=== PATIENT | male | born 1935 | race Caucasian/White ===

== ENCOUNTER 2017-05-10 10:59 | Inpatient (IN) | payer MEDICARE, MEDICAID, OTHER ==
[2017-05-10 11:51] LABS: CHLORIDE,CL 98 mmol/L (98-107); SODIUM,NA 135 mmol/L (136-145)
[2017-05-10] MEDS ORDERED: Albuterol/Ipratropium 3.0-0.5 MG/3 ML Neb Soln NEB ONE (13:44)
[2017-05-10] MEDS ORDERED: Furosemide 40 MG/4 ML VIAL IVPUSH ONE (14:09)
[2017-05-10] MEDS: Sodium Chloride 0.9% 10 ML Syringe FLUSH PRN ×4 (14:43→23:32)
[2017-05-10] MEDS ORDERED: Albuterol/Ipratropium 3.0-0.5 MG/3 ML Neb Soln NEB PRN ×2 (15:00→15:01)
[2017-05-10] MEDS ORDERED: Bisacodyl 10 MG Supp RECTAL PRN (15:01)
--- NOTE | 2017-05-10 15:21 | PCM.HP ---
H&P History of Present Illness - General Date of Service: 05/10/17 Admit Problem/Dx: Admission Diagnosis/Problem Admission Diagnosis/Problem Pneumonia COPD CHF Hypoxia Source of Information: Patient, Alf Records History Limitations: Reports: No Limitations - History of Present Illness Onset of Symptoms: Reports: Gradual Duration of Symptoms: Reports: Day(s): (Four days, but SOB much less overnight) Location: Reports: Chest Severity: Moderate Improves with: Reports: Rest Worsens with: Reports: Movement Context: Reports: Other (Chronic COPD and CHF) Associated Symptoms: Reports: Cough, Malaise, Shortness of Breath, Weakness - Related Data Allergies/Adverse Reactions: Allergies Allergy/AdvReac Type Severity Reaction Status Date / Time cephalexin Allergy Itching,sul Verified 07/10/15 12:15 fa sulfamethoxazole Allergy Hives,itchi Verified 07/10/15 12:15 [From Bactrim] ng trimethoprim [From Bactrim] Allergy Hives,itchi Verified 07/10/15 12:15 ng Home Medications: Home Meds Acetaminophen [Tylenol Arthritis Pain] 650 mg PO Q4HR PRN MDD 3 04/14/15 [ History] Albuterol/Ipratropium [DuoNeb 3.0-0.5 MG/3 ML] 3 ml NEB Q4HR PRN 04/14/15 [ History] Cholecalciferol (Vitamin D3) [Vitamin D3] 800 unit PO QAM 04/14/15 [History] Dabigatran [Pradaxa] 150 mg PO Q12HR 04/14/15 [History] Digoxin [Lanoxin] 125 mcg PO QAM 04/14/15 [History] Docusate Sodium [Colace] 100 mg PO TID@0800,1200,199904/14/15 [History] Folic Acid 1 mg PO QAM 04/14/15 [History] Furosemide [Lasix] 60 mg PO QAM 04/14/15 [History] Magnesium Hydroxide [Milk of Magnesia] 30 ml PO Q2D@199904/14/15 [History] Magnesium Oxide 420 mg PO QAM 04/14/15 [History] Multivitamin [Multivitamins] 1 each PO QAM 04/14/15 [History] Polyethylene Glycol 3350 [MiraLAX] 17 gm PO Q2D@199904/14/15 [History] Pyridostigmine [Mestinon] 60 mg PO Q12HR 04/14/15 [History] Simvastatin [Zocor] 10 mg PO BEDTIME 04/14/15 [History] Tamsulosin [Flomax] 0.4 mg PO BEDTIME 04/14/15 [History] Thiamine Mononitrate [Vitamin B-1] 100 mg PO QAM 04/14/15 [History] Verapamil [Calan SR] 180 mg PO Q12HR 04/14/15 [History] glyBURIDE [Glyburide] 10 mg PO Q12HR 04/14/15 [History] metFORMIN [Glucophage] 1,000 mg PO Q12HR 04/14/15 [History] Acetaminophen [Tylenol Arthritis Pain] 650 mg PO BID@1200,1700 05/09/15 [History ] Bisacodyl [Dulcolax] 10 mg RECTAL DAILY PRN 07/10/15 [History] Colestipol [Colestipol HCl] 1 gm PO Q12HR 07/10/15 [History] Furosemide 20 mg PO DAILY@1200 07/10/15 [History] Calcium Carbonate/Vitamin D3 [Calcium 600 + Vit D Tablet] 1 tab PO Q12HR [History] Doxycycline [Vibramycin] 100 mg PO Q12HR 05/10/17 [History] Gabapentin [Neurontin] 100 mg PO BEDTIME 05/10/17 [History] Hydrocodone/Acetaminophen [Hydrocodon-Acetaminophen 5-325] 1 each PO TID@0800, 1200,2000 05/10/17 [History] predniSONE [Prednisone] 20 mg PO [id number] 05/10/17 [History] Past Medical History HEENT History: Reports: Cataract, Impaired Vision, Other (See Below) Other HEENT History: ocular myasthenia gravis Cardiovascular History: Reports: Afib, Arrhythmia, Heart Failure, High Cholesterol, Hypertension Respiratory History: Reports: COPD, Other (See Below) Other Respiratory History: benign pulmonary nodule Gastrointestinal History: Reports: Chronic Constipation, Colon Polyp, Hiatal Hernia, Other (See Below) Other Gastrointestinal History: dysphagia Genitourinary History: Reports: BPH, Urinary Incontinence Musculoskeletal History: Reports: Arthritis, Back Pain, Chronic, Neck Pain, Chronic, Osteoarthritis Neurological History: Reports: Neuropathy, Diabetic, Other (See Below) Other Neuro History: ocular myasthenia gravis Psychiatric History: Reports: Addiction (chronic narcotic use), Anxiety, Depression. Denies: Psych Hospitalization(s), Suicide Attempt, Suicidal Ideation Endocrine/Metabolic History: Reports: Diabetes, Type II, Vitamin D Deficiency, Other (See Below) Other Endocrine/Metabolic History: hypomagnesemia Hematologic History: Reports: Anemia, B12 Deficiency Immunologic History: Reports: None. Denies: AIDS, HIV, SLE Oncologic (Cancer) History: Reports: None Dermatologic History: Reports: None. Denies: Eczema, Psoriasis - Infectious Disease History Infectious Disease History: Reports: Chicken Pox, Measles, MRSA - Past Surgical History HEENT Surgical History: Reports: Cataract Surgery, Oral Surgery Musculoskeletal Surgical History: Reports: Other (See Below) - Past Imaging History Past Imaging History: Reports: Ultrasound (soft tissue neck on 04/17/15) Social & Family History - Family History HEENT: Reports: None. Denies: Allergic Rhinitis, Glaucoma, Macular Degeneration , Retinal Detachment Cardiac: Reports: Hypertension (mother, daughter). Denies: Aneurysm, Arrhythmia , Blood Clots/VTE/DVT, CAD, Heart Failure, High Cholesterol, Pacemaker GI: Reports: Cholelithiasis (maternal grandmother). Denies: Colon Polyps, GERD , GI bleed, Inflammatory Bowel Disease, PUD : Reports: None. Denies: Dialysis, Renal Calculus, Renal Disease/ Insufficiency OBGYN: Reports: None. Denies: Endometriosis Musculoskeletal: Reports: RA (father). Denies: Gout, SLE Neurological: Reports: Alzheimers Disease, CVA, Dementia, Migraines, Other (See Below) Other Neurological Family History: no family history of myasthenia gravis Psychiatric: Reports: None. Denies: Abuse, Victim of, Anxiety, Depression, Psych Hospitalization(s), Suicide Attempt Endocrine/Metabolic: Reports: Hypothyroidism (maternal grandmother). Denies: Diabetes, Type I, Diabetes, type II, IDDM Hematologic: Reports: Transfusion Reaction Immunologic: Reports: None. Denies: AIDS, HIV, SLE Dermatologic: Reports: None. Denies: Angiodema, Eczema, Psoriasis Oncologic: Reports: None. Denies: Colon, Hodgkin's Lymphoma, Leukemia, Lymphoma , Non-Hodgkin's Lymphoma, Prostate - Tobacco Use Smoking Status *Q: Former Smoker Years of Tobacco use: 32 (between the ages 24 through 80) Packs/Tins Daily: 1.5 (additional subsequent cigar use) Used Tobacco, but Quit: Yes Month Tobacco Last Used: last used in 1989 Second Hand Smoke Exposure: No - Caffeine Use Caffeine Use: Reports: Coffee (3 cups per day), Soda (one soda per day). Denies : Energy Drinks, Tea - Alcohol Use Days Per Week of Alcohol Use: 0 (no previous DWI, alcohol problems, etc) Number of Drinks Per Day: 0 (none [facility] the [facility], previously 2 mixed drinks per night) Total Drinks Per Week: 0 - Recreational Drug Use Recreational Drug Use: No Drug Use in Last 12 Months: No - Living Situation & Occupation Living situation: Reports: , Extended Care Facility Occupation: Retired H&P Review of Systems - Review of Systems: Review Of Systems: See Below General: Reports: Malaise, Weakness, Fatigue HEENT: Reports: No Symptoms Pulmonary: Reports: Shortness of Breath, Pleuritic Chest Pain, Cough Cardiovascular: Reports: No Symptoms Gastrointestinal: Reports: No Symptoms Genitourinary: Reports: No Symptoms Musculoskeletal: Reports: No Symptoms Skin: Reports: No Symptoms Psychiatric: Reports: No Symptoms Neurological: Reports: No Symptoms Exam - Exam Exam: See Below - Exam Quality Assessment: Supplemental Oxygen (applied this morning at [facility] for O2 sat 81% RA) General: Alert, Oriented, Mild Distress HEENT: Hearing Intact, Posterior Pharynx Clear Neck: Supple, Trachea Midline Lungs: Decreased Breath Sounds, Crackles (bibasilar) Cardiovascular: Irregular Rhythm GI/Abdominal Exam: Normal Bowel Sounds, Soft, Non-Tender, No Organomegaly (Male) Exam: Deferred Rectal (Males) Exam: Deferred Back Exam: Normal Inspection Extremities: Pedal Edema (2+) Skin: Warm, Dry, Intact Neuro Extensive - Mental Status: Alert, Oriented x3 Psychiatric: Alert, Normal Affect, Normal Mood - Patient Data Lab Results Last 24 hrs: Laboratory Results - last 24 hr 05/10/17 05/10/17 05/10/17 Range/Units 11:00 11:14 11:14 WBC 8.3 (4.0-10.2) K/uL RBC 3.93 L (4.33-5.41) M/uL Hgb 9.4 L D (13.1-16.8) g/dL Hct 32.1 L (39.0-49.0) % MCV 81.7 L D (84.0-98.0) fL MCH 23.9 L (28.2-33.3) pg MCHC 29.3 L (31.7-36.0) g/dL RDW 17.1 H (11.2-14.1) % Plt Count 264 (150-350) K/uL Neut % (Auto) 87.4 H (45.0-80.0) % Lymph % (Auto) 6.1 L (10.0-50.0) % Morrill % (Auto) 6.1 (2.0-14.0) % Eos % (Auto) 0.0 (0.0-5.0) % Baso % (Auto) 0.4 (0.0-2.0) % Neut # (Auto) 7.26 H (1.40-7.00) K/uL Lymph # (Auto) 0.51 (0.50-3.50) K/uL Morrill # (Auto) 0.51 (0.00-1.00) K/uL Eos # (Auto) 0.00 (0.00-0.50) K/uL Baso # (Auto) 0.03 (0.00-0.20) K/uL D-Dimer, Quantitative 159 (0-400) ng/mL Sodium 135 L (136-145) mmol/L Potassium 5.1 (3.5-5.1) mmol/L Chloride 98 (98-107) mmol/L Carbon Dioxide 31.1 (21.0-32.0) mmol/L BUN 21 H (7-18) mg/dL Creatinine 0.89 (0.51-1.17) mg/dL Est Cr Clr Drug Dosing TNP Estimated GFR (MDRD) > 60 mL/min Glucose 370 H* (74-106) mg/dL Calcium 8.7 (8.5-10.1) mg/dL Total Bilirubin 0.4 (0.2-1.0) mg/dL AST 40 H (15-37) U/L ALT 39 (12-78) U/L Alkaline Phosphatase 109 (46-116) IU/L Troponin I 0.037 (0.000-0.056) ng/mL C-Reactive Protein 3.8 H (<=0.9) mg/dL NT-Pro-B Natriuret Pep 2056 H (0-125) pg/mL Total Protein 8.3 H (6.4-8.2) g/dL Albumin 3.4 (3.4-5.0) g/dL Result Diagrams: 05/10/17 11:14 05/10/17 11:14 *Q Meaningful Use (ADM) - VTE *Q VTE Criteria *Q: - Stroke *Q Stroke Criteria *Q: - AMI *Q AMI Criteria *Q: - Problem List (1) Pneumonia SNOMED Code(s): 264609719 ICD Code: J18.9 - PNEUMONIA, UNSPECIFIED ORGANISM Status: Acute Priority : High Current Visit: Yes Qualifiers: Laterality: bilateral Lung location: unspecified part of lung (2) CHF (congestive heart failure) SNOMED Code(s): 15328579 ICD Code: I50.9 - HEART FAILURE, UNSPECIFIED Status: Acute Priority: High Current Visit: Yes Qualifiers: Heart failure type: unspecified Heart failure chronicity: acute on chronic Qualified Code(s): I50.9 - Heart failure, unspecified (3) Hypoxia SNOMED Code(s): 005586963 ICD Code: R09.02 - HYPOXEMIA Status: Acute Priority: High Current Visit : Yes Problem List Initiated/Reviewed/Updated: Yes Orders Last 24hrs: Active Orders 24 hr Category Date Time Status Patient Status [ADT] Routine ADT 05/10/17 13:44 Active Glucose [Blood Glucose Check, Bedside] [RC] TIDMEALS Care 05/10/17 14:36 Active Height and Weight [RC] DAILY Care 05/10/17 13:44 Active Intake and Output [RC] QSHIFT Care 05/10/17 13:45 Active Oxygen Therapy [RC] PRN Care 05/10/17 13:44 Active RT Aerosol Therapy [RC] ASDIRECTED Care 05/10/17 13:46 Active RT Aerosol Therapy [RC] ASDIRECTED Care 05/10/17 14:30 Active RT Aerosol Therapy [RC] ASDIRECTED Care 05/10/17 15:01 Active Up With Assistance [RC] ASDIRECTED Care 05/10/17 13:44 Active VTE/DVT Education [RC] PER UNIT ROUTINE Care 05/10/17 13:44 Active Vital Signs [RC] Q4H Care 05/10/17 13:44 Active Care Management Consult [Consult to Case Management] [ Cons 05/10/17 14:10 Active CONS] Routine [place] [employer] Diet [DIET] Diet 05/10/17 Dinner Active Chest 2V [CR] Routine Exams 05/10/17 11:05 Taken C-REACTIVE PROTEIN [CHEM] AM Lab 05/11/17 05:11 Ordered C-REACTIVE PROTEIN [CHEM] AM Lab 05/12/17 05:11 Ordered C-REACTIVE PROTEIN [CHEM] AM Lab 05/13/17 05:11 Ordered C-REACTIVE PROTEIN [CHEM] AM Lab 05/14/17 05:11 Ordered CBC WITH AUTO DIFF [HEME] AM Lab 05/11/17 05:11 Ordered CBC WITH AUTO DIFF [HEME] AM Lab 05/12/17 05:11 Ordered CBC WITH AUTO DIFF [HEME] AM Lab 05/13/17 05:11 Ordered CBC WITH AUTO DIFF [HEME] AM Lab 05/14/17 05:11 Ordered COMPREHENSIVE METABOLIC PN,CMP [CHEM] AM Lab 05/11/17 05:11 Ordered COMPREHENSIVE METABOLIC PN,CMP [CHEM] AM Lab 05/12/17 05:11 Ordered COMPREHENSIVE METABOLIC PN,CMP [CHEM] AM Lab 05/13/17 05:11 Ordered COMPREHENSIVE METABOLIC PN,CMP [CHEM] AM Lab 05/14/17 05:11 Ordered CULTURE BLOOD [BC] Stat Lab 05/10/17 14:25 Received CULTURE BLOOD [BC] Stat Lab 05/10/17 14:30 Received PRO B-TYPE NATRIUR PEPT,BNPPRO [CHEM] DAILY Lab 05/11/17 14:00 Ordered PRO B-TYPE NATRIUR PEPT,BNPPRO [CHEM] DAILY Lab 05/12/17 14:00 Ordered PRO B-TYPE NATRIUR PEPT,BNPPRO [CHEM] DAILY Lab 05/13/17 14:00 Ordered PRO B-TYPE NATRIUR PEPT,BNPPRO [CHEM] DAILY Lab 05/14/17 14:00 Ordered Acetaminophen [Tylenol Arthritis Pain] Med 05/10/17 17:00 Ordered 650 mg PO BID@1200,1700 Acetaminophen/HYDROcodone [Grace 325-5 MG] Med 05/10/17 20:00 Ordered 1 each PO TID@0800,1200,2000 Albuterol/Ipratropium [DuoNeb 3.0-0.5 MG/3 ML] Med 05/10/17 16:00 Active 3 ml NEB QID Bisacodyl [Dulcolax] Med 05/10/17 15:01 Ordered 10 mg RECTAL DAILY PRN Colestipol [Colestipol HCl] Med 05/10/17 20:00 Ordered 1 gm PO Q12HR Dabigatran Med 05/10/17 20:00 Ordered 150 mg PO Q12HR Digoxin [Lanoxin] Med 05/11/17 08:00 Ordered 125 mcg PO QAM Docusate Sodium [Colace] Med 05/10/17 20:00 Ordered 100 mg PO TID@0800,1200,2000 Furosemide [Lasix] Med 05/11/17 08:00 Active 40 mg IVPUSH BIDDIURETIC Gabapentin [Neurontin] Med 05/10/17 20:00 Ordered 100 mg PO BEDTIME Hydrocortisone Sod Succinate [Solu-CORTEF] Med 05/10/17 20:00 Ordered 20 mg IVPUSH Q12H Magnesium Hydroxide [Milk of Magnesia] Med 05/10/17 20:00 Ordered 30 ml PO Q2D@1999 Magnesium Oxide [Magnesium Oxide] Med 05/11/17 08:00 Ordered 420 mg PO QAM Polyethylene Glycol 3350 [MiraLAX] Med 05/10/17 20:00 Ordered 17 gm PO Q2D@1999 Pyridostigmine Med 05/10/17 20:00 Ordered 60 mg PO Q12HR Simvastatin [Zocor] Med 05/10/17 20:00 Ordered 10 mg PO BEDTIME Sodium Chloride 0.9% [Saline Flush] Med 05/10/17 13:44 Active 10 ml FLUSH ASDIRECTED PRN Tamsulosin [Flomax] Med 05/10/17 20:00 Ordered 0.4 mg PO BEDTIME Verapamil [Calan SR] Med 05/10/17 20:00 Ordered 180 mg PO Q12HR glyBURIDE [Micronase] Med 05/10/17 20:00 Ordered 10 mg PO Q12HR metFORMIN [Glucophage] Med 05/10/17 20:00 Ordered 1,000 mg PO Q12HR Blood Culture x2 Reflex Set [OM.PC] Stat Oth 05/10/17 13:44 Ordered Saline Lock Insert [OM.PC] Routine Oth 05/10/17 13:44 Ordered Resuscitation Status Routine Resus Stat 05/10/17 13:44 Ordered Medication Orders Acetaminophen (Tylenol Arthritis Pain) 650 mg PO BID@1200,1700 [facility] Hydrocodone Bitart/Acetaminophen (Grace 325-5 Mg) 1 tab PO TID@0800,1200,2000 [facility] Albuterol/Ipratropium (Duoneb 3.0-0.5 Mg/3 Ml) 3 ml NEB QID RUDY Bisacodyl (Dulcolax) 10 mg RECTAL DAILY PRN PRN Reason: Constipation Digoxin (Lanoxin) 125 mcg PO QAM RUDY Docusate Sodium (Colace) 100 mg PO TID@0800,1200,2000 [facility] Furosemide (Lasix) 40 mg IVPUSH BIDDIURETIC RUDY Gabapentin (Neurontin) 100 mg PO BEDTIME RUDY Glyburide (Micronase) 10 mg PO Q12HR [facility] Hydrocortisone Sodium Succinate (Solu-Cortef) 20 mg IVPUSH Q12H [facility] Magnesium Hydroxide (Milk Of Magnesia) 30 ml PO Q2D@2000 [facility] Non-Formulary Medication (Colestipol [Colestipol Hcl]) 1 gm PO Q12HR [facility] Non-Formulary Medication (Dabigatran) 150 mg PO Q12HR [facility] Non-Formulary Medication (Magnesium Oxide [Magnesium Oxide]) 420 mg PO QAM [facility] Non-Formulary Medication (Metformin [Glucophage]) 1,000 mg PO Q12HR [facility] Non-Formulary Medication (Pyridostigmine) 60 mg PO Q12HR [facility] Polyethylene Glycol (Miralax) 17 gm PO Q2D@2000 [facility] Simvastatin (Zocor) 10 mg PO BEDTIME [facility] Sodium Chloride (Saline Flush) 10 ml FLUSH ASDIRECTED PRN PRN Reason: Keep Vein Open Last Admin: 05/10/17 14:43 Dose: 10 ml Tamsulosin HCl (Flomax) 0.4 mg PO BEDTIME [facility] Verapamil HCl (Calan Sr) 180 mg PO Q12HR [facility] Assessment/Plan Comment:: 05-10-17 Shelly Morales PA-C Admitting to from the [facility] after OP therapy failure for exacerbation of COPD and CHF, now with additional pneumonia. He had presented to the nurses' station at the [facility] this morning c/o SOB and was found with O2 sat of 81-83% on RA, oxygen was applied and sat did come up to 92%. On eval at [facility] resp's were audibly moist and pt. appeared to be using accessory muscles. Did contact [facility] and there is no bed availability. [facility] will discuss possible transfer with Jeanne tomorrow. Dr. Diaz was consulted at the time of admit. IV Lasix and Solu-Medrol, and antibiotics. This elderly gentleman with multiple chronic co-morbidities will require at least 96 hours of IP treatment.
[2017-05-10] MEDS: Acetaminophen 650 MG Tab.ER PO SCH (16:30)
[2017-05-10] MEDS: Albuterol/Ipratropium 3.0-0.5 MG/3 ML Neb Soln NEB SCH ×2 (16:30→20:05)
[2017-05-10] MEDS: Azithromycin 500 MG in Sodium Chloride 0.9% 250 ML IV SCH (16:30)
[2017-05-10] MEDS: cefTAZidime 1 GM Vial IVPUSH SCH ×2 (16:30→23:32)
[2017-05-10] MEDS: Acetaminophen/HYDROcodone 325-5 MG Tab PO SCH (20:01)
[2017-05-10] MEDS: metFORMIN 500 MG Tab PO SCH (20:02)
[2017-05-10] MEDS: glyBURIDE 5 MG Tab PO SCH (20:03)
[2017-05-10] MEDS: Gabapentin 100 MG Cap PO SCH (20:03)
[2017-05-10] MEDS: Tamsulosin 0.4 MG Cap.ER PO SCH (20:04)
[2017-05-10] MEDS: Verapamil 180 MG Tab.ER PO SCH (20:04)
[2017-05-10] MEDS: Docusate Sodium 100 MG Cap PO SCH (20:04)
[2017-05-10] MEDS: Simvastatin 10 MG Tab PO SCH (20:04)
[2017-05-10] MEDS: Hydrocortisone Sodium Succinate 100 MG/2 ML SDV IVPUSH SCH (20:05)
[2017-05-10] MEDS: COLESTIPOL 1 GM PO SCH (20:08)
[2017-05-10] MEDS: PRADAXA 150 MG PO SCH (20:09)
[2017-05-10] MEDS: PYRIDOSTIGMINE 60 MG PO SCH (20:10)
[2017-05-10] MEDS: Magnesium Hydroxide 400 MG/5 ML Susp 30 ML Cup PO SCH (20:16)
[2017-05-11 07:59] LABS: CHLORIDE,CL 100 mmol/L (98-107); SODIUM,NA 139 mmol/L (136-145)
[2017-05-11] MEDS: Sodium Chloride 0.9% 10 ML Syringe FLUSH PRN ×5 (08:44→20:39)
[2017-05-11] MEDS: Albuterol/Ipratropium 3.0-0.5 MG/3 ML Neb Soln NEB SCH ×4 (08:44→20:35)
[2017-05-11] MEDS: Hydrocortisone Sodium Succinate 100 MG/2 ML SDV IVPUSH SCH ×2 (08:45→20:33)
[2017-05-11] MEDS: cefTAZidime 1 GM Vial IVPUSH SCH ×2 (08:46→20:33)
[2017-05-11] MEDS: PRADAXA 150 MG PO SCH ×2 (08:48→20:38)
[2017-05-11] MEDS: PYRIDOSTIGMINE 60 MG PO SCH ×2 (08:48→20:36)
[2017-05-11] MEDS: COLESTIPOL 1 GM PO SCH ×2 (08:49→20:36)
[2017-05-11] MEDS: metFORMIN 500 MG Tab PO SCH ×2 (08:50→20:35)
[2017-05-11] MEDS: Digoxin 125 MCG Tab PO SCH (08:50)
[2017-05-11] MEDS: glyBURIDE 5 MG Tab PO SCH ×2 (08:50→20:35)
[2017-05-11] MEDS: Acetaminophen/HYDROcodone 325-5 MG Tab PO SCH ×3 (08:51→20:35)
[2017-05-11] MEDS: Magnesium Oxide 400 MG Tab PO SCH (08:51)
[2017-05-11] MEDS: Furosemide 40 MG/4 ML VIAL IVPUSH SCH ×2 (08:52→11:52)
[2017-05-11] MEDS: Docusate Sodium 100 MG Cap PO SCH ×4 (08:52→20:36)
[2017-05-11] MEDS: Verapamil 180 MG Tab.ER PO SCH ×2 (08:52→20:35)
[2017-05-11] MEDS: Acetaminophen 650 MG Tab.ER PO SCH ×2 (11:51→16:38)
[2017-05-11] MEDS: Azithromycin 500 MG in Sodium Chloride 0.9% 250 ML IV SCH (16:34)
--- NOTE | 2017-05-11 18:03 | PCM.PN ---
- General Info Date of Service: 05/11/17 Admission Dx/Problem (Free Text): Admission Diagnosis/Problem Admission Diagnosis/Problem Pneumonia COPD CHF Hypoxia Functional Status: Reports: Tolerating Diet - Review of Systems General: Reports: Weakness HEENT: Reports: No Symptoms Pulmonary: Reports: Shortness of Breath, Cough, Wheezing Cardiovascular: Reports: No Symptoms Gastrointestinal: Reports: No Symptoms Genitourinary: Reports: No Symptoms Musculoskeletal: Reports: No Symptoms Skin: Reports: No Symptoms Neurological: Reports: No Symptoms Psychiatric: Reports: No Symptoms - Patient Data Vitals - Most Recent: Last Vital Signs Temp 98.2 F 05/11/17 16:00 Pulse 82 05/11/17 16:00 Resp 16 05/11/17 16:00 BP 106/48 L 05/11/17 16:00 Pulse Ox 93 L 05/11/17 16:00 Weight - Most Recent: 261 lb 15.993 oz I&O - Last 24 Hours: Intake & Output 05/11/17 05/11/17 05/11/17 06:59 14:59 22:59 Intake Total 100 140 Output Total 400 725 Balance -300 -585 Lab Results Last 24 Hours: Laboratory Results - last 24 hr 05/11/17 05/11/17 05/11/17 Range/Units 07:13 07:13 07:13 WBC 8.4 (4.0-10.2) K/uL RBC 3.51 L (4.33-5.41) M/uL Hgb 8.4 L (13.1-16.8) g/dL Hct 28.8 L (39.0-49.0) % MCV 82.1 L (84.0-98.0) fL MCH 23.9 L (28.2-33.3) pg MCHC 29.2 L (31.7-36.0) g/dL RDW 17.1 H (11.2-14.1) % Plt Count 233 (150-350) K/uL Neut % (Auto) 72.6 (45.0-80.0) % Lymph % (Auto) 13.8 (10.0-50.0) % [place] % (Auto) 13.0 (2.0-14.0) % Eos % (Auto) 0.2 (0.0-5.0) % Baso % (Auto) 0.4 (0.0-2.0) % Neut # (Auto) 6.07 (1.40-7.00) K/uL Lymph # (Auto) 1.15 (0.50-3.50) K/uL [place] # (Auto) 1.09 H (0.00-1.00) K/uL Eos # (Auto) 0.02 (0.00-0.50) K/uL Baso # (Auto) 0.03 (0.00-0.20) K/uL Sodium 139 (136-145) mmol/L Potassium 4.6 (3.5-5.1) mmol/L Chloride 100 (98-107) mmol/L Carbon Dioxide 33.1 H (21.0-32.0) mmol/L BUN 19 H (7-18) mg/dL Creatinine 0.84 (0.51-1.17) mg/dL Est Cr Clr Drug Dosing 73.98 mL/min Estimated GFR (MDRD) > 60 mL/min Glucose 181 H (74-106) mg/dL POC Glucose (65-110) mg/dl Lactic Acid (0.4-2.0) mmol/L Calcium 8.5 (8.5-10.1) mg/dL Total Bilirubin 0.3 (0.2-1.0) mg/dL AST 30 (15-37) U/L ALT 30 (12-78) U/L Alkaline Phosphatase 84 (46-116) IU/L C-Reactive Protein 4.5 H (<=0.9) mg/dL NT-Pro-B Natriuret Pep 2509 H (0-125) pg/mL Total Protein 7.1 (6.4-8.2) g/dL Albumin 2.7 L (3.4-5.0) g/dL Digoxin 0.62 L (0.90-2.00) ng/mL 05/11/17 05/11/17 05/11/17 Range/Units 07:13 08:42 11:54 WBC (4.0-10.2) K/uL RBC (4.33-5.41) M/uL Hgb (13.1-16.8) g/dL Hct (39.0-49.0) % MCV (84.0-98.0) fL MCH (28.2-33.3) pg MCHC (31.7-36.0) g/dL RDW (11.2-14.1) % Plt Count (150-350) K/uL Neut % (Auto) (45.0-80.0) % Lymph % (Auto) (10.0-50.0) % [place] % (Auto) (2.0-14.0) % Eos % (Auto) (0.0-5.0) % Baso % (Auto) (0.0-2.0) % Neut # (Auto) (1.40-7.00) K/uL Lymph # (Auto) (0.50-3.50) K/uL [place] # (Auto) (0.00-1.00) K/uL Eos # (Auto) (0.00-0.50) K/uL Baso # (Auto) (0.00-0.20) K/uL Sodium (136-145) mmol/L Potassium (3.5-5.1) mmol/L Chloride (98-107) mmol/L Carbon Dioxide (21.0-32.0) mmol/L BUN (7-18) mg/dL Creatinine (0.51-1.17) mg/dL Est Cr Clr Drug Dosing mL/min Estimated GFR (MDRD) mL/min Glucose (74-106) mg/dL POC Glucose 212 H 253 H* (65-110) mg/dl Lactic Acid 1.1 (0.4-2.0) mmol/L Calcium (8.5-10.1) mg/dL Total Bilirubin (0.2-1.0) mg/dL AST (15-37) U/L ALT (12-78) U/L Alkaline Phosphatase (46-116) IU/L C-Reactive Protein (<=0.9) mg/dL NT-Pro-B Natriuret Pep (0-125) pg/mL Total Protein (6.4-8.2) g/dL Albumin (3.4-5.0) g/dL Digoxin (0.90-2.00) ng/mL Meño Results Last 24 Hours: Microbiology 05/10/17 14:30 Aerobic Blood Culture - Preliminary Blood - Venous - Lab Draw NO GROWTH AFTER 1 DAY Anaerobic Blood Culture - Preliminary NO GROWTH AFTER 1 DAY 05/10/17 14:25 Aerobic Blood Culture - Preliminary Blood - Venous NO GROWTH AFTER 1 DAY Anaerobic Blood Culture - Preliminary NO GROWTH AFTER 1 DAY Med Orders - Current: Current Medications Acetaminophen (Tylenol Arthritis Pain) 650 mg PO BID@1200,1700 [facility] Last Admin: 05/11/17 16:38 Dose: 650 mg Hydrocodone Bitart/Acetaminophen (Burt 325-5 Mg) 1 tab PO TID@0800,1199,1999 [facility] Last Admin: 05/11/17 11:51 Dose: 1 tab Albuterol/Ipratropium (Duoneb 3.0-0.5 Mg/3 Ml) 3 ml NEB QID [facility] Last Admin: 05/11/17 16:36 Dose: 3 ml Bisacodyl (Dulcolax) 10 mg RECTAL DAILY PRN PRN Reason: Constipation Ceftazidime (Fortaz) 1 gm IVPUSH Q12HR [facility] Digoxin (Lanoxin) 125 mcg PO QAM [facility] Last Admin: 05/11/17 08:50 Dose: 125 mcg Docusate Sodium (Colace) 100 mg PO TID@0800,1199,1999 [facility] Last Admin: 05/11/17 12:05 Dose: 100 mg Furosemide (Lasix) 40 mg IVPUSH BIDDIURETIC [facility] Last Admin: 05/11/17 11:52 Dose: 40 mg Gabapentin (Neurontin) 100 mg PO BEDTIME [facility] Last Admin: 05/10/17 20:03 Dose: 100 mg Glyburide (Micronase) 10 mg PO Q12HR [facility] Last Admin: 05/11/17 08:50 Dose: 10 mg Hydrocortisone Sodium Succinate (Solu-Cortef) 20 mg IVPUSH Q12H [facility] Last Admin: 05/11/17 08:45 Dose: 20 mg Azithromycin 500 mg/ Sodium (Chloride) 250 mls @ 250 mls/hr IV Q24H [facility] Last Admin: 05/11/17 16:34 Dose: 250 mls/hr Magnesium Hydroxide (Milk Of Magnesia) 30 ml PO Q2D@1999 [facility] Last Admin: 05/10/17 20:16 Dose: 30 ml Magnesium Oxide (Magnesium Oxide) 400 mg PO QAM [facility] Last Admin: 05/11/17 08:51 Dose: 400 mg Metformin HCl (Glucophage) 1,000 mg PO Q12HR [facility] Last Admin: 05/11/17 08:50 Dose: 1,000 mg Colestipol [Colestid (] 1 Gm) 1 gm PO Q12HR [facility] Last Admin: 05/11/17 08:49 Dose: 1 gm Pradaxa (Dabigatran) (150 Mg Capsules) 150 mg PO Q12HR [facility] Last Admin: 05/11/17 08:48 Dose: 150 mg Pyridostigmine 60 Mg (Tablets (Mestinon)) 60 mg PO Q12HR [facility] Last Admin: 05/11/17 08:48 Dose: 60 mg Polyethylene Glycol (Miralax) 17 gm PO Q2D@1999 [facility] Simvastatin (Zocor) 10 mg PO BEDTIME [facility] Last Admin: 05/10/17 20:04 Dose: 10 mg Sodium Chloride (Saline Flush) 10 ml FLUSH ASDIRECTED PRN PRN Reason: Keep Vein Open Last Admin: 05/11/17 16:36 Dose: 10 ml Tamsulosin HCl (Flomax) 0.4 mg PO BEDTIME [facility] Last Admin: 05/10/17 20:04 Dose: 0.4 mg Verapamil HCl (Calan Sr) 180 mg PO Q12HR [facility] Last Admin: 05/11/17 08:52 Dose: 180 mg Discontinued Medications Albuterol/Ipratropium (Duoneb 3.0-0.5 Mg/3 Ml) 3 ml NEB ONETIME ONE Stop: 05/10/17 13:45 Last Admin: 05/10/17 14:11 Dose: 3 ml Albuterol/Ipratropium (Duoneb 3.0-0.5 Mg/3 Ml) 3 ml NEB Q4H PRN PRN Reason: Dyspnea Ceftazidime (Fortaz) 1 gm IVPUSH Q8HR [facility] Last Admin: 05/11/17 08:46 Dose: 1 gm Furosemide (Lasix) 40 mg IVPUSH NOW ONE Stop: 05/10/17 14:10 Last Admin: 05/10/17 14:42 Dose: 40 mg - Exam Quality Assessment: Supplemental Oxygen General: Alert, Cooperative HEENT: Mucous Membr. Moist/[place] Neck: Trachea Midline, No JVD Lungs: Normal Respiratory Effort, Decreased Breath Sounds, Rhonchi, Wheezing Cardiovascular: Regular Rate, Regular Rhythm GI/Abdominal Exam: Soft, Non-Tender, No Distention (Male) Exam: Deferred Back Exam: Normal Inspection Extremities: Normal Inspection, Non-Tender Skin: Warm, Dry, Intact Neurological: No New Focal Deficit Psy/Mental Status: Alert, Normal Affect, Normal Mood - Problem List & Annotations (1) CHF (congestive heart failure) SNOMED Code(s): 52939208 Code(s): I50.9 - HEART FAILURE, UNSPECIFIED Status: Acute Priority: High Current Visit: Yes Qualifiers: Heart failure type: unspecified Heart failure chronicity: acute on chronic Qualified Code(s): I50.9 - Heart failure, unspecified (2) Hypoxia SNOMED Code(s): 342916472 Code(s): R09.02 - HYPOXEMIA Status: Acute Priority: High Current Visit : Yes (3) Pneumonia SNOMED Code(s): 955692001 Code(s): J18.9 - PNEUMONIA, UNSPECIFIED ORGANISM Status: Acute Priority: High Current Visit: Yes Qualifiers: Laterality: bilateral Lung location: unspecified part of lung (4) Atrial fibrillation SNOMED Code(s): 33830951 Code(s): I48.91 - UNSPECIFIED ATRIAL FIBRILLATION Status: Chronic Priority: Medium Current Visit: No Qualifiers: Atrial fibrillation type: chronic Qualified Code(s): I48.2 - Chronic atrial fibrillation Annotation/Comment:: No chest pain or anginal-type symptoms. Stable heart rhythm in the emergency room (5) COPD (chronic obstructive pulmonary disease) SNOMED Code(s): 93554363 Code(s): J44.9 - CHRONIC OBSTRUCTIVE PULMONARY DISEASE, UNSPECIFIED Status : Chronic Priority: Medium Current Visit: No Qualifiers: COPD type: unspecified COPD Qualified Code(s): J44.9 - Chronic obstructive pulmonary disease, unspecified Annotation/Comment:: No recent cough, bronchitic-type symptoms, etc. (6) Caries SNOMED Code(s): 76794897 Code(s): K02.9 - DENTAL CARIES, UNSPECIFIED Status: Chronic Priority: High Current Visit: No Onset Date: 07/10/15 Annotation/Comment:: CT scan results as above. 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 His regular provider will be updated as per discharge instructions. Hyperglycemia likely elated to his poor dental hygiene and also current infection with referral to oral surgeon recommended (8) Hyperlipidemia SNOMED Code(s): 42232995 Code(s): E78.5 - HYPERLIPIDEMIA, UNSPECIFIED Status: Chronic Priority: Medium Current Visit: No Qualifiers: Hyperlipidemia type: Mixed hyperlipidemia Qualified Code(s): E78.2 - Mixed hyperlipidemia Annotation/Comment:: under medical therapy (9) Hypertension SNOMED Code(s): 44240636 Code(s): I10 - ESSENTIAL (PRIMARY) HYPERTENSION Status: Chronic Priority : Medium Current Visit: No Qualifiers: Hypertension type: essential hypertension Qualified Code(s): I10 - Essential (primary) hypertension Annotation/Comment:: blood pressure stable in the emergency room (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 SNOMED Code(s): 181655673 Code(s): 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, NEC Status: Chronic Priority: Medium Current Visit: No Annotation/Comment:: consider high-protein Glucerna supplements (11) Hypomagnesemia SNOMED Code(s): 514141875 Code(s): E83.42 - HYPOMAGNESEMIA Status: Chronic Priority: Medium Current Visit: No Annotation/Comment:: magnesium level normal today (12) Hyponatremia SNOMED Code(s): 84362011 Code(s): E87.1 - HYPO-OSMOLALITY AND HYPONATREMIA Status: Chronic Priority: Medium Current Visit: No Annotation/Comment:: observe for now with history of CHF, however no recent chest pain or anginal complaints (13) Myasthenia gravis SNOMED Code(s): 75933373 Code(s): G70.00 - MYASTHENIA GRAVIS WITHOUT (ACUTE) EXACERBATION Status: Chronic Priority: Medium Current Visit: No Annotation/Comment:: stable by history (14) Osteoarthritis SNOMED Code(s): 468273733 Code(s): M19.90 - UNSPECIFIED OSTEOARTHRITIS, UNSPECIFIED SITE Status: Chronic Priority: Medium Current Visit: No Qualifiers: Osteoarthritis location: multiple joints Osteoarthritis type: primary Qualified Code(s): M15.0 - Primary generalized (osteo)arthritis Annotation/Comment:: stable by history - Problem List Review Problem List Initiated/Reviewed/Updated: Yes - My Orders Last 24 Hours: My Active Orders 05/11/17 20:00 cefTAZidime [Fortaz] 1 gm IVPUSH Q12HR - Plan Plan:: 05-10-17 Shelly Morales PA-C Admitting to IP from the [facility] after OP therapy failure for exacerbation of COPD and CHF, now with additional pneumonia. He had presented to the nurses' station at the [facility] this morning c/o SOB and was found with O2 sat of 81-83% on RA, oxygen was applied and sat did come up to 92%. [place] [facility] [place] were audibly moist and pt. appeared to be using accessory muscles. Did contact [facility] and there is no bed availability. [facility] will discuss possible transfer with Jeanne tomorrow. Dr. Diaz was consulted at the time of admit. IV Lasix and Solu-Medrol, and antibiotics. This elderly gentleman with multiple chronic co-morbidities will require at least 96 hours of IP treatment. 05/11/17 Joe Curran MD Still with cough and wheezing. Jeanne Hays did contact [facility]. No beds available for transfer today. Continue inpatient status and therapy. Serious due to co-morbidity of myasthenius gravis.
[2017-05-11] MEDS: Tamsulosin 0.4 MG Cap.ER PO SCH (20:35)
[2017-05-11] MEDS: Simvastatin 10 MG Tab PO SCH (20:35)
[2017-05-11] MEDS: Gabapentin 100 MG Cap PO SCH (20:35)
[2017-05-11] MEDS: Polyethylene Glycol 3350 Powder 17 GM Packet PO SCH (20:35)
[2017-05-12 07:10] LABS: CHLORIDE,CL 98 mmol/L (98-107); SODIUM,NA 139 mmol/L (136-145)
[2017-05-12] MEDS: Albuterol/Ipratropium 3.0-0.5 MG/3 ML Neb Soln NEB SCH ×4 (07:52→20:38)
[2017-05-12] MEDS: Acetaminophen/HYDROcodone 325-5 MG Tab PO SCH ×3 (07:53→20:35)
[2017-05-12] MEDS: cefTAZidime 1 GM Vial IVPUSH SCH ×2 (07:53→20:56)
[2017-05-12] MEDS: Verapamil 180 MG Tab.ER PO SCH ×2 (07:54→20:34)
[2017-05-12] MEDS: Docusate Sodium 100 MG Cap PO SCH ×3 (07:55→21:21)
[2017-05-12] MEDS: COLESTIPOL 1 GM PO SCH ×2 (07:55→20:38)
[2017-05-12] MEDS: PRADAXA 150 MG PO SCH ×2 (07:56→20:37)
[2017-05-12] MEDS: Digoxin 125 MCG Tab PO SCH (07:57)
[2017-05-12] MEDS: glyBURIDE 5 MG Tab PO SCH ×2 (07:57→20:36)
[2017-05-12] MEDS: Magnesium Oxide 400 MG Tab PO SCH (07:57)
[2017-05-12] MEDS: Hydrocortisone Sodium Succinate 100 MG/2 ML SDV IVPUSH SCH ×2 (07:58→20:48)
[2017-05-12] MEDS: PYRIDOSTIGMINE 60 MG PO SCH ×2 (07:58→20:37)
[2017-05-12] MEDS: metFORMIN 500 MG Tab PO SCH ×2 (08:05→20:35)
[2017-05-12] MEDS: Furosemide 40 MG/4 ML VIAL IVPUSH SCH ×2 (08:06→12:19)
[2017-05-12] MEDS: Sodium Chloride 0.9% 10 ML Syringe FLUSH PRN ×4 (08:17→21:04)
[2017-05-12] MEDS: Acetaminophen 650 MG Tab.ER PO SCH ×2 (12:17→16:01)
[2017-05-12] MEDS ORDERED: Albuterol/Ipratropium 3.0-0.5 MG/3 ML Neb Soln NEB PRN (15:30)
[2017-05-12] MEDS: Azithromycin 500 MG in Sodium Chloride 0.9% 250 ML IV SCH (16:01)
--- NOTE | 2017-05-12 16:39 | PCM.PN ---
- General Info Date of Service: 05/12/17 Admission Dx/Problem (Free Text): Admission Diagnosis/Problem Admission Diagnosis/Problem Pneumonia COPD CHF Hypoxia Functional Status: Reports: Pain Controlled - Review of Systems General: Reports: No Symptoms HEENT: Reports: No Symptoms Pulmonary: Reports: Wheezing (improving) Cardiovascular: Reports: No Symptoms Gastrointestinal: Reports: No Symptoms Genitourinary: Reports: No Symptoms Musculoskeletal: Reports: No Symptoms Skin: Reports: No Symptoms Neurological: Reports: No Symptoms Psychiatric: Reports: No Symptoms - Patient Data Vitals - Most Recent: Last Vital Signs Temp 97.9 F 05/12/17 16:00 Pulse 98 05/12/17 16:00 Resp 16 05/12/17 16:00 BP 127/68 05/12/17 16:00 Pulse Ox 94 L 05/12/17 16:00 Weight - Most Recent: 261 lb 15.993 oz I&O - Last 24 Hours: Intake & Output 05/12/17 05/12/17 05/12/17 06:59 14:59 22:59 Intake Total 150 360 Output Total 1525 Balance 150 -1165 Lab Results Last 24 Hours: Laboratory Results - last 24 hr 05/11/17 05/12/17 05/12/17 Range/Units 17:05 06:20 06:30 WBC 8.6 (4.0-10.2) K/uL RBC 3.71 L (4.33-5.41) M/uL Hgb 8.8 L (13.1-16.8) g/dL Hct 30.6 L (39.0-49.0) % MCV 82.5 L (84.0-98.0) fL MCH 23.7 L (28.2-33.3) pg MCHC 28.8 L (31.7-36.0) g/dL RDW 17.5 H (11.2-14.1) % Plt Count 243 (150-350) K/uL Neut % (Auto) 74.7 (45.0-80.0) % Lymph % (Auto) 13.3 (10.0-50.0) % Motley % (Auto) 11.7 (2.0-14.0) % Eos % (Auto) 0.1 (0.0-5.0) % Baso % (Auto) 0.2 (0.0-2.0) % Neut # (Auto) 6.42 (1.40-7.00) K/uL Lymph # (Auto) 1.14 (0.50-3.50) K/uL Motley # (Auto) 1.01 H (0.00-1.00) K/uL Eos # (Auto) 0.01 (0.00-0.50) K/uL Baso # (Auto) 0.02 (0.00-0.20) K/uL Sodium 139 (136-145) mmol/L Potassium 4.5 (3.5-5.1) mmol/L Chloride 98 (98-107) mmol/L Carbon Dioxide 34.3 H (21.0-32.0) mmol/L BUN 23 H (7-18) mg/dL Creatinine 0.80 (0.51-1.17) mg/dL Est Cr Clr Drug Dosing 77.31 mL/min Estimated GFR (MDRD) > 60 mL/min Glucose 198 H (74-106) mg/dL POC Glucose 297 H* (65-110) mg/dl Calcium 8.7 (8.5-10.1) mg/dL Total Bilirubin 0.4 (0.2-1.0) mg/dL AST 24 (15-37) U/L ALT 27 (12-78) U/L Alkaline Phosphatase 85 (46-116) IU/L C-Reactive Protein 9.1 H (<=0.9) mg/dL NT-Pro-B Natriuret Pep (0-125) pg/mL Total Protein 7.2 (6.4-8.2) g/dL Albumin 2.7 L (3.4-5.0) g/dL 05/12/17 05/12/17 05/12/17 Range/Units 06:30 07:24 12:15 WBC (4.0-10.2) K/uL RBC (4.33-5.41) M/uL Hgb (13.1-16.8) g/dL Hct (39.0-49.0) % MCV (84.0-98.0) fL MCH (28.2-33.3) pg MCHC (31.7-36.0) g/dL RDW (11.2-14.1) % Plt Count (150-350) K/uL Neut % (Auto) (45.0-80.0) % Lymph % (Auto) (10.0-50.0) % Motley % (Auto) (2.0-14.0) % Eos % (Auto) (0.0-5.0) % Baso % (Auto) (0.0-2.0) % Neut # (Auto) (1.40-7.00) K/uL Lymph # (Auto) (0.50-3.50) K/uL Motley # (Auto) (0.00-1.00) K/uL Eos # (Auto) (0.00-0.50) K/uL Baso # (Auto) (0.00-0.20) K/uL Sodium (136-145) mmol/L Potassium (3.5-5.1) mmol/L Chloride (98-107) mmol/L Carbon Dioxide (21.0-32.0) mmol/L BUN (7-18) mg/dL Creatinine (0.51-1.17) mg/dL Est Cr Clr Drug Dosing mL/min Estimated GFR (MDRD) mL/min Glucose (74-106) mg/dL POC Glucose 202 H 233 H (65-110) mg/dl Calcium (8.5-10.1) mg/dL Total Bilirubin (0.2-1.0) mg/dL AST (15-37) U/L ALT (12-78) U/L Alkaline Phosphatase (46-116) IU/L C-Reactive Protein (<=0.9) mg/dL NT-Pro-B Natriuret Pep 2932 H (0-125) pg/mL Total Protein (6.4-8.2) g/dL Albumin (3.4-5.0) g/dL Meño Results Last 24 Hours: Microbiology 05/10/17 14:30 Aerobic Blood Culture - Preliminary Blood - Venous - Lab Draw NO GROWTH AFTER 2 DAYS Anaerobic Blood Culture - Preliminary NO GROWTH AFTER 2 DAYS 05/10/17 14:25 Aerobic Blood Culture - Preliminary Blood - Venous NO GROWTH AFTER 2 DAYS Anaerobic Blood Culture - Preliminary NO GROWTH AFTER 2 DAYS Med Orders - Current: Current Medications Acetaminophen (Tylenol Arthritis Pain) 650 mg PO BID@1200,1700 RUDY Last Admin: 05/12/17 16:01 Dose: 650 mg Hydrocodone Bitart/Acetaminophen (Milaca 325-5 Mg) 1 tab PO TID@0800,1200,1999 [facility] Last Admin: 05/12/17 12:17 Dose: 1 tab Albuterol/Ipratropium (Duoneb 3.0-0.5 Mg/3 Ml) 3 ml NEB QID [facility] Last Admin: 05/12/17 15:57 Dose: 3 ml Albuterol/Ipratropium (Duoneb 3.0-0.5 Mg/3 Ml) 3 ml NEB Q4HRRT PRN PRN Reason: Wheezing Azithromycin (Zithromax) 500 mg PO DAILY [facility] Bisacodyl (Dulcolax) 10 mg RECTAL DAILY PRN PRN Reason: Constipation Ceftazidime (Fortaz) 1 gm IVPUSH Q12HR [facility] Last Admin: 05/12/17 07:53 Dose: 1 gm Digoxin (Lanoxin) 125 mcg PO QAM [facility] Last Admin: 05/12/17 07:57 Dose: 125 mcg Docusate Sodium (Colace) 100 mg PO TID@0800,1200,1999 [facility] Last Admin: 05/12/17 12:19 Dose: Not Given Furosemide (Lasix) 40 mg IVPUSH BIDDIURETIC [facility] Last Admin: 05/12/17 12:19 Dose: 40 mg Gabapentin (Neurontin) 100 mg PO BEDTIME [facility] Last Admin: 05/11/17 20:35 Dose: 100 mg Glyburide (Micronase) 10 mg PO Q12HR [facility] Last Admin: 05/12/17 07:57 Dose: 10 mg Hydrocortisone Sodium Succinate (Solu-Cortef) 20 mg IVPUSH Q12H [facility] Last Admin: 05/12/17 07:58 Dose: 20 mg Azithromycin 500 mg/ Sodium (Chloride) 250 mls @ 250 mls/hr IV Q24H [facility] Stop: 05/12/17 17:59 Last Admin: 05/12/17 16:01 Dose: 250 mls/hr Magnesium Hydroxide (Milk Of Magnesia) 30 ml PO Q2D@1999 [facility] Last Admin: 05/10/17 20:16 Dose: 30 ml Magnesium Oxide (Magnesium Oxide) 400 mg PO QAM [facility] Last Admin: 05/12/17 07:57 Dose: 400 mg Metformin HCl (Glucophage) 1,000 mg PO Q12HR [facility] Last Admin: 05/12/17 08:05 Dose: 1,000 mg Colestipol [Colestid (] 1 Gm) 1 gm PO Q12HR [facility] Last Admin: 05/12/17 07:55 Dose: 1 gm Pradaxa (Dabigatran) (150 Mg Capsules) 150 mg PO Q12HR [facility] Last Admin: 05/12/17 07:56 Dose: 150 mg Pyridostigmine 60 Mg (Tablets (Mestinon)) 60 mg PO Q12HR [facility] Last Admin: 05/12/17 07:58 Dose: 60 mg Polyethylene Glycol (Miralax) 17 gm PO Q2D@1999 [facility] Last Admin: 05/11/17 20:35 Dose: 17 gm Simvastatin (Zocor) 10 mg PO BEDTIME [facility] Last Admin: 05/11/17 20:35 Dose: 10 mg Sodium Chloride (Saline Flush) 10 ml FLUSH ASDIRECTED PRN PRN Reason: Keep Vein Open Last Admin: 05/12/17 12:25 Dose: 10 ml Tamsulosin HCl (Flomax) 0.4 mg PO BEDTIME [facility] Last Admin: 05/11/17 20:35 Dose: 0.4 mg Verapamil HCl (Calan Sr) 180 mg PO Q12HR [facility] Last Admin: 05/12/17 07:54 Dose: 180 mg Discontinued Medications Albuterol/Ipratropium (Duoneb 3.0-0.5 Mg/3 Ml) 3 ml NEB ONETIME ONE Stop: 05/10/17 13:45 Last Admin: 05/10/17 14:11 Dose: 3 ml Albuterol/Ipratropium (Duoneb 3.0-0.5 Mg/3 Ml) 3 ml NEB Q4H PRN PRN Reason: Dyspnea Ceftazidime (Fortaz) 1 gm IVPUSH Q8HR [facility] Last Admin: 05/11/17 08:46 Dose: 1 gm Furosemide (Lasix) 40 mg IVPUSH NOW ONE Stop: 05/10/17 14:10 Last Admin: 05/10/17 14:42 Dose: 40 mg - Exam Quality Assessment: Supplemental Oxygen General: Alert, Cooperative HEENT: Mucous Membr. Moist/[place] Neck: Trachea Midline, No JVD Lungs: Normal Respiratory Effort, Decreased Breath Sounds, Wheezing (but improved) Cardiovascular: Irregular Rhythm GI/Abdominal Exam: Soft, Non-Tender, No Distention (Male) Exam: Deferred Back Exam: Normal Inspection Extremities: Non-Tender, Pedal Edema Skin: Warm, Dry, Intact Neurological: No New Focal Deficit Psy/Mental Status: Alert, Normal Affect, Normal Mood - Problem List & Annotations (1) CHF (congestive heart failure) SNOMED Code(s): 36220993 Code(s): I50.9 - HEART FAILURE, UNSPECIFIED Status: Acute Priority: High Current Visit: Yes Qualifiers: Heart failure type: unspecified Heart failure chronicity: acute on chronic Qualified Code(s): I50.9 - Heart failure, unspecified (2) Hypoxia SNOMED Code(s): 005512688 Code(s): R09.02 - HYPOXEMIA Status: Acute Priority: High Current Visit : Yes (3) Pneumonia SNOMED Code(s): 159940402 Code(s): J18.9 - PNEUMONIA, UNSPECIFIED ORGANISM Status: Acute Priority: High Current Visit: Yes Qualifiers: Laterality: bilateral Lung location: unspecified part of lung (4) Atrial fibrillation SNOMED Code(s): 57220804 Code(s): I48.91 - UNSPECIFIED ATRIAL FIBRILLATION Status: Chronic Priority: Medium Current Visit: No Qualifiers: Atrial fibrillation type: chronic Qualified Code(s): I48.2 - Chronic atrial fibrillation Annotation/Comment:: No chest pain or anginal-type symptoms. Stable heart rhythm in the emergency room (5) COPD (chronic obstructive pulmonary disease) SNOMED Code(s): 94874038 Code(s): J44.9 - CHRONIC OBSTRUCTIVE PULMONARY DISEASE, UNSPECIFIED Status : Chronic Priority: Medium Current Visit: No Qualifiers: COPD type: unspecified COPD Qualified Code(s): J44.9 - Chronic obstructive pulmonary disease, unspecified Annotation/Comment:: No recent cough, bronchitic-type symptoms, etc. (6) Caries SNOMED Code(s): 92052971 Code(s): K02.9 - DENTAL CARIES, UNSPECIFIED Status: Chronic Priority: High Current Visit: No Onset Date: 07/10/15 Annotation/Comment:: CT scan results as above. 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 His regular provider will be updated as per discharge instructions. Hyperglycemia likely elated to his poor dental hygiene and also current infection with referral to oral surgeon recommended (8) Hyperlipidemia SNOMED Code(s): 11407879 Code(s): E78.5 - HYPERLIPIDEMIA, UNSPECIFIED Status: Chronic Priority: Medium Current Visit: No Qualifiers: Hyperlipidemia type: Mixed hyperlipidemia Qualified Code(s): E78.2 - Mixed hyperlipidemia Annotation/Comment:: under medical therapy (9) Hypertension SNOMED Code(s): 64955011 Code(s): I10 - ESSENTIAL (PRIMARY) HYPERTENSION Status: Chronic Priority : Medium Current Visit: No Qualifiers: Hypertension type: essential hypertension Qualified Code(s): I10 - Essential (primary) hypertension Annotation/Comment:: blood pressure stable in the emergency room (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 SNOMED Code(s): 802919027 Code(s): 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, NEC Status: Chronic Priority: Medium Current Visit: No Annotation/Comment:: consider high-protein Glucerna supplements (11) Hypomagnesemia SNOMED Code(s): 717849589 Code(s): E83.42 - HYPOMAGNESEMIA Status: Chronic Priority: Medium Current Visit: No Annotation/Comment:: magnesium level normal today (12) Hyponatremia SNOMED Code(s): 13056275 Code(s): E87.1 - HYPO-OSMOLALITY AND HYPONATREMIA Status: Chronic Priority: Medium Current Visit: No Annotation/Comment:: observe for now with history of CHF, however no recent chest pain or anginal complaints (13) Myasthenia gravis SNOMED Code(s): 88811396 Code(s): G70.00 - MYASTHENIA GRAVIS WITHOUT (ACUTE) EXACERBATION Status: Chronic Priority: Medium Current Visit: No Annotation/Comment:: stable by history (14) Osteoarthritis SNOMED Code(s): 837191941 Code(s): M19.90 - UNSPECIFIED OSTEOARTHRITIS, UNSPECIFIED SITE Status: Chronic Priority: Medium Current Visit: No Qualifiers: Osteoarthritis location: multiple joints Osteoarthritis type: primary Qualified Code(s): M15.0 - Primary generalized (osteo)arthritis Annotation/Comment:: stable by history - Problem List Review Problem List Initiated/Reviewed/Updated: Yes - My Orders Last 24 Hours: My Active Orders 05/11/17 20:00 cefTAZidime [Fortaz] 1 gm IVPUSH Q12HR 05/12/17 08:00 Consult to Occupational Therapy [OT Evaluation and Treatment] [CONS] Routine Consult to Physical Therapy [PT Evaluation and Treatment] [CONS] Routine 05/12/17 15:30 RT Aerosol Therapy [RC] ASDIRECTED Albuterol/Ipratropium [DuoNeb 3.0-0.5 MG/3 ML] 3 ml NEB Q4HRRT PRN 05/13/17 08:00 Azithromycin [Zithromax] 500 mg PO DAILY - Plan Plan:: 05-10-17 Shelly Morales PA-C Admitting to IP from the [facility] after OP therapy failure for exacerbation of COPD and CHF, now with additional pneumonia. He had presented to the nurses' station at the [facility] this morning c/o SOB and was found with O2 sat of 81-83% on RA, oxygen was applied and sat did come up to 92%. On eval at [facility] resp's were audibly moist and pt. appeared to be using accessory muscles. Did contact [facility] and there is no bed availability. [facility] will discuss possible transfer with Jeanne tomorrow. Dr. Diaz was consulted at the time of admit. IV Lasix and Solu-Medrol, and antibiotics. This elderly gentleman with multiple chronic co-morbidities will require at least 96 hours of IP treatment. 05/11/17 Joe Curran MD Still with cough and wheezing. Jeanne Hays did contact [facility]. No beds available for transfer today. Continue inpatient status and therapy. Serious due to co-morbidity of myasthenius gravis. 05/12/17 Joe Curran MD Still with cough and wheeze but some improvement. No beds available at [facility] today. Continue therapy.
[2017-05-12] MEDS: Tamsulosin 0.4 MG Cap.ER PO SCH (20:34)
[2017-05-12] MEDS: Gabapentin 100 MG Cap PO SCH (20:34)
[2017-05-12] MEDS: Simvastatin 10 MG Tab PO SCH (20:36)
[2017-05-12] MEDS: Magnesium Hydroxide 400 MG/5 ML Susp 30 ML Cup PO SCH (21:21)
[2017-05-13 08:31] LABS: CHLORIDE,CL 100 mmol/L (98-107); SODIUM,NA 141 mmol/L (136-145)
[2017-05-13] MEDS: Hydrocortisone Sodium Succinate 100 MG/2 ML SDV IVPUSH SCH ×2 (08:32→19:48)
[2017-05-13] MEDS: Furosemide 40 MG/4 ML VIAL IVPUSH SCH ×2 (08:34→12:43)
[2017-05-13] MEDS: Sodium Chloride 0.9% 10 ML Syringe FLUSH PRN ×4 (08:34→19:55)
[2017-05-13] MEDS: metFORMIN 500 MG Tab PO SCH ×2 (08:35→19:53)
[2017-05-13] MEDS: glyBURIDE 5 MG Tab PO SCH ×2 (08:35→19:52)
[2017-05-13] MEDS: Acetaminophen/HYDROcodone 325-5 MG Tab PO SCH ×3 (08:35→19:56)
[2017-05-13] MEDS: Digoxin 125 MCG Tab PO SCH (08:36)
[2017-05-13] MEDS: Verapamil 180 MG Tab.ER PO SCH ×2 (08:36→19:53)
[2017-05-13] MEDS: Azithromycin 250 MG Tab PO SCH (08:36)
[2017-05-13] MEDS: Albuterol/Ipratropium 3.0-0.5 MG/3 ML Neb Soln NEB SCH ×4 (08:36→19:58)
[2017-05-13] MEDS: Docusate Sodium 100 MG Cap PO SCH ×3 (08:36→19:57)
[2017-05-13] MEDS: Magnesium Oxide 400 MG Tab PO SCH (08:36)
[2017-05-13] MEDS: COLESTIPOL 1 GM PO SCH ×2 (08:37→19:57)
[2017-05-13] MEDS: PRADAXA 150 MG PO SCH ×2 (08:37→20:02)
[2017-05-13] MEDS: cefTAZidime 1 GM Vial IVPUSH SCH ×2 (08:37→19:47)
[2017-05-13] MEDS: PYRIDOSTIGMINE 60 MG PO SCH ×2 (08:38→19:58)
[2017-05-13] MEDS: Acetaminophen 650 MG Tab.ER PO SCH ×2 (12:42→16:29)
[2017-05-13] MEDS: Tamsulosin 0.4 MG Cap.ER PO SCH (19:52)
[2017-05-13] MEDS: Simvastatin 10 MG Tab PO SCH (19:52)
[2017-05-13] MEDS: Gabapentin 100 MG Cap PO SCH (19:53)
[2017-05-13] MEDS: Polyethylene Glycol 3350 Powder 17 GM Packet PO SCH (19:57)
--- NOTE | 2017-05-13 20:42 | PCM.PN ---
- General Info Date of Service: 05/13/17 Admission Dx/Problem (Free Text): Admission Diagnosis/Problem Admission Diagnosis/Problem Pneumonia COPD CHF Hypoxia Functional Status: Reports: Pain Controlled - Review of Systems General: Reports: Weakness (extreme) HEENT: Reports: No Symptoms Pulmonary: Reports: Shortness of Breath, Cough, Wheezing Cardiovascular: Reports: No Symptoms Gastrointestinal: Reports: No Symptoms Genitourinary: Reports: Frequency, Incontinence Musculoskeletal: Reports: No Symptoms Skin: Reports: No Symptoms Neurological: Reports: Weakness Psychiatric: Reports: No Symptoms - Patient Data Vitals - Most Recent: Last Vital Signs Temp 98.4 F 05/13/17 20:00 Pulse 92 05/13/17 20:00 Resp 20 05/13/17 20:00 BP 129/49 L 05/13/17 20:00 Pulse Ox 92 L 05/13/17 20:00 Weight - Most Recent: 261 lb 15.993 oz I&O - Last 24 Hours: Intake & Output 05/13/17 05/13/17 05/13/17 06:59 14:59 22:59 Intake Total 240 Output Total 525 Balance -285 Lab Results Last 24 Hours: Laboratory Results - last 24 hr 05/13/17 05/13/17 05/13/17 Range/Units 07:34 07:34 07:34 WBC 8.8 (4.0-10.2) K/uL RBC 3.80 L (4.33-5.41) M/uL Hgb 9.0 L (13.1-16.8) g/dL Hct 31.7 L (39.0-49.0) % MCV 83.4 L (84.0-98.0) fL MCH 23.7 L (28.2-33.3) pg MCHC 28.4 L (31.7-36.0) g/dL RDW 17.7 H (11.2-14.1) % Plt Count 246 (150-350) K/uL Neut % (Auto) 71.7 (45.0-80.0) % Lymph % (Auto) 17.0 (10.0-50.0) % [place] % (Auto) 11.0 (2.0-14.0) % Eos % (Auto) 0.2 (0.0-5.0) % Baso % (Auto) 0.1 (0.0-2.0) % Neut # (Auto) 6.30 (1.40-7.00) K/uL Lymph # (Auto) 1.49 (0.50-3.50) K/uL [place] # (Auto) 0.97 (0.00-1.00) K/uL Eos # (Auto) 0.02 (0.00-0.50) K/uL Baso # (Auto) 0.01 (0.00-0.20) K/uL Sodium 141 (136-145) mmol/L Potassium 4.5 (3.5-5.1) mmol/L Chloride 100 (98-107) mmol/L Carbon Dioxide 37.9 H (21.0-32.0) mmol/L BUN 29 H (7-18) mg/dL Creatinine 0.80 (0.51-1.17) mg/dL Est Cr Clr Drug Dosing 77.31 mL/min Estimated GFR (MDRD) > 60 mL/min Glucose 214 H (74-106) mg/dL POC Glucose (65-110) mg/dl Calcium 8.9 (8.5-10.1) mg/dL Total Bilirubin 0.3 (0.2-1.0) mg/dL AST 31 (15-37) U/L ALT 26 (12-78) U/L Alkaline Phosphatase 82 (46-116) IU/L C-Reactive Protein 11.1 H (<=0.9) mg/dL NT-Pro-B Natriuret Pep 2996 H (0-125) pg/mL Total Protein 7.3 (6.4-8.2) g/dL Albumin 2.6 L (3.4-5.0) g/dL 05/13/17 05/13/17 05/13/17 Range/Units 07:44 11:36 16:28 WBC (4.0-10.2) K/uL RBC (4.33-5.41) M/uL Hgb (13.1-16.8) g/dL Hct (39.0-49.0) % MCV (84.0-98.0) fL MCH (28.2-33.3) pg MCHC (31.7-36.0) g/dL RDW (11.2-14.1) % Plt Count (150-350) K/uL Neut % (Auto) (45.0-80.0) % Lymph % (Auto) (10.0-50.0) % [place] % (Auto) (2.0-14.0) % Eos % (Auto) (0.0-5.0) % Baso % (Auto) (0.0-2.0) % Neut # (Auto) (1.40-7.00) K/uL Lymph # (Auto) (0.50-3.50) K/uL [place] # (Auto) (0.00-1.00) K/uL Eos # (Auto) (0.00-0.50) K/uL Baso # (Auto) (0.00-0.20) K/uL Sodium (136-145) mmol/L Potassium (3.5-5.1) mmol/L Chloride (98-107) mmol/L Carbon Dioxide (21.0-32.0) mmol/L BUN (7-18) mg/dL Creatinine (0.51-1.17) mg/dL Est Cr Clr Drug Dosing mL/min Estimated GFR (MDRD) mL/min Glucose (74-106) mg/dL POC Glucose 198 H 242 H 250 H (65-110) mg/dl Calcium (8.5-10.1) mg/dL Total Bilirubin (0.2-1.0) mg/dL AST (15-37) U/L ALT (12-78) U/L Alkaline Phosphatase (46-116) IU/L C-Reactive Protein (<=0.9) mg/dL NT-Pro-B Natriuret Pep (0-125) pg/mL Total Protein (6.4-8.2) g/dL Albumin (3.4-5.0) g/dL Meño Results Last 24 Hours: Microbiology 05/10/17 14:30 Aerobic Blood Culture - Preliminary Blood - Venous - Lab Draw NO GROWTH AFTER 3 DAYS Anaerobic Blood Culture - Preliminary NO GROWTH AFTER 3 DAYS 05/10/17 14:25 Aerobic Blood Culture - Preliminary Blood - Venous NO GROWTH AFTER 3 DAYS Anaerobic Blood Culture - Preliminary NO GROWTH AFTER 3 DAYS Med Orders - Current: Current Medications Acetaminophen (Tylenol Arthritis Pain) 650 mg PO BID@1200,1700 [facility]UD[facility] Last Admin: 05/13/17 16:29 Dose: 650 mg Hydrocodone Bitart/Acetaminophen ([place] 325-5 Mg) 1 tab PO TID@0800,1200,1999 [facility] Last Admin: 05/13/17 19:56 Dose: 1 tab Albuterol/Ipratropium (Duoneb 3.0-0.5 Mg/3 Ml) 3 ml NEB QID [facility] Last Admin: 05/13/17 19:58 Dose: 3 ml Albuterol/Ipratropium (Duoneb 3.0-0.5 Mg/3 Ml) 3 ml NEB Q4HRRT PRN PRN Reason: Wheezing Azithromycin (Zithromax) 500 mg PO DAILY [facility] Last Admin: 05/13/17 08:36 Dose: 500 mg Bisacodyl (Dulcolax) 10 mg RECTAL DAILY PRN PRN Reason: Constipation Ceftazidime (Fortaz) 1 gm IVPUSH Q12HR [facility] Last Admin: 05/13/17 19:47 Dose: 1 gm Digoxin (Lanoxin) 125 mcg PO QAM [facility] Last Admin: 05/13/17 08:36 Dose: 125 mcg Docusate Sodium (Colace) 100 mg PO TID@0800,1200,1999 [facility] Last Admin: 05/13/17 19:57 Dose: Not Given Furosemide (Lasix) 40 mg IVPUSH BIDDIURETIC [facility] Last Admin: 05/13/17 12:43 Dose: 40 mg Gabapentin (Neurontin) 100 mg PO BEDTIME [facility] Last Admin: 05/13/17 19:53 Dose: 100 mg Glyburide (Micronase) 10 mg PO Q12HR [facility] Last Admin: 05/13/17 19:52 Dose: 10 mg Hydrocortisone Sodium Succinate (Solu-Cortef) 20 mg IVPUSH Q12H [facility] Last Admin: 05/13/17 19:48 Dose: 20 mg Magnesium Hydroxide (Milk Of Magnesia) 30 ml PO Q2D@1999 [facility] Last Admin: 05/12/17 21:21 Dose: Not Given Magnesium Oxide (Magnesium Oxide) 400 mg PO QAM [facility] Last Admin: 05/13/17 08:36 Dose: 400 mg Metformin HCl (Glucophage) 1,000 mg PO Q12HR [facility] Last Admin: 05/13/17 19:53 Dose: 1,000 mg Colestipol [Colestid (] 1 Gm) 1 gm PO Q12HR [facility] Last Admin: 05/13/17 19:57 Dose: 1 gm Pradaxa (Dabigatran) (150 Mg Capsules) 150 mg PO Q12HR [facility] Last Admin: 05/13/17 20:02 Dose: 150 mg Pyridostigmine 60 Mg (Tablets (Mestinon)) 60 mg PO Q12HR [facility] Last Admin: 05/13/17 19:58 Dose: 60 mg Polyethylene Glycol (Miralax) 17 gm PO Q2D@2000 [facility] Last Admin: 05/13/17 19:57 Dose: Not Given Simvastatin (Zocor) 10 mg PO BEDTIME [facility] Last Admin: 05/13/17 19:52 Dose: 10 mg Sodium Chloride (Saline Flush) 10 ml FLUSH ASDIRECTED PRN PRN Reason: Keep Vein Open Last Admin: 05/13/17 19:55 Dose: 10 ml Tamsulosin HCl (Flomax) 0.4 mg PO BEDTIME [facility] Last Admin: 05/13/17 19:52 Dose: 0.4 mg Verapamil HCl (Calan Sr) 180 mg PO Q12HR [facility] Last Admin: 05/13/17 19:53 Dose: 180 mg Discontinued Medications Albuterol/Ipratropium (Duoneb 3.0-0.5 Mg/3 Ml) 3 ml NEB ONETIME ONE Stop: 05/10/17 13:45 Last Admin: 05/10/17 14:11 Dose: 3 ml Albuterol/Ipratropium (Duoneb 3.0-0.5 Mg/3 Ml) 3 ml NEB Q4H PRN PRN Reason: Dyspnea Ceftazidime (Fortaz) 1 gm IVPUSH Q8HR [facility] Last Admin: 05/11/17 08:46 Dose: 1 gm Furosemide (Lasix) 40 mg IVPUSH NOW ONE Stop: 05/10/17 14:10 Last Admin: 05/10/17 14:42 Dose: 40 mg Azithromycin 500 mg/ Sodium (Chloride) 250 mls @ 250 mls/hr IV Q24H [facility] Stop: 05/12/17 17:59 Last Admin: 05/12/17 16:01 Dose: 250 mls/hr - Exam Quality Assessment: Supplemental Oxygen General: Alert HEENT: Mucous Membr. Moist/[place] Neck: Trachea Midline, No JVD Lungs: Normal Respiratory Effort, Decreased Breath Sounds, Rhonchi, Wheezing Cardiovascular: Regular Rate, Regular Rhythm GI/Abdominal Exam: Soft, Non-Tender, No Distention (Male) Exam: Deferred Back Exam: Normal Inspection Extremities: Non-Tender, Pedal Edema Skin: Warm, Dry, Intact Neurological: Other (weakness, only tolerated dangle at bedside) Psy/Mental Status: Alert, Normal Affect, Normal Mood - Problem List & Annotations (1) CHF (congestive heart failure) SNOMED Code(s): 51604554 Code(s): I50.9 - HEART FAILURE, UNSPECIFIED Status: Acute Priority: High Current Visit: Yes Qualifiers: Heart failure type: unspecified Heart failure chronicity: acute on chronic Qualified Code(s): I50.9 - Heart failure, unspecified (2) Hypoxia SNOMED Code(s): 515916805 Code(s): R09.02 - HYPOXEMIA Status: Acute Priority: High Current Visit : Yes (3) Pneumonia SNOMED Code(s): 885775591 Code(s): J18.9 - PNEUMONIA, UNSPECIFIED ORGANISM Status: Acute Priority: High Current Visit: Yes Qualifiers: Laterality: bilateral Lung location: unspecified part of lung (4) Atrial fibrillation SNOMED Code(s): 10915572 Code(s): I48.91 - UNSPECIFIED ATRIAL FIBRILLATION Status: Chronic Priority: Medium Current Visit: No Qualifiers: Atrial fibrillation type: chronic Qualified Code(s): I48.2 - Chronic atrial fibrillation Annotation/Comment:: No chest pain or anginal-type symptoms. Stable heart rhythm in the emergency room (5) COPD (chronic obstructive pulmonary disease) SNOMED Code(s): 73302683 Code(s): J44.9 - CHRONIC OBSTRUCTIVE PULMONARY DISEASE, UNSPECIFIED Status : Chronic Priority: Medium Current Visit: No Qualifiers: COPD type: unspecified COPD Qualified Code(s): J44.9 - Chronic obstructive pulmonary disease, unspecified Annotation/Comment:: No recent cough, bronchitic-type symptoms, etc. (6) Caries SNOMED Code(s): 27400850 Code(s): K02.9 - DENTAL CARIES, UNSPECIFIED Status: Chronic Priority: High Current Visit: No Onset Date: 07/10/15 Annotation/Comment:: CT scan results as above. 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 His regular provider will be updated as per discharge instructions. Hyperglycemia likely elated to his poor dental hygiene and also current infection with referral to oral surgeon recommended (8) Hyperlipidemia SNOMED Code(s): 30476169 Code(s): E78.5 - HYPERLIPIDEMIA, UNSPECIFIED Status: Chronic Priority: Medium Current Visit: No Qualifiers: Hyperlipidemia type: Mixed hyperlipidemia Qualified Code(s): E78.2 - Mixed hyperlipidemia Annotation/Comment:: under medical therapy (9) Hypertension SNOMED Code(s): 67797215 Code(s): I10 - ESSENTIAL (PRIMARY) HYPERTENSION Status: Chronic Priority : Medium Current Visit: No Qualifiers: Hypertension type: essential hypertension Qualified Code(s): I10 - Essential (primary) hypertension Annotation/Comment:: blood pressure stable in the emergency room (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 SNOMED Code(s): 488639781 Code(s): 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, NEC Status: Chronic Priority: Medium Current Visit: No Annotation/Comment:: consider high-protein Glucerna supplements (11) Hypomagnesemia SNOMED Code(s): 822651370 Code(s): E83.42 - HYPOMAGNESEMIA Status: Chronic Priority: Medium Current Visit: No Annotation/Comment:: magnesium level normal today (12) Hyponatremia SNOMED Code(s): 12870755 Code(s): E87.1 - HYPO-OSMOLALITY AND HYPONATREMIA Status: Chronic Priority: Medium Current Visit: No Annotation/Comment:: observe for now with history of CHF, however no recent chest pain or anginal complaints (13) Myasthenia gravis SNOMED Code(s): 48738436 Code(s): G70.00 - MYASTHENIA GRAVIS WITHOUT (ACUTE) EXACERBATION Status: Chronic Priority: Medium Current Visit: No Annotation/Comment:: stable by history (14) Osteoarthritis SNOMED Code(s): 917327586 Code(s): M19.90 - UNSPECIFIED OSTEOARTHRITIS, UNSPECIFIED SITE Status: Chronic Priority: Medium Current Visit: No Qualifiers: Osteoarthritis location: multiple joints Osteoarthritis type: primary Qualified Code(s): M15.0 - Primary generalized (osteo)arthritis Annotation/Comment:: stable by history - Problem List Review Problem List Initiated/Reviewed/Updated: Yes - My Orders Last 24 Hours: My Active Orders 05/13/17 08:00 Azithromycin [Zithromax] 500 mg PO DAILY 05/13/17 16:15 [place] Catheter Insertion [Insert Urinary Catheter] [OM.PC] Q24H Urinary Catheter Assessment [RC] ASDIRECTED - Plan Plan:: 05-10-17 Shelly Morales PA-C Admitting to IP from the [facility] after OP therapy failure for exacerbation of COPD and CHF, now with additional pneumonia. He had presented to the nurses' station at the [facility] this morning c/o SOB and was found with O2 sat of 81-83% on RA, oxygen was applied and sat did come up to 92%. On eval at [facility] resp's were audibly moist and pt. appeared to be using accessory muscles. Did contact [facility] and there is no bed availability. [facility] will discuss possible transfer with Jeanne tomorrow. Dr. Diaz was consulted at the time of admit. IV Lasix and Solu-Medrol, and antibiotics. This elderly gentleman with multiple chronic co-morbidities will require at least 96 hours of IP treatment. 05/11/17 Joe Curran MD Still with cough and wheezing. Jeanne Hays did contact [facility]. No beds available for transfer today. Continue inpatient status and therapy. Serious due to co-morbidity of myasthenius gravis. 05/12/17 Joe Curran MD Still with cough and wheeze but some improvement. No beds available at [facility] today. Continue therapy. 05/13/17 Joe Curran MD Still with cough and wheeze. Still very weak. Only could tolerate bedside dangle. Still no beds available at [facility].
[2017-05-14] MEDS: Verapamil 180 MG Tab.ER PO SCH ×2 (07:38→20:59)
[2017-05-14] MEDS: Digoxin 125 MCG Tab PO SCH (07:38)
[2017-05-14] MEDS: Azithromycin 250 MG Tab PO SCH (07:38)
[2017-05-14] MEDS: Magnesium Oxide 400 MG Tab PO SCH (07:38)
[2017-05-14] MEDS: metFORMIN 500 MG Tab PO SCH ×2 (07:38→20:59)
[2017-05-14] MEDS: glyBURIDE 5 MG Tab PO SCH ×2 (07:38→20:59)
[2017-05-14] MEDS: PRADAXA 150 MG PO SCH ×2 (07:39→21:01)
[2017-05-14] MEDS: PYRIDOSTIGMINE 60 MG PO SCH ×2 (07:39→21:00)
[2017-05-14] MEDS: Acetaminophen/HYDROcodone 325-5 MG Tab PO SCH ×3 (07:39→20:59)
[2017-05-14] MEDS: Hydrocortisone Sodium Succinate 100 MG/2 ML SDV IVPUSH SCH ×2 (07:40→21:01)
[2017-05-14] MEDS: COLESTIPOL 1 GM PO SCH ×2 (07:40→20:59)
[2017-05-14] MEDS: cefTAZidime 1 GM Vial IVPUSH SCH ×2 (07:40→21:01)
[2017-05-14] MEDS: Furosemide 40 MG/4 ML VIAL IVPUSH SCH ×2 (07:41→12:37)
[2017-05-14] MEDS: Albuterol/Ipratropium 3.0-0.5 MG/3 ML Neb Soln NEB SCH ×4 (07:41→21:01)
[2017-05-14] MEDS: Sodium Chloride 0.9% 10 ML Syringe FLUSH PRN ×3 (07:42→21:02)
[2017-05-14] MEDS: Docusate Sodium 100 MG Cap PO SCH ×3 (07:42→23:26)
[2017-05-14 07:48] LABS: CHLORIDE,CL 100 mmol/L (98-107); SODIUM,NA 142 mmol/L (136-145)
[2017-05-14] MEDS: Acetaminophen 650 MG Tab.ER PO SCH ×2 (12:36→17:12)
--- NOTE | 2017-05-14 20:47 | PCM.PN ---
- General Info Date of Service: 05/14/17 Admission Dx/Problem (Free Text): Admission Diagnosis/Problem Admission Diagnosis/Problem Pneumonia COPD CHF Hypoxia Functional Status: Reports: Pain Controlled - Review of Systems General: Reports: Weakness HEENT: Reports: No Symptoms Pulmonary: Reports: Cough, Wheezing Cardiovascular: Reports: No Symptoms Gastrointestinal: Reports: No Symptoms Genitourinary: Reports: Other (medina catheter) Musculoskeletal: Reports: No Symptoms Skin: Reports: No Symptoms Neurological: Reports: Weakness Psychiatric: Reports: No Symptoms - Patient Data Vitals - Most Recent: Last Vital Signs Temp 98.0 F 05/14/17 16:00 Pulse 90 05/14/17 16:00 Resp 24 H 05/14/17 16:00 BP 138/76 05/14/17 16:00 Pulse Ox 95 05/14/17 16:00 Weight - Most Recent: 191 lb I&O - Last 24 Hours: Intake & Output 05/14/17 05/14/17 05/14/17 06:59 14:59 22:59 Intake Total 810 300 Output Total 490 2000 Balance -490 -1190 300 Lab Results Last 24 Hours: Laboratory Results - last 24 hr 05/14/17 05/14/17 05/14/17 Range/Units 07:15 07:20 07:20 WBC 8.4 (4.0-10.2) K/uL RBC 3.82 L (4.33-5.41) M/uL Hgb 9.0 L (13.1-16.8) g/dL Hct 32.2 L (39.0-49.0) % MCV 84.3 (84.0-98.0) fL MCH 23.6 L (28.2-33.3) pg MCHC 28.0 L (31.7-36.0) g/dL RDW 17.5 H (11.2-14.1) % Plt Count 252 (150-350) K/uL Neut % (Auto) 73.7 (45.0-80.0) % Lymph % (Auto) 15.4 (10.0-50.0) % [place] % (Auto) 10.3 (2.0-14.0) % Eos % (Auto) 0.2 (0.0-5.0) % Baso % (Auto) 0.4 (0.0-2.0) % Neut # (Auto) 6.22 (1.40-7.00) K/uL Lymph # (Auto) 1.30 (0.50-3.50) K/uL [place] # (Auto) 0.87 (0.00-1.00) K/uL Eos # (Auto) 0.02 (0.00-0.50) K/uL Baso # (Auto) 0.03 (0.00-0.20) K/uL Sodium 142 (136-145) mmol/L Potassium 4.3 (3.5-5.1) mmol/L Chloride 100 (98-107) mmol/L Carbon Dioxide 39.8 H (21.0-32.0) mmol/L BUN 31 H (7-18) mg/dL Creatinine 0.80 (0.51-1.17) mg/dL Est Cr Clr Drug Dosing 77.31 mL/min Estimated GFR (MDRD) > 60 mL/min Glucose 241 H (74-106) mg/dL POC Glucose 232 H (65-110) mg/dl Calcium 8.6 (8.5-10.1) mg/dL Total Bilirubin 0.3 (0.2-1.0) mg/dL AST 23 (15-37) U/L ALT 25 (12-78) U/L Alkaline Phosphatase 78 (46-116) IU/L C-Reactive Protein 8.3 H (<=0.9) mg/dL NT-Pro-B Natriuret Pep (0-125) pg/mL Total Protein 7.1 (6.4-8.2) g/dL Albumin 2.5 L (3.4-5.0) g/dL 05/14/17 05/14/17 05/14/17 Range/Units 07:20 11:38 16:47 WBC (4.0-10.2) K/uL RBC (4.33-5.41) M/uL Hgb (13.1-16.8) g/dL Hct (39.0-49.0) % MCV (84.0-98.0) fL MCH (28.2-33.3) pg MCHC (31.7-36.0) g/dL RDW (11.2-14.1) % Plt Count (150-350) K/uL Neut % (Auto) (45.0-80.0) % Lymph % (Auto) (10.0-50.0) % [place] % (Auto) (2.0-14.0) % Eos % (Auto) (0.0-5.0) % Baso % (Auto) (0.0-2.0) % Neut # (Auto) (1.40-7.00) K/uL Lymph # (Auto) (0.50-3.50) K/uL [place] # (Auto) (0.00-1.00) K/uL Eos # (Auto) (0.00-0.50) K/uL Baso # (Auto) (0.00-0.20) K/uL Sodium (136-145) mmol/L Potassium (3.5-5.1) mmol/L Chloride (98-107) mmol/L Carbon Dioxide (21.0-32.0) mmol/L BUN (7-18) mg/dL Creatinine (0.51-1.17) mg/dL Est Cr Clr Drug Dosing mL/min Estimated GFR (MDRD) mL/min Glucose (74-106) mg/dL POC Glucose 280 H* 240 H (65-110) mg/dl Calcium (8.5-10.1) mg/dL Total Bilirubin (0.2-1.0) mg/dL AST (15-37) U/L ALT (12-78) U/L Alkaline Phosphatase (46-116) IU/L C-Reactive Protein (<=0.9) mg/dL NT-Pro-B Natriuret Pep 2437 H (0-125) pg/mL Total Protein (6.4-8.2) g/dL Albumin (3.4-5.0) g/dL Meño Results Last 24 Hours: Microbiology 05/10/17 14:30 Aerobic Blood Culture - Preliminary Blood - Venous - Lab Draw NO GROWTH AFTER 4 DAYS Anaerobic Blood Culture - Preliminary NO GROWTH AFTER 4 DAYS 05/10/17 14:25 Aerobic Blood Culture - Preliminary Blood - Venous NO GROWTH AFTER 4 DAYS Anaerobic Blood Culture - Preliminary NO GROWTH AFTER 4 DAYS Med Orders - Current: Current Medications Acetaminophen (Tylenol Arthritis Pain) 650 mg PO BID@1200,1700 RUDY Last Admin: 05/14/17 17:12 Dose: 650 mg Hydrocodone Bitart/Acetaminophen ([place] 325-5 Mg) 1 tab PO TID@0800,1200,1999 [facility] Last Admin: 05/14/17 12:36 Dose: 1 tab Albuterol/Ipratropium (Duoneb 3.0-0.5 Mg/3 Ml) 3 ml NEB QID [facility] Last Admin: 05/14/17 15:13 Dose: 3 ml Albuterol/Ipratropium (Duoneb 3.0-0.5 Mg/3 Ml) 3 ml NEB Q4HRRT PRN PRN Reason: Wheezing Azithromycin (Zithromax) 500 mg PO DAILY [facility] Last Admin: 05/14/17 07:38 Dose: 500 mg Bisacodyl (Dulcolax) 10 mg RECTAL DAILY PRN PRN Reason: Constipation Ceftazidime (Fortaz) 1 gm IVPUSH Q12HR [facility] Last Admin: 05/14/17 07:40 Dose: 1 gm Digoxin (Lanoxin) 125 mcg PO QAM [facility] Last Admin: 05/14/17 07:38 Dose: 125 mcg Docusate Sodium (Colace) 100 mg PO TID@0800,1199,1999 [facility] Last Admin: 05/14/17 12:37 Dose: Not Given Furosemide (Lasix) 40 mg IVPUSH BIDDIURETIC [facility] Last Admin: 05/14/17 12:37 Dose: 40 mg Gabapentin (Neurontin) 100 mg PO BEDTIME [facility] Last Admin: 05/13/17 19:53 Dose: 100 mg Glyburide (Micronase) 10 mg PO Q12HR [facility] Last Admin: 05/14/17 07:38 Dose: 10 mg Hydrocortisone Sodium Succinate (Solu-Cortef) 20 mg IVPUSH Q12H [facility] Last Admin: 05/14/17 07:40 Dose: 20 mg Magnesium Hydroxide (Milk Of Magnesia) 30 ml PO Q2D@1999 [facility] Last Admin: 05/12/17 21:21 Dose: Not Given Magnesium Oxide (Magnesium Oxide) 400 mg PO QAM [facility] Last Admin: 05/14/17 07:38 Dose: 400 mg Metformin HCl (Glucophage) 1,000 mg PO Q12HR [facility] Last Admin: 05/14/17 07:38 Dose: 1,000 mg Colestipol [Colestid (] 1 Gm) 1 gm PO Q12HR [facility] Last Admin: 05/14/17 07:40 Dose: 1 gm Pradaxa (Dabigatran) (150 Mg Capsules) 150 mg PO Q12HR [facility] Last Admin: 05/14/17 07:39 Dose: 150 mg Pyridostigmine 60 Mg (Tablets (Mestinon)) 60 mg PO Q12HR [facility] Last Admin: 05/14/17 07:39 Dose: 60 mg Polyethylene Glycol (Miralax) 17 gm PO Q2D@2000 [facility] Last Admin: 05/13/17 19:57 Dose: Not Given Simvastatin (Zocor) 10 mg PO BEDTIME [facility] Last Admin: 05/13/17 19:52 Dose: 10 mg Sodium Chloride (Saline Flush) 10 ml FLUSH ASDIRECTED PRN PRN Reason: Keep Vein Open Last Admin: 05/14/17 12:37 Dose: 10 ml Sodium Chloride (Saline Flush) 10 ml FLUSH Q12HR [facility] Tamsulosin HCl (Flomax) 0.4 mg PO BEDTIME [facility] Last Admin: 05/13/17 19:52 Dose: 0.4 mg Verapamil HCl (Calan Sr) 180 mg PO Q12HR [facility] Last Admin: 05/14/17 07:38 Dose: 180 mg Discontinued Medications Albuterol/Ipratropium (Duoneb 3.0-0.5 Mg/3 Ml) 3 ml NEB ONETIME ONE Stop: 05/10/17 13:45 Last Admin: 05/10/17 14:11 Dose: 3 ml Albuterol/Ipratropium (Duoneb 3.0-0.5 Mg/3 Ml) 3 ml NEB Q4H PRN PRN Reason: Dyspnea Ceftazidime (Fortaz) 1 gm IVPUSH Q8HR [facility] Last Admin: 05/11/17 08:46 Dose: 1 gm Furosemide (Lasix) 40 mg IVPUSH NOW ONE Stop: 05/10/17 14:10 Last Admin: 05/10/17 14:42 Dose: 40 mg Azithromycin 500 mg/ Sodium (Chloride) 250 mls @ 250 mls/hr IV Q24H [facility] Stop: 05/12/17 17:59 Last Admin: 05/12/17 16:01 Dose: 250 mls/hr - Exam Quality Assessment: Supplemental Oxygen, Urine Catheter General: Alert, Cooperative, Mild Distress HEENT: Mucous Membr. Moist/[place] Neck: Trachea Midline, No JVD Lungs: Normal Respiratory Effort, Decreased Breath Sounds, Wheezing Cardiovascular: Irregular Rhythm GI/Abdominal Exam: Soft, Non-Tender, No Distention (Male) Exam: Other (medina catheter) Back Exam: Normal Inspection Extremities: Normal Inspection, Non-Tender Skin: Warm, Dry, Intact Neurological: No New Focal Deficit Psy/Mental Status: Alert, Normal Affect, Normal Mood - Problem List & Annotations (1) CHF (congestive heart failure) SNOMED Code(s): 65416412 Code(s): I50.9 - HEART FAILURE, UNSPECIFIED Status: Acute Priority: High Current Visit: Yes Qualifiers: Heart failure type: unspecified Heart failure chronicity: acute on chronic Qualified Code(s): I50.9 - Heart failure, unspecified (2) Hypoxia SNOMED Code(s): 006124671 Code(s): R09.02 - HYPOXEMIA Status: Acute Priority: High Current Visit : Yes (3) Pneumonia SNOMED Code(s): 786490474 Code(s): J18.9 - PNEUMONIA, UNSPECIFIED ORGANISM Status: Acute Priority: High Current Visit: Yes Qualifiers: Laterality: bilateral Lung location: unspecified part of lung (4) Atrial fibrillation SNOMED Code(s): 63499266 Code(s): I48.91 - UNSPECIFIED ATRIAL FIBRILLATION Status: Chronic Priority: Medium Current Visit: No Qualifiers: Atrial fibrillation type: chronic Qualified Code(s): I48.2 - Chronic atrial fibrillation Annotation/Comment:: No chest pain or anginal-type symptoms. Stable heart rhythm in the emergency room (5) COPD (chronic obstructive pulmonary disease) SNOMED Code(s): 46205921 Code(s): J44.9 - CHRONIC OBSTRUCTIVE PULMONARY DISEASE, UNSPECIFIED Status : Chronic Priority: Medium Current Visit: No Qualifiers: COPD type: unspecified COPD Qualified Code(s): J44.9 - Chronic obstructive pulmonary disease, unspecified Annotation/Comment:: No recent cough, bronchitic-type symptoms, etc. (6) Caries SNOMED Code(s): 07701432 Code(s): K02.9 - DENTAL CARIES, UNSPECIFIED Status: Chronic Priority: High Current Visit: No Onset Date: 07/10/15 Annotation/Comment:: CT scan results as above. 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 His regular provider will be updated as per discharge instructions. Hyperglycemia likely elated to his poor dental hygiene and also current infection with referral to oral surgeon recommended (8) Hyperlipidemia SNOMED Code(s): 78040116 Code(s): E78.5 - HYPERLIPIDEMIA, UNSPECIFIED Status: Chronic Priority: Medium Current Visit: No Qualifiers: Hyperlipidemia type: Mixed hyperlipidemia Qualified Code(s): E78.2 - Mixed hyperlipidemia Annotation/Comment:: under medical therapy (9) Hypertension SNOMED Code(s): 00684902 Code(s): I10 - ESSENTIAL (PRIMARY) HYPERTENSION Status: Chronic Priority : Medium Current Visit: No Qualifiers: Hypertension type: essential hypertension Qualified Code(s): I10 - Essential (primary) hypertension Annotation/Comment:: blood pressure stable in the emergency room (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 SNOMED Code(s): 299103612 Code(s): 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, NEC Status: Chronic Priority: Medium Current Visit: No Annotation/Comment:: consider high-protein Glucerna supplements (11) Hypomagnesemia SNOMED Code(s): 346269250 Code(s): E83.42 - HYPOMAGNESEMIA Status: Chronic Priority: Medium Current Visit: No Annotation/Comment:: magnesium level normal today (12) Hyponatremia SNOMED Code(s): 97011948 Code(s): E87.1 - HYPO-OSMOLALITY AND HYPONATREMIA Status: Chronic Priority: Medium Current Visit: No Annotation/Comment:: observe for now with history of CHF, however no recent chest pain or anginal complaints (13) Myasthenia gravis SNOMED Code(s): 16892483 Code(s): G70.00 - MYASTHENIA GRAVIS WITHOUT (ACUTE) EXACERBATION Status: Chronic Priority: Medium Current Visit: No Annotation/Comment:: stable by history (14) Osteoarthritis SNOMED Code(s): 867024258 Code(s): M19.90 - UNSPECIFIED OSTEOARTHRITIS, UNSPECIFIED SITE Status: Chronic Priority: Medium Current Visit: No Qualifiers: Osteoarthritis location: multiple joints Osteoarthritis type: primary Qualified Code(s): M15.0 - Primary generalized (osteo)arthritis Annotation/Comment:: stable by history - Problem List Review Problem List Initiated/Reviewed/Updated: Yes - My Orders Last 24 Hours: My Active Orders 05/14/17 05:11 Chest 1V Frontal [CR] Routine 05/14/17 20:00 Sodium Chloride 0.9% [Saline Flush] 10 ml FLUSH Q12HR 05/15/17 05:11 CBC WITH AUTO DIFF [HEME] Routine CMP [COMPREHENSIVE METABOLIC PN,CMP] [CHEM] Routine CRP [C-REACTIVE PROTEIN] [CHEM] Routine MYCOPLASMA IGM RAPID [MREF] Routine - Plan Plan:: 05-10-17 Shelly Morales PA-C Admitting to IP from the [facility] after OP therapy failure for exacerbation of COPD and CHF, now with additional pneumonia. He had presented to the nurses' station at the [facility] this morning c/o SOB and was found with O2 sat of 81-83% on RA, oxygen was applied and sat did come up to 92%. On eval at [facility] resp's were audibly moist and pt. appeared to be using accessory muscles. Did contact [facility] and there is no bed availability. [facility] will discuss possible transfer with Jeanne tomorrow. Dr. Diaz was consulted at the time of admit. IV Lasix and Solu-Medrol, and antibiotics. This elderly gentleman with multiple chronic co-morbidities will require at least 96 hours of IP treatment. 05/11/17 Joe Curran MD Still with cough and wheezing. Jeanne Hays did contact [facility]. No beds available for transfer today. Continue inpatient status and therapy. Serious due to co-morbidity of myasthenius gravis. 05/12/17 Joe Curran MD Still with cough and wheeze but some improvement. No beds available at [facility] today. Continue therapy. 05/13/17 Joe Curran MD Still with cough and wheeze. Still very weak. Only could tolerate bedside dangle. Still no beds available at [facility]. 05/14/17 Joe Curran MD Maybe a little bit stronger today. Still quite weak. Lab work improving slowly. Needs continued inpatient status for continued IV antibiotics, IV lasix, respiratory treatments, monitor H/H, kidney status and continue PT-OT.
[2017-05-14] MEDS: Simvastatin 10 MG Tab PO SCH (20:59)
[2017-05-14] MEDS: Tamsulosin 0.4 MG Cap.ER PO SCH (20:59)
[2017-05-14] MEDS: Gabapentin 100 MG Cap PO SCH (20:59)
[2017-05-14] MEDS: Sodium Chloride 0.9% 10 ML Syringe FLUSH SCH (21:01)
[2017-05-14] MEDS: Magnesium Hydroxide 400 MG/5 ML Susp 30 ML Cup PO SCH (23:26)
[2017-05-15] MEDS: Albuterol/Ipratropium 3.0-0.5 MG/3 ML Neb Soln NEB SCH (07:21)
[2017-05-15] MEDS: PRADAXA 150 MG PO SCH (07:35)
[2017-05-15] MEDS: COLESTIPOL 1 GM PO SCH (07:35)
[2017-05-15] MEDS: PYRIDOSTIGMINE 60 MG PO SCH (07:36)
[2017-05-15] MEDS: Hydrocortisone Sodium Succinate 100 MG/2 ML SDV IVPUSH SCH (07:37)
[2017-05-15] MEDS: Azithromycin 250 MG Tab PO SCH (07:37)
[2017-05-15] MEDS: Digoxin 125 MCG Tab PO SCH (07:37)
[2017-05-15] MEDS: Furosemide 40 MG/4 ML VIAL IVPUSH SCH (07:37)
[2017-05-15] MEDS: cefTAZidime 1 GM Vial IVPUSH SCH (07:37)
[2017-05-15] MEDS: Docusate Sodium 100 MG Cap PO SCH (07:38)
[2017-05-15] MEDS: Acetaminophen/HYDROcodone 325-5 MG Tab PO SCH (07:38)
[2017-05-15] MEDS: glyBURIDE 5 MG Tab PO SCH (07:38)
[2017-05-15] MEDS: Verapamil 180 MG Tab.ER PO SCH (07:38)
[2017-05-15] MEDS: metFORMIN 500 MG Tab PO SCH (07:38)
[2017-05-15] MEDS: Magnesium Oxide 400 MG Tab PO SCH (07:40)
[2017-05-15] MEDS: Sodium Chloride 0.9% 10 ML Syringe FLUSH SCH (07:41)
[2017-05-15 07:44] LABS: CHLORIDE,CL 99 mmol/L (98-107); SODIUM,NA 142 mmol/L (136-145)
[2017-05-15 07:56] VITALS: BP 120/67
--- NOTE | 2017-05-15 10:44 | PCM.PN ---
- General Info Date of Service: 05/15/17 Admission Dx/Problem (Free Text): Admission Diagnosis/Problem Admission Diagnosis/Problem Pneumonia COPD CHF Hypoxia - Review of Systems General: Reports: Weakness, Other (says had one episode in the night where he awakened feeling very SOB, did not last long, did not call nurse) HEENT: Reports: No Symptoms Pulmonary: Reports: Shortness of Breath, Cough, Wheezing Cardiovascular: Reports: No Symptoms Gastrointestinal: Reports: No Symptoms Genitourinary: Reports: No Symptoms, Other (medina catheter) Musculoskeletal: Reports: No Symptoms Skin: Reports: No Symptoms Neurological: Reports: Weakness Psychiatric: Reports: No Symptoms - Patient Data Vitals - Most Recent: Last Vital Signs Temp 98.3 F 05/15/17 07:55 Pulse 97 05/15/17 07:55 Resp 19 05/15/17 07:55 BP 120/67 05/15/17 07:55 Pulse Ox 93 L 05/15/17 07:55 Weight - Most Recent: 191 lb I&O - Last 24 Hours: Intake & Output 05/14/17 05/15/17 05/15/17 22:59 06:59 14:59 Intake Total 577 181 8560 Output Total 350 Balance 950 -250 1120 Lab Results Last 24 Hours: Laboratory Results - last 24 hr 05/14/17 05/14/17 05/14/17 Range/Units 07:15 11:38 16:47 WBC (4.0-10.2) K/uL RBC (4.33-5.41) M/uL Hgb (13.1-16.8) g/dL Hct (39.0-49.0) % MCV (84.0-98.0) fL MCH (28.2-33.3) pg MCHC (31.7-36.0) g/dL RDW (11.2-14.1) % Plt Count (150-350) K/uL Neut % (Auto) (45.0-80.0) % Lymph % (Auto) (10.0-50.0) % Leon % (Auto) (2.0-14.0) % Eos % (Auto) (0.0-5.0) % Baso % (Auto) (0.0-2.0) % Neut # (Auto) (1.40-7.00) K/uL Lymph # (Auto) (0.50-3.50) K/uL Leon # (Auto) (0.00-1.00) K/uL Eos # (Auto) (0.00-0.50) K/uL Baso # (Auto) (0.00-0.20) K/uL Sodium (136-145) mmol/L Potassium (3.5-5.1) mmol/L Chloride (98-107) mmol/L Carbon Dioxide (21.0-32.0) mmol/L BUN (7-18) mg/dL Creatinine (0.51-1.17) mg/dL Est Cr Clr Drug Dosing mL/min Estimated GFR (MDRD) mL/min Glucose (74-106) mg/dL POC Glucose 232 H 280 H* 240 H (65-110) mg/dl Calcium (8.5-10.1) mg/dL Total Bilirubin (0.2-1.0) mg/dL AST (15-37) U/L ALT (12-78) U/L Alkaline Phosphatase (46-116) IU/L C-Reactive Protein (<=0.9) mg/dL Total Protein (6.4-8.2) g/dL Albumin (3.4-5.0) g/dL 05/15/17 05/15/17 05/15/17 Range/Units 07:00 07:00 07:12 WBC 8.2 (4.0-10.2) K/uL RBC 3.63 L (4.33-5.41) M/uL Hgb 8.6 L (13.1-16.8) g/dL Hct 30.8 L (39.0-49.0) % MCV 84.8 (84.0-98.0) fL MCH 23.7 L (28.2-33.3) pg MCHC 27.9 L (31.7-36.0) g/dL RDW 17.4 H (11.2-14.1) % Plt Count 259 (150-350) K/uL Neut % (Auto) 69.6 (45.0-80.0) % Lymph % (Auto) 19.2 (10.0-50.0) % Leon % (Auto) 10.3 (2.0-14.0) % Eos % (Auto) 0.7 (0.0-5.0) % Baso % (Auto) 0.2 (0.0-2.0) % Neut # (Auto) 5.70 (1.40-7.00) K/uL Lymph # (Auto) 1.57 (0.50-3.50) K/uL Leon # (Auto) 0.84 (0.00-1.00) K/uL Eos # (Auto) 0.06 (0.00-0.50) K/uL Baso # (Auto) 0.02 (0.00-0.20) K/uL Sodium 142 (136-145) mmol/L Potassium 4.1 (3.5-5.1) mmol/L Chloride 99 (98-107) mmol/L Carbon Dioxide 39.6 H (21.0-32.0) mmol/L BUN 28 H (7-18) mg/dL Creatinine 0.76 (0.51-1.17) mg/dL Est Cr Clr Drug Dosing 81.38 mL/min Estimated GFR (MDRD) > 60 mL/min Glucose 214 H (74-106) mg/dL POC Glucose 208 H (65-110) mg/dl Calcium 8.8 (8.5-10.1) mg/dL Total Bilirubin 0.3 (0.2-1.0) mg/dL AST 19 (15-37) U/L ALT 20 (12-78) U/L Alkaline Phosphatase 74 (46-116) IU/L C-Reactive Protein 5.2 H (<=0.9) mg/dL Total Protein 6.9 (6.4-8.2) g/dL Albumin 2.4 L (3.4-5.0) g/dL Meño Results Last 24 Hours: Microbiology 05/10/17 14:30 Aerobic Blood Culture - Preliminary Blood - Venous - Lab Draw NO GROWTH AFTER 4 DAYS Anaerobic Blood Culture - Preliminary NO GROWTH AFTER 4 DAYS 05/10/17 14:25 Aerobic Blood Culture - Preliminary Blood - Venous NO GROWTH AFTER 4 DAYS Anaerobic Blood Culture - Preliminary NO GROWTH AFTER 4 DAYS Med Orders - Current: Current Medications Acetaminophen (Tylenol Arthritis Pain) 650 mg PO BID@1200,1700 RUDY Last Admin: 05/14/17 17:12 Dose: 650 mg Hydrocodone Bitart/Acetaminophen ([place] 325-5 Mg) 1 tab PO TID@0800,1200,1999 [facility] Last Admin: 05/15/17 07:38 Dose: 1 tab Albuterol/Ipratropium (Duoneb 3.0-0.5 Mg/3 Ml) 3 ml NEB QID [facility] Last Admin: 05/15/17 07:21 Dose: 3 ml Albuterol/Ipratropium (Duoneb 3.0-0.5 Mg/3 Ml) 3 ml NEB Q4HRRT PRN PRN Reason: Wheezing Last Admin: 05/15/17 04:22 Dose: 3 ml Azithromycin (Zithromax) 500 mg PO DAILY [facility] Last Admin: 05/15/17 07:37 Dose: 500 mg Bisacodyl (Dulcolax) 10 mg RECTAL DAILY PRN PRN Reason: Constipation Ceftazidime (Fortaz) 1 gm IVPUSH Q12HR [facility] Last Admin: 05/15/17 07:37 Dose: 1 gm Digoxin (Lanoxin) 125 mcg PO QAM [facility] Last Admin: 05/15/17 07:37 Dose: 125 mcg Docusate Sodium (Colace) 100 mg PO TID@0800,1200,1999 [facility] Last Admin: 05/15/17 07:38 Dose: Not Given Furosemide (Lasix) 40 mg IVPUSH BIDDIURETIC [facility] Last Admin: 05/15/17 07:37 Dose: 40 mg Gabapentin (Neurontin) 100 mg PO BEDTIME [facility] Last Admin: 05/14/17 20:59 Dose: 100 mg Glyburide (Micronase) 10 mg PO Q12HR [facility] Last Admin: 05/15/17 07:38 Dose: 10 mg Hydrocortisone Sodium Succinate (Solu-Cortef) 20 mg IVPUSH Q12H [facility] Last Admin: 05/15/17 07:37 Dose: 20 mg Magnesium Hydroxide (Milk Of Magnesia) 30 ml PO Q2D@1999 [facility] Last Admin: 05/14/17 23:26 Dose: Not Given Magnesium Oxide (Magnesium Oxide) 400 mg PO QAM [facility] Last Admin: 05/15/17 07:40 Dose: 400 mg Metformin HCl (Glucophage) 1,000 mg PO Q12HR [facility] Last Admin: 05/15/17 07:38 Dose: 1,000 mg Colestipol [Colestid (] 1 Gm) 1 gm PO Q12HR [facility] Last Admin: 05/15/17 07:35 Dose: 1 gm Pradaxa (Dabigatran) (150 Mg Capsules) 150 mg PO Q12HR [facility] Last Admin: 05/15/17 07:35 Dose: 150 mg Pyridostigmine 60 Mg (Tablets (Mestinon)) 60 mg PO Q12HR [facility] Last Admin: 05/15/17 07:36 Dose: 60 mg Polyethylene Glycol (Miralax) 17 gm PO Q2D@1999 [facility] Last Admin: 05/13/17 19:57 Dose: Not Given Simvastatin (Zocor) 10 mg PO BEDTIME [facility] Last Admin: 05/14/17 20:59 Dose: 10 mg Sodium Chloride (Saline Flush) 10 ml FLUSH ASDIRECTED PRN PRN Reason: Keep Vein Open Last Admin: 05/14/17 21:02 Dose: 10 ml Sodium Chloride (Saline Flush) 10 ml FLUSH Q12HR [facility] Last Admin: 05/15/17 07:41 Dose: 10 ml Tamsulosin HCl (Flomax) 0.4 mg PO BEDTIME [facility] Last Admin: 05/14/17 20:59 Dose: 0.4 mg Verapamil HCl (Calan Sr) 180 mg PO Q12HR [facility] Last Admin: 05/15/17 07:38 Dose: 180 mg Discontinued Medications Albuterol/Ipratropium (Duoneb 3.0-0.5 Mg/3 Ml) 3 ml NEB ONETIME ONE Stop: 05/10/17 13:45 Last Admin: 05/10/17 14:11 Dose: 3 ml Albuterol/Ipratropium (Duoneb 3.0-0.5 Mg/3 Ml) 3 ml NEB Q4H PRN PRN Reason: Dyspnea Ceftazidime (Fortaz) 1 gm IVPUSH Q8HR [facility] Last Admin: 05/11/17 08:46 Dose: 1 gm Furosemide (Lasix) 40 mg IVPUSH NOW ONE Stop: 05/10/17 14:10 Last Admin: 05/10/17 14:42 Dose: 40 mg Azithromycin 500 mg/ Sodium (Chloride) 250 mls @ 250 mls/hr IV Q24H [facility] Stop: 05/12/17 17:59 Last Admin: 05/12/17 16:01 Dose: 250 mls/hr - Exam Quality Assessment: Supplemental Oxygen, Urine Catheter General: Alert, Oriented, No Acute Distress HEENT: EOMI, Mucous Membr. Moist/[place] Neck: Supple, Trachea Midline, No JVD Lungs: Decreased Breath Sounds, Wheezing (few faint posterior wheezes heard bilat lower lung thomas) Cardiovascular: Irregular Rhythm GI/Abdominal Exam: Normal Bowel Sounds, Soft, Non-Tender, No Distention (Male) Exam: Other (medina catheter) Extremities: Pedal Edema (minimal, Kenji hose on) Skin: Warm, Dry Neurological: No New Focal Deficit Psy/Mental Status: Alert, Normal Affect, Normal Mood - Problem List & Annotations (1) Pneumonia SNOMED Code(s): 864883239 Code(s): J18.9 - PNEUMONIA, UNSPECIFIED ORGANISM Status: Acute Priority: High Current Visit: Yes Qualifiers: Laterality: bilateral Lung location: unspecified part of lung (2) CHF (congestive heart failure) SNOMED Code(s): 16923898 Code(s): I50.9 - HEART FAILURE, UNSPECIFIED Status: Acute Priority: High Current Visit: Yes Qualifiers: Heart failure type: unspecified Heart failure chronicity: acute on chronic Qualified Code(s): I50.9 - Heart failure, unspecified (3) Hypoxia SNOMED Code(s): 460450495 Code(s): R09.02 - HYPOXEMIA Status: Acute Priority: High Current Visit : Yes - Problem List Review Problem List Initiated/Reviewed/Updated: Yes - My Orders Last 24 Hours: My Active Orders 05/14/17 20:00 Vital Signs [RC] QID - Plan Plan:: 05-10-17 Shelly Morales PA-C Admitting to from the [facility] after OP therapy failure for exacerbation of COPD and CHF, now with additional pneumonia. He had presented to the nurses' station at the [facility] this morning c/o SOB and was found with O2 sat of 81-83% on RA, oxygen was applied and sat did come up to 92%. On eval at [facility] [place] resp's were audibly moist and pt. appeared to be using accessory muscles. Did contact [facility] and there is no bed availability. Senait will discuss possible transfer with Jeanne tomorrow. Dr. Diaz was consulted at the time of admit. IV Lasix and Solu-Medrol, and antibiotics. This elderly gentleman with multiple chronic co-morbidities will require at least 96 hours of IP treatment. 05/11/17 Joe Curran MD Still with cough and wheezing. Jeanne Hays did contact [facility]. No beds available for transfer today. Continue inpatient status and therapy. Serious due to co-morbidity of myasthenius gravis. 05/12/17 Joe Curran MD Still with cough and wheeze but some improvement. No beds available at [facility] today. Continue therapy. 05/13/17 Joe Curran MD Still with cough and wheeze. Still very weak. Only could tolerate bedside dangle. Still no beds available at [facility]. 05/14/17 Joe Curran MD Maybe a little bit stronger today. Still quite weak. Lab work improving slowly. Needs continued inpatient status for continued IV antibiotics, IV lasix, respiratory treatments, monitor H/H, kidney status and continue PT-OT. 05-25-17 Shelly Morales PA-C c/o one episode in the night where he had awakened feeling very SOB, thinks the O2 was on but is not certain - did not last long, did not call for nurse. Says still feels weak but definitely better than on admit. Have consulted with Dr. Diaz regarding transfer to [facility] status, and pt. agrees. He will require continued IV antibiotics and diuresis, labs, PT-OT and medical monitoring. Will transfer to [facility] status today.
--- NOTE | 2017-05-15 10:56 | PCM.DCSUM1 ---
Discharge Summary - Hospital Course Brief History: Had been admitted to status 05-10-17 after evaluation at the clinic, having failed OP therapy at the Basic [facility] of the [facility] for pneumonia, COPD and CHF. - Discharge Data Discharge Date: 05/15/17 Discharge Disposition: DC/Tfer W/I Hosp To [facility]ing [facility] Condition: Fair - Discharge Diagnosis/Problem(s) (1) Pneumonia SNOMED Code(s): 971817029 ICD Code: J18.9 - PNEUMONIA, UNSPECIFIED ORGANISM Status: Acute Priority : High Current Visit: Yes Qualifiers: Laterality: bilateral Lung location: unspecified part of lung (2) CHF (congestive heart failure) SNOMED Code(s): 66292126 ICD Code: I50.9 - HEART FAILURE, UNSPECIFIED Status: Acute Priority: High Current Visit: Yes Qualifiers: Heart failure type: unspecified Heart failure chronicity: acute on chronic Qualified Code(s): I50.9 - Heart failure, unspecified (3) Hypoxia SNOMED Code(s): 772097998 ICD Code: R09.02 - HYPOXEMIA Status: Acute Priority: High Current Visit : Yes - Patient Summary/Data Consults: Consultations 05/10/17 14:10 Care Management Consult [Consult to Case Management] [CONS] Routine 05/12/17 08:00 Consult to Occupational Therapy [OT Evaluation and Treatment] [CONS] Routine Consult to Physical Therapy [PT Evaluation and Treatment] [CONS] Routine Hospital Course: Patient has very slowly improved, but not to the point where he could return to a Basic Care facility. He is extremely weak due to this illness exacerbating underlying Myasthenia Gravis. - Patient Instructions Diet: Diabetic Diet Driving: Do Not Drive Showering/Bathing: May Shower - Discharge Plan Home Medications: Home Meds Acetaminophen [Tylenol Arthritis Pain] 650 mg PO Q4HR PRN MDD 3 04/14/15 [ History] Albuterol/Ipratropium [DuoNeb 3.0-0.5 MG/3 ML] 3 ml NEB Q4HR PRN 04/14/15 [ History] Cholecalciferol (Vitamin D3) [Vitamin D3] 800 unit PO QAM 04/14/15 [History] Dabigatran [Pradaxa] 150 mg PO Q12HR 04/14/15 [History] Digoxin [Lanoxin] 125 mcg PO QAM 04/14/15 [History] Docusate Sodium [Colace] 100 mg PO TID@0800,1200,199904/14/15 [History] Folic Acid 1 mg PO QAM 04/14/15 [History] Furosemide [Lasix] 60 mg PO QAM 04/14/15 [History] Magnesium Hydroxide [Milk of Magnesia] 30 ml PO Q2D@199904/14/15 [History] Magnesium Oxide 420 mg PO QAM 04/14/15 [History] Multivitamin [Multivitamins] 1 each PO QAM 04/14/15 [History] Polyethylene Glycol 3350 [MiraLAX] 17 gm PO Q2D@199904/14/15 [History] Pyridostigmine [Mestinon] 60 mg PO Q12HR 04/14/15 [History] Simvastatin [Zocor] 10 mg PO BEDTIME 04/14/15 [History] Tamsulosin [Flomax] 0.4 mg PO BEDTIME 04/14/15 [History] Thiamine Mononitrate [Vitamin B-1] 100 mg PO QAM 04/14/15 [History] Verapamil [Calan SR] 180 mg PO Q12HR 04/14/15 [History] glyBURIDE [Glyburide] 10 mg PO Q12HR 04/14/15 [History] metFORMIN [Glucophage] 1,000 mg PO Q12HR 04/14/15 [History] Acetaminophen [Tylenol Arthritis Pain] 650 mg PO BID@1200,1700 05/09/15 [History ] Bisacodyl [Dulcolax] 10 mg RECTAL DAILY PRN 07/10/15 [History] Colestipol [Colestipol HCl] 1 gm PO Q12HR 07/10/15 [History] Furosemide 20 mg PO DAILY@1200 07/10/15 [History] Calcium Carbonate/Vitamin D3 [Calcium 600 + Vit D Tablet] 1 tab PO Q12HR [History] Doxycycline [Vibramycin] 100 mg PO Q12HR 05/10/17 [History] Gabapentin [Neurontin] 100 mg PO BEDTIME 05/10/17 [History] Hydrocodone/Acetaminophen [Hydrocodon-Acetaminophen 5-325] 1 each PO TID@0800, 1200,199905/10/17 [History] Polyethylene Glycol 3350 [MiraLAX] 17 gm PO DAILY 05/10/17 [History] predniSONE [Prednisone] 20 mg PO [id number] 05/10/17 [History] - Discharge Summary/Plan Comment DC Time >30 min.: Yes (T) Discharge Summary/Plan Comment: Transferring into [facility] status to continue therapies under medical management. - Patient Data Vitals - Most Recent: Last Vital Signs Temp 98.3 F 05/15/17 07:55 Pulse 97 05/15/17 07:55 Resp 19 05/15/17 07:55 BP 120/67 05/15/17 07:55 Pulse Ox 93 L 05/15/17 07:55 Weight - Most Recent: 191 lb I&O - Last 24 hours: Intake & Output 05/14/17 05/15/17 05/15/17 22:59 06:59 14:59 Intake Total 384 050 1089 Output Total 350 Balance 950 -250 1120 Lab Results - Last 24 hrs: Laboratory Results - last 24 hr 05/14/17 05/14/17 05/14/17 Range/Units 07:15 11:38 16:47 WBC (4.0-10.2) K/uL RBC (4.33-5.41) M/uL Hgb (13.1-16.8) g/dL Hct (39.0-49.0) % MCV (84.0-98.0) fL MCH (28.2-33.3) pg MCHC (31.7-36.0) g/dL RDW (11.2-14.1) % Plt Count (150-350) K/uL Neut % (Auto) (45.0-80.0) % Lymph % (Auto) (10.0-50.0) % Gage % (Auto) (2.0-14.0) % Eos % (Auto) (0.0-5.0) % Baso % (Auto) (0.0-2.0) % Neut # (Auto) (1.40-7.00) K/uL Lymph # (Auto) (0.50-3.50) K/uL Gage # (Auto) (0.00-1.00) K/uL Eos # (Auto) (0.00-0.50) K/uL Baso # (Auto) (0.00-0.20) K/uL Sodium (136-145) mmol/L Potassium (3.5-5.1) mmol/L Chloride (98-107) mmol/L Carbon Dioxide (21.0-32.0) mmol/L BUN (7-18) mg/dL Creatinine (0.51-1.17) mg/dL Est Cr Clr Drug Dosing mL/min Estimated GFR (MDRD) mL/min Glucose (74-106) mg/dL POC Glucose 232 H 280 H* 240 H (65-110) mg/dl Calcium (8.5-10.1) mg/dL Total Bilirubin (0.2-1.0) mg/dL AST (15-37) U/L ALT (12-78) U/L Alkaline Phosphatase (46-116) IU/L C-Reactive Protein (<=0.9) mg/dL Total Protein (6.4-8.2) g/dL Albumin (3.4-5.0) g/dL 05/15/17 05/15/17 05/15/17 Range/Units 07:00 07:00 07:12 WBC 8.2 (4.0-10.2) K/uL RBC 3.63 L (4.33-5.41) M/uL Hgb 8.6 L (13.1-16.8) g/dL Hct 30.8 L (39.0-49.0) % MCV 84.8 (84.0-98.0) fL MCH 23.7 L (28.2-33.3) pg MCHC 27.9 L (31.7-36.0) g/dL RDW 17.4 H (11.2-14.1) % Plt Count 259 (150-350) K/uL Neut % (Auto) 69.6 (45.0-80.0) % Lymph % (Auto) 19.2 (10.0-50.0) % Gage % (Auto) 10.3 (2.0-14.0) % Eos % (Auto) 0.7 (0.0-5.0) % Baso % (Auto) 0.2 (0.0-2.0) % Neut # (Auto) 5.70 (1.40-7.00) K/uL Lymph # (Auto) 1.57 (0.50-3.50) K/uL Gage # (Auto) 0.84 (0.00-1.00) K/uL Eos # (Auto) 0.06 (0.00-0.50) K/uL Baso # (Auto) 0.02 (0.00-0.20) K/uL Sodium 142 (136-145) mmol/L Potassium 4.1 (3.5-5.1) mmol/L Chloride 99 (98-107) mmol/L Carbon Dioxide 39.6 H (21.0-32.0) mmol/L BUN 28 H (7-18) mg/dL Creatinine 0.76 (0.51-1.17) mg/dL Est Cr Clr Drug Dosing 81.38 mL/min Estimated GFR (MDRD) > 60 mL/min Glucose 214 H (74-106) mg/dL POC Glucose 208 H (65-110) mg/dl Calcium 8.8 (8.5-10.1) mg/dL Total Bilirubin 0.3 (0.2-1.0) mg/dL AST 19 (15-37) U/L ALT 20 (12-78) U/L Alkaline Phosphatase 74 (46-116) IU/L C-Reactive Protein 5.2 H (<=0.9) mg/dL Total Protein 6.9 (6.4-8.2) g/dL Albumin 2.4 L (3.4-5.0) g/dL NOMI Results - Last 24 hrs: Microbiology 05/10/17 14:30 Aerobic Blood Culture - Preliminary Blood - Venous - Lab Draw NO GROWTH AFTER 4 DAYS Anaerobic Blood Culture - Preliminary NO GROWTH AFTER 4 DAYS 05/10/17 14:25 Aerobic Blood Culture - Preliminary Blood - Venous NO GROWTH AFTER 4 DAYS Anaerobic Blood Culture - Preliminary NO GROWTH AFTER 4 DAYS Med Orders - Current: Current Medications Acetaminophen (Tylenol Arthritis Pain) 650 mg PO BID@1200,1700 [facility] Last Admin: 05/14/17 17:12 Dose: 650 mg Hydrocodone Bitart/Acetaminophen ([place] 325-5 Mg) 1 tab PO TID@0800,1200,2000 [facility] Last Admin: 05/15/17 07:38 Dose: 1 tab Albuterol/Ipratropium (Duoneb 3.0-0.5 Mg/3 Ml) 3 ml NEB QID [facility] Last Admin: 05/15/17 07:21 Dose: 3 ml Albuterol/Ipratropium (Duoneb 3.0-0.5 Mg/3 Ml) 3 ml NEB Q4HRRT PRN PRN Reason: Wheezing Last Admin: 05/15/17 04:22 Dose: 3 ml Azithromycin (Zithromax) 500 mg PO DAILY [facility] Last Admin: 05/15/17 07:37 Dose: 500 mg Bisacodyl (Dulcolax) 10 mg RECTAL DAILY PRN PRN Reason: Constipation Ceftazidime (Fortaz) 1 gm IVPUSH Q12HR [facility] Last Admin: 05/15/17 07:37 Dose: 1 gm Digoxin (Lanoxin) 125 mcg PO QAM [facility] Last Admin: 05/15/17 07:37 Dose: 125 mcg Docusate Sodium (Colace) 100 mg PO TID@0800,1200,2000 [facility] Last Admin: 05/15/17 07:38 Dose: Not Given Furosemide (Lasix) 40 mg IVPUSH BIDDIURETIC [facility] Last Admin: 05/15/17 07:37 Dose: 40 mg Gabapentin (Neurontin) 100 mg PO BEDTIME [facility] Last Admin: 05/14/17 20:59 Dose: 100 mg Glyburide (Micronase) 10 mg PO Q12HR [facility] Last Admin: 05/15/17 07:38 Dose: 10 mg Hydrocortisone Sodium Succinate (Solu-Cortef) 20 mg IVPUSH Q12H [facility] Last Admin: 05/15/17 07:37 Dose: 20 mg Magnesium Hydroxide (Milk Of Magnesia) 30 ml PO Q2D@1999 [facility] Last Admin: 05/14/17 23:26 Dose: Not Given Magnesium Oxide (Magnesium Oxide) [facility] [place] Last Admin: 05/15/17 07:40 Dose: 400 mg Metformin HCl (Glucophage) 1,000 mg PO Q12HR [facility] Last Admin: 05/15/17 07:38 Dose: 1,000 mg Colestipol [Colestid (] 1 Gm) 1 gm PO Q12HR [facility] Last Admin: 05/15/17 07:35 Dose: 1 gm Pradaxa (Dabigatran) (150 Mg Capsules) 150 mg PO Q12HR [facility] Last Admin: 05/15/17 07:35 Dose: 150 mg Pyridostigmine 60 Mg (Tablets (Mestinon)) 60 mg PO Q12HR [facility] Last Admin: 05/15/17 07:36 Dose: 60 mg Polyethylene Glycol (Miralax) 17 gm PO Q2D@1999 [facility] Last Admin: 05/13/17 19:57 Dose: Not Given Simvastatin (Zocor) 10 mg PO BEDTIME [facility] Last Admin: 05/14/17 20:59 Dose: 10 mg Sodium Chloride (Saline Flush) 10 ml FLUSH ASDIRECTED PRN PRN Reason: Keep Vein Open Last Admin: 05/14/17 21:02 Dose: 10 ml Sodium Chloride (Saline Flush) 10 ml FLUSH Q12HR [facility] Last Admin: 05/15/17 07:41 Dose: 10 ml Tamsulosin HCl (Flomax) 0.4 mg PO BEDTIME [facility] Last Admin: 05/14/17 20:59 Dose: 0.4 mg Verapamil HCl (Calan Sr) 180 mg PO Q12HR [facility] Last Admin: 05/15/17 07:38 Dose: 180 mg Discontinued Medications Albuterol/Ipratropium (Duoneb 3.0-0.5 Mg/3 Ml) 3 ml NEB ONETIME ONE Stop: 05/10/17 13:45 Last Admin: 05/10/17 14:11 Dose: 3 ml Albuterol/Ipratropium (Duoneb 3.0-0.5 Mg/3 Ml) 3 ml NEB Q4H PRN PRN Reason: Dyspnea Ceftazidime (Fortaz) 1 gm IVPUSH Q8HR [facility] Last Admin: 05/11/17 08:46 Dose: 1 gm Furosemide (Lasix) 40 mg IVPUSH NOW ONE Stop: 05/10/17 14:10 Last Admin: 05/10/17 14:42 Dose: 40 mg Azithromycin 500 mg/ Sodium (Chloride) 250 mls @ 250 mls/hr IV Q24H [facility] Stop: 05/12/17 17:59 Last Admin: 05/12/17 16:01 Dose: 250 mls/hr *Q Meaningful Use (DIS) - VTE *Q VTE Criteria *Q: - Stroke *Q Stroke Criteria *Q: - AMI *Q AMI Criteria *Q:
== END 2017-05-15 11:35 | disposition swing bed (61) | DRG 194 ==
LOC: LL.LAB 10:59 → LL.MS 13:33
PROVIDERS: ADMIT Physician Assistant; ATTEND Family Medicine
DX: J18.9 Pneumonia, unspecified organism (principal); E87.1 Hypo-osmolality and hyponatremia; J44.9 Chronic obstructive pulmonary disease, unspecified; I50.9 Heart failure, unspecified; R09.02 Hypoxemia; K02.9 Dental caries, unspecified; E11.40 Type 2 diabetes mellitus with diabetic neuropathy, unspecified; E78.5 Hyperlipidemia, unspecified; I11.0 Hypertensive heart disease with heart failure; E83.42 Hypomagnesemia; E88.09 Other disorders of plasma-protein metabolism, not elsewhere classified; G70.00 Myasthenia gravis without (acute) exacerbation; M19.90 Unspecified osteoarthritis, unspecified site; I48.91 Unspecified atrial fibrillation; Z88.2 Allergy status to sulfonamides; Z88.8 Allergy status to other drugs, medicaments and biological substances; Z79.84 Long term (current) use of oral hypoglycemic drugs; Z79.899 Other long term (current) drug therapy; H54.7 Unspecified visual loss; R13.10 Dysphagia, unspecified; N40.1 Benign prostatic hyperplasia with lower urinary tract symptoms; N39.498 Other specified urinary incontinence; R91.1 Solitary pulmonary nodule; G89.29 Other chronic pain; F32.9 Major depressive disorder, single episode, unspecified; F41.9 Anxiety disorder, unspecified; E55.9 Vitamin D deficiency, unspecified; E53.8 Deficiency of other specified B group vitamins; D64.9 Anemia, unspecified; Z87.891 Personal history of nicotine dependence
CPT/HCPCS: 36415; 51702; 71045; 71046; 80053; 80162; 82962; 83605; 83880; 84484; 85025; 85379; 86140; 86738; 87040; 94640; 97110-GP; 97162-GP; 97530-GP; A9270-GY; J0456; J0713; J1720; J1940; J7050

== ENCOUNTER 2017-05-15 11:01 | Inpatient (IN) | payer MEDICARE, MEDICAID ==
[2017-05-15] MEDS ORDERED: Furosemide 40 MG/4 ML VIAL IVPUSH ONE ×2 (12:40→14:00)
--- NOTE | 2017-05-15 13:03 | PCM.HP ---
H&P History of Present Illness - General Date of Service: 05/15/17 Admit Problem/Dx: Admission Diagnosis/Problem Admission Diagnosis/Problem Pneumonia Source of Information: Patient, Old Records History Limitations: Reports: No Limitations - History of Present Illness Initial Comments - Free Text/Narative: Transferred today from acute care to [facility] status to continue IV antibiotics and diuresis, PT-OT and medical monitoring. Onset of Symptoms: Reports: Gradual Duration of Symptoms: Reports: Day(s): Quality: Reports: Same as Previous Episode (see IP H&P) - Related Data Allergies/Adverse Reactions: Allergies Allergy/AdvReac Type Severity Reaction Status Date / Time cephalexin Allergy Itching,sul Verified 07/10/15 12:15 fa sulfamethoxazole Allergy Hives,itchi Verified 07/10/15 12:15 [From Bactrim] ng trimethoprim [From Bactrim] Allergy Hives,itchi Verified 07/10/15 12:15 ng Home Medications: Home Meds Acetaminophen [Tylenol Arthritis Pain] 650 mg PO Q4HR PRN MDD 3 04/14/15 [ History] Albuterol/Ipratropium [DuoNeb 3.0-0.5 MG/3 ML] 3 ml NEB Q4HR PRN 04/14/15 [ History] Cholecalciferol (Vitamin D3) [Vitamin D3] 800 unit PO QAM 04/14/15 [History] Dabigatran [Pradaxa] 150 mg PO Q12HR 04/14/15 [History] Digoxin [Lanoxin] 125 mcg PO QAM 04/14/15 [History] Docusate Sodium [Colace] 100 mg PO TID@0800,1200,199904/14/15 [History] Folic Acid 1 mg PO QAM 04/14/15 [History] Furosemide [Lasix] 60 mg PO QAM 04/14/15 [History] Magnesium Hydroxide [Milk of Magnesia] 30 ml PO Q2D@199904/14/15 [History] Magnesium Oxide 420 mg PO QAM 04/14/15 [History] Multivitamin [Multivitamins] 1 each PO QAM 04/14/15 [History] Polyethylene Glycol 3350 [MiraLAX] 17 gm PO Q2D@199904/14/15 [History] Pyridostigmine [Mestinon] 60 mg PO Q12HR 04/14/15 [History] Simvastatin [Zocor] 10 mg PO BEDTIME 04/14/15 [History] Tamsulosin [Flomax] 0.4 mg PO BEDTIME 04/14/15 [History] Thiamine Mononitrate [Vitamin B-1] 100 mg PO QAM 04/14/15 [History] Verapamil [Calan SR] 180 mg PO Q12HR 04/14/15 [History] glyBURIDE [Glyburide] 10 mg PO Q12HR 04/14/15 [History] metFORMIN [Glucophage] 1,000 mg PO Q12HR 04/14/15 [History] Acetaminophen [Tylenol Arthritis Pain] 650 mg PO BID@1200,1700 05/09/15 [History ] Bisacodyl [Dulcolax] 10 mg RECTAL DAILY PRN 07/10/15 [History] Colestipol [Colestipol HCl] 1 gm PO Q12HR 07/10/15 [History] Furosemide 20 mg PO DAILY@1200 07/10/15 [History] Calcium Carbonate/Vitamin D3 [Calcium 600 + Vit D Tablet] 1 tab PO Q12HR [History] Doxycycline [Vibramycin] 100 mg PO Q12HR 05/10/17 [History] Gabapentin [Neurontin] 100 mg PO BEDTIME 05/10/17 [History] Hydrocodone/Acetaminophen [Hydrocodon-Acetaminophen 5-325] 1 each PO TID@0800, 1200,2000 05/10/17 [History] Polyethylene Glycol 3350 [MiraLAX] 17 gm PO DAILY 05/10/17 [History] predniSONE [Prednisone] 20 mg PO [id number] 05/10/17 [History] Past Medical History HEENT History: Reports: Cataract, Impaired Vision, Other (See Below) Other HEENT History: ocular myasthenia gravis Cardiovascular History: Reports: Afib, Arrhythmia, Heart Failure, High Cholesterol, Hypertension Respiratory History: Reports: COPD, Other (See Below) Other Respiratory History: benign pulmonary nodule Gastrointestinal History: Reports: Chronic Constipation, Colon Polyp, Hiatal Hernia, Other (See Below) Other Gastrointestinal History: dysphagia Genitourinary History: Reports: BPH, Urinary Incontinence Musculoskeletal History: Reports: Arthritis, Back Pain, Chronic, Neck Pain, Chronic, Osteoarthritis Neurological History: Reports: Neuropathy, Diabetic, Other (See Below) Other Neuro History: ocular myasthenia gravis Psychiatric History: Reports: Addiction (chronic narcotic use), Anxiety, Depression. Denies: Psych Hospitalization(s), Suicide Attempt, Suicidal Ideation Endocrine/Metabolic History: Reports: Diabetes, Type II, Vitamin D Deficiency, Other (See Below) Other Endocrine/Metabolic History: hypomagnesemia Hematologic History: Reports: Anemia, B12 Deficiency Immunologic History: Reports: None. Denies: AIDS, HIV, SLE Oncologic (Cancer) History: Reports: None Dermatologic History: Reports: None. Denies: Eczema, Psoriasis - Infectious Disease History Infectious Disease History: Reports: Chicken Pox, Measles, MRSA - Past Surgical History HEENT Surgical History: Reports: Cataract Surgery, Oral Surgery Musculoskeletal Surgical History: Reports: Other (See Below) - Past Imaging History Past Imaging History: Reports: Ultrasound (soft tissue neck on 04/17/15) Social & Family History - Family History HEENT: Reports: None. Denies: Allergic Rhinitis, Glaucoma, Macular Degeneration , Retinal Detachment Cardiac: Reports: Hypertension (mother, daughter). Denies: Aneurysm, Arrhythmia , Blood Clots/VTE/DVT, CAD, Heart Failure, High Cholesterol, Pacemaker GI: Reports: Cholelithiasis (maternal grandmother). Denies: Colon Polyps, GERD , GI bleed, Inflammatory Bowel Disease, PUD : Reports: None. Denies: Dialysis, Renal Calculus, Renal Disease/ Insufficiency OBGYN: Reports: None. Denies: Endometriosis Musculoskeletal: Reports: RA (father). Denies: Gout, SLE Neurological: Reports: Alzheimers Disease, CVA, Dementia, Migraines, Other (See Below) Other Neurological Family History: no family history of myasthenia gravis Psychiatric: Reports: None. Denies: Abuse, Victim of, Anxiety, Depression, Psych Hospitalization(s), Suicide Attempt Endocrine/Metabolic: Reports: Hypothyroidism (maternal grandmother). Denies: Diabetes, Type I, Diabetes, type II, IDDM Hematologic: Reports: Transfusion Reaction Immunologic: Reports: None. Denies: AIDS, HIV, SLE Dermatologic: Reports: None. Denies: Angiodema, Eczema, Psoriasis Oncologic: Reports: None. Denies: Colon, Hodgkin's Lymphoma, Leukemia, Lymphoma , Non-Hodgkin's Lymphoma, Prostate - Tobacco Use Smoking Status *Q: Former Smoker Years of Tobacco use: 32 (between the ages 24 through 80) Packs/Tins Daily: 1.5 (additional subsequent cigar use) Used Tobacco, but Quit: Yes Month Tobacco Last Used: last used in 1989 Second Hand Smoke Exposure: No - Caffeine Use Caffeine Use: Reports: Coffee (3 cups per day), Soda (one soda per day). Denies : Energy Drinks, Tea - Alcohol Use Days Per Week of Alcohol Use: 0 (no previous DWI, alcohol problems, etc) Number of Drinks Per Day: 0 (none since entering the group home on 04/27/14, previously 2 mixed drinks per night) Total Drinks Per Week: 0 - Recreational Drug Use Recreational Drug Use: No Drug Use in Last 12 Months: No - Living Situation & Occupation Living situation: Reports: , Extended Care Facility Occupation: Retired H&P Review of Systems - Review of Systems: Review Of Systems: ROS reveals no pertinent complaints other than HPI. Exam - Exam Exam: See Below - Exam Quality Assessment: Supplemental Oxygen, Urinary Catheter General: Alert, Oriented, 4 HEENT: Hearing Intact Neck: Supple, Trachea Midline Lungs: Decreased Breath Sounds Cardiovascular: Irregular Rhythm GI/Abdominal Exam: Normal Bowel Sounds, Soft, Non-Tender (Male) Exam: Deferred Rectal (Males) Exam: Deferred Back Exam: Normal Inspection Extremities: Pedal Edema (mild, Kenji hose on) Skin: Warm, Dry, Intact Neuro Extensive - Mental Status: Alert, Oriented x3, Normal Mood/Affect, Normal Cognition Psychiatric: Alert, Normal Affect, Normal Mood *Q Meaningful Use (ADM) - VTE *Q VTE Criteria *Q: - Stroke *Q Stroke Criteria *Q: - AMI *Q AMI Criteria *Q: Problem List Initiated/Reviewed/Updated: Yes Orders Last 24hrs: Active Orders 24 hr Category Date Time Status Patient Status [ADT] Routine ADT 05/15/17 12:15 Ordered Ambulate [RC] PER UNIT ROUTINE Care 05/15/17 12:17 Ordered Antiembolic Devices [RC] PER UNIT ROUTINE Care 05/15/17 12:18 Ordered Height and Weight [RC] PER UNIT ROUTINE Care 05/15/17 12:17 Ordered Intake and Output [RC] QSHIFT Care 05/15/17 12:17 Ordered Oxygen Therapy [RC] PRN Care 05/15/17 12:15 Ordered RT Aerosol Therapy [RC] ASDIRECTED Care 05/15/17 12:25 Ordered RT Aerosol Therapy [RC] ASDIRECTED Care 05/15/17 12:34 Ordered Up With Assistance [RC] ASDIRECTED Care 05/15/17 12:15 Ordered Urinary Catheter Assessment [RC] ASDIRECTED Care 05/15/17 12:15 Ordered VTE/DVT Education [RC] PER UNIT ROUTINE Care 05/15/17 12:15 Ordered Vital Signs [RC] PER UNIT ROUTINE Care 05/15/17 12:15 Ordered Consult to Case Management [CONS] Routine Cons 05/15/17 12:15 Ordered OT Evaluation and Treatment [CONS] Routine Cons 05/15/17 12:15 Ordered PT Evaluation and Treatment [CONS] Routine Cons 05/15/17 12:15 Ordered 2 Gram Sodium Diet [DIET] Diet 05/15/17 Dinner Ordered Acetaminophen [Tylenol Arthritis Pain] Med 05/15/17 17:00 Ordered 650 mg PO BID Acetaminophen/HYDROcodone [[place] 325-5 MG] Med 05/15/17 20:00 Ordered 1 tab PO TID Albuterol/Ipratropium [DuoNeb 3.0-0.5 MG/3 ML] Med 05/15/17 12:25 Ordered 3 ml NEB Q4HRRT PRN Albuterol/Ipratropium [DuoNeb 3.0-0.5 MG/3 ML] Med 05/15/17 16:00 Ordered 3 ml NEB QIDRT Azithromycin [Zithromax] Med 05/16/17 08:00 Ordered 500 mg PO DAILY Bisacodyl [Dulcolax] Med 05/15/17 12:24 Ordered 10 mg RECTAL DAILY PRN Digoxin [Lanoxin] Med 05/16/17 08:00 Ordered 125 mcg PO QAM Docusate Sodium [Colace] Med 05/15/17 20:00 Ordered 100 mg PO TID Furosemide [Lasix] Med 05/16/17 08:00 Ordered 40 mg IVPUSH BIDDIURETIC Gabapentin [Neurontin] Med 05/15/17 20:00 Ordered 100 mg PO BEDTIME Hydrocortisone Sod Succinate [Solu-CORTEF] Med 05/15/17 20:00 Ordered 20 mg IVPUSH Q12H Magnesium Hydroxide [Milk of Magnesia] Med 05/15/17 20:00 Ordered 30 ml PO DAILY Magnesium Oxide Med 05/16/17 08:00 Ordered 400 mg PO DAILY Non-Formulary Medication [NF Drug] Med 05/15/17 20:00 Ordered See Dose Instructions PO Q12H Non-Formulary Medication [NF Drug] Med 05/15/17 20:00 Ordered See Dose Instructions PO Q12H Non-Formulary Medication [NF Drug] Med 05/15/17 20:00 Ordered See Dose Instructions PO Q12H Polyethylene Glycol 3350 [MiraLAX] Med 05/16/17 20:00 Ordered 17 gm PO Q2D Simvastatin [Zocor] Med 05/15/17 20:00 Ordered 10 mg PO BEDTIME Sodium Chloride 0.9% [Saline Flush] Med 05/15/17 12:15 Ordered 10 ml FLUSH ASDIRECTED PRN Tamsulosin [Flomax] Med 05/15/17 20:00 Ordered 0.4 mg PO BEDTIME Verapamil [Calan SR] Med 05/15/17 20:00 Ordered 180 mg PO BID cefTAZidime [Fortaz] Med 05/15/17 20:00 Ordered 1 gm IVPUSH Q12HR glyBURIDE [Micronase] Med 05/15/17 20:00 Ordered 10 mg PO Q12H metFORMIN [Glucophage] Med 05/15/17 20:00 Ordered 1,000 mg PO Q12H Antiembolic Hose [OM.PC] Per Unit Routine Oth 05/15/17 12:17 Ordered Saline Lock Insert [OM.PC] Routine Oth 05/15/17 12:15 Ordered Resuscitation Status Routine Resus Stat 05/15/17 12:15 Ordered Medication Orders Acetaminophen (Tylenol Arthritis Pain) 650 mg PO BID RUDY Hydrocodone Bitart/Acetaminophen ([place] 325-5 Mg) 1 tab PO TID RUDY Albuterol/Ipratropium (Duoneb 3.0-0.5 Mg/3 Ml) 3 ml NEB Q4HRRT PRN PRN Reason: Dyspnea Albuterol/Ipratropium (Duoneb 3.0-0.5 Mg/3 Ml) 3 ml NEB QIDRT RUDY Azithromycin (Zithromax) 500 mg PO DAILY RUDY Bisacodyl (Dulcolax) 10 mg RECTAL DAILY PRN PRN Reason: Constipation Ceftazidime (Fortaz) 1 gm IVPUSH Q12HR RUDY Digoxin (Lanoxin) 125 mcg PO QAM RUDY Docusate Sodium (Colace) 100 mg PO TID RUDY Furosemide (Lasix) 40 mg IVPUSH BIDDIURETIC RUDY Gabapentin (Neurontin) 100 mg PO BEDTIME RUDY Glyburide (Micronase) 10 mg PO Q12H RUDY Hydrocortisone Sodium Succinate (Solu-Cortef) 20 mg IVPUSH Q12H RUDY Magnesium Hydroxide (Milk Of Magnesia) 30 ml PO DAILY RUDY Magnesium Oxide (Magnesium Oxide) 400 mg PO DAILY RUDY Metformin HCl (Glucophage) 1,000 mg PO Q12H RUDY Non-Formulary Medication (Nf Drug) 0 each PO Q12H RUDY Non-Formulary Medication (Nf Drug) 0 each PO Q12H RUDY Non-Formulary Medication (Nf Drug) 0 each PO Q12H RUDY Polyethylene Glycol (Miralax) 17 gm PO Q2D RUDY Simvastatin (Zocor) 10 mg PO BEDTIME RUDY Sodium Chloride (Saline Flush) 10 ml FLUSH ASDIRECTED PRN PRN Reason: Keep Vein Open Tamsulosin HCl (Flomax) 0.4 mg PO BEDTIME RUDY Verapamil HCl (Calan Sr) 180 mg PO BID RUDY Assessment/Plan Comment:: 05-15-17 Shelly Morales PA-C Transferred to [facility] status today from care to continue IV antibiotics and Lasix, as well as PT-OT for strengthening as he has become extremely weak with this acute illness. Will require continued medical monitoring and management.
[2017-05-15] MEDS: Sodium Chloride 0.9% 10 ML Syringe FLUSH PRN (14:26)
[2017-05-15] MEDS: Albuterol/Ipratropium 3.0-0.5 MG/3 ML Neb Soln NEB SCH ×2 (16:26→20:37)
[2017-05-15] MEDS: Acetaminophen 650 MG Tab.ER PO SCH (16:26)
[2017-05-15] MEDS ORDERED: Insulin Aspart 100 Units/ML 3 ML Pen SUBCUT ONE (16:36)
[2017-05-15] MEDS: cefTAZidime 1 GM Vial IVPUSH SCH (20:36)
[2017-05-15] MEDS: metFORMIN 500 MG Tab PO SCH (20:36)
[2017-05-15] MEDS: Simvastatin 10 MG Tab PO SCH (20:36)
[2017-05-15] MEDS: PYRIDOSTIGMINE 60 MG PO SCH (20:37)
[2017-05-15] MEDS: Verapamil 180 MG Tab.ER PO SCH (20:37)
[2017-05-15] MEDS: Gabapentin 100 MG Cap PO SCH (20:37)
[2017-05-15] MEDS: glyBURIDE 5 MG Tab PO SCH (20:37)
[2017-05-15] MEDS: Tamsulosin 0.4 MG Cap.ER PO SCH (20:37)
[2017-05-15] MEDS: Acetaminophen/HYDROcodone 325-5 MG Tab PO SCH (20:37)
[2017-05-15] MEDS: COLESTIPOL 1 GM PO SCH (20:38)
[2017-05-15] MEDS: DABIGATRAN 150 MG PO SCH (20:38)
[2017-05-15] MEDS: Docusate Sodium 100 MG Cap PO SCH (20:43)
[2017-05-15] MEDS: Magnesium Hydroxide 400 MG/5 ML Susp 30 ML Cup PO SCH (20:43)
[2017-05-15] MEDS: Hydrocortisone Sodium Succinate 100 MG/2 ML SDV IVPUSH SCH (21:03)
[2017-05-16] MEDS: Albuterol/Ipratropium 3.0-0.5 MG/3 ML Neb Soln NEB PRN (01:45)
[2017-05-16] MEDS: Hydrocortisone Sodium Succinate 100 MG/2 ML SDV IVPUSH SCH ×2 (07:25→20:03)
[2017-05-16] MEDS: PYRIDOSTIGMINE 60 MG PO SCH ×2 (07:25→20:02)
[2017-05-16] MEDS: DABIGATRAN 150 MG PO SCH ×2 (07:26→20:01)
[2017-05-16] MEDS: Furosemide 40 MG/4 ML VIAL IVPUSH SCH ×2 (07:26→11:56)
[2017-05-16] MEDS: COLESTIPOL 1 GM PO SCH ×2 (07:26→20:01)
[2017-05-16] MEDS: cefTAZidime 1 GM Vial IVPUSH SCH ×2 (07:26→20:03)
[2017-05-16] MEDS: Magnesium Oxide 400 MG Tab PO SCH (07:27)
[2017-05-16] MEDS: glyBURIDE 5 MG Tab PO SCH ×2 (07:27→20:02)
[2017-05-16] MEDS: Digoxin 125 MCG Tab PO SCH (07:27)
[2017-05-16] MEDS: Albuterol/Ipratropium 3.0-0.5 MG/3 ML Neb Soln NEB SCH ×4 (07:27→20:01)
[2017-05-16] MEDS: Acetaminophen/HYDROcodone 325-5 MG Tab PO SCH ×3 (07:27→17:45)
[2017-05-16] MEDS: metFORMIN 500 MG Tab PO SCH ×2 (07:28→20:02)
[2017-05-16] MEDS: Verapamil 180 MG Tab.ER PO SCH ×2 (07:28→17:45)
[2017-05-16] MEDS: Azithromycin 250 MG Tab PO SCH (07:28)
[2017-05-16] MEDS: Docusate Sodium 100 MG Cap PO SCH ×3 (07:28→17:45)
[2017-05-16] MEDS: Magnesium Hydroxide 400 MG/5 ML Susp 30 ML Cup PO SCH (07:29)
[2017-05-16] MEDS: Sodium Chloride 0.9% 10 ML Syringe FLUSH PRN ×4 (07:31→20:03)
[2017-05-16] MEDS: Acetaminophen 650 MG Tab.ER PO SCH ×2 (11:57→17:44)
[2017-05-16] MEDS: Insulin Aspart 100 Units/ML 3 ML Pen SUBCUT SCH (17:46)
[2017-05-16] MEDS: Tamsulosin 0.4 MG Cap.ER PO SCH (20:02)
[2017-05-16] MEDS: Simvastatin 10 MG Tab PO SCH (20:02)
[2017-05-16] MEDS: Gabapentin 100 MG Cap PO SCH (20:02)
[2017-05-16] MEDS: Polyethylene Glycol 3350 Powder 17 GM Packet PO SCH (20:03)
[2017-05-17] MEDS: Albuterol/Ipratropium 3.0-0.5 MG/3 ML Neb Soln NEB PRN (04:13)
[2017-05-17] MEDS: Docusate Sodium 100 MG Cap PO SCH ×3 (07:55→17:19)
[2017-05-17] MEDS: Verapamil 180 MG Tab.ER PO SCH ×2 (07:55→17:19)
[2017-05-17 07:56] LABS: CHLORIDE,CL 94 mmol/L (98-107); SODIUM,NA 138 mmol/L (136-145)
[2017-05-17] MEDS: Albuterol/Ipratropium 3.0-0.5 MG/3 ML Neb Soln NEB SCH ×4 (07:56→20:50)
[2017-05-17] MEDS: Furosemide 40 MG/4 ML VIAL IVPUSH SCH ×2 (07:56→11:32)
[2017-05-17] MEDS: metFORMIN 500 MG Tab PO SCH (07:56)
[2017-05-17] MEDS: cefTAZidime 1 GM Vial IVPUSH SCH ×2 (07:56→20:50)
[2017-05-17] MEDS: Digoxin 125 MCG Tab PO SCH (07:56)
[2017-05-17] MEDS: Magnesium Oxide 400 MG Tab PO SCH (07:57)
[2017-05-17] MEDS: glyBURIDE 5 MG Tab PO SCH (07:57)
[2017-05-17] MEDS: COLESTIPOL 1 GM PO SCH ×2 (07:57→20:54)
[2017-05-17] MEDS: Magnesium Hydroxide 400 MG/5 ML Susp 30 ML Cup PO SCH (07:57)
[2017-05-17] MEDS: DABIGATRAN 150 MG PO SCH ×2 (07:58→20:52)
[2017-05-17] MEDS: PYRIDOSTIGMINE 60 MG PO SCH ×2 (07:58→20:52)
[2017-05-17] MEDS: Acetaminophen/HYDROcodone 325-5 MG Tab PO SCH ×3 (07:59→17:19)
[2017-05-17] MEDS: Hydrocortisone Sodium Succinate 100 MG/2 ML SDV IVPUSH SCH (08:00)
[2017-05-17] MEDS: Sodium Chloride 0.9% 10 ML Syringe FLUSH PRN ×3 (08:00→11:33)
[2017-05-17] MEDS: Azithromycin 250 MG Tab PO SCH (08:00)
[2017-05-17] MEDS ORDERED: Insulin Aspart 100 Units/ML 3 ML Pen SUBCUT SCH ×2 (08:00→12:00)
[2017-05-17] MEDS: Acetaminophen 650 MG Tab.ER PO SCH ×2 (11:32→17:19)
[2017-05-17] MEDS: Insulin Aspart 100 Units/ML 3 ML Pen SUBCUT SCH (17:17)
--- NOTE | 2017-05-17 18:20 | PCM.PN ---
- General Info Date of Service: 05/17/17 Admission Dx/Problem (Free Text): Admission Diagnosis/Problem Admission Diagnosis/Problem Pneumonia Functional Status: Reports: Pain Controlled, Tolerating Diet - Review of Systems General: Reports: Weakness HEENT: Reports: No Symptoms Pulmonary: Reports: Shortness of Breath, Cough Cardiovascular: Reports: No Symptoms Gastrointestinal: Reports: No Symptoms Genitourinary: Reports: No Symptoms Musculoskeletal: Reports: No Symptoms Skin: Reports: No Symptoms Neurological: Reports: Weakness Psychiatric: Reports: No Symptoms - Patient Data Vitals - Most Recent: Last Vital Signs Temp 98.1 F 05/17/17 08:00 Pulse 85 05/17/17 08:00 Resp 20 05/17/17 08:00 BP 130/71 05/17/17 08:00 Pulse Ox 98 05/17/17 08:00 Weight - Most Recent: 191 lb I&O - Last 24 Hours: Intake & Output 05/17/17 05/17/17 05/17/17 06:59 14:59 22:59 Intake Total 288 826 9034 Output Total 375 1800 Balance -15 -960 1080 Lab Results Last 24 Hours: Laboratory Results - last 24 hr 05/17/17 05/17/17 05/17/17 Range/Units 07:25 07:25 07:50 WBC 7.8 (4.0-10.2) K/uL RBC 3.88 L (4.33-5.41) M/uL Hgb 9.1 L (13.1-16.8) g/dL Hct 31.8 L (39.0-49.0) % MCV 82.0 L (84.0-98.0) fL MCH 23.5 L (28.2-33.3) pg MCHC 28.6 L (31.7-36.0) g/dL RDW 17.4 H (11.2-14.1) % Plt Count 257 (150-350) K/uL Neut % (Auto) 70.4 (45.0-80.0) % Lymph % (Auto) 18.1 (10.0-50.0) % [place] % (Auto) 10.3 (2.0-14.0) % Eos % (Auto) 0.8 (0.0-5.0) % Baso % (Auto) 0.4 (0.0-2.0) % Neut # (Auto) 5.48 (1.40-7.00) K/uL Lymph # (Auto) 1.41 (0.50-3.50) K/uL [place] # (Auto) 0.80 (0.00-1.00) K/uL Eos # (Auto) 0.06 (0.00-0.50) K/uL Baso # (Auto) 0.03 (0.00-0.20) K/uL Sodium 138 (136-145) mmol/L Potassium 3.8 (3.5-5.1) mmol/L Chloride 94 L (98-107) mmol/L Carbon Dioxide 40.6 H* (21.0-32.0) mmol/L BUN 21 H (7-18) mg/dL Creatinine 0.66 (0.51-1.17) mg/dL Est Cr Clr Drug Dosing TNP Estimated GFR (MDRD) > 60 mL/min Glucose 210 H (74-106) mg/dL POC Glucose 199 H (65-110) mg/dl Calcium 8.6 (8.5-10.1) mg/dL Total Bilirubin 0.4 (0.2-1.0) mg/dL AST 23 (15-37) U/L ALT 21 (12-78) U/L Alkaline Phosphatase 74 (46-116) IU/L C-Reactive Protein 2.4 H (<=0.9) mg/dL NT-Pro-B Natriuret Pep 3041 H (0-125) pg/mL Total Protein 6.7 (6.4-8.2) g/dL Albumin 2.3 L (3.4-5.0) g/dL 05/17/17 Range/Units 11:03 WBC (4.0-10.2) K/uL RBC (4.33-5.41) M/uL Hgb (13.1-16.8) g/dL Hct (39.0-49.0) % MCV (84.0-98.0) fL MCH (28.2-33.3) pg MCHC (31.7-36.0) g/dL RDW (11.2-14.1) % Plt Count (150-350) K/uL Neut % (Auto) (45.0-80.0) % Lymph % (Auto) (10.0-50.0) % [place] % (Auto) (2.0-14.0) % Eos % (Auto) (0.0-5.0) % Baso % (Auto) (0.0-2.0) % Neut # (Auto) (1.40-7.00) K/uL Lymph # (Auto) (0.50-3.50) K/uL [place] # (Auto) (0.00-1.00) K/uL Eos # (Auto) (0.00-0.50) K/uL Baso # (Auto) (0.00-0.20) K/uL Sodium (136-145) mmol/L Potassium (3.5-5.1) mmol/L Chloride (98-107) mmol/L Carbon Dioxide (21.0-32.0) mmol/L BUN (7-18) mg/dL Creatinine (0.51-1.17) mg/dL Est Cr Clr Drug Dosing Estimated GFR (MDRD) mL/min Glucose (74-106) mg/dL POC Glucose 215 H (65-110) mg/dl Calcium (8.5-10.1) mg/dL Total Bilirubin (0.2-1.0) mg/dL AST (15-37) U/L ALT (12-78) U/L Alkaline Phosphatase (46-116) IU/L C-Reactive Protein (<=0.9) mg/dL NT-Pro-B Natriuret Pep (0-125) pg/mL Total Protein (6.4-8.2) g/dL Albumin (3.4-5.0) g/dL Med Orders - Current: Current Medications Acetaminophen (Tylenol Arthritis Pain) 650 mg PO BID@1200,1700 [facility] Last Admin: 05/17/17 17:19 Dose: 650 mg Hydrocodone Bitart/Acetaminophen ([place] 325-5 Mg) 1 tab PO TID [facility] Last Admin: 05/17/17 17:19 Dose: 1 tab Albuterol/Ipratropium (Duoneb 3.0-0.5 Mg/3 Ml) 3 ml NEB Q4HRRT PRN PRN Reason: Dyspnea Last Admin: 05/17/17 04:13 Dose: 3 ml Albuterol/Ipratropium (Duoneb 3.0-0.5 Mg/3 Ml) 3 ml NEB QIDRT [facility] Last Admin: 05/17/17 15:30 Dose: 3 ml Azithromycin (Zithromax) 500 mg PO DAILY [facility] Stop: 05/21/17 08:01 Last Admin: 05/17/17 08:00 Dose: 500 mg Bisacodyl (Dulcolax) 10 mg RECTAL DAILY PRN PRN Reason: Constipation Ceftazidime (Fortaz) 1 gm IVPUSH Q12HR [facility] Stop: 05/21/17 08:01 Last Admin: 05/17/17 07:56 Dose: 1 gm Digoxin (Lanoxin) 125 mcg PO QAM [facility] Last Admin: 05/17/17 07:56 Dose: 125 mcg Docusate Sodium (Colace) 100 mg PO TID [facility] Last Admin: 05/17/17 17:19 Dose: Not Given Furosemide (Lasix) 40 mg IVPUSH BIDDIURETIC [facility] Last Admin: 05/17/17 11:32 Dose: 40 mg Gabapentin (Neurontin) 100 mg PO BEDTIME [facility] Last Admin: 05/16/17 20:02 Dose: 100 mg Insulin Human NPH (Humulin N) 10 unit SUBCUT DAILY [facility] Magnesium Hydroxide (Milk Of Magnesia) 30 ml PO DAILY [facility] Last Admin: 05/17/17 07:57 Dose: Not Given Magnesium Oxide (Magnesium Oxide) 400 mg PO DAILY [facility] Last Admin: 05/17/17 07:57 Dose: 400 mg Methylprednisolone Sodium Succinate (Solu-Medrol) 20 mg IVPUSH Q12HR [facility] Pyriodstigmine 60mg ( Own Med ) 0 each PO Q12H [facility] Last Admin: 05/17/17 07:58 Dose: 1 each Colestipol 1gm (Own Med ) 0 each PO Q12H [facility] Last Admin: 05/17/17 07:57 Dose: 1 each Dabigatran (Pradaxa) (150mg Own Med ) 0 each PO Q12H [facility] Last Admin: 05/17/17 07:58 Dose: 1 each Polyethylene Glycol (Miralax) 17 gm PO Q2D [facility] Last Admin: 05/16/17 20:03 Dose: Not Given Simvastatin (Zocor) 10 mg PO BEDTIME [facility] Last Admin: 05/16/17 20:02 Dose: 10 mg Sodium Chloride (Saline Flush) 10 ml FLUSH ASDIRECTED PRN PRN Reason: Keep Vein Open Last Admin: 05/17/17 11:33 Dose: 10 ml Sodium Chloride (Saline Flush) 10 ml FLUSH Q12HR [facility] Tamsulosin HCl (Flomax) 0.4 mg PO BEDTIME [facility] Last Admin: 05/16/17 20:02 Dose: 0.4 mg Verapamil HCl (Calan Sr) 180 mg PO BID [facility] Last Admin: 05/17/17 17:19 Dose: 180 mg Discontinued Medications Furosemide (Lasix) 40 mg IVPUSH NOW ONE Stop: 05/15/17 12:41 Last Admin: 05/15/17 14:15 Dose: Not Given Furosemide (Lasix) 40 mg IVPUSH NOW ONE Stop: 05/15/17 14:01 Last Admin: 05/15/17 14:26 Dose: 40 mg Glyburide (Micronase) 10 mg PO Q12H [facility] Last Admin: 05/17/17 07:57 Dose: 10 mg Hydrocortisone Sodium Succinate (Solu-Cortef) 20 mg IVPUSH Q12H [facility] Last Admin: 05/17/17 08:00 Dose: 20 mg Insulin Aspart (Novolog) 4 unit SUBCUT ONETIME ONE Stop: 05/15/17 16:37 Last Admin: 05/15/17 17:08 Dose: 4 units Insulin Aspart (Novolog) 4 unit SUBCUT QAM [facility] Last Admin: 05/17/17 07:59 Dose: 4 units Insulin Aspart (Novolog) 6 unit SUBCUT QPM [facility] Last Admin: 05/17/17 17:17 Dose: 6 units Insulin Aspart (Novolog) 4 unit SUBCUT DAILY@1200 [facility] Last Admin: 05/17/17 11:32 Dose: 4 units Metformin HCl (Glucophage) 1,000 mg PO Q12H [facility] Last Admin: 05/17/17 07:56 Dose: 1,000 mg - Exam Quality Assessment: Urine Catheter General: Alert, Cooperative HEENT: Mucous Membr. Moist/[place] Neck: Trachea Midline, No JVD Lungs: Normal Respiratory Effort, Decreased Breath Sounds, Rhonchi Cardiovascular: Irregular Rhythm GI/Abdominal Exam: Soft, Non-Tender, No Distention (Male) Exam: Deferred Back Exam: Normal Inspection Extremities: Normal Inspection, Non-Tender, Pedal Edema Skin: Warm, Dry, Intact Neurological: No New Focal Deficit Psy/Mental Status: Alert, Normal Affect, Normal Mood - Problem List & Annotations (1) CHF (congestive heart failure) SNOMED Code(s): 48625399 Code(s): I50.9 - HEART FAILURE, UNSPECIFIED Status: Acute Priority: High Current Visit: No Qualifiers: Heart failure type: unspecified Heart failure chronicity: acute on chronic Qualified Code(s): I50.9 - Heart failure, unspecified (2) Hypoxia SNOMED Code(s): 337667377 Code(s): R09.02 - HYPOXEMIA Status: Acute Priority: High Current Visit : No (3) Pneumonia SNOMED Code(s): 097877376 Code(s): J18.9 - PNEUMONIA, UNSPECIFIED ORGANISM Status: Acute Priority: High Current Visit: No Qualifiers: Laterality: bilateral Lung location: unspecified part of lung (4) Atrial fibrillation SNOMED Code(s): 10029075 Code(s): I48.91 - UNSPECIFIED ATRIAL FIBRILLATION Status: Chronic Priority: Medium Current Visit: No Qualifiers: Atrial fibrillation type: chronic Qualified Code(s): I48.2 - Chronic atrial fibrillation Annotation/Comment:: No chest pain or anginal-type symptoms. Stable heart rhythm in the emergency room (5) COPD (chronic obstructive pulmonary disease) SNOMED Code(s): 69173850 Code(s): J44.9 - CHRONIC OBSTRUCTIVE PULMONARY DISEASE, UNSPECIFIED Status : Chronic Priority: Medium Current Visit: No Qualifiers: COPD type: unspecified COPD Qualified Code(s): J44.9 - Chronic obstructive pulmonary disease, unspecified Annotation/Comment:: No recent cough, bronchitic-type symptoms, etc. 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 His regular provider will be updated as per discharge instructions. Hyperglycemia likely elated to his poor dental hygiene and also current infection with referral to oral surgeon recommended (7) Hyperlipidemia SNOMED Code(s): 20956846 Code(s): E78.5 - HYPERLIPIDEMIA, UNSPECIFIED Status: Chronic Priority: Medium Current Visit: No Qualifiers: Hyperlipidemia type: Mixed hyperlipidemia Qualified Code(s): E78.2 - Mixed hyperlipidemia Annotation/Comment:: under medical therapy (8) Hypertension SNOMED Code(s): 35908004 Code(s): I10 - ESSENTIAL (PRIMARY) HYPERTENSION Status: Chronic Priority : Medium Current Visit: No Qualifiers: Hypertension type: essential hypertension Qualified Code(s): I10 - Essential (primary) hypertension Annotation/Comment:: blood pressure stable in the emergency room (9) Hypoalbuminemia SNOMED Code(s): 299216112 Code(s): 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, NEC Status: Chronic Priority: Medium Current Visit: No Annotation/Comment:: consider high-protein Glucerna supplements (10) Hypomagnesemia SNOMED Code(s): 633603791 Code(s): E83.42 - HYPOMAGNESEMIA Status: Chronic Priority: Medium Current Visit: No Annotation/Comment:: magnesium level normal today (11) Hyponatremia SNOMED Code(s): 20755949 Code(s): E87.1 - HYPO-OSMOLALITY AND HYPONATREMIA Status: Chronic Priority: Medium Current Visit: No Annotation/Comment:: observe for now with history of CHF, however no recent chest pain or anginal complaints (12) Myasthenia gravis SNOMED Code(s): 66129802 Code(s): G70.00 - MYASTHENIA GRAVIS WITHOUT (ACUTE) EXACERBATION Status: Chronic Priority: Medium Current Visit: No Annotation/Comment:: stable by history (13) Osteoarthritis SNOMED Code(s): 974973542 Code(s): M19.90 - UNSPECIFIED OSTEOARTHRITIS, UNSPECIFIED SITE Status: Chronic Priority: Medium Current Visit: No Qualifiers: Osteoarthritis location: multiple joints Osteoarthritis type: primary Qualified Code(s): M15.0 - Primary generalized (osteo)arthritis Annotation/Comment:: stable by history - Problem List Review Problem List Initiated/Reviewed/Updated: Yes - My Orders Last 24 Hours: My Active Orders 05/17/17 20:00 Sodium Chloride 0.9% [Saline Flush] 10 ml FLUSH Q12HR methylPREDNISolone Sod Succ [Solu-MEDROL] 20 mg IVPUSH Q12HR 05/18/17 08:00 Nph, Human Insulin Isophane [HumuLIN N] 10 unit SUBCUT DAILY - Plan Plan:: 05-15-17 Shelly Morales PA-C Transferred to [facility] status today from IP care to continue IV antibiotics and Lasix, as well as PT-OT for strengthening as he has become extremely weak with this acute illness. Will require continued medical monitoring and management. 05/17/17 Joe Curran MD Feeling a little bit better but still weak. Still worried about payment for medical care and not being transferred to [facility]. Discussed with him.
[2017-05-17] MEDS: Simvastatin 10 MG Tab PO SCH (20:48)
[2017-05-17] MEDS: Gabapentin 100 MG Cap PO SCH (20:48)
[2017-05-17] MEDS: Tamsulosin 0.4 MG Cap.ER PO SCH (20:48)
[2017-05-17] MEDS: methylPREDNISolone Sodium Succinate 40 MG/1 ML SDV IVPUSH SCH (20:49)
[2017-05-17] MEDS: Sodium Chloride 0.9% 10 ML Syringe FLUSH SCH (20:55)
[2017-05-18] MEDS: Albuterol/Ipratropium 3.0-0.5 MG/3 ML Neb Soln NEB PRN ×2 (00:07→06:13)
[2017-05-18] MEDS: cefTAZidime 1 GM Vial IVPUSH SCH ×2 (07:59→20:06)
[2017-05-18] MEDS: Sodium Chloride 0.9% 10 ML Syringe FLUSH SCH ×2 (07:59→20:04)
[2017-05-18] MEDS ORDERED: Insulin Isophane NPH, Human 100 Units/ML 3 ML Pen SUBCUT SCH ×2 (08:00)
[2017-05-18] MEDS: Docusate Sodium 100 MG Cap PO SCH ×3 (08:02→17:55)
[2017-05-18] MEDS: Verapamil 180 MG Tab.ER PO SCH ×2 (08:02→17:47)
[2017-05-18] MEDS: Acetaminophen/HYDROcodone 325-5 MG Tab PO SCH ×3 (08:03→17:47)
[2017-05-18] MEDS: Magnesium Oxide 400 MG Tab PO SCH (08:03)
[2017-05-18] MEDS: Digoxin 125 MCG Tab PO SCH (08:03)
[2017-05-18] MEDS: Azithromycin 250 MG Tab PO SCH (08:03)
[2017-05-18] MEDS: DABIGATRAN 150 MG PO SCH ×2 (08:04→20:04)
[2017-05-18] MEDS: COLESTIPOL 1 GM PO SCH ×2 (08:04→20:03)
[2017-05-18] MEDS: Albuterol/Ipratropium 3.0-0.5 MG/3 ML Neb Soln NEB SCH ×4 (08:05→20:03)
[2017-05-18] MEDS: PYRIDOSTIGMINE 60 MG PO SCH ×2 (08:05→20:03)
[2017-05-18] MEDS: methylPREDNISolone Sodium Succinate 40 MG/1 ML SDV IVPUSH SCH ×2 (08:07→20:03)
[2017-05-18] MEDS: Furosemide 40 MG/4 ML VIAL IVPUSH SCH ×2 (08:08→11:46)
[2017-05-18] MEDS: Magnesium Hydroxide 400 MG/5 ML Susp 30 ML Cup PO SCH (08:10)
[2017-05-18] MEDS: Sodium Chloride 0.9% 10 ML Syringe FLUSH PRN ×2 (08:13→11:47)
[2017-05-18] MEDS ORDERED: Insulin Aspart 100 Units/ML 3 ML Pen SUBCUT STA (11:30)
[2017-05-18] MEDS: Acetaminophen 650 MG Tab.ER PO SCH ×2 (11:46→16:29)
[2017-05-18] MEDS: Nystatin Topical Powder 15 GM Bottle TOP SCH ×2 (11:46→17:48)
[2017-05-18] MEDS: Simvastatin 10 MG Tab PO SCH (20:03)
[2017-05-18] MEDS: Tamsulosin 0.4 MG Cap.ER PO SCH (20:03)
[2017-05-18] MEDS: Polyethylene Glycol 3350 Powder 17 GM Packet PO SCH (20:04)
[2017-05-18] MEDS: Gabapentin 100 MG Cap PO SCH (20:04)
[2017-05-18] MEDS: Insulin Isophane NPH, Human 100 Units/ML 3 ML Pen SUBCUT SCH (20:05)
[2017-05-19] MEDS: Magnesium Oxide 400 MG Tab PO SCH (08:05)
[2017-05-19] MEDS: Docusate Sodium 100 MG Cap PO SCH ×3 (08:05→17:26)
[2017-05-19] MEDS: Acetaminophen/HYDROcodone 325-5 MG Tab PO SCH ×3 (08:05→17:26)
[2017-05-19] MEDS: Sodium Chloride 0.9% 10 ML Syringe FLUSH SCH ×2 (08:05→19:50)
[2017-05-19] MEDS: cefTAZidime 1 GM Vial IVPUSH SCH ×2 (08:05→19:44)
[2017-05-19] MEDS: methylPREDNISolone Sodium Succinate 40 MG/1 ML SDV IVPUSH SCH ×2 (08:06→19:44)
[2017-05-19] MEDS: Azithromycin 250 MG Tab PO SCH (08:06)
[2017-05-19] MEDS: Digoxin 125 MCG Tab PO SCH (08:06)
[2017-05-19] MEDS: Verapamil 180 MG Tab.ER PO SCH ×2 (08:06→17:26)
[2017-05-19] MEDS: Albuterol/Ipratropium 3.0-0.5 MG/3 ML Neb Soln NEB SCH ×4 (08:07→19:43)
[2017-05-19] MEDS: Furosemide 40 MG/4 ML VIAL IVPUSH SCH ×2 (08:08→11:59)
[2017-05-19] MEDS: PYRIDOSTIGMINE 60 MG PO SCH ×2 (08:10→19:48)
[2017-05-19] MEDS: COLESTIPOL 1 GM PO SCH ×2 (08:10→19:47)
[2017-05-19] MEDS: Insulin Isophane NPH, Human 100 Units/ML 3 ML Pen SUBCUT SCH ×2 (08:11→19:45)
[2017-05-19] MEDS: Nystatin Topical Powder 15 GM Bottle TOP SCH ×3 (08:11→17:28)
[2017-05-19] MEDS: Magnesium Hydroxide 400 MG/5 ML Susp 30 ML Cup PO SCH (08:13)
[2017-05-19] MEDS: DABIGATRAN 150 MG PO SCH ×2 (08:15→19:46)
[2017-05-19] MEDS: Sodium Chloride 0.9% 10 ML Syringe FLUSH PRN ×2 (12:00→20:06)
[2017-05-19] MEDS: Acetaminophen 650 MG Tab.ER PO SCH ×2 (12:00→16:04)
[2017-05-19] MEDS: Simvastatin 10 MG Tab PO SCH (19:43)
[2017-05-19] MEDS: Tamsulosin 0.4 MG Cap.ER PO SCH (19:44)
[2017-05-19] MEDS: Gabapentin 100 MG Cap PO SCH (19:46)
[2017-05-19] MEDS: Insulin Detemir 100 Units/ML 3 ML Pen SUBCUT SCH (19:49)
[2017-05-19] MEDS: Bisacodyl 10 MG Supp RECTAL PRN (20:56)
[2017-05-20] MEDS: Verapamil 180 MG Tab.ER PO SCH ×2 (08:34→18:18)
[2017-05-20] MEDS: Docusate Sodium 100 MG Cap PO SCH ×3 (08:35→18:19)
[2017-05-20] MEDS: Albuterol/Ipratropium 3.0-0.5 MG/3 ML Neb Soln NEB SCH ×4 (08:35→20:06)
[2017-05-20] MEDS: cefTAZidime 1 GM Vial IVPUSH SCH ×2 (08:35→20:06)
[2017-05-20] MEDS: Digoxin 125 MCG Tab PO SCH (08:37)
[2017-05-20] MEDS: Insulin Isophane NPH, Human 100 Units/ML 3 ML Pen SUBCUT SCH ×2 (08:37→20:06)
[2017-05-20] MEDS: Magnesium Oxide 400 MG Tab PO SCH (08:39)
[2017-05-20] MEDS: Magnesium Hydroxide 400 MG/5 ML Susp 30 ML Cup PO SCH (08:40)
[2017-05-20] MEDS: COLESTIPOL 1 GM PO SCH ×2 (08:40→20:08)
[2017-05-20] MEDS: DABIGATRAN 150 MG PO SCH ×2 (08:40→20:08)
[2017-05-20] MEDS: PYRIDOSTIGMINE 60 MG PO SCH ×2 (08:41→20:09)
[2017-05-20] MEDS: Acetaminophen/HYDROcodone 325-5 MG Tab PO SCH ×3 (08:41→18:18)
[2017-05-20] MEDS: Sodium Chloride 0.9% 10 ML Syringe FLUSH SCH ×2 (08:42→20:09)
[2017-05-20] MEDS: Azithromycin 250 MG Tab PO SCH (08:42)
[2017-05-20] MEDS: Sodium Chloride 0.9% 10 ML Syringe FLUSH PRN ×3 (08:49→12:23)
[2017-05-20] MEDS: Nystatin Topical Powder 15 GM Bottle TOP SCH ×3 (09:00→18:19)
[2017-05-20] MEDS: Furosemide 40 MG/4 ML VIAL IVPUSH SCH ×2 (09:01→12:11)
[2017-05-20] MEDS: methylPREDNISolone Sodium Succinate 40 MG/1 ML SDV IVPUSH SCH ×2 (09:09→20:06)
[2017-05-20] MEDS: Acetaminophen 650 MG Tab.ER PO SCH ×2 (12:12→16:55)
[2017-05-20] MEDS: Gabapentin 100 MG Cap PO SCH (20:05)
[2017-05-20] MEDS: Tamsulosin 0.4 MG Cap.ER PO SCH (20:05)
[2017-05-20] MEDS: Simvastatin 10 MG Tab PO SCH (20:06)
[2017-05-20] MEDS: Insulin Detemir 100 Units/ML 3 ML Pen SUBCUT SCH (20:07)
[2017-05-20] MEDS: Polyethylene Glycol 3350 Powder 17 GM Packet PO SCH (20:16)
[2017-05-21] MEDS: Verapamil 180 MG Tab.ER PO SCH ×2 (08:21→18:02)
[2017-05-21] MEDS: Azithromycin 250 MG Tab PO SCH (08:21)
[2017-05-21] MEDS: Albuterol/Ipratropium 3.0-0.5 MG/3 ML Neb Soln NEB SCH ×4 (08:21→19:45)
[2017-05-21] MEDS: Magnesium Oxide 400 MG Tab PO SCH (08:21)
[2017-05-21] MEDS: Docusate Sodium 100 MG Cap PO SCH ×3 (08:21→18:02)
[2017-05-21] MEDS: Acetaminophen/HYDROcodone 325-5 MG Tab PO SCH ×3 (08:22→18:02)
[2017-05-21] MEDS: Digoxin 125 MCG Tab PO SCH (08:22)
[2017-05-21] MEDS: cefTAZidime 1 GM Vial IVPUSH SCH (08:23)
[2017-05-21] MEDS: methylPREDNISolone Sodium Succinate 40 MG/1 ML SDV IVPUSH SCH (08:23)
[2017-05-21] MEDS: Nystatin Topical Powder 15 GM Bottle TOP SCH ×3 (08:24→18:03)
[2017-05-21] MEDS: Sodium Chloride 0.9% 10 ML Syringe FLUSH SCH ×2 (08:24→19:45)
[2017-05-21] MEDS: Furosemide 40 MG/4 ML VIAL IVPUSH SCH ×2 (08:26→12:11)
[2017-05-21] MEDS: Sodium Chloride 0.9% 10 ML Syringe FLUSH PRN (08:28)
[2017-05-21] MEDS: Insulin Isophane NPH, Human 100 Units/ML 3 ML Pen SUBCUT SCH (08:42)
[2017-05-21] MEDS: COLESTIPOL 1 GM PO SCH ×2 (08:42→19:46)
[2017-05-21] MEDS: DABIGATRAN 150 MG PO SCH ×2 (08:43→19:46)
[2017-05-21] MEDS: PYRIDOSTIGMINE 60 MG PO SCH ×2 (08:43→19:46)
[2017-05-21] MEDS: Magnesium Hydroxide 400 MG/5 ML Susp 30 ML Cup PO SCH (08:46)
[2017-05-21] MEDS: Acetaminophen 650 MG Tab.ER PO SCH ×2 (12:10→18:02)
[2017-05-21] MEDS ORDERED: Insulin Aspart 100 Units/ML 3 ML Pen SUBCUT ONE (18:00)
[2017-05-21] MEDS ORDERED: Nystatin Crm 30 GM Tube TOP PRN (19:01)
[2017-05-21] MEDS ORDERED: Nystatin Topical Powder 15 GM Bottle TOP PRN (19:05)
[2017-05-21] MEDS: Simvastatin 10 MG Tab PO SCH (19:45)
[2017-05-21] MEDS: Insulin Detemir 100 Units/ML 3 ML Pen SUBCUT SCH (19:45)
[2017-05-21] MEDS: Tamsulosin 0.4 MG Cap.ER PO SCH (19:45)
[2017-05-21] MEDS: Gabapentin 100 MG Cap PO SCH (19:45)
[2017-05-22] MEDS: Digoxin 125 MCG Tab PO SCH (08:17)
[2017-05-22] MEDS: Verapamil 180 MG Tab.ER PO SCH ×2 (08:17→17:38)
[2017-05-22] MEDS: Magnesium Oxide 400 MG Tab PO SCH (08:17)
[2017-05-22] MEDS: Acetaminophen/HYDROcodone 325-5 MG Tab PO SCH ×3 (08:18→17:38)
[2017-05-22] MEDS: Docusate Sodium 100 MG Cap PO SCH ×3 (08:18→17:38)
[2017-05-22] MEDS: Albuterol/Ipratropium 3.0-0.5 MG/3 ML Neb Soln NEB SCH ×4 (08:18→20:05)
[2017-05-22] MEDS: Furosemide 40 MG/4 ML VIAL IVPUSH SCH ×2 (08:19→12:31)
[2017-05-22] MEDS: Sodium Chloride 0.9% 10 ML Syringe FLUSH SCH ×2 (08:19→20:07)
[2017-05-22] MEDS: DABIGATRAN 150 MG PO SCH ×2 (08:20→20:06)
[2017-05-22] MEDS: PYRIDOSTIGMINE 60 MG PO SCH ×2 (08:21→20:06)
[2017-05-22] MEDS: COLESTIPOL 1 GM PO SCH ×2 (08:21→20:06)
[2017-05-22] MEDS: Magnesium Hydroxide 400 MG/5 ML Susp 30 ML Cup PO SCH (08:26)
[2017-05-22] MEDS: Acetaminophen 650 MG Tab.ER PO SCH ×2 (12:30→16:48)
[2017-05-22] MEDS: Gabapentin 100 MG Cap PO SCH (20:05)
[2017-05-22] MEDS: Simvastatin 10 MG Tab PO SCH (20:06)
[2017-05-22] MEDS: Insulin Detemir 100 Units/ML 3 ML Pen SUBCUT SCH (20:06)
[2017-05-22] MEDS: Tamsulosin 0.4 MG Cap.ER PO SCH (20:06)
[2017-05-22] MEDS: Polyethylene Glycol 3350 Powder 17 GM Packet PO SCH (20:11)
[2017-05-23] MEDS: Bisacodyl 10 MG Supp RECTAL PRN (07:10)
[2017-05-23] MEDS: Furosemide 40 MG/4 ML VIAL IVPUSH SCH ×2 (07:58→12:43)
[2017-05-23] MEDS: Sodium Chloride 0.9% 10 ML Syringe FLUSH SCH ×2 (07:58→19:45)
[2017-05-23] MEDS: Docusate Sodium 100 MG Cap PO SCH ×3 (07:58→17:22)
[2017-05-23] MEDS: Acetaminophen/HYDROcodone 325-5 MG Tab PO SCH ×3 (07:59→17:22)
[2017-05-23] MEDS: Digoxin 125 MCG Tab PO SCH (07:59)
[2017-05-23] MEDS: Magnesium Hydroxide 400 MG/5 ML Susp 30 ML Cup PO SCH (07:59)
[2017-05-23] MEDS: Magnesium Oxide 400 MG Tab PO SCH (07:59)
[2017-05-23] MEDS: Verapamil 180 MG Tab.ER PO SCH ×2 (08:00→17:22)
[2017-05-23] MEDS: Albuterol/Ipratropium 3.0-0.5 MG/3 ML Neb Soln NEB PRN (08:01)
[2017-05-23] MEDS: COLESTIPOL 1 GM PO SCH ×2 (08:01→19:44)
[2017-05-23] MEDS: PYRIDOSTIGMINE 60 MG PO SCH ×2 (08:02→19:44)
[2017-05-23] MEDS: DABIGATRAN 150 MG PO SCH ×2 (08:02→19:43)
[2017-05-23] MEDS: Albuterol/Ipratropium 3.0-0.5 MG/3 ML Neb Soln NEB SCH ×4 (09:24→19:42)
[2017-05-23] MEDS: Acetaminophen 650 MG Tab.ER PO SCH ×2 (12:42→16:44)
[2017-05-23] MEDS: Sodium Chloride 0.9% 10 ML Syringe FLUSH PRN (12:43)
[2017-05-23] MEDS: Gabapentin 100 MG Cap PO SCH (19:41)
[2017-05-23] MEDS: Simvastatin 10 MG Tab PO SCH (19:41)
[2017-05-23] MEDS: Tamsulosin 0.4 MG Cap.ER PO SCH (19:42)
[2017-05-23] MEDS: Insulin Detemir 100 Units/ML 3 ML Pen SUBCUT SCH (19:52)
[2017-05-24 07:30] LABS: O2 DELIVERY DEVICE ROOM AIR
[2017-05-24] MEDS: Acetaminophen/HYDROcodone 325-5 MG Tab PO SCH ×3 (07:49→17:36)
[2017-05-24] MEDS: Verapamil 180 MG Tab.ER PO SCH ×2 (07:49→17:35)
[2017-05-24] MEDS: Magnesium Oxide 400 MG Tab PO SCH (07:49)
[2017-05-24] MEDS: Albuterol/Ipratropium 3.0-0.5 MG/3 ML Neb Soln NEB SCH ×4 (07:50→20:18)
[2017-05-24] MEDS: Digoxin 125 MCG Tab PO SCH (07:50)
[2017-05-24] MEDS: Docusate Sodium 100 MG Cap PO SCH ×3 (07:50→17:36)
[2017-05-24] MEDS: PYRIDOSTIGMINE 60 MG PO SCH ×2 (07:51→20:19)
[2017-05-24] MEDS: Sodium Chloride 0.9% 10 ML Syringe FLUSH SCH ×2 (07:52→20:29)
[2017-05-24] MEDS: COLESTIPOL 1 GM PO SCH ×2 (07:52→20:19)
[2017-05-24] MEDS: DABIGATRAN 150 MG PO SCH ×2 (07:52→20:21)
[2017-05-24] MEDS: Magnesium Hydroxide 400 MG/5 ML Susp 30 ML Cup PO SCH (07:53)
[2017-05-24 07:56] LABS: PCO2 VENOUS 56 mmHG (41-51); PH,VENOUS 7.44 (7.31-7.41); PO2 VENOUS 35 mmHG
[2017-05-24 07:57] LABS: BASE EXCESS VENOUS 13 mmol/L ((-2)-3); BICARBONATE,VENOUS 37 mmol/L (23-28); O2 SATURATION VENOUS 68 %
[2017-05-24] MEDS: Furosemide 40 MG/4 ML VIAL IVPUSH SCH ×2 (08:00→11:30)
[2017-05-24 08:09] LABS: CHLORIDE,CL 100 mmol/L (98-107); SODIUM,NA 139 mmol/L (136-145)
[2017-05-24] MEDS: Acetaminophen 650 MG Tab.ER PO SCH ×2 (11:29→16:07)
[2017-05-24] MEDS: Sodium Chloride 0.9% 10 ML Syringe FLUSH PRN (11:31)
[2017-05-24] MEDS: Simvastatin 10 MG Tab PO SCH (20:19)
[2017-05-24] MEDS: Tamsulosin 0.4 MG Cap.ER PO SCH (20:20)
[2017-05-24] MEDS: Insulin Detemir 100 Units/ML 3 ML Pen SUBCUT SCH (20:20)
[2017-05-24] MEDS: Gabapentin 100 MG Cap PO SCH (20:20)
[2017-05-24] MEDS: Polyethylene Glycol 3350 Powder 17 GM Packet PO SCH (20:28)
[2017-05-25] MEDS: Verapamil 180 MG Tab.ER PO SCH ×2 (07:18→17:31)
[2017-05-25] MEDS: Magnesium Oxide 400 MG Tab PO SCH (07:18)
[2017-05-25] MEDS: Acetaminophen/HYDROcodone 325-5 MG Tab PO SCH ×3 (07:18→17:31)
[2017-05-25] MEDS: Furosemide 40 MG/4 ML VIAL IVPUSH SCH ×2 (07:19→11:08)
[2017-05-25] MEDS: Digoxin 125 MCG Tab PO SCH (07:19)
[2017-05-25] MEDS: Albuterol/Ipratropium 3.0-0.5 MG/3 ML Neb Soln NEB SCH ×4 (07:19→20:20)
[2017-05-25] MEDS: DABIGATRAN 150 MG PO SCH ×2 (07:20→20:25)
[2017-05-25] MEDS: Magnesium Hydroxide 400 MG/5 ML Susp 30 ML Cup PO SCH (07:20)
[2017-05-25] MEDS: PYRIDOSTIGMINE 60 MG PO SCH ×2 (07:20→20:23)
[2017-05-25] MEDS: Sodium Chloride 0.9% 10 ML Syringe FLUSH SCH ×2 (07:21→20:25)
[2017-05-25] MEDS: COLESTIPOL 1 GM PO SCH ×2 (07:21→20:22)
[2017-05-25] MEDS: Docusate Sodium 100 MG Cap PO SCH ×3 (07:26→17:31)
[2017-05-25] MEDS: Acetaminophen 650 MG Tab.ER PO SCH ×2 (11:08→16:43)
[2017-05-25] MEDS: Sodium Chloride 0.9% 10 ML Syringe FLUSH PRN (11:09)
[2017-05-25] MEDS: Gabapentin 100 MG Cap PO SCH (20:20)
[2017-05-25] MEDS: Insulin Detemir 100 Units/ML 3 ML Pen SUBCUT SCH (20:21)
[2017-05-25] MEDS: Tamsulosin 0.4 MG Cap.ER PO SCH (20:21)
[2017-05-25] MEDS: Simvastatin 10 MG Tab PO SCH (20:24)
[2017-05-26] MEDS: Verapamil 180 MG Tab.ER PO SCH ×2 (08:55→17:11)
[2017-05-26] MEDS: Furosemide 40 MG/4 ML VIAL IVPUSH SCH ×2 (08:56→11:35)
[2017-05-26] MEDS: COLESTIPOL 1 GM PO SCH ×2 (08:56→19:53)
[2017-05-26] MEDS: Magnesium Oxide 400 MG Tab PO SCH (08:56)
[2017-05-26] MEDS: PYRIDOSTIGMINE 60 MG PO SCH ×2 (08:56→19:53)
[2017-05-26] MEDS: Digoxin 125 MCG Tab PO SCH (08:56)
[2017-05-26] MEDS: Magnesium Hydroxide 400 MG/5 ML Susp 30 ML Cup PO SCH (08:56)
[2017-05-26] MEDS: Docusate Sodium 100 MG Cap PO SCH ×3 (08:56→17:11)
[2017-05-26] MEDS: DABIGATRAN 150 MG PO SCH ×2 (08:57→19:55)
[2017-05-26] MEDS: Insulin Aspart 100 Units/ML 3 ML Pen SUBCUT SCH ×2 (08:57→11:35)
[2017-05-26] MEDS: Albuterol/Ipratropium 3.0-0.5 MG/3 ML Neb Soln NEB SCH ×4 (08:58→19:52)
[2017-05-26] MEDS: Sodium Chloride 0.9% 10 ML Syringe FLUSH SCH ×2 (08:58→19:56)
[2017-05-26] MEDS: Acetaminophen/HYDROcodone 325-5 MG Tab PO SCH ×3 (08:58→17:11)
[2017-05-26] MEDS: Sodium Chloride 0.9% 10 ML Syringe FLUSH PRN (11:34)
[2017-05-26] MEDS: Acetaminophen 650 MG Tab.ER PO SCH ×2 (11:35→16:13)
[2017-05-26] MEDS: Simvastatin 10 MG Tab PO SCH (19:52)
[2017-05-26] MEDS: Tamsulosin 0.4 MG Cap.ER PO SCH (19:52)
[2017-05-26] MEDS: Gabapentin 100 MG Cap PO SCH (19:52)
[2017-05-26] MEDS: Insulin Detemir 100 Units/ML 3 ML Pen SUBCUT SCH (19:54)
[2017-05-26] MEDS: Polyethylene Glycol 3350 Powder 17 GM Packet PO SCH (20:02)
[2017-05-27] MEDS: Verapamil 180 MG Tab.ER PO SCH ×2 (06:59→17:32)
[2017-05-27] MEDS: Albuterol/Ipratropium 3.0-0.5 MG/3 ML Neb Soln NEB SCH ×4 (06:59→20:51)
[2017-05-27] MEDS: Magnesium Oxide 400 MG Tab PO SCH (06:59)
[2017-05-27] MEDS: Docusate Sodium 100 MG Cap PO SCH ×3 (06:59→17:32)
[2017-05-27] MEDS: Digoxin 125 MCG Tab PO SCH (06:59)
[2017-05-27] MEDS: Acetaminophen/HYDROcodone 325-5 MG Tab PO SCH ×3 (07:00→17:32)
[2017-05-27] MEDS: Furosemide 40 MG/4 ML VIAL IVPUSH SCH (07:00)
[2017-05-27] MEDS: Insulin Aspart 100 Units/ML 3 ML Pen SUBCUT SCH ×2 (07:00→12:20)
[2017-05-27] MEDS: DABIGATRAN 150 MG PO SCH ×2 (07:01→20:51)
[2017-05-27] MEDS: PYRIDOSTIGMINE 60 MG PO SCH ×2 (07:01→20:51)
[2017-05-27] MEDS: Sodium Chloride 0.9% 10 ML Syringe FLUSH SCH ×2 (07:01→20:52)
[2017-05-27] MEDS: COLESTIPOL 1 GM PO SCH ×2 (07:02→20:51)
[2017-05-27] MEDS: Magnesium Hydroxide 400 MG/5 ML Susp 30 ML Cup PO SCH (07:02)
[2017-05-27] MEDS ORDERED: Insulin Aspart 100 Units/ML 3 ML Pen SUBCUT SCH ×2 (08:00)
[2017-05-27] MEDS: Acetaminophen 650 MG Tab.ER PO SCH ×2 (12:19→17:32)
[2017-05-27] MEDS: Furosemide 40 MG Tab PO SCH (12:19)
[2017-05-27] MEDS: Simvastatin 10 MG Tab PO SCH (20:51)
[2017-05-27] MEDS: Gabapentin 100 MG Cap PO SCH (20:51)
[2017-05-27] MEDS: Tamsulosin 0.4 MG Cap.ER PO SCH (20:52)
[2017-05-27] MEDS: Insulin Detemir 100 Units/ML 3 ML Pen SUBCUT SCH (20:52)
[2017-05-28] MEDS: PYRIDOSTIGMINE 60 MG PO SCH ×2 (07:54→21:09)
[2017-05-28] MEDS: Acetaminophen/HYDROcodone 325-5 MG Tab PO SCH ×3 (07:55→17:33)
[2017-05-28] MEDS: COLESTIPOL 1 GM PO SCH ×2 (07:55→21:08)
[2017-05-28] MEDS: Digoxin 125 MCG Tab PO SCH (07:56)
[2017-05-28] MEDS: Docusate Sodium 100 MG Cap PO SCH ×3 (07:56→17:33)
[2017-05-28] MEDS: Verapamil 180 MG Tab.ER PO SCH ×2 (07:57→17:33)
[2017-05-28] MEDS: Albuterol/Ipratropium 3.0-0.5 MG/3 ML Neb Soln NEB SCH ×4 (07:57→21:07)
[2017-05-28] MEDS: Magnesium Oxide 400 MG Tab PO SCH (07:57)
[2017-05-28] MEDS: Furosemide 40 MG Tab PO SCH ×2 (07:57→12:11)
[2017-05-28] MEDS: Magnesium Hydroxide 400 MG/5 ML Susp 30 ML Cup PO SCH (07:59)
[2017-05-28] MEDS: Insulin Aspart 100 Units/ML 3 ML Pen SUBCUT SCH ×2 (08:00→12:10)
[2017-05-28] MEDS: DABIGATRAN 150 MG PO SCH ×2 (08:07→21:09)
[2017-05-28] MEDS: Acetaminophen 650 MG Tab.ER PO SCH ×2 (12:11→17:32)
[2017-05-28] MEDS: Simvastatin 10 MG Tab PO SCH (21:07)
[2017-05-28] MEDS: Tamsulosin 0.4 MG Cap.ER PO SCH (21:07)
[2017-05-28] MEDS: Gabapentin 100 MG Cap PO SCH (21:07)
[2017-05-28] MEDS: Insulin Detemir 100 Units/ML 3 ML Pen SUBCUT SCH (21:08)
[2017-05-28] MEDS: Polyethylene Glycol 3350 Powder 17 GM Packet PO SCH (21:11)
[2017-05-29] MEDS: Docusate Sodium 100 MG Cap PO SCH ×3 (08:00→17:25)
[2017-05-29] MEDS: Verapamil 180 MG Tab.ER PO SCH ×2 (08:00→17:25)
[2017-05-29] MEDS: Digoxin 125 MCG Tab PO SCH (08:01)
[2017-05-29] MEDS: Albuterol/Ipratropium 3.0-0.5 MG/3 ML Neb Soln NEB SCH ×4 (08:01→20:29)
[2017-05-29] MEDS: Acetaminophen/HYDROcodone 325-5 MG Tab PO SCH ×3 (08:02→17:25)
[2017-05-29] MEDS: PYRIDOSTIGMINE 60 MG PO SCH ×2 (08:02→20:32)
[2017-05-29] MEDS: Furosemide 40 MG Tab PO SCH ×2 (08:02→12:01)
[2017-05-29] MEDS: DABIGATRAN 150 MG PO SCH ×2 (08:03→20:34)
[2017-05-29] MEDS: Magnesium Oxide 400 MG Tab PO SCH (08:03)
[2017-05-29] MEDS: COLESTIPOL 1 GM PO SCH ×2 (08:03→20:32)
[2017-05-29] MEDS: Insulin Aspart 100 Units/ML 3 ML Pen SUBCUT SCH ×2 (08:04→12:01)
[2017-05-29] MEDS: Magnesium Hydroxide 400 MG/5 ML Susp 30 ML Cup PO SCH (08:13)
[2017-05-29] MEDS: Acetaminophen 650 MG Tab.ER PO SCH ×2 (12:00→17:25)
[2017-05-29] MEDS: Gabapentin 100 MG Cap PO SCH (20:30)
[2017-05-29] MEDS: Tamsulosin 0.4 MG Cap.ER PO SCH (20:30)
[2017-05-29] MEDS: Simvastatin 10 MG Tab PO SCH (20:30)
[2017-05-29] MEDS: Insulin Detemir 100 Units/ML 3 ML Pen SUBCUT SCH (20:33)
[2017-05-30] MEDS: Acetaminophen/HYDROcodone 325-5 MG Tab PO SCH ×3 (07:33→17:06)
[2017-05-30] MEDS: Magnesium Oxide 400 MG Tab PO SCH (07:33)
[2017-05-30] MEDS: Verapamil 180 MG Tab.ER PO SCH ×2 (07:33→17:07)
[2017-05-30] MEDS: Docusate Sodium 100 MG Cap PO SCH ×3 (07:33→17:08)
[2017-05-30] MEDS: Furosemide 40 MG Tab PO SCH ×2 (07:33→11:21)
[2017-05-30] MEDS: Digoxin 125 MCG Tab PO SCH (07:33)
[2017-05-30] MEDS: DABIGATRAN 150 MG PO SCH ×2 (07:34→21:00)
[2017-05-30] MEDS: COLESTIPOL 1 GM PO SCH ×2 (07:34→20:34)
[2017-05-30] MEDS: Insulin Aspart 100 Units/ML 3 ML Pen SUBCUT SCH ×2 (07:35→11:21)
[2017-05-30] MEDS: PYRIDOSTIGMINE 60 MG PO SCH ×2 (07:35→20:34)
[2017-05-30] MEDS: Albuterol/Ipratropium 3.0-0.5 MG/3 ML Neb Soln NEB SCH ×4 (07:35→20:33)
[2017-05-30] MEDS: Magnesium Hydroxide 400 MG/5 ML Susp 30 ML Cup PO SCH (07:37)
[2017-05-30] MEDS: Acetaminophen 650 MG Tab.ER PO SCH ×2 (11:21→17:06)
[2017-05-30] MEDS: Simvastatin 10 MG Tab PO SCH (20:33)
[2017-05-30] MEDS: Tamsulosin 0.4 MG Cap.ER PO SCH (20:33)
[2017-05-30] MEDS: Gabapentin 100 MG Cap PO SCH (20:33)
[2017-05-30] MEDS: Insulin Detemir 100 Units/ML 3 ML Pen SUBCUT SCH (20:35)
[2017-05-30] MEDS: Polyethylene Glycol 3350 Powder 17 GM Packet PO SCH (20:50)
[2017-05-31 07:55] LABS: CHLORIDE,CL 104 mmol/L (98-107); SODIUM,NA 140 mmol/L (136-145)
[2017-05-31] MEDS: Digoxin 125 MCG Tab PO SCH (08:37)
[2017-05-31] MEDS: Furosemide 40 MG Tab PO SCH ×2 (08:38→11:24)
[2017-05-31] MEDS: Verapamil 180 MG Tab.ER PO SCH ×2 (08:38→17:27)
[2017-05-31] MEDS: Magnesium Oxide 400 MG Tab PO SCH (08:38)
[2017-05-31] MEDS: Docusate Sodium 100 MG Cap PO SCH ×3 (08:38→17:27)
[2017-05-31] MEDS: Insulin Aspart 100 Units/ML 3 ML Pen SUBCUT SCH ×2 (08:39→11:25)
[2017-05-31] MEDS: Acetaminophen/HYDROcodone 325-5 MG Tab PO SCH ×3 (08:40→17:27)
[2017-05-31] MEDS: DABIGATRAN 150 MG PO SCH ×2 (08:41→20:27)
[2017-05-31] MEDS: Magnesium Hydroxide 400 MG/5 ML Susp 30 ML Cup PO SCH (08:41)
[2017-05-31] MEDS: PYRIDOSTIGMINE 60 MG PO SCH ×2 (08:41→20:28)
[2017-05-31] MEDS: COLESTIPOL 1 GM PO SCH ×2 (08:42→20:29)
[2017-05-31] MEDS: Albuterol/Ipratropium 3.0-0.5 MG/3 ML Neb Soln NEB SCH ×4 (08:42→20:27)
[2017-05-31] MEDS: Acetaminophen 650 MG Tab.ER PO SCH ×2 (11:23→17:26)
[2017-05-31] MEDS: Simvastatin 10 MG Tab PO SCH (20:27)
[2017-05-31] MEDS: Gabapentin 100 MG Cap PO SCH (20:27)
[2017-05-31] MEDS: Tamsulosin 0.4 MG Cap.ER PO SCH (20:27)
[2017-05-31] MEDS: Insulin Detemir 100 Units/ML 3 ML Pen SUBCUT SCH (20:29)
[2017-06-01] MEDS: Magnesium Oxide 400 MG Tab PO SCH (10:04)
[2017-06-01] MEDS: Docusate Sodium 100 MG Cap PO SCH ×3 (10:04→17:45)
[2017-06-01] MEDS: Digoxin 125 MCG Tab PO SCH (10:04)
[2017-06-01] MEDS: Albuterol/Ipratropium 3.0-0.5 MG/3 ML Neb Soln NEB SCH ×4 (10:04→19:57)
[2017-06-01] MEDS: Magnesium Hydroxide 400 MG/5 ML Susp 30 ML Cup PO SCH (10:04)
[2017-06-01] MEDS: Furosemide 40 MG Tab PO SCH ×2 (10:04→11:49)
[2017-06-01] MEDS: Verapamil 180 MG Tab.ER PO SCH ×2 (10:04→17:45)
[2017-06-01] MEDS: Insulin Aspart 100 Units/ML 3 ML Pen SUBCUT SCH ×2 (10:05→11:50)
[2017-06-01] MEDS: Acetaminophen/HYDROcodone 325-5 MG Tab PO SCH ×3 (10:05→17:45)
[2017-06-01] MEDS: DABIGATRAN 150 MG PO SCH ×2 (10:05→19:59)
[2017-06-01] MEDS: COLESTIPOL 1 GM PO SCH ×2 (10:05→20:00)
[2017-06-01] MEDS: PYRIDOSTIGMINE 60 MG PO SCH ×2 (10:05→20:00)
[2017-06-01] MEDS: Acetaminophen 650 MG Tab.ER PO SCH ×2 (11:49→16:52)
[2017-06-01] MEDS: Polyethylene Glycol 3350 Powder 17 GM Packet PO SCH (19:57)
[2017-06-01] MEDS: Gabapentin 100 MG Cap PO SCH (19:57)
[2017-06-01] MEDS: Tamsulosin 0.4 MG Cap.ER PO SCH (19:57)
[2017-06-01] MEDS: Simvastatin 10 MG Tab PO SCH (19:57)
[2017-06-01] MEDS: Insulin Detemir 100 Units/ML 3 ML Pen SUBCUT SCH (19:58)
[2017-06-01 20:51] VITALS: BP 110/54
[2017-06-02] MEDS: COLESTIPOL 1 GM PO SCH (07:43)
[2017-06-02] MEDS: Albuterol/Ipratropium 3.0-0.5 MG/3 ML Neb Soln NEB SCH ×3 (07:43→17:25)
[2017-06-02] MEDS: Verapamil 180 MG Tab.ER PO SCH (07:43)
[2017-06-02] MEDS: Digoxin 125 MCG Tab PO SCH (07:43)
[2017-06-02] MEDS: Acetaminophen/HYDROcodone 325-5 MG Tab PO SCH ×2 (07:43→11:26)
[2017-06-02] MEDS: Magnesium Oxide 400 MG Tab PO SCH (07:43)
[2017-06-02] MEDS: Furosemide 40 MG Tab PO SCH ×2 (07:43→11:26)
[2017-06-02] MEDS: Insulin Aspart 100 Units/ML 3 ML Pen SUBCUT SCH ×2 (07:44→11:26)
[2017-06-02] MEDS: Magnesium Hydroxide 400 MG/5 ML Susp 30 ML Cup PO SCH (07:44)
[2017-06-02] MEDS: DABIGATRAN 150 MG PO SCH (07:44)
[2017-06-02] MEDS: PYRIDOSTIGMINE 60 MG PO SCH (07:44)
[2017-06-02] MEDS: Docusate Sodium 100 MG Cap PO SCH ×2 (07:45→11:25)
[2017-06-02] MEDS: Acetaminophen 650 MG Tab.ER PO SCH (11:25)
--- NOTE | 2017-06-02 22:08 | PCM.PN ---
- General Info Date of Service: 06/02/17 Admission Dx/Problem (Free Text): Admission Diagnosis/Problem Admission Diagnosis/Problem Pneumonia Functional Status: Reports: Pain Controlled - Review of Systems General: Reports: No Symptoms HEENT: Reports: No Symptoms Pulmonary: Reports: No Symptoms Cardiovascular: Reports: No Symptoms Gastrointestinal: Reports: No Symptoms Genitourinary: Reports: No Symptoms Musculoskeletal: Reports: No Symptoms Skin: Reports: No Symptoms Neurological: Reports: No Symptoms Psychiatric: Reports: No Symptoms - Patient Data Vitals - Most Recent: Last Vital Signs Temp 97.9 F 06/01/17 20:00 Pulse 87 06/02/17 07:43 Resp 16 06/01/17 20:00 BP 110/54 L 06/01/17 20:00 Pulse Ox 100 06/01/17 20:00 Weight - Most Recent: 228 lb 1.6 oz I&O - Last 24 Hours: Intake & Output 06/02/17 06/02/17 06/02/17 06:59 14:59 22:59 Intake Total 750 Output Total 525 100 Balance -525 650 Lab Results Last 24 Hours: Laboratory Results - last 24 hr 06/02/17 Range/Units 11:16 POC Glucose 204 H (65-110) mg/dl Med Orders - Current: Current Medications Discontinued Medications Acetaminophen (Tylenol Arthritis Pain) 650 mg PO BID@1200,1700 [facility] Last Admin: 06/02/17 11:25 Dose: 650 mg Hydrocodone Bitart/Acetaminophen ([place] 325-5 Mg) 1 tab PO TID [facility] Last Admin: 06/02/17 11:26 Dose: 1 tab Albuterol/Ipratropium (Duoneb 3.0-0.5 Mg/3 Ml) 3 ml NEB Q4HRRT PRN PRN Reason: Dyspnea Last Admin: 05/23/17 08:01 Dose: 3 ml Albuterol/Ipratropium (Duoneb 3.0-0.5 Mg/3 Ml) 3 ml NEB QIDRT [facility] Last Admin: 06/02/17 17:25 Dose: Not Given Azithromycin (Zithromax) 500 mg PO DAILY [facility] Stop: 05/21/17 08:01 Last Admin: 05/21/17 08:21 Dose: 500 mg Bisacodyl (Dulcolax) 10 mg RECTAL DAILY PRN PRN Reason: Constipation Last Admin: 05/19/17 20:56 Dose: 10 mg Ceftazidime (Fortaz) 1 gm IVPUSH Q12HR [facility] Stop: 05/21/17 08:01 Last Admin: 05/21/17 08:23 Dose: 1 gm Digoxin (Lanoxin) 125 mcg PO QAM [facility] Last Admin: 06/02/17 07:43 Dose: 125 mcg Docusate Sodium (Colace) 100 mg PO TID [facility] Last Admin: 06/02/17 11:25 Dose: 100 mg Furosemide (Lasix) 40 mg IVPUSH BIDDIURETIC [facility] Last Admin: 05/27/17 07:00 Dose: 40 mg Furosemide (Lasix) 40 mg IVPUSH NOW ONE Stop: 05/15/17 12:41 Last Admin: 05/15/17 14:15 Dose: Not Given Furosemide (Lasix) 40 mg IVPUSH NOW ONE Stop: 05/15/17 14:01 Last Admin: 05/15/17 14:26 Dose: 40 mg Furosemide (Lasix) 40 mg PO DAILY@08,12 [facility] Last Admin: 06/02/17 11:26 Dose: 40 mg Gabapentin (Neurontin) 100 mg PO BEDTIME [facility] Last Admin: 06/01/17 19:57 Dose: 100 mg Glyburide (Micronase) 10 mg PO Q12H [facility] Last Admin: 05/17/17 07:57 Dose: 10 mg Hydrocortisone Sodium Succinate (Solu-Cortef) 20 mg IVPUSH Q12H [facility] Last Admin: 05/17/17 08:00 Dose: 20 mg Insulin Aspart (Novolog) 4 unit SUBCUT ONETIME ONE Stop: 05/15/17 16:37 Last Admin: 05/15/17 17:08 Dose: 4 units Insulin Aspart (Novolog) 4 unit SUBCUT QAM [facility] Last Admin: 05/17/17 07:59 Dose: 4 units Insulin Aspart (Novolog) 6 unit SUBCUT QPM [facility] Last Admin: 05/17/17 17:17 Dose: 6 units Insulin Aspart (Novolog) 4 unit SUBCUT DAILY@1200 [facility] Last Admin: 05/17/17 11:32 Dose: 4 units Insulin Aspart (Novolog) 8 unit SUBCUT NOW [facility] Stop: 05/18/17 11:31 Last Admin: 05/18/17 11:45 Dose: 8 units Insulin Aspart (Novolog) 8 unit SUBCUT ONETIME ONE; Protocol Stop: 05/21/17 18:01 Last Admin: 05/21/17 18:16 Dose: 8 units Insulin Aspart (Novolog) 4 unit SUBCUT BID@0800,1200 [facility]; Protocol Last Admin: 05/26/17 11:35 Dose: 4 unit Insulin Aspart (Novolog) 4 unit SUBCUT BID@0800,1200 [facility] Insulin Aspart (Novolog) 6 unit SUBCUT BID@0800,1200 [facility] Insulin Aspart (Novolog) 6 unit SUBCUT TID@0800,1200,1800 [facility] Last Admin: 05/27/17 12:20 Dose: 6 unit Insulin Aspart (Novolog) 6 unit SUBCUT BID@0800,1200 [facility] Last Admin: 06/02/17 11:26 Dose: 6 units Insulin Detemir (Levemir) 20 unit SUBCUT BEDTIME [facility] Last Admin: 05/20/17 20:07 Dose: 20 unit Insulin Detemir (Levemir) 10 unit SUBCUT BEDTIME [facility] Last Admin: 05/25/17 20:21 Dose: 10 unit Insulin Detemir (Levemir) 14 unit SUBCUT BEDTIME [facility] Last Admin: 06/01/17 19:58 Dose: 14 units Insulin Human NPH (Humulin N) 10 unit SUBCUT DAILY [facility] Insulin Human NPH (Humulin N) 10 unit SUBCUT Q12HR [facility] Last Admin: 05/18/17 08:05 Dose: 10 units Insulin Human NPH (Humulin N) 30 unit SUBCUT Q12HR [facility] Last Admin: 05/21/17 08:42 Dose: Not Given Magnesium Hydroxide (Milk Of Magnesia) 30 ml PO DAILY [facility] Last Admin: 06/02/17 07:44 Dose: Not Given Magnesium Oxide (Magnesium Oxide) 400 mg PO DAILY [facility] Last Admin: 06/02/17 07:43 Dose: 400 mg Metformin HCl (Glucophage) 1,000 mg PO Q12H [facility] Last Admin: 05/17/17 07:56 Dose: 1,000 mg Methylprednisolone Sodium Succinate (Solu-Medrol) 20 mg IVPUSH Q12HR [facility] Last Admin: 05/21/17 08:23 Dose: 20 mg Pyriodstigmine 60mg ( Own Med ) 0 each PO Q12H [facility] Last Admin: 06/02/17 07:44 Dose: 1 each Colestipol 1gm (Own Med ) 0 each PO Q12H [facility] Last Admin: 06/02/17 07:43 Dose: 1 each Dabigatran (Pradaxa) (150mg Own Med ) 0 each PO Q12H [facility] Last Admin: 06/02/17 07:44 Dose: 1 each Nystatin (Nystop) 1 gm TOP TID [facility] Stop: 05/25/17 12:01 Last Admin: 05/21/17 18:03 Dose: 1 applic Nystatin (Nystop) 0 gm TOP BID PRN PRN Reason: Itching Last Admin: 05/22/17 08:18 Dose: 1 applic Polyethylene Glycol (Miralax) 17 gm PO Q2D [facility] Last Admin: 06/01/17 19:57 Dose: 17 gm Simvastatin (Zocor) 10 mg PO BEDTIME [facility] Last Admin: 06/01/17 19:57 Dose: 10 mg Sodium Chloride (Saline Flush) 10 ml FLUSH ASDIRECTED PRN PRN Reason: Keep Vein Open Last Admin: 05/26/17 11:34 Dose: 10 ml Sodium Chloride (Saline Flush) 10 ml FLUSH Q12HR [facility] Last Admin: 05/27/17 20:52 Dose: Not Given Tamsulosin HCl (Flomax) 0.4 mg PO BEDTIME [facility] Last Admin: 06/01/17 19:57 Dose: 0.4 mg Verapamil HCl (Calan Sr) 180 mg PO BID [facility] Last Admin: 06/02/17 07:43 Dose: 180 mg - Exam General: Alert, Cooperative, No Acute Distress HEENT: Mucous Membr. Moist/[place] Neck: Trachea Midline, No JVD Lungs: Normal Respiratory Effort, Decreased Breath Sounds Cardiovascular: Regular Rate, Regular Rhythm GI/Abdominal Exam: Soft, Non-Tender, No Distention (Male) Exam: Deferred Back Exam: Normal Inspection Extremities: Normal Inspection, Non-Tender Skin: Warm, Dry, Intact Neurological: No New Focal Deficit Psy/Mental Status: Alert, Normal Affect, Normal Mood - Problem List & Annotations (1) CHF (congestive heart failure) SNOMED Code(s): 75446454 Code(s): I50.9 - HEART FAILURE, UNSPECIFIED Status: Acute Priority: High Qualifiers: Heart failure type: unspecified Heart failure chronicity: acute on chronic Qualified Code(s): I50.9 - Heart failure, unspecified (2) Hypoxia SNOMED Code(s): 942065545 Code(s): R09.02 - HYPOXEMIA Status: Acute Priority: High (3) Pneumonia SNOMED Code(s): 839480267 Code(s): J18.9 - PNEUMONIA, UNSPECIFIED ORGANISM Status: Acute Priority: High Qualifiers: Laterality: bilateral Lung location: unspecified part of lung (4) Atrial fibrillation SNOMED Code(s): 69569572 Code(s): I48.91 - UNSPECIFIED ATRIAL FIBRILLATION Status: Chronic Priority: Medium Qualifiers: Atrial fibrillation type: chronic Qualified Code(s): I48.2 - Chronic atrial fibrillation Annotation/Comment:: No chest pain or anginal-type symptoms. Stable heart rhythm in the emergency room (5) COPD (chronic obstructive pulmonary disease) SNOMED Code(s): 89654562 Code(s): J44.9 - CHRONIC OBSTRUCTIVE PULMONARY DISEASE, UNSPECIFIED Status : Chronic Priority: Medium Qualifiers: COPD type: unspecified COPD Qualified Code(s): J44.9 - Chronic obstructive pulmonary disease, unspecified Annotation/Comment:: No recent cough, bronchitic-type symptoms, etc. (6) Diabetes mellitus SNOMED Code(s): 20111283 Code(s): E11.9 - TYPE 2 DIABETES MELLITUS WITHOUT COMPLICATIONS Status: Chronic Priority: Medium Qualifiers: Diabetes mellitus type: type 2 Diabetes mellitus complication detail: with diabetic retinopathy Diabetic retinopathy severity: with unspecified retinopathy severity Diabetes mellitus macular edema: with macular edema Annotation/Comment:: Blood sugars somewhat elevated with sliding scale to be initiated during the next 48 hours secondary to the necessity of holding his metformin because of today's CT scans with contrast. His regular provider will be updated as per discharge instructions. Hyperglycemia likely elated to his poor dental hygiene and also current infection with referral to oral surgeon recommended (7) Hyperlipidemia SNOMED Code(s): 38448538 Code(s): E78.5 - HYPERLIPIDEMIA, UNSPECIFIED Status: Chronic Priority: Medium Qualifiers: Hyperlipidemia type: Mixed hyperlipidemia Qualified Code(s): E78.2 - Mixed hyperlipidemia Annotation/Comment:: under medical therapy (8) Hypertension SNOMED Code(s): 11134399 Code(s): I10 - ESSENTIAL (PRIMARY) HYPERTENSION Status: Chronic Priority : Medium Qualifiers: Hypertension type: essential hypertension Qualified Code(s): I10 - Essential (primary) hypertension Annotation/Comment:: blood pressure stable in the emergency room (9) Hypoalbuminemia SNOMED Code(s): 486556832 Code(s): 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, NEC Status: Chronic Priority: Medium Annotation/Comment:: consider high-protein Glucerna supplements (10) Hypomagnesemia SNOMED Code(s): 974320928 Code(s): E83.42 - HYPOMAGNESEMIA Status: Chronic Priority: Medium Annotation/Comment:: magnesium level normal today (11) Hyponatremia SNOMED Code(s): 64076886 Code(s): E87.1 - HYPO-OSMOLALITY AND HYPONATREMIA Status: Chronic Priority: Medium Annotation/Comment:: observe for now with history of CHF, however no recent chest pain or anginal complaints (12) Myasthenia gravis SNOMED Code(s): 00002850 Code(s): G70.00 - MYASTHENIA GRAVIS WITHOUT (ACUTE) EXACERBATION Status: Chronic Priority: Medium Annotation/Comment:: stable by history (13) Osteoarthritis SNOMED Code(s): 548078776 Code(s): M19.90 - UNSPECIFIED OSTEOARTHRITIS, UNSPECIFIED SITE Status: Chronic Priority: Medium Qualifiers: Osteoarthritis location: multiple joints Osteoarthritis type: primary Qualified Code(s): M15.0 - Primary generalized (osteo)arthritis Annotation/Comment:: stable by history - Problem List Review Problem List Initiated/Reviewed/Updated: Yes - My Orders Last 24 Hours: My Active Orders 06/02/17 16:34 Ready for Discharge [RC] PER UNIT ROUTINE - Plan Plan:: 05-15-17 Shelly Morales PA-C Transferred to [facility] status today from IP care to continue IV antibiotics and Lasix, as well as PT-OT for strengthening as he has become extremely weak with this acute illness. Will require continued medical monitoring and management. 05/17/17 Joe Curran MD Feeling a little bit better but still weak. Still worried about payment for medical care and not being transferred to [facility]. Discussed with him. 06/02/17 Joe Curran MD Feeling markedly improved. Ready for discharge.
--- NOTE | 2017-06-02 22:09 | PCM.DCSUM1 ---
Discharge Summary - Discharge Data Discharge Date: 06/02/17 Discharge Disposition: Home, Self-Care 01 Condition: Good - Discharge Diagnosis/Problem(s) (1) CHF (congestive heart failure) SNOMED Code(s): 69206142 ICD Code: I50.9 - HEART FAILURE, UNSPECIFIED Status: Acute Priority: High Qualifiers: Heart failure type: unspecified Heart failure chronicity: acute on chronic Qualified Code(s): I50.9 - Heart failure, unspecified (2) Hypoxia SNOMED Code(s): 347125844 ICD Code: R09.02 - HYPOXEMIA Status: Acute Priority: High (3) Pneumonia SNOMED Code(s): 997715258 ICD Code: J18.9 - PNEUMONIA, UNSPECIFIED ORGANISM Status: Acute Priority : High Qualifiers: Laterality: bilateral Lung location: unspecified part of lung (4) Atrial fibrillation SNOMED Code(s): 91616199 ICD Code: I48.91 - UNSPECIFIED ATRIAL FIBRILLATION Status: Chronic Priority: Medium Problem Details: No chest pain or anginal-type symptoms. Stable heart rhythm in the emergency room Qualifiers: Atrial fibrillation type: chronic Qualified Code(s): I48.2 - Chronic atrial fibrillation (5) COPD (chronic obstructive pulmonary disease) SNOMED Code(s): 10438567 ICD Code: J44.9 - CHRONIC OBSTRUCTIVE PULMONARY DISEASE, UNSPECIFIED Status : Chronic Priority: Medium Problem Details: No recent cough, bronchitic- type symptoms, etc. Qualifiers: COPD type: unspecified COPD Qualified Code(s): J44.9 - Chronic obstructive pulmonary disease, unspecified (6) Diabetes mellitus SNOMED Code(s): 05903041 ICD Code: E11.9 - TYPE 2 DIABETES MELLITUS WITHOUT COMPLICATIONS Status: Chronic Priority: Medium Problem Details: Blood sugars somewhat elevated with sliding scale to be initiated during the next 48 hours secondary to the necessity of holding his metformin because of today's CT scans with contrast. His regular provider will be updated as per discharge instructions. 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 (7) Hyperlipidemia SNOMED Code(s): 60957124 ICD Code: E78.5 - HYPERLIPIDEMIA, UNSPECIFIED Status: Chronic Priority: Medium Problem Details: under medical therapy Qualifiers: Hyperlipidemia type: Mixed hyperlipidemia Qualified Code(s): E78.2 - Mixed hyperlipidemia (8) Hypertension SNOMED Code(s): 13136894 ICD Code: I10 - ESSENTIAL (PRIMARY) HYPERTENSION Status: Chronic Priority : Medium Problem Details: blood pressure stable in the emergency room Qualifiers: Hypertension type: essential hypertension Qualified Code(s): I10 - Essential (primary) hypertension (9) Hypoalbuminemia SNOMED Code(s): 536723941 ICD Code: 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, NEC Status: Chronic Priority: Medium Problem Details: consider high-protein Glucerna supplements (10) Hypomagnesemia SNOMED Code(s): 868268448 ICD Code: E83.42 - HYPOMAGNESEMIA Status: Chronic Priority: Medium Problem Details: magnesium level normal today (11) Hyponatremia SNOMED Code(s): 36832174 ICD Code: E87.1 - HYPO-OSMOLALITY AND HYPONATREMIA Status: Chronic Priority: Medium Problem Details: observe for now with history of CHF, however no recent chest pain or anginal complaints (12) Myasthenia gravis SNOMED Code(s): 05903300 ICD Code: G70.00 - MYASTHENIA GRAVIS WITHOUT (ACUTE) EXACERBATION Status: Chronic Priority: Medium Problem Details: stable by history (13) Osteoarthritis SNOMED Code(s): 995023116 ICD Code: M19.90 - UNSPECIFIED OSTEOARTHRITIS, UNSPECIFIED SITE Status: Chronic Priority: Medium Problem Details: stable by history Qualifiers: Osteoarthritis location: multiple joints Osteoarthritis type: primary Qualified Code(s): M15.0 - Primary generalized (osteo)arthritis - Patient Summary/Data Consults: Consultations 05/15/17 12:15 Consult to Case Management [CONS] Routine OT Evaluation and Treatment [CONS] Routine PT Evaluation and Treatment [CONS] Routine - Patient Instructions Diet: Diabetic Diet Activity: As Tolerated Driving: Do Not Drive Showering/Bathing: May Shower - Discharge Plan Prescriptions/Med Rec: Insulin Aspart [NovoLOG] 6 unit SUBCUT BID@0800,1200 #60 pen Insulin Detemir [Levemir] 14 unit SUBCUT BEDTIME #30 pen Polyethylene Glycol 3350 [MiraLAX] 17 gm PO DAILY@0800 #30 packet Home Medications: Home Meds Acetaminophen [Tylenol Arthritis Pain] 650 mg PO Q4HR PRN MDD 3 04/14/15 [ History] Albuterol/Ipratropium [DuoNeb 3.0-0.5 MG/3 ML] 3 ml NEB Q4HR PRN 04/14/15 [ History] Cholecalciferol (Vitamin D3) [Vitamin D3] 800 unit PO QAM 04/14/15 [History] Dabigatran [Pradaxa] 150 mg PO Q12HR 04/14/15 [History] Digoxin [Lanoxin] 125 mcg PO QAM 04/14/15 [History] Docusate Sodium [Colace] 100 mg PO TID@0800,1200,199904/14/15 [History] Folic Acid 1 mg PO QAM 04/14/15 [History] Furosemide [Lasix] 60 mg PO QAM 04/14/15 [History] Magnesium Hydroxide [Milk of Magnesia] 30 ml PO Q2D@199904/14/15 [History] Magnesium Oxide 420 mg PO QAM 04/14/15 [History] Multivitamin [Multivitamins] 1 each PO QAM 04/14/15 [History] Pyridostigmine [Mestinon] 60 mg PO Q12HR 04/14/15 [History] Simvastatin [Zocor] 10 mg PO BEDTIME 04/14/15 [History] Tamsulosin [Flomax] 0.4 mg PO BEDTIME 04/14/15 [History] Thiamine Mononitrate [Vitamin B-1] 100 mg PO QAM 04/14/15 [History] Verapamil [Calan SR] 180 mg PO Q12HR 04/14/15 [History] Acetaminophen [Tylenol Arthritis Pain] 650 mg PO BID@1200,1700 05/09/15 [History ] Bisacodyl [Dulcolax] 10 mg RECTAL DAILY PRN 07/10/15 [History] Colestipol [Colestipol HCl] 1 gm PO Q12HR 07/10/15 [History] Furosemide 20 mg PO DAILY@1200 07/10/15 [History] Calcium Carbonate/Vitamin D3 [Calcium 600 + Vit D Tablet] 1 tab PO Q12HR [History] Gabapentin [Neurontin] 100 mg PO BEDTIME 05/10/17 [History] Hydrocodone/Acetaminophen [Hydrocodon-Acetaminophen 5-325] 1 each PO TID@0800, 1200,2000 05/10/17 [History] Insulin Aspart [NovoLOG] 6 unit SUBCUT BID@0800,1200 #60 pen 06/02/17 [Rx] Insulin Detemir [Levemir] 14 unit SUBCUT BEDTIME #30 pen 06/02/17 [Rx] Polyethylene Glycol 3350 [MiraLAX] 17 gm PO DAILY@0800 #30 packet 06/02/17 [Rx] - Discharge Summary/Plan Comment DC Time >30 min.: No - Patient Data Vitals - Most Recent: Last Vital Signs Temp 97.9 F 06/01/17 20:00 Pulse 87 06/02/17 07:43 Resp 16 06/01/17 20:00 BP 110/54 L 06/01/17 20:00 Pulse Ox 100 06/01/17 20:00 Weight - Most Recent: 228 lb 1.6 oz I&O - Last 24 hours: Intake & Output 06/02/17 06/02/17 06/02/17 06:59 14:59 22:59 Intake Total 750 Output Total 525 100 Balance -525 650 Lab Results - Last 24 hrs: Laboratory Results - last 24 hr 06/02/17 Range/Units 11:16 POC Glucose 204 H (65-110) mg/dl Med Orders - Current: Current Medications Discontinued Medications Acetaminophen (Tylenol Arthritis Pain) 650 mg PO BID@1200,1700 [facility] Last Admin: 06/02/17 11:25 Dose: 650 mg Hydrocodone Bitart/Acetaminophen ([place] 325-5 Mg) 1 tab PO TID [facility] Last Admin: 06/02/17 11:26 Dose: 1 tab Albuterol/Ipratropium (Duoneb 3.0-0.5 Mg/3 Ml) 3 ml NEB Q4HRRT PRN PRN Reason: Dyspnea Last Admin: 05/23/17 08:01 Dose: 3 ml Albuterol/Ipratropium (Duoneb 3.0-0.5 Mg/3 Ml) 3 ml NEB QIDRT [facility] Last Admin: 06/02/17 17:25 Dose: Not Given Azithromycin (Zithromax) 500 mg PO DAILY [facility] Stop: 05/21/17 08:01 Last Admin: 05/21/17 08:21 Dose: 500 mg Bisacodyl (Dulcolax) 10 mg RECTAL DAILY PRN PRN Reason: Constipation Last Admin: 05/19/17 20:56 Dose: 10 mg Ceftazidime (Fortaz) 1 gm IVPUSH Q12HR [facility] Stop: 05/21/17 08:01 Last Admin: 05/21/17 08:23 Dose: 1 gm Digoxin (Lanoxin) 125 mcg PO QAM [facility] Last Admin: 06/02/17 07:43 Dose: 125 mcg Docusate Sodium (Colace) 100 mg PO TID [facility] Last Admin: 06/02/17 11:25 Dose: 100 mg Furosemide (Lasix) 40 mg IVPUSH BIDDIURETIC [facility] Last Admin: 05/27/17 07:00 Dose: 40 mg Furosemide (Lasix) 40 mg IVPUSH NOW ONE Stop: 05/15/17 12:41 Last Admin: 05/15/17 14:15 Dose: Not Given Furosemide (Lasix) 40 mg IVPUSH NOW ONE Stop: 05/15/17 14:01 Last Admin: 05/15/17 14:26 Dose: 40 mg Furosemide (Lasix) 40 mg PO DAILY@08,12 [facility] Last Admin: 06/02/17 11:26 Dose: 40 mg Gabapentin (Neurontin) 100 mg PO BEDTIME [facility] Last Admin: 06/01/17 19:57 Dose: 100 mg Glyburide (Micronase) 10 mg PO Q12H [facility] Last Admin: 05/17/17 07:57 Dose: 10 mg Hydrocortisone Sodium Succinate (Solu-Cortef) 20 mg IVPUSH Q12H [facility] Last Admin: 05/17/17 08:00 Dose: 20 mg Insulin Aspart (Novolog) 4 unit SUBCUT ONETIME ONE Stop: 05/15/17 16:37 Last Admin: 05/15/17 17:08 Dose: 4 units Insulin Aspart (Novolog) 4 unit SUBCUT QAM [facility] Last Admin: 05/17/17 07:59 Dose: 4 units Insulin Aspart (Novolog) 6 unit SUBCUT QPM [facility] Last Admin: 05/17/17 17:17 Dose: 6 units Insulin Aspart (Novolog) 4 unit SUBCUT DAILY@1200 [facility] Last Admin: 05/17/17 11:32 Dose: 4 units Insulin Aspart (Novolog) 8 unit SUBCUT NOW STA Stop: 05/18/17 11:31 Last Admin: 05/18/17 11:45 Dose: 8 units Insulin Aspart (Novolog) 8 unit SUBCUT ONETIME ONE; Protocol Stop: 05/21/17 18:01 Last Admin: 05/21/17 18:16 Dose: 8 units Insulin Aspart (Novolog) 4 unit SUBCUT BID@0800,1200 RUDY; Protocol Last Admin: 05/26/17 11:35 Dose: 4 unit Insulin Aspart (Novolog) 4 unit SUBCUT BID@0800,1200 RUDY Insulin Aspart (Novolog) 6 unit SUBCUT BID@0800,1200 RUDY Insulin Aspart (Novolog) 6 unit SUBCUT TID@0800,1200,1800 [facility] Last Admin: 05/27/17 12:20 Dose: 6 unit Insulin Aspart (Novolog) 6 unit SUBCUT BID@0800,1200 [facility] Last Admin: 06/02/17 11:26 Dose: 6 units Insulin Detemir (Levemir) 20 unit SUBCUT BEDTIME [facility] Last Admin: 05/20/17 20:07 Dose: 20 unit Insulin Detemir (Levemir) 10 unit SUBCUT BEDTIME [facility] Last Admin: 05/25/17 20:21 Dose: 10 unit Insulin Detemir (Levemir) 14 unit SUBCUT BEDTIME [facility] Last Admin: 06/01/17 19:58 Dose: 14 units Insulin Human NPH (Humulin N) 10 unit SUBCUT DAILY [facility] Insulin Human NPH (Humulin N) 10 unit SUBCUT Q12HR [facility] Last Admin: 05/18/17 08:05 Dose: 10 units Insulin Human NPH (Humulin N) 30 unit SUBCUT Q12HR [facility] Last Admin: 05/21/17 08:42 Dose: Not Given Magnesium Hydroxide (Milk Of Magnesia) 30 ml PO DAILY [facility] Last Admin: 06/02/17 07:44 Dose: Not Given Magnesium Oxide (Magnesium Oxide) 400 mg PO DAILY [facility] Last Admin: 06/02/17 07:43 Dose: 400 mg Metformin HCl (Glucophage) 1,000 mg PO Q12H [facility] Last Admin: 05/17/17 07:56 Dose: 1,000 mg Methylprednisolone Sodium Succinate (Solu-Medrol) 20 mg IVPUSH Q12HR [facility] Last Admin: 05/21/17 08:23 Dose: 20 mg Pyriodstigmine 60mg ( Own Med ) 0 each PO Q12H [facility] Last Admin: 06/02/17 07:44 Dose: 1 each Colestipol 1gm (Own Med ) 0 each PO Q12H RUDY Last Admin: 06/02/17 07:43 Dose: 1 each Dabigatran (Pradaxa) (150mg Own Med ) 0 each PO Q12H RUDY Last Admin: 06/02/17 07:44 Dose: 1 each Nystatin (Nystop) 1 gm TOP TID RUDY Stop: 05/25/17 12:01 Last Admin: 05/21/17 18:03 Dose: 1 applic Nystatin (Nystop) 0 gm TOP BID PRN PRN Reason: Itching Last Admin: 05/22/17 08:18 Dose: 1 applic Polyethylene Glycol (Miralax) 17 gm PO Q2D [facility] Last Admin: 06/01/17 19:57 Dose: 17 gm Simvastatin (Zocor) 10 mg PO BEDTIME RUDY Last Admin: 06/01/17 19:57 Dose: 10 mg Sodium Chloride (Saline Flush) 10 ml FLUSH ASDIRECTED PRN PRN Reason: Keep Vein Open Last Admin: 05/26/17 11:34 Dose: 10 ml Sodium Chloride (Saline Flush) 10 ml FLUSH Q12HR [facility] Last Admin: 05/27/17 20:52 Dose: Not Given Tamsulosin HCl (Flomax) 0.4 mg PO BEDTIME [facility] Last Admin: 06/01/17 19:57 Dose: 0.4 mg Verapamil HCl (Calan Sr) 180 mg PO BID [facility] Last Admin: 06/02/17 07:43 Dose: 180 mg
== END 2017-06-02 16:50 | disposition home or self-care (01) | DRG 194 ==
LOC: LL.MS 11:39
PROVIDERS: ADMIT Family Medicine; ATTEND Family Medicine
DX: J18.9 Pneumonia, unspecified organism (principal); E87.1 Hypo-osmolality and hyponatremia; R53.1 Weakness; G70.00 Myasthenia gravis without (acute) exacerbation; I11.0 Hypertensive heart disease with heart failure; I50.9 Heart failure, unspecified; J44.9 Chronic obstructive pulmonary disease, unspecified; K59.09 Other constipation; I48.2 Chronic atrial fibrillation; R13.10 Dysphagia, unspecified; N40.1 Benign prostatic hyperplasia with lower urinary tract symptoms; N39.498 Other specified urinary incontinence; G89.29 Other chronic pain; E11.40 Type 2 diabetes mellitus with diabetic neuropathy, unspecified; E55.9 Vitamin D deficiency, unspecified; E11.311 Type 2 diabetes mellitus with unspecified diabetic retinopathy with macular edema; E11.65 Type 2 diabetes mellitus with hyperglycemia; E78.2 Mixed hyperlipidemia; K04.7 Periapical abscess without sinus; E88.09 Other disorders of plasma-protein metabolism, not elsewhere classified; M15.9 Polyosteoarthritis, unspecified; D64.9 Anemia, unspecified; R09.02 Hypoxemia; E53.8 Deficiency of other specified B group vitamins; R91.1 Solitary pulmonary nodule; H54.7 Unspecified visual loss; E83.42 Hypomagnesemia; Z86.14 Personal history of Methicillin resistant Staphylococcus aureus infection; Z79.52 Long term (current) use of systemic steroids; Z88.1 Allergy status to other antibiotic agents; Z86.010 Personal history of colon polyps; Z79.01 Long term (current) use of anticoagulants; Z79.891 Long term (current) use of opiate analgesic; Z88.2 Allergy status to sulfonamides; Z79.899 Other long term (current) drug therapy; Z87.891 Personal history of nicotine dependence; Z79.4 Long term (current) use of insulin
CPT/HCPCS: 36415; 51701; 51798; 71046; 80053; 82803; 82962; 83735; 83880; 85025; 86140; 94640; 97110-GO; 97110-GP; 97162-GP; 97165-GO; 97530-GO; 97530-GP; 97535-GO; A9270-GY; J0713; J1720; J1815; J1815-GY; J1940; J2920; J7050

== ENCOUNTER 2018-05-28 18:37 | Emergency (ER) | payer MEDICARE ==
[2018-05-28 18:41] VITALS: BP 172/68
[2018-05-28] MEDS ORDERED: Lidocaine 2% with EPINEPHrine 1:100,000 20 ML MDV ONE (18:56)
--- NOTE | 2018-05-28 19:31 | EDM.PDOC ---
ED HPI GENERAL MEDICAL PROBLEM - General Chief Complaint: Laceration Stated Complaint: Laceration Time Seen by Provider: 05/28/18 18:44 Source of Information: Reports: Patient, EMS History Limitations: Reports: No Limitations - History of Present Illness INITIAL COMMENTS - FREE TEXT/NARRATIVE: Patient comes to ER for evaluation of left lower leg laceration. Got leg caught between bed and wheelchair. No other injuries reported. Pressure bandage in place upon arrival. - Related Data Allergies Allergy/AdvReac Type Severity Reaction Status Date / Time cephalexin Allergy Itching,sul Verified 05/28/18 18:51 fa sulfamethoxazole Allergy Hives,itchi Verified 05/28/18 18:51 [From Bactrim] ng trimethoprim [From Bactrim] Allergy Hives,itchi Verified 05/28/18 18:51 ng Home Meds: Home Meds Acetaminophen [Tylenol Arthritis Pain] 650 mg PO Q4HR PRN MDD 3 04/14/15 [ History] Albuterol/Ipratropium [DuoNeb 3.0-0.5 MG/3 ML] 3 ml NEB Q4HR PRN 04/14/15 [ History] Cholecalciferol (Vitamin D3) [Vitamin D3] 800 unit PO QAM 04/14/15 [History] Dabigatran [Pradaxa] 150 mg PO Q12HR 04/14/15 [History] Digoxin [Lanoxin] 125 mcg PO QAM 04/14/15 [History] Docusate Sodium [Colace] 100 mg PO TID@0800,1200,199904/14/15 [History] Folic Acid 1 mg PO QAM 04/14/15 [History] Furosemide [Lasix] 80 mg PO QAM 04/14/15 [History] Magnesium Hydroxide [Milk of Magnesia] 30 ml PO Q2D@199904/14/15 [History] Magnesium Oxide 420 mg PO QAM 04/14/15 [History] Multivitamin [Multivitamins] 1 each PO QAM 04/14/15 [History] Pyridostigmine [Mestinon] 60 mg PO Q12HR 04/14/15 [History] Simvastatin [Zocor] 10 mg PO BEDTIME 04/14/15 [History] Tamsulosin [Flomax] 0.4 mg PO BEDTIME 04/14/15 [History] Thiamine Mononitrate [Vitamin B-1] 100 mg PO QAM 04/14/15 [History] Verapamil [Calan SR] 180 mg PO Q12HR 04/14/15 [History] Acetaminophen [Tylenol Arthritis Pain] 650 mg PO BID@1200,1700 05/09/15 [History ] Bisacodyl [Dulcolax] 10 mg RECTAL DAILY PRN 07/10/15 [History] Colestipol [Colestipol HCl] 1 gm PO Q12HR 07/10/15 [History] Furosemide 20 mg PO DAILY@1200 07/10/15 [History] Calcium Carbonate/Vitamin D3 [Calcium 600 + Vit D Tablet] 1 tab PO Q12HR [History] Gabapentin [Neurontin] 100 mg PO BEDTIME 05/10/17 [History] Hydrocodone/Acetaminophen [Hydrocodon-Acetaminophen 5-325] 1 each PO TID@0800, 1200,2000 05/10/17 [History] Insulin Aspart [NovoLOG] 6 unit SUBCUT BID@0800,1200 #60 pen 06/02/17 [Rx] Insulin Detemir [Levemir] 14 unit SUBCUT BEDTIME #30 pen 06/02/17 [Rx] Polyethylene Glycol 3350 [MiraLAX] 17 gm PO DAILY@0800 #30 packet 06/02/17 [Rx] Albuterol/Ipratropium [DuoNeb 3.0-0.5 MG/3 ML] 1 vial INH TID@08,12,19 05/28/18 [History] Amoxicillin/Potassium Clav [Augmentin 875-125 Tablet] 1 each PO Q12H #8 tablet 05/28/18 [Rx] Past Medical History HEENT History: Reports: Cataract, Impaired Vision, Other (See Below) Other HEENT History: ocular myasthenia gravis; Dysphagia; Presbyopia Cardiovascular History: Reports: Afib, Arrhythmia, Heart Failure, High Cholesterol, Hypertension, Other (See Below) Other Cardiovascular History: Right BBB Respiratory History: Reports: COPD, Other (See Below) Other Respiratory History: benign pulmonary nodule Gastrointestinal History: Reports: Chronic Constipation, Colon Polyp, Hiatal Hernia, Other (See Below) Other Gastrointestinal History: dysphagia Genitourinary History: Reports: BPH, Urinary Incontinence Musculoskeletal History: Reports: Arthritis, Back Pain, Chronic, Neck Pain, Chronic, Osteoarthritis Neurological History: Reports: Neuropathy, Diabetic, Other (See Below) Other Neuro History: ocular myasthenia gravis Psychiatric History: Reports: Addiction, Anxiety, Depression Endocrine/Metabolic History: Reports: Diabetes, Type II, Vitamin D Deficiency, Other (See Below) Other Endocrine/Metabolic History: hypomagnesemia Hematologic History: Reports: Anemia, B12 Deficiency Immunologic History: Reports: None Oncologic (Cancer) History: Reports: None Dermatologic History: Reports: Cellulitis - Infectious Disease History Infectious Disease History: Reports: Chicken Pox, Measles, MRSA - Past Surgical History Head Surgeries/Procedures: Reports: None HEENT Surgical History: Reports: Cataract Surgery, Oral Surgery, Other (See Below) Other HEENT Surgeries/Procedures: Placed intraocular lens Musculoskeletal Surgical History: Reports: Other (See Below) - Past Imaging History Past Imaging History: Reports: Ultrasound (soft tissue neck on 04/17/15) Social & Family History - Family History HEENT: Reports: None Cardiac: Reports: Hypertension GI: Reports: Cholelithiasis : Reports: None OBGYN: Reports: None Musculoskeletal: Reports: RA Neurological: Reports: Alzheimers Disease, CVA, Dementia, Migraines, Other (See Below) Other Neurological Family History: no family history of myasthenia gravis Psychiatric: Reports: None Endocrine/Metabolic: Reports: Hypothyroidism Hematologic: Reports: Transfusion Reaction Immunologic: Reports: None Dermatologic: Reports: None Oncologic: Reports: None - Caffeine Use Caffeine Use: Reports: Soda - Recreational Drug Use Recreational Drug Use: No - Living Situation & Occupation Living situation: Reports: , Extended Care Facility Occupation: Retired ED ROS GENERAL - Review of Systems Review Of Systems: ROS reveals no pertinent complaints other than HPI. ED EXAM, SKIN/RASH Exam: See Below Exam Limited By: No Limitations General Appearance: Alert, No Apparent Distress, Obese Eye Exam: Bilateral Eye: EOMI Throat/Mouth: Normal Voice, No Airway Compromise Head: Atraumatic, Normocephalic Neck: Supple Respiratory/Chest: No Respiratory Distress Extremities: Normal Capillary Refill, Other (4.5cm laceration over anterior lower left leg noted. Also has skin tear that extends proximally from laceration an additional 2.5cm. Smaller separate quarter-sized skin tear just adjacent to laceration. ) Neurological: Alert, Oriented Psychiatric: Normal Affect, Normal Mood Skin: Warm, Dry ED SKIN PROCEDURES - Laceration/Wound Repair Left Lower Leg Lac/Wound length In cm: 4.5 (wound length is 7cm if you include skin tear that extends proximally from laceration) Appearance: Subcutaneous, Irregular, Clean Distal NVT: Neuro & Vascular Intact, No Tendon Injury Anesthetic Type: Local Local Anesthesia - Lidocaine (Xylocaine): 2% with EPI Local Anesthetic Volume: Other (10) Skin Prep: Saline Saline Irrigation (cc's): 15 Exploration/Debridement/Repair: In a Bloodless Field, Explored to Base, No Foreign Material Found, Wound Margins Revised Closed with: Sutures Suture Size: 3-0 Suture Type: Nylon, Simple (4), Mattress (3) Drain Placement: No Sterile Dressing Applied: Nurse Tetanus Status Addressed: Yes Complications: No Course - Vital Signs Last Recorded V/S: Last Vital Signs Temp 36.8 C 05/28/18 18:38 Pulse 117 H 05/28/18 18:38 Resp 18 05/28/18 18:38 BP 172/68 H 05/28/18 18:38 Pulse Ox 100 05/28/18 18:38 - Orders/Labs/Meds Meds: Medications Discontinued Medications Generic Name Dose Route Start Last Admin Trade Name Freq PRN Reason Stop Dose Admin Lidocaine/Epinephrine Confirm 05/28/18 18:56 05/28/18 19:17 Xylocaine 2% With Epinephrine 1:100,000 Administered 05/28/18 18:57 20 ml Dose Administration 20 ml .ROUTE .STK-MED ONE - Re-Assessments/Exams Free Text/Narrative Re-Assessment/Exam: 05/28/18 19:29 Laceration repaired. Nonstick sterile dressing applied. Precautions reviewed with patient. Recommend sutures remain in place for two weeks given patient's age and diabetes /peripheral vascular changes. Will initiate antibiotic coverage given increased risk of infection due to comorbidities. Departure - Departure Time of Disposition: 20:00 Disposition: DC/Tfer to [facility] 03 Condition: Good Clinical Impression: Laceration of left lower leg Qualifiers: Encounter type: initial encounter Qualified Code(s): S81.812A - Laceration without foreign body, left lower leg, initial encounter Noninfected skin tear of left lower extremity Qualifiers: Encounter type: initial encounter Qualified Code(s): S81.812A - Laceration without foreign body, left lower leg, initial encounter - Discharge Information *PRESCRIPTION DRUG MONITORING PROGRAM REVIEWED*: Not Applicable *COPY OF PRESCRIPTION DRUG MONITORING REPORT IN PATIENT JEANNE: Not Applicable Prescriptions: Amoxicillin/Potassium Clav [Augmentin 875-125 Tablet] 1 each PO Q12H #8 tablet Referrals: Soniya Burch MD [Primary Care Provider] - Forms: ED Department Discharge Additional Instructions: [facility] staff: please perform daily dressing changes and monitor wound for infection. OK to apply topical antibiotic before placing nonstick dressing/ Coban over wound. Avoid compression socks while wound is healing. Have [facility] round on patient regularly while wound is healing. Patient placed on Augmentin. Noted to be allergic to Cephalexin and Bactrim. Observe for any changes that may indicate allergy. If any are noted, contact [facility]. Recommend sutures stay in place for two weeks given patient's diabetes, age, and peripheral vascular changes. Anticipate slower healing process. Have [facility] determine if any adjustments to this recommendation are needed. Follow up as needed if there are any additional problems or signs of infection.
== END 2018-05-28 20:50 ==
LOC: LL.ED 18:37
DX: S81.812A Laceration without foreign body, left lower leg, initial encounter (principal); I11.0 Hypertensive heart disease with heart failure; I50.9 Heart failure, unspecified; E11.9 Type 2 diabetes mellitus without complications; I48.91 Unspecified atrial fibrillation; E78.00 Pure hypercholesterolemia, unspecified; J44.9 Chronic obstructive pulmonary disease, unspecified; F41.9 Anxiety disorder, unspecified; F32.9 Major depressive disorder, single episode, unspecified; Z88.1 Allergy status to other antibiotic agents; Z88.2 Allergy status to sulfonamides; Z79.899 Other long term (current) drug therapy; Z79.4 Long term (current) use of insulin; W23.0XXA Caught, crushed, jammed, or pinched between moving objects, initial encounter
CPT/HCPCS: 12014; 99284

== ENCOUNTER 2018-07-12 13:34 | Inpatient (IN) | payer MEDICAID, MEDICARE ==
[2018-07-12] MEDS ORDERED: Acetaminophen 650 MG Tab.ER PO PRN (14:38)
[2018-07-12] MEDS ORDERED: Bisacodyl 10 MG Supp RECTAL PRN (14:38)
--- NOTE | 2018-07-12 14:57 | PCM.HP ---
H&P History of Present Illness - General Date of Service: 07/12/18 Admit Problem/Dx: Admission Diagnosis/Problem Admission Diagnosis/Problem Cellulitis Source of Information: Patient, Correction Records, Provider, RN History Limitations: Reports: No Limitations - History of Present Illness Initial Comments - Free Text/Narative: Initially evaluated today at the [facility] on rounds. Onset of Symptoms: Reports: Gradual (the laceration has been slow to heal in the anteromedial aspect of the ankle) Duration of Symptoms: Reports: Day(s): (acute exacerbation of generalized heat and erythema just since yesterday), Getting Worse Location: Reports: Lower Extremity, Left Severity: Severe Improves with: Reports: None Worsens with: Reports: None Context: Reports: Other (LLE laceration 05-28-18) Associated Symptoms: Reports: No Other Symptoms (says a little SOB but "I always am") - Related Data Allergies/Adverse Reactions: Allergies Allergy/AdvReac Type Severity Reaction Status Date / Time cephalexin Allergy Itching,sul Verified 07/12/18 13:52 fa sulfamethoxazole Allergy Hives,itchi Verified 07/12/18 13:52 [From Bactrim] ng trimethoprim [From Bactrim] Allergy Hives,itchi Verified 07/12/18 13:52 ng Home Medications: Home Meds Acetaminophen [Tylenol Arthritis Pain] 650 mg PO Q4HR PRN MDD 3 04/14/15 [ History] Albuterol/Ipratropium [DuoNeb 3.0-0.5 MG/3 ML] 3 ml NEB Q4HR PRN 04/14/15 [ History] Cholecalciferol (Vitamin D3) [Vitamin D3] 800 unit PO QAM 04/14/15 [History] Dabigatran [Pradaxa] 150 mg PO Q12HR 04/14/15 [History] Digoxin [Lanoxin] 125 mcg PO QAM 04/14/15 [History] Docusate Sodium [Colace] 100 mg PO TID@0800,1200,199904/14/15 [History] Folic Acid 1 mg PO QAM 04/14/15 [History] Furosemide [Lasix] 80 mg PO QAM 04/14/15 [History] Magnesium Hydroxide [Milk of Magnesia] 30 ml PO Q2D@199904/14/15 [History] Magnesium Oxide 420 mg PO QAM 04/14/15 [History] Multivitamin [Multivitamins] 1 each PO QAM 04/14/15 [History] Pyridostigmine [Mestinon] 60 mg PO Q12HR 04/14/15 [History] Simvastatin [Zocor] 10 mg PO BEDTIME 04/14/15 [History] Tamsulosin [Flomax] 0.4 mg PO BEDTIME 04/14/15 [History] Thiamine Mononitrate [Vitamin B-1] 100 mg PO QAM 04/14/15 [History] Verapamil [Calan SR] 180 mg PO Q12HR 04/14/15 [History] Acetaminophen [Tylenol Arthritis Pain] 650 mg PO BID@1200,1700 05/09/15 [History ] Bisacodyl [Dulcolax] 10 mg RECTAL DAILY PRN 07/10/15 [History] Colestipol [Colestipol HCl] 1 gm PO Q12HR 07/10/15 [History] Furosemide 40 mg PO DAILY@1200 07/10/15 [History] Calcium Carbonate/Vitamin D3 [Calcium 600 + Vit D Tablet] 1 tab PO Q12HR [History] Gabapentin [Neurontin] 100 mg PO BEDTIME 05/10/17 [History] Hydrocodone/Acetaminophen [Hydrocodon-Acetaminophen 5-325] 1 each PO TID@0800, 1200,2000 05/10/17 [History] Insulin Aspart [NovoLOG] 6 unit SUBCUT BID@0800,1200 #60 pen 06/02/17 [Rx] Insulin Detemir [Levemir] 14 unit SUBCUT BEDTIME #30 pen 06/02/17 [Rx] Polyethylene Glycol 3350 [MiraLAX] 17 gm PO DAILY@0800 #30 packet 06/02/17 [Rx] Albuterol/Ipratropium [DuoNeb 3.0-0.5 MG/3 ML] 1 vial INH TID@08,12,19 05/28/18 [History] Past Medical History HEENT History: Reports: Cataract, Impaired Vision, Other (See Below) Other HEENT History: ocular myasthenia gravis; Dysphagia; Presbyopia Cardiovascular History: Reports: Afib, Arrhythmia, Heart Failure, High Cholesterol, Hypertension, Other (See Below) Other Cardiovascular History: Right BBB Respiratory History: Reports: COPD, Other (See Below) Other Respiratory History: benign pulmonary nodule Gastrointestinal History: Reports: Chronic Constipation, Colon Polyp, Hiatal Hernia, Other (See Below) Other Gastrointestinal History: dysphagia Genitourinary History: Reports: BPH, Urinary Incontinence Musculoskeletal History: Reports: Arthritis, Back Pain, Chronic, Neck Pain, Chronic, Osteoarthritis Neurological History: Reports: Neuropathy, Diabetic, Other (See Below) Other Neuro History: ocular myasthenia gravis Psychiatric History: Reports: Addiction, Anxiety, Depression Endocrine/Metabolic History: Reports: Diabetes, Type II, Vitamin D Deficiency, Other (See Below) Other Endocrine/Metabolic History: hypomagnesemia Hematologic History: Reports: Anemia, B12 Deficiency Immunologic History: Reports: None Oncologic (Cancer) History: Reports: None Dermatologic History: Reports: Cellulitis - Infectious Disease History Infectious Disease History: Reports: Chicken Pox, Measles, MRSA - Past Surgical History Head Surgeries/Procedures: Reports: None HEENT Surgical History: Reports: Cataract Surgery, Oral Surgery, Other (See Below) Other HEENT Surgeries/Procedures: Placed intraocular lens Musculoskeletal Surgical History: Reports: Other (See Below) - Past Imaging History Past Imaging History: Reports: Ultrasound (soft tissue neck on 04/17/15) Social & Family History - Family History HEENT: Reports: None Cardiac: Reports: Hypertension GI: Reports: Cholelithiasis : Reports: None OBGYN: Reports: None Musculoskeletal: Reports: RA Neurological: Reports: Alzheimers Disease, CVA, Dementia, Migraines, Other (See Below) Other Neurological Family History: no family history of myasthenia gravis Psychiatric: Reports: None Endocrine/Metabolic: Reports: Hypothyroidism Hematologic: Reports: Transfusion Reaction Immunologic: Reports: None Dermatologic: Reports: None Oncologic: Reports: None - Caffeine Use Caffeine Use: Reports: Soda - Living Situation & Occupation Living situation: Reports: , Extended Care Facility Occupation: Retired H&P Review of Systems - Review of Systems: Review Of Systems: ROS reveals no pertinent complaints other than HPI. Exam - Exam Exam: See Below - Exam General: Alert, Oriented, 4 HEENT: EOMI, Hearing Intact, Mucosa Moist & [place] Neck: Supple, Trachea Midline, 2 Lungs: Clear to Auscultation, Decreased Breath Sounds Cardiovascular: Regular Rate, Regular Rhythm GI/Abdominal Exam: Normal Bowel Sounds, Soft, Non-Tender (Male) Exam: Deferred Rectal (Males) Exam: Deferred Back Exam: Normal Inspection Extremities: Increased Warmth (LLE), Redness (LLE) Skin: Wound (L ankle, anteromedial aspect, laceration very slowly healing from trauma, with drng. Also dark blister distal tip of L great toe with some purulent-appearing drng. Samples taken from both sites for C&S.), Other Neurological: Normal Speech Neuro Extensive - Mental Status: Alert, Oriented x3, Normal Mood/Affect, Normal Cognition, Memory Intact Psychiatric: Alert, Normal Affect, Normal Mood - Problem List (1) Cellulitis SNOMED Code(s): 860879946 ICD Code: L03.90 - CELLULITIS, UNSPECIFIED Status: Acute Priority: High Current Visit: Yes Onset Date: 07/12/18 Qualifiers: Site of cellulitis: extremity Site of cellulitis of extremity: lower extremity Laterality: left Qualified Code(s): L03.116 - Cellulitis of left lower limb Problem List Initiated/Reviewed/Updated: Yes Orders Last 24hrs: Active Orders 24 hr Category Date Time Status Patient Status [ADT] Routine ADT 07/12/18 13:51 Active Accu Check [Blood Glucose Check, Bedside] [RC] TIDMEALS Care 07/12/18 14:16 Ordered Dressing Change [Wound Care] [RC] BID Care 07/12/18 14:20 Ordered Dressing Change [Wound Care] [RC] DAILY Care 07/12/18 14:17 Ordered Height and Weight [RC] DAILY Care 07/12/18 13:51 Active Intake and Output [RC] QSHIFT Care 07/12/18 13:55 Active May Shower [RC] ASDIRECTED Care 07/12/18 13:51 Active Oxygen Therapy [RC] PRN Care 07/12/18 13:51 Active Up With Assistance [RC] ASDIRECTED Care 07/12/18 13:51 Active VTE/DVT Education [RC] PER UNIT ROUTINE Care 07/12/18 13:51 Active Vital Signs [RC] Q4H Care 07/12/18 13:51 Active [employer] Diet [DIET] Diet 07/12/18 Dinner Active C-REACTIVE PROTEIN [CHEM] AM Lab 07/13/18 05:11 Ordered C-REACTIVE PROTEIN [CHEM] AM Lab 07/14/18 05:11 Ordered C-REACTIVE PROTEIN [CHEM] AM Lab 07/15/18 05:11 Ordered C-REACTIVE PROTEIN [CHEM] AM Lab 07/16/18 05:11 Ordered CBC WITH AUTO DIFF [HEME] AM Lab 07/13/18 05:11 Ordered CBC WITH AUTO DIFF [HEME] AM Lab 07/14/18 05:11 Ordered CBC WITH AUTO DIFF [HEME] AM Lab 07/15/18 05:11 Ordered CBC WITH AUTO DIFF [HEME] AM Lab 07/16/18 05:11 Ordered COMPREHENSIVE METABOLIC PN,CMP [CHEM] AM Lab 07/13/18 05:11 Ordered COMPREHENSIVE METABOLIC PN,CMP [CHEM] AM Lab 07/14/18 05:11 Ordered COMPREHENSIVE METABOLIC PN,CMP [CHEM] AM Lab 07/15/18 05:11 Ordered COMPREHENSIVE METABOLIC PN,CMP [CHEM] AM Lab 07/16/18 05:11 Ordered CULTURE BLOOD [BC] Stat Lab 07/12/18 13:59 Ordered CULTURE BLOOD [BC] Stat Lab 07/12/18 13:59 Ordered Acetaminophen [Tylenol Arthritis Pain] Med 07/12/18 17:00 Ordered 650 mg PO BID@1200,1700 Acetaminophen [Tylenol Arthritis Pain] Med 07/12/18 14:38 Ordered 650 mg PO Q4HR PRN Acetaminophen/HYDROcodone [Himrod 325-5 MG] Med 07/12/18 20:00 Ordered 1 each PO TID@0800,1200,2000 Albuterol/Ipratropium [DuoNeb 3.0-0.5 MG/3 ML] Med 07/12/18 19:00 Ordered 1 vial INH TID@08,12,19 Albuterol/Ipratropium [DuoNeb 3.0-0.5 MG/3 ML] Med 07/12/18 14:38 Ordered 3 ml NEB Q4HR PRN Bisacodyl [Dulcolax] Med 07/12/18 14:38 Ordered 10 mg RECTAL DAILY PRN Ciprofloxacin in D5W [Cipro in D5W 200 MG/100 ML] 200 Med 07/12/18 20:00 Ordered mg Premix Bag 1 bag IV Q12HR Colestipol [Colestipol HCl] Med 07/12/18 20:00 Ordered 1 gm PO Q12HR Dabigatran [Pradaxa] Med 07/12/18 20:00 Ordered 150 mg PO Q12HR Digoxin [Lanoxin] Med 07/13/18 08:00 Ordered 125 mcg PO QAM Docusate Sodium [Colace] Med 07/12/18 20:00 Ordered 100 mg PO TID@0800,1200,2000 Folic Acid Med 07/13/18 08:00 Ordered 1 mg PO QAM Furosemide [Lasix] Med 07/13/18 12:00 Ordered 40 mg PO DAILY@1200 Furosemide [Lasix] Med 07/13/18 08:00 Ordered 80 mg PO QAM Gabapentin [Neurontin] Med 07/12/18 20:00 Ordered 100 mg PO BEDTIME Insulin Aspart [NovoLOG] Med 07/13/18 08:00 Ordered 6 unit SUBCUT BID@0800,1200 Insulin Detemir [Levemir] Med 07/12/18 20:00 Ordered 14 unit SUBCUT BEDTIME Magnesium Hydroxide [Milk of Magnesia] Med 07/12/18 20:00 Ordered 30 ml PO Q2D@2000 Magnesium Oxide [Magnesium Oxide] Med 07/13/18 08:00 Ordered 420 mg PO QAM Pharmacy to Dose - Vancomycin Med 07/12/18 14:15 Ordered 1 dose .XX ASDIRECTED Polyethylene Glycol 3350 [MiraLAX] Med 07/13/18 08:00 Ordered 17 gm PO DAILY@0800 Pyridostigmine Med 07/12/18 20:00 Ordered 60 mg PO Q12HR Tamsulosin [Flomax] Med 07/12/18 20:00 Ordered 0.4 mg PO BEDTIME Thiamine Mononitrate [Vitamin B-1] Med 07/13/18 08:00 Ordered 100 mg PO QAM Verapamil [Calan SR] Med 07/12/18 20:00 Ordered 180 mg PO Q12HR metroNIDAZOLE/Normal Saline [Flagyl 500 MG in NS 100 ML Med 07/12/18 14:30 Ordered ] 500 mg Premix Bag 1 bag IV Q8H Blood Culture x2 Reflex Set [OM.PC] Stat Oth 07/12/18 13:51 Ordered Resuscitation Status Routine Resus Stat 07/12/18 13:51 Ordered Medication Orders Acetaminophen (Tylenol Arthritis Pain) 650 mg PO BID@1200,1700 RUDY Acetaminophen (Tylenol Arthritis Pain) 650 mg PO Q4HR PRN PRN Reason: Pain Hydrocodone Bitart/Acetaminophen (Himrod 325-5 Mg) tab PO TID@0800,1200,2000 RUDY Albuterol/Ipratropium (Duoneb 3.0-0.5 Mg/3 Ml) ml INH TID@08,12,19 [facility] Albuterol/Ipratropium (Duoneb 3.0-0.5 Mg/3 Ml) 3 ml NEB Q4HR PRN PRN Reason: Shortness of Breath Bisacodyl (Dulcolax) 10 mg RECTAL DAILY PRN PRN Reason: Constipation Digoxin (Lanoxin) 125 mcg PO QAM [facility] Docusate Sodium (Colace) 100 mg PO TID@0800,1200,1999 [facility] Folic Acid (Folic Acid) 1 mg PO QAM [facility]UDY Furosemide (Lasix) 40 mg PO DAILY@1200 [facility] Furosemide (Lasix) 80 mg PO QAM [facility] Gabapentin (Neurontin) 100 mg PO BEDTIME [facility] Ciprofloxacin/Dextrose 200 mg/ (Premix) 100 mls @ 100 mls/hr IV Q12HR [facility] Metronidazole 500 mg/ Premix 100 mls @ 100 mls/hr IV Q8H [facility] Magnesium Hydroxide (Milk Of Magnesia) 30 ml PO Q2D@2000 [facility] Non-Formulary Medication (Colestipol [Colestipol Hcl]) 1 gm PO Q12HR [facility] Non-Formulary Medication (Dabigatran [Pradaxa]) 150 mg PO Q12HR [facility] Non-Formulary Medication (Insulin Aspart [Novolog]) 6 unit SUBCUT BID@0800, 1200 [facility] Non-Formulary Medication (Insulin Detemir [Levemir]) 14 unit SUBCUT BEDTIME [facility] Non-Formulary Medication (Magnesium Oxide [Magnesium Oxide]) 420 mg PO QAM [facility] Non-Formulary Medication (Pyridostigmine) 60 mg PO Q12HR [facility] Non-Formulary Medication (Thiamine Mononitrate [Vitamin B-1]) 100 mg PO QAM [facility] Polyethylene Glycol (Miralax) 17 gm PO DAILY@0800 [facility] Tamsulosin HCl (Flomax) 0.4 mg PO BEDTIME [facility] Vancomycin HCl (Pharmacy To Dose - Vancomycin) 1 dose .XX ASDIRECTED [facility] Verapamil HCl (Calan Sr) 180 mg PO Q12HR [facility] Assessment/Plan Comment:: 07-12-18 Shelly Morales PA-C This 83 yr-old male is admitted to status for acute LLE cellulitis with complication of poor healing wound from traumatic laceration to the anteromedial ankle back on 05-28-18. This morning a dark blister was also found to the distal tip of the left great toe with the appearance of a blood blister but with small amount of purulent drainage. 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 He is a long-standing diabetic and is also started on Cipro and Metronidazole. White count markedly elevated at >18,000 with a CRP at 22.9. Dr. Diaz is consulted at the time of admit. I had called the [facility] and spoken with Aicha, academic support coordinator who tells me there are no available beds today but we can check back tomorrow morning to inquire about possibility of transferring.
[2018-07-12] MEDS: metroNIDAZOLE/Normal Saline 500 MG in Premix Bag 1 BAG IV SCH ×2 (15:46→23:36)
[2018-07-12] MEDS: Acetaminophen 650 MG Tab.ER PO SCH (19:28)
[2018-07-12] MEDS: Verapamil 180 MG Tab.ER PO SCH (19:38)
[2018-07-12] MEDS: Gabapentin 100 MG Cap PO SCH (19:38)
[2018-07-12] MEDS: Tamsulosin 0.4 MG Cap.ER PO SCH (19:38)
[2018-07-12] MEDS: Acetaminophen/HYDROcodone 325-5 MG Tab PO SCH (19:38)
[2018-07-12] MEDS: Docusate Sodium 100 MG Cap PO SCH (19:38)
[2018-07-12] MEDS: Magnesium Hydroxide 400 MG/5 ML Susp 30 ML Cup PO SCH (19:38)
[2018-07-12] MEDS: PYRIDOSTIGMINE 60 MG PO SCH (19:39)
[2018-07-12] MEDS: COLESTIPOL 1 GM PO SCH (19:39)
[2018-07-12] MEDS: DABIGATRAN 150 MG PO SCH (19:39)
[2018-07-12] MEDS: Albuterol/Ipratropium 3.0-0.5 MG/3 ML Neb Soln INH SCH (19:41)
[2018-07-12] MEDS: Ciprofloxacin in D5W 200 MG in Premix Bag 1 BAG IV SCH ×2 (19:41)
[2018-07-12] MEDS ORDERED: Insulin Glarg,Human.Rec.Analog 100 UNIT/ML ML SUBCUT SCH (20:00)
[2018-07-13] MEDS: Sodium Chloride 0.9% 10 ML Syringe FLUSH PRN ×5 (06:00→22:30)
[2018-07-13] MEDS: Ciprofloxacin in D5W 200 MG in Premix Bag 1 BAG IV SCH ×4 (06:01→17:53)
[2018-07-13 07:50] LABS: CHLORIDE,CL 101 mmol/L (98-107); SODIUM,NA 138 mmol/L (136-145)
[2018-07-13] MEDS ORDERED: Digoxin 125 MCG Tab PO SCH (08:00)
[2018-07-13] MEDS: metroNIDAZOLE/Normal Saline 500 MG in Premix Bag 1 BAG IV SCH ×3 (08:16→22:29)
[2018-07-13] MEDS: Albuterol/Ipratropium 3.0-0.5 MG/3 ML Neb Soln INH SCH ×3 (08:36→17:59)
[2018-07-13] MEDS: Thiamine 100 MG Tab PO SCH (08:40)
[2018-07-13] MEDS: Folic Acid 1 MG Tab PO SCH (08:40)
[2018-07-13] MEDS: Acetaminophen/HYDROcodone 325-5 MG Tab PO SCH ×3 (08:40→19:14)
[2018-07-13] MEDS: Verapamil 180 MG Tab.ER PO SCH ×2 (08:40→19:14)
[2018-07-13] MEDS: Magnesium Oxide 400 MG Tab PO SCH (08:41)
[2018-07-13] MEDS: Furosemide 40 MG Tab PO SCH ×2 (08:41→12:07)
[2018-07-13] MEDS: DABIGATRAN 150 MG PO SCH ×2 (08:42→19:15)
[2018-07-13] MEDS: PYRIDOSTIGMINE 60 MG PO SCH ×2 (08:43→19:15)
[2018-07-13] MEDS: COLESTIPOL 1 GM PO SCH ×2 (08:44→19:15)
[2018-07-13] MEDS: Sodium Chloride 0.9% 10 ML Syringe FLUSH SCH ×2 (08:45→19:16)
[2018-07-13] MEDS: Docusate Sodium 100 MG Cap PO SCH ×3 (08:48→19:16)
[2018-07-13] MEDS: Polyethylene Glycol 3350 Powder 17 GM Packet PO SCH (08:49)
[2018-07-13] MEDS: Insulin Lispro 100 Units/ML 3 ML Vial SUBCUT SCH ×2 (08:54→12:08)
[2018-07-13] MEDS: Acetaminophen 650 MG Tab.ER PO SCH ×2 (12:06→17:54)
[2018-07-13] MEDS ORDERED: Insulin Lispro 100 Units/ML 3 ML Vial SUBCUT ONE (14:30)
--- NOTE | 2018-07-13 18:39 | PCM.PN ---
- General Info Date of Service: 07/13/18 Functional Status: Reports: Pain Controlled - Review of Systems General: Reports: Weakness HEENT: Reports: No Symptoms Pulmonary: Reports: No Symptoms Cardiovascular: Reports: No Symptoms Gastrointestinal: Reports: No Symptoms Genitourinary: Reports: No Symptoms Skin: Reports: Other (excoriation groins) Neurological: Reports: Weakness Psychiatric: Reports: No Symptoms - Patient Data Vitals - Most Recent: Last Vital Signs Temp 98.9 F 07/13/18 16:00 Pulse 54 L 07/13/18 16:00 Resp 17 07/13/18 16:00 BP 159/70 H 07/13/18 16:00 Pulse Ox 95 07/13/18 16:00 Weight - Most Recent: 254 lb 15.998 oz I&O - Last 24 Hours: Intake & Output 07/13/18 07/13/18 07/13/18 06:59 14:59 22:59 Intake Total 450 1480 1150 Output Total 100 100 Balance 350 1380 1150 Lab Results Last 24 Hours: Laboratory Results - last 24 hr 07/13/18 07/13/18 07/13/18 Range/Units 07:00 07:00 07:15 WBC 11.3 H (4.0-10.2) K/uL RBC 3.78 L (4.33-5.41) M/uL Hgb 9.4 L (13.1-16.8) g/dL Hct 31.9 L (39.0-49.0) % MCV 84.4 (84.0-98.0) fL MCH 24.9 L (28.2-33.3) pg MCHC 29.5 L (31.7-36.0) g/dL RDW 17.7 H (11.2-14.1) % Plt Count 217 (150-350) K/uL Neut % (Auto) 84.5 H (45.0-80.0) % Lymph % (Auto) 7.6 L (10.0-50.0) % Woods % (Auto) 6.7 (2.0-14.0) % Eos % (Auto) 1.0 (0.0-5.0) % Baso % (Auto) 0.2 (0.0-2.0) % Neut # (Auto) 9.56 H (1.40-7.00) K/uL Lymph # (Auto) 0.86 (0.50-3.50) K/uL Woods # (Auto) 0.76 (0.00-1.00) K/uL Eos # (Auto) 0.11 (0.00-0.50) K/uL Baso # (Auto) 0.02 (0.00-0.20) K/uL Sodium 138 (136-145) mmol/L Potassium 4.0 (3.5-5.1) mmol/L Chloride 101 (98-107) mmol/L Carbon Dioxide 30.7 (21.0-32.0) mmol/L BUN 19 H (7-18) mg/dL Creatinine 0.89 (0.51-1.17) mg/dL Est Cr Clr Drug Dosing 68.58 mL/min Estimated GFR (MDRD) > 60 mL/min Glucose 260 H (74-106) mg/dL POC Glucose 280 H* (65-110) mg/dl Calcium 8.5 (8.5-10.1) mg/dL Total Bilirubin 0.4 (0.2-1.0) mg/dL AST 21 (15-37) U/L ALT 18 (12-78) U/L Alkaline Phosphatase 92 (46-116) IU/L C-Reactive Protein 17.8 H (<=0.9) mg/dL Total Protein 6.8 (6.4-8.2) g/dL Albumin 2.4 L (3.4-5.0) g/dL 07/13/18 Range/Units 11:42 WBC (4.0-10.2) K/uL RBC (4.33-5.41) M/uL Hgb (13.1-16.8) g/dL Hct (39.0-49.0) % MCV (84.0-98.0) fL MCH (28.2-33.3) pg MCHC (31.7-36.0) g/dL RDW (11.2-14.1) % Plt Count (150-350) K/uL Neut % (Auto) (45.0-80.0) % Lymph % (Auto) (10.0-50.0) % Woods % (Auto) (2.0-14.0) % Eos % (Auto) (0.0-5.0) % Baso % (Auto) (0.0-2.0) % Neut # (Auto) (1.40-7.00) K/uL Lymph # (Auto) (0.50-3.50) K/uL Woods # (Auto) (0.00-1.00) K/uL Eos # (Auto) (0.00-0.50) K/uL Baso # (Auto) (0.00-0.20) K/uL Sodium (136-145) mmol/L Potassium (3.5-5.1) mmol/L Chloride (98-107) mmol/L Carbon Dioxide (21.0-32.0) mmol/L BUN (7-18) mg/dL Creatinine (0.51-1.17) mg/dL Est Cr Clr Drug Dosing mL/min Estimated GFR (MDRD) mL/min Glucose (74-106) mg/dL POC Glucose 310 H* (65-110) mg/dl Calcium (8.5-10.1) mg/dL Total Bilirubin (0.2-1.0) mg/dL AST (15-37) U/L ALT (12-78) U/L Alkaline Phosphatase (46-116) IU/L C-Reactive Protein (<=0.9) mg/dL Total Protein (6.4-8.2) g/dL Albumin (3.4-5.0) g/dL Meño Results Last 24 Hours: Microbiology 07/12/18 14:12 Aerobic Blood Culture - Preliminary Blood - Venous - Lab Draw NO GROWTH AFTER 1 DAY Anaerobic Blood Culture - Preliminary NO GROWTH AFTER 1 DAY 07/12/18 14:06 Aerobic Blood Culture - Preliminary Blood - Venous NO GROWTH AFTER 1 DAY Anaerobic Blood Culture - Preliminary NO GROWTH AFTER 1 DAY Med Orders - Current: Current Medications Acetaminophen (Tylenol Arthritis Pain) 650 mg PO BID@1200,1700 [facility] Last Admin: 07/13/18 17:54 Dose: 650 mg Acetaminophen (Tylenol Arthritis Pain) 650 mg PO Q4HR PRN PRN Reason: Pain Hydrocodone Bitart/Acetaminophen (Henderson 325-5 Mg) 1 tab PO TID@0800,1200,2000 [facility] Last Admin: 07/13/18 12:07 Dose: 1 tab Albuterol/Ipratropium (Duoneb 3.0-0.5 Mg/3 Ml) 3 ml INH TID@08,, [facility] Last Admin: 07/13/18 17:59 Dose: 3 ml Albuterol/Ipratropium (Duoneb 3.0-0.5 Mg/3 Ml) 3 ml NEB Q4HR PRN PRN Reason: Shortness of Breath Bisacodyl (Dulcolax) 10 mg RECTAL DAILY PRN PRN Reason: Constipation Digoxin (Lanoxin) 125 mcg PO DAILY@1800 [facility] Docusate Sodium (Colace) 100 mg PO TID@0800,1200,1999 [facility] Last Admin: 07/13/18 12:05 Dose: Not Given Folic Acid (Folic Acid) 1 mg PO QAM [facility] Last Admin: 07/13/18 08:40 Dose: 1 mg Furosemide (Lasix) 40 mg PO DAILY@1200 [facility] Last Admin: 07/13/18 12:07 Dose: 40 mg Furosemide (Lasix) 80 mg PO QAM [facility] Last Admin: 07/13/18 08:41 Dose: 80 mg Gabapentin (Neurontin) 100 mg PO BEDTIME [facility] Last Admin: 07/12/18 19:38 Dose: 100 mg Ciprofloxacin/Dextrose 200 mg/ (Premix) 100 mls @ 100 mls/hr IV Q12H [facility] Last Admin: 07/13/18 17:53 Dose: 100 mls/hr Metronidazole 500 mg/ Premix 100 mls @ 100 mls/hr IV Q8H [facility] Last Admin: 07/13/18 14:44 Dose: 100 mls/hr Vancomycin HCl 1 gm/ Sodium (Chloride) 250 mls @ 165 mls/hr IV Q12H [facility] Last Admin: 07/13/18 16:10 Dose: 165 mls/hr Insulin Glargine (Lantus) 16 unit SUBCUT BEDTIME [facility] Insulin Human Lispro (Humalog) 8 unit SUBCUT BID@0800,1200 [facility] Magnesium Hydroxide (Milk Of Magnesia) 30 ml PO Q2D@1999 [facility] Last Admin: 07/12/18 19:38 Dose: 30 ml Magnesium Oxide (Magnesium Oxide) 400 mg PO QAM [facility] Last Admin: 07/13/18 08:41 Dose: 400 mg Colestipol [ Colestipol Hcl] 1 Gm Tablets 1 gm PO Q12HR [facility] Last Admin: 07/13/18 08:44 Dose: 1 gm Dabigatran [Pradaxa] (150 Mg Capsule) 150 mg PO Q12HR [facility] Last Admin: 07/13/18 08:42 Dose: 150 mg Pyridostigmine ( Mestinon) 60mg Tablets 60 mg PO Q12HR [facility] Last Admin: 07/13/18 08:43 Dose: 60 mg Polyethylene Glycol (Miralax) 17 gm PO DAILY@0800 [facility] Last Admin: 07/13/18 08:49 Dose: Not Given Sodium Chloride (Saline Flush) 10 ml FLUSH [facility] Last Admin: 07/13/18 08:45 Dose: 10 ml Sodium Chloride (Saline Flush) 10 ml FLUSH ASDIRECTED PRN PRN Reason: Keep IV open Last Admin: 07/13/18 17:54 Dose: 10 ml Tamsulosin HCl (Flomax) 0.4 mg PO BEDTIME [facility] Last Admin: 07/12/18 19:38 Dose: 0.4 mg Thiamine HCl (Vitamin B-1) 100 mg PO QAM [facility] Last Admin: 07/13/18 08:40 Dose: 100 mg Vancomycin HCl (Pharmacy To Dose - Vancomycin) 1 dose .XX ASDIRECTED [facility] Verapamil HCl (Calan Sr) 180 mg PO Q12HR [facility] Last Admin: 07/13/18 08:40 Dose: 180 mg Discontinued Medications Digoxin (Lanoxin) 125 mcg PO QAM [facility] Last Admin: 07/13/18 08:42 Dose: 125 mcg Insulin Glargine (Lantus) 14 unit SUBCUT BEDTIME [facility] Last Admin: 07/12/18 19:39 Dose: 14 units Insulin Human Lispro (Humalog) 6 unit SUBCUT BID@0800,1200 [facility] Last Admin: 07/13/18 12:08 Dose: 6 units Insulin Human Lispro (Humalog) 2 unit SUBCUT ONETIME ONE Stop: 07/13/18 14:31 Last Admin: 07/13/18 14:49 Dose: 2 units - Exam Quality Assessment: Urine Catheter (condom catheter), DVT Prophylaxis (pradaxa) General: Alert, Cooperative, No Acute Distress HEENT: Mucous Membr. Moist/[place] Neck: Trachea Midline, No JVD Lungs: Normal Respiratory Effort, Decreased Breath Sounds Cardiovascular: Regular Rate, Regular Rhythm GI/Abdominal Exam: Normal Bowel Sounds, Soft, Non-Tender, No Distention (Male) Exam: Deferred Back Exam: Normal Inspection Extremities: Redness (left leg slight improvement) Skin: Warm, Dry, Intact Wound/Incisions: Healing Well, Dressing Dry and Intact Neurological: No New Focal Deficit Psy/Mental Status: Alert, Normal Affect, Normal Mood - Problem List & Annotations (1) Cellulitis SNOMED Code(s): 367097334 Code(s): L03.90 - CELLULITIS, UNSPECIFIED Status: Acute Priority: High Current Visit: Yes Onset Date: 07/12/18 Qualifiers: Site of cellulitis: extremity Site of cellulitis of extremity: lower extremity Laterality: left Qualified Code(s): L03.116 - Cellulitis of left lower limb (2) CHF (congestive heart failure) SNOMED Code(s): 18741083 Code(s): I50.9 - HEART FAILURE, UNSPECIFIED Status: Acute Priority: High Current Visit: No Qualifiers: Heart failure type: unspecified Heart failure chronicity: acute on chronic Qualified Code(s): I50.9 - Heart failure, unspecified (3) Hypoxia SNOMED Code(s): 486569171 Code(s): R09.02 - HYPOXEMIA Status: Acute Priority: High Current Visit : No (4) Atrial fibrillation SNOMED Code(s): 03345766 Code(s): I48.91 - UNSPECIFIED ATRIAL FIBRILLATION Status: Chronic Priority: Medium Current Visit: No Qualifiers: Atrial fibrillation type: chronic Qualified Code(s): I48.2 - Chronic atrial fibrillation Annotation/Comment:: No chest pain or anginal-type symptoms. Stable heart rhythm in the emergency room (5) COPD (chronic obstructive pulmonary disease) SNOMED Code(s): 51147808 Code(s): J44.9 - CHRONIC OBSTRUCTIVE PULMONARY DISEASE, UNSPECIFIED Status : Chronic Priority: Medium Current Visit: No Qualifiers: COPD type: unspecified COPD Qualified Code(s): J44.9 - Chronic obstructive pulmonary disease, unspecified Annotation/Comment:: No recent cough, bronchitic-type symptoms, etc. (6) Caries SNOMED Code(s): 63798689 Code(s): K02.9 - DENTAL CARIES, UNSPECIFIED Status: Chronic Priority: High Current Visit: No Onset Date: 07/10/15 Annotation/Comment:: CT scan results as above. 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 His regular provider will be updated as per discharge instructions. Hyperglycemia likely elated to his poor dental hygiene and also current infection with referral to oral surgeon recommended (8) Hyperlipidemia SNOMED Code(s): 24464623 Code(s): E78.5 - HYPERLIPIDEMIA, UNSPECIFIED Status: Chronic Priority: Medium Current Visit: No Qualifiers: Hyperlipidemia type: Mixed hyperlipidemia Qualified Code(s): E78.2 - Mixed hyperlipidemia Annotation/Comment:: under medical therapy (9) Hypertension SNOMED Code(s): 23337441 Code(s): I10 - ESSENTIAL (PRIMARY) HYPERTENSION Status: Chronic Priority : Medium Current Visit: No Qualifiers: Hypertension type: essential hypertension Qualified Code(s): I10 - Essential (primary) hypertension Annotation/Comment:: blood pressure stable in the emergency room (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 SNOMED Code(s): 288082046 Code(s): 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, NEC Status: Chronic Priority: Medium Current Visit: No Annotation/Comment:: consider high-protein Glucerna supplements (11) Myasthenia gravis SNOMED Code(s): 95422265 Code(s): G70.00 - MYASTHENIA GRAVIS WITHOUT (ACUTE) EXACERBATION Status: Chronic Priority: Medium Current Visit: No Annotation/Comment:: stable by history (12) Osteoarthritis SNOMED Code(s): 306489799 Code(s): M19.90 - UNSPECIFIED OSTEOARTHRITIS, UNSPECIFIED SITE Status: Chronic Priority: Medium Current Visit: No Qualifiers: Osteoarthritis location: multiple joints Osteoarthritis type: primary Qualified Code(s): M15.0 - Primary generalized (osteo)arthritis Annotation/Comment:: stable by history - Problem List Review Problem List Initiated/Reviewed/Updated: Yes - My Orders Last 24 Hours: My Active Orders 05/08/19 04:12 Sodium Chloride 0.9% [Saline Flush] 10 ml FLUSH ASDIRECTED PRN 07/13/18 08:00 Sodium Chloride 0.9% [Saline Flush] 10 ml FLUSH 07/13/18 09:39 Urinary Catheter Assessment [RC] 07/13/18 09:40 Consult to Physical Therapy [PT Evaluation and Treatment] [CONS] Routine 07/13/18 09:41 Consult to Case Management/Adhesive Bonding Machine Operator [CONS] Routine OT Evaluation and Treatment [CONS] Routine 07/13/18 20:00 Insulin Glarg,Human.Rec.Analog [LantUS] 16 unit SUBCUT BEDTIME 07/14/18 05:11 DIGOXIN [CHEM] Routine 07/14/18 08:00 Insulin Lispro [HumaLOG] 8 unit SUBCUT BID@0800,1200 07/14/18 18:00 Digoxin [Lanoxin] 125 mcg PO DAILY@1800 - Plan Plan:: 07-12-18 Sehlly Morales PA-C This 83 yr-old male is admitted to [facility] for acute LLE cellulitis with complication of poor healing wound from traumatic laceration to the anteromedial ankle back on 05-28-18. This morning a dark blister was also found to the distal tip of the left great toe with the appearance of a blood blister but with small amount of purulent drainage. 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 He is a long-standing diabetic and is also started on Cipro and Metronidazole. White count markedly elevated at >18,000 with a CRP at 22.9. Dr. Diaz is consulted at the time of admit. I had called the [facility] and spoken with Aicha, admissions recruiter who tells me there are no available beds today but we can check back tomorrow morning to inquire about possibility of transferring. 07/13/18 Joe Curran MD Clinically improving and labs improving. He does not want to go to [facility] hospital. Continue IV antibiotics. Cultures pending.
[2018-07-13] MEDS: Tamsulosin 0.4 MG Cap.ER PO SCH (19:14)
[2018-07-13] MEDS: Gabapentin 100 MG Cap PO SCH (19:14)
[2018-07-13] MEDS: Insulin Glarg,Human.Rec.Analog 100 UNIT/ML ML SUBCUT SCH (19:14)
[2018-07-14] MEDS: Sodium Chloride 0.9% 10 ML Syringe FLUSH PRN ×5 (05:29→22:14)
[2018-07-14] MEDS: Ciprofloxacin in D5W 200 MG in Premix Bag 1 BAG IV SCH ×2 (05:29)
[2018-07-14] MEDS: Albuterol/Ipratropium 3.0-0.5 MG/3 ML Neb Soln NEB PRN (05:45)
[2018-07-14] MEDS: metroNIDAZOLE/Normal Saline 500 MG in Premix Bag 1 BAG IV SCH ×3 (07:38→22:14)
[2018-07-14] MEDS: Sodium Chloride 0.9% 10 ML Syringe FLUSH SCH ×2 (07:42→20:22)
[2018-07-14 07:43] LABS: CHLORIDE,CL 101 mmol/L (98-107); SODIUM,NA 137 mmol/L (136-145)
[2018-07-14] MEDS: Magnesium Oxide 400 MG Tab PO SCH (07:43)
[2018-07-14] MEDS: Furosemide 40 MG Tab PO SCH ×2 (07:43→11:50)
[2018-07-14] MEDS: Verapamil 180 MG Tab.ER PO SCH ×2 (07:43→19:42)
[2018-07-14] MEDS: Thiamine 100 MG Tab PO SCH (07:43)
[2018-07-14] MEDS: Folic Acid 1 MG Tab PO SCH (07:43)
[2018-07-14] MEDS: Docusate Sodium 100 MG Cap PO SCH ×3 (07:43→19:42)
[2018-07-14] MEDS: Polyethylene Glycol 3350 Powder 17 GM Packet PO SCH (07:44)
[2018-07-14] MEDS: Albuterol/Ipratropium 3.0-0.5 MG/3 ML Neb Soln INH SCH ×3 (07:44→19:42)
[2018-07-14] MEDS: Acetaminophen/HYDROcodone 325-5 MG Tab PO SCH ×3 (07:44→19:42)
[2018-07-14] MEDS: Insulin Lispro 100 Units/ML 3 ML Vial SUBCUT SCH ×2 (07:45→11:50)
[2018-07-14] MEDS: DABIGATRAN 150 MG PO SCH ×2 (07:48→19:42)
[2018-07-14] MEDS: COLESTIPOL 1 GM PO SCH ×2 (07:48→19:42)
[2018-07-14] MEDS: PYRIDOSTIGMINE 60 MG PO SCH ×2 (07:49→19:42)
[2018-07-14] MEDS: Acetaminophen 650 MG Tab.ER PO SCH ×2 (11:49→17:42)
[2018-07-14] MEDS ORDERED: Iopamidol 612 MG/ML 100 ML Bottle IVPUSH ONE (16:12)
[2018-07-14] MEDS: Digoxin 125 MCG Tab PO SCH (17:42)
[2018-07-14] MEDS: Gabapentin 100 MG Cap PO SCH (19:42)
[2018-07-14] MEDS: Tamsulosin 0.4 MG Cap.ER PO SCH (19:42)
[2018-07-14] MEDS: Insulin Glarg,Human.Rec.Analog 100 UNIT/ML ML SUBCUT SCH (19:45)
[2018-07-14] MEDS: Magnesium Hydroxide 400 MG/5 ML Susp 30 ML Cup PO SCH (20:22)
--- NOTE | 2018-07-14 22:06 | PCM.PN ---
- General Info Date of Service: 07/14/18 Admission Dx/Problem (Free Text): Admission Diagnosis/Problem Admission Diagnosis/Problem Cellulitis Functional Status: Reports: Pain Controlled, Tolerating Diet - Review of Systems General: Reports: Weakness HEENT: Reports: No Symptoms Pulmonary: Reports: No Symptoms Cardiovascular: Reports: No Symptoms Gastrointestinal: Reports: Constipation (chronic) Genitourinary: Reports: No Symptoms Musculoskeletal: Reports: Leg Pain (left) Skin: Reports: Other (excoriation groins, nina-area) Neurological: Reports: Weakness Psychiatric: Reports: No Symptoms - Patient Data Vitals - Most Recent: Last Vital Signs Temp 97.5 F 07/14/18 16:00 Pulse 66 07/14/18 17:42 Resp 18 07/14/18 16:00 BP 117/63 07/14/18 16:00 Pulse Ox 92 L 07/14/18 16:00 Weight - Most Recent: 254 lb 15.998 oz I&O - Last 24 Hours: Intake & Output 07/14/18 07/14/18 07/14/18 06:59 14:59 22:59 Intake Total 360 1340 1650 Output Total 500 900 Balance -140 1340 750 Lab Results Last 24 Hours: Laboratory Results - last 24 hr 07/14/18 07/14/18 07/14/18 Range/Units 06:40 06:40 07:18 WBC 9.8 (4.0-10.2) K/uL RBC 3.88 L (4.33-5.41) M/uL Hgb 9.7 L (13.1-16.8) g/dL Hct 32.4 L (39.0-49.0) % MCV 83.5 L (84.0-98.0) fL MCH 25.0 L (28.2-33.3) pg MCHC 29.9 L (31.7-36.0) g/dL RDW 17.7 H (11.2-14.1) % Plt Count 229 (150-350) K/uL Neut % (Auto) 69.3 (45.0-80.0) % Lymph % (Auto) 15.0 (10.0-50.0) % Sab[place] % (Auto) 10.7 (2.0-14.0) % Eos % (Auto) 4.8 (0.0-5.0) % Baso % (Auto) 0.2 (0.0-2.0) % Neut # (Auto) 6.76 (1.40-7.00) K/uL Lymph # (Auto) 1.46 (0.50-3.50) K/uL Sab[place] # (Auto) 1.04 H (0.00-1.00) K/uL Eos # (Auto) 0.47 (0.00-0.50) K/uL Baso # (Auto) 0.02 (0.00-0.20) K/uL Sodium 137 (136-145) mmol/L Potassium 4.1 (3.5-5.1) mmol/L Chloride 101 (98-107) mmol/L Carbon Dioxide 30.2 (21.0-32.0) mmol/L BUN 22 H (7-18) mg/dL Creatinine 0.93 (0.51-1.17) mg/dL Est Cr Clr Drug Dosing 65.32 mL/min Estimated GFR (MDRD) > 60 mL/min Glucose 232 H (74-106) mg/dL POC Glucose 256 H* (65-110) mg/dl Calcium 8.5 (8.5-10.1) mg/dL Total Bilirubin 0.4 (0.2-1.0) mg/dL AST 14 L (15-37) U/L ALT 18 (12-78) U/L Alkaline Phosphatase 92 (46-116) IU/L C-Reactive Protein 16.8 H (<=0.9) mg/dL Total Protein 6.7 (6.4-8.2) g/dL Albumin 2.3 L (3.4-5.0) g/dL Vancomycin Trough (10-20) ug/mL Digoxin 0.93 (0.90-2.00) ng/mL 07/14/18 07/14/18 Range/Units 10:58 15:21 WBC (4.0-10.2) K/uL RBC (4.33-5.41) M/uL Hgb (13.1-16.8) g/dL Hct (39.0-49.0) % MCV (84.0-98.0) fL MCH (28.2-33.3) pg MCHC (31.7-36.0) g/dL RDW (11.2-14.1) % Plt Count (150-350) K/uL Neut % (Auto) (45.0-80.0) % Lymph % (Auto) (10.0-50.0) % [place] % (Auto) (2.0-14.0) % Eos % (Auto) (0.0-5.0) % Baso % (Auto) (0.0-2.0) % Neut # (Auto) (1.40-7.00) K/uL Lymph # (Auto) (0.50-3.50) K/uL Sabine # (Auto) (0.00-1.00) K/uL Eos # (Auto) (0.00-0.50) K/uL Baso # (Auto) (0.00-0.20) K/uL Sodium (136-145) mmol/L Potassium (3.5-5.1) mmol/L Chloride (98-107) mmol/L Carbon Dioxide (21.0-32.0) mmol/L BUN (7-18) mg/dL Creatinine (0.51-1.17) mg/dL Est Cr Clr Drug Dosing mL/min Estimated GFR (MDRD) mL/min Glucose (74-106) mg/dL POC Glucose 263 H* (65-110) mg/dl Calcium (8.5-10.1) mg/dL Total Bilirubin (0.2-1.0) mg/dL AST (15-37) U/L ALT (12-78) U/L Alkaline Phosphatase (46-116) IU/L C-Reactive Protein (<=0.9) mg/dL Total Protein (6.4-8.2) g/dL Albumin (3.4-5.0) g/dL Vancomycin Trough 15.2 (10-20) ug/mL Digoxin (0.90-2.00) ng/mL Meño Results Last 24 Hours: Microbiology 07/12/18 14:12 Aerobic Blood Culture - Preliminary Blood - Venous - Lab Draw NO GROWTH AFTER 2 DAYS Anaerobic Blood Culture - Preliminary NO GROWTH AFTER 2 DAYS 07/12/18 14:06 Aerobic Blood Culture - Preliminary Blood - Venous NO GROWTH AFTER 2 DAYS Anaerobic Blood Culture - Preliminary NO GROWTH AFTER 2 DAYS Med Orders - Current: Current Medications Acetaminophen (Tylenol Arthritis Pain) 650 mg PO BID@1200,1700 [facility] Last Admin: 07/14/18 17:42 Dose: 650 mg Acetaminophen (Tylenol Arthritis Pain) 650 mg PO Q4HR PRN PRN Reason: Pain Hydrocodone Bitart/Acetaminophen ([place] 325-5 Mg) 1 tab PO TID@0800,1200,2000 [facility] Last Admin: 07/14/18 19:42 Dose: 1 tab Albuterol/Ipratropium (Duoneb 3.0-0.5 Mg/3 Ml) 3 ml INH TID@08,12,19 [facility] Last Admin: 07/14/18 19:42 Dose: 3 ml Albuterol/Ipratropium (Duoneb 3.0-0.5 Mg/3 Ml) 3 ml NEB Q4HR PRN PRN Reason: Shortness of Breath Last Admin: 07/14/18 05:45 Dose: 3 ml Bisacodyl (Dulcolax) 10 mg RECTAL DAILY PRN PRN Reason: Constipation Digoxin (Lanoxin) 125 mcg PO DAILY@1800 [facility] Last Admin: 07/14/18 17:42 Dose: 125 mcg Docusate Sodium (Colace) 100 mg PO TID@0800,1200,2000 [facility] Last Admin: 07/14/18 19:42 Dose: 100 mg Fluconazole (Diflucan) 100 mg PO DAILY [facility] Folic Acid (Folic Acid) 1 mg PO QAM [facility] Last Admin: 07/14/18 07:43 Dose: 1 mg Furosemide (Lasix) 40 mg PO DAILY@1200 [facility] Last Admin: 07/14/18 11:50 Dose: 40 mg Furosemide (Lasix) 80 mg PO QAM [facility] Last Admin: 07/14/18 07:43 Dose: 80 mg Gabapentin (Neurontin) 100 mg PO BEDTIME [facility] Last Admin: 07/14/18 19:42 Dose: 100 mg Metronidazole 500 mg/ Premix 100 mls @ 100 mls/hr IV Q8H [facility] Last Admin: 07/14/18 15:17 Dose: 100 mls/hr Vancomycin HCl 1 gm/ Sodium (Chloride) 250 mls @ 165 mls/hr IV Q12H [facility] Last Admin: 07/14/18 16:32 Dose: 165 mls/hr Insulin Glargine (Lantus) 16 unit SUBCUT BEDTIME [facility] Last Admin: 07/14/18 19:45 Dose: 16 unit Insulin Human Lispro (Humalog) 8 unit SUBCUT BID@0800,1200 [facility] Last Admin: 07/14/18 11:50 Dose: 8 units Magnesium Hydroxide (Milk Of Magnesia) 30 ml PO Q2D@2000 [facility] Last Admin: 07/14/18 20:22 Dose: Not Given Magnesium Oxide (Magnesium Oxide) 400 mg PO QAM [facility] Last Admin: 07/14/18 07:43 Dose: 400 mg Colestipol [ Colestipol Hcl] 1 Gm Tablets 1 gm PO Q12HR [facility] Last Admin: 07/14/18 19:42 Dose: 1 gm Dabigatran [Pradaxa] (150 Mg Capsule) 150 mg PO Q12HR [facility] Last Admin: 07/14/18 19:42 Dose: 150 mg Pyridostigmine ( Mestinon) 60mg Tablets 60 mg PO Q12HR [facility] Last Admin: 07/14/18 19:42 Dose: 60 mg Polyethylene Glycol (Miralax) 17 gm PO DAILY@0800 [facility] Last Admin: 07/14/18 07:44 Dose: 17 gm Sodium Chloride (Saline Flush) 10 ml FLUSH [facility] Last Admin: 07/14/18 20:22 Dose: Not Given Sodium Chloride (Saline Flush) 10 ml FLUSH ASDIRECTED PRN PRN Reason: Keep IV open Last Admin: 07/14/18 17:44 Dose: 10 ml Tamsulosin HCl (Flomax) 0.4 mg PO BEDTIME [facility] Last Admin: 07/14/18 19:42 Dose: 0.4 mg Thiamine HCl (Vitamin B-1) [facility] [place] Last Admin: 07/14/18 07:43 Dose: 100 mg Vancomycin HCl (Pharmacy To Dose - Vancomycin) 1 dose .XX ASDIRECTED [facility] Verapamil HCl (Calan Sr) 180 mg PO Q12HR [facility] Last Admin: 07/14/18 19:42 Dose: 180 mg Discontinued Medications Digoxin (Lanoxin) [facility] [place] Last Admin: 07/13/18 08:42 Dose: 125 mcg Ciprofloxacin/Dextrose 200 mg/ (Premix) 100 mls @ 100 mls/hr IV Q12H [facility] Last Admin: 07/14/18 05:29 Dose: 100 mls/hr Insulin Glargine (Lantus) 14 unit SUBCUT BEDTIME [facility] Last Admin: 07/12/18 19:39 Dose: 14 units Insulin Human Lispro (Humalog) 6 unit SUBCUT BID@0800,1200 [facility] Last Admin: 07/13/18 12:08 Dose: 6 units Insulin Human Lispro (Humalog) 2 unit SUBCUT ONETIME ONE Stop: 07/13/18 14:31 Last Admin: 07/13/18 14:49 Dose: 2 units Iopamidol (Isovue-300 (61%)) 100 ml IVPUSH ONETIME ONE Stop: 07/14/18 16:13 Last Admin: 07/14/18 18:07 Dose: 100 ml - Exam Quality Assessment: Urine Catheter (condom catheter working well) General: Alert, Cooperative HEENT: Mucous Membr. Moist/[place] Neck: Trachea Midline, No JVD Lungs: Normal Respiratory Effort, Decreased Breath Sounds Cardiovascular: Irregular Rhythm GI/Abdominal Exam: Soft, Non-Tender, No Distention (Male) Exam: Deferred Back Exam: Normal Inspection Extremities: Pedal Edema (left), Leg Pain (left), Increased Warmth (LLE), Redness (LLE persists but is decreasing) Skin: Warm, Dry, Rash ( redness, warmth, petechiae), Other (excoriation) Wound/Incisions: Dressing Dry and Intact, Drainage (+MSSA) Neurological: No New Focal Deficit Psy/Mental Status: Alert, Normal Affect, Normal Mood - Problem List & Annotations (1) Cellulitis SNOMED Code(s): 875558391 Code(s): L03.90 - CELLULITIS, UNSPECIFIED Status: Acute Priority: High Current Visit: Yes Onset Date: 07/12/18 Qualifiers: Site of cellulitis: extremity Site of cellulitis of extremity: lower extremity Laterality: left Qualified Code(s): L03.116 - Cellulitis of left lower limb (2) CHF (congestive heart failure) SNOMED Code(s): 97790079 Code(s): I50.9 - HEART FAILURE, UNSPECIFIED Status: Acute Priority: High Current Visit: No Qualifiers: Heart failure type: unspecified Heart failure chronicity: acute on chronic Qualified Code(s): I50.9 - Heart failure, unspecified (3) Hypoxia SNOMED Code(s): 446835153 Code(s): R09.02 - HYPOXEMIA Status: Acute Priority: High Current Visit : No (4) Atrial fibrillation SNOMED Code(s): 89954999 Code(s): I48.91 - UNSPECIFIED ATRIAL FIBRILLATION Status: Chronic Priority: Medium Current Visit: No Qualifiers: Atrial fibrillation type: chronic Qualified Code(s): I48.2 - Chronic atrial fibrillation Annotation/Comment:: No chest pain or anginal-type symptoms. Stable heart rhythm in the emergency room (5) COPD (chronic obstructive pulmonary disease) SNOMED Code(s): 70394514 Code(s): J44.9 - CHRONIC OBSTRUCTIVE PULMONARY DISEASE, UNSPECIFIED Status : Chronic Priority: Medium Current Visit: No Qualifiers: COPD type: unspecified COPD Qualified Code(s): J44.9 - Chronic obstructive pulmonary disease, unspecified Annotation/Comment:: No recent cough, bronchitic-type symptoms, etc. (6) Caries SNOMED Code(s): 73726867 Code(s): K02.9 - DENTAL CARIES, UNSPECIFIED Status: Chronic Priority: High Current Visit: No Onset Date: 07/10/15 Annotation/Comment:: CT scan results as above. 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 His regular provider will be updated as per discharge instructions. Hyperglycemia likely elated to his poor dental hygiene and also current infection with referral to oral surgeon recommended (8) Hyperlipidemia SNOMED Code(s): 84675500 Code(s): E78.5 - HYPERLIPIDEMIA, UNSPECIFIED Status: Chronic Priority: Medium Current Visit: No Qualifiers: Hyperlipidemia type: Mixed hyperlipidemia Qualified Code(s): E78.2 - Mixed hyperlipidemia Annotation/Comment:: under medical therapy (9) Hypertension SNOMED Code(s): 71226510 Code(s): I10 - ESSENTIAL (PRIMARY) HYPERTENSION Status: Chronic Priority : Medium Current Visit: No Qualifiers: Hypertension type: essential hypertension Qualified Code(s): I10 - Essential (primary) hypertension Annotation/Comment:: blood pressure stable in the emergency room (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 SNOMED Code(s): 606225844 Code(s): 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, NEC Status: Chronic Priority: Medium Current Visit: No Annotation/Comment:: consider high-protein Glucerna supplements (11) Myasthenia gravis SNOMED Code(s): 46305010 Code(s): G70.00 - MYASTHENIA GRAVIS WITHOUT (ACUTE) EXACERBATION Status: Chronic Priority: Medium Current Visit: No Annotation/Comment:: stable by history (12) Osteoarthritis SNOMED Code(s): 444364609 Code(s): M19.90 - UNSPECIFIED OSTEOARTHRITIS, UNSPECIFIED SITE Status: Chronic Priority: Medium Current Visit: No Qualifiers: Osteoarthritis location: multiple joints Osteoarthritis type: primary Qualified Code(s): M15.0 - Primary generalized (osteo)arthritis Annotation/Comment:: stable by history - Problem List Review Problem List Initiated/Reviewed/Updated: Yes - My Orders Last 24 Hours: My Active Orders 07/14/18 08:00 Insulin Lispro [HumaLOG] 8 unit SUBCUT BID@0800,1200 07/14/18 13:14 Consult to PICC Team [CONS] Routine 07/14/18 13:25 Tibia Fibula Lt [CR] Routine 07/14/18 13:28 Foot 2V Lt [CR] Routine 07/14/18 13:32 Lower Leg w Cont Lt [CT] Routine 07/14/18 13:36 Central Venous Line Insertion [OM.PC] Routine 07/14/18 18:00 Digoxin [Lanoxin] 125 mcg PO DAILY@1800 07/15/18 08:00 Fluconazole [Diflucan] 100 mg PO DAILY 07/16/18 15:30 VANCOMYCIN TROUGH [CHEM] Routine - Plan Plan:: 07-12-18 Shelly Morales PA-C This 83 yr-old male is admitted to status for acute LLE cellulitis with complication of poor healing wound from traumatic laceration to the anteromedial ankle back on 05-28-18. This morning a dark blister was also found to the distal tip of the left great toe with the appearance of a blood blister but with small amount of purulent drainage. 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 He is a long-standing diabetic and is also started on Cipro and Metronidazole. White count markedly elevated at >18,000 with a CRP at 22.9. Dr. Diaz is consulted at the time of admit. I had called the [facility] and spoken with Aicha, tool coordinator who tells me there are no available beds today but we can check back tomorrow morning to inquire about possibility of transferring. 07/13/18 Joe Curran MD Clinically improving and labs improving. He does not want to go to [facility]. Continue IV antibiotics. Cultures pending. 07/14/18 Joe Curran MD [facility]. Due to allergy to cephalexin he will have to continue on vancomycin. He will need prolonged antibiotics. PICC unsuccessful. Labs mild improvement. x- ray and CT of leg to rule-out anaerobic and osteomyelitis.
[2018-07-15] MEDS: DABIGATRAN 150 MG PO SCH ×2 (07:01→19:37)
[2018-07-15] MEDS: Albuterol/Ipratropium 3.0-0.5 MG/3 ML Neb Soln INH SCH ×3 (07:01→18:10)
[2018-07-15] MEDS: Polyethylene Glycol 3350 Powder 17 GM Packet PO SCH (07:01)
[2018-07-15] MEDS: Furosemide 40 MG Tab PO SCH ×2 (07:01→11:52)
[2018-07-15] MEDS: PYRIDOSTIGMINE 60 MG PO SCH ×2 (07:01→19:39)
[2018-07-15] MEDS: COLESTIPOL 1 GM PO SCH ×2 (07:01→19:37)
[2018-07-15] MEDS: Folic Acid 1 MG Tab PO SCH (07:02)
[2018-07-15] MEDS: Magnesium Oxide 400 MG Tab PO SCH (07:02)
[2018-07-15] MEDS: Acetaminophen/HYDROcodone 325-5 MG Tab PO SCH ×3 (07:02→19:38)
[2018-07-15] MEDS: Fluconazole 100 MG Tab PO SCH (07:03)
[2018-07-15] MEDS: Thiamine 100 MG Tab PO SCH (07:03)
[2018-07-15] MEDS: Verapamil 180 MG Tab.ER PO SCH ×2 (07:03→19:36)
[2018-07-15] MEDS: Docusate Sodium 100 MG Cap PO SCH ×3 (07:03→19:37)
[2018-07-15] MEDS: Sodium Chloride 0.9% 10 ML Syringe FLUSH SCH ×2 (07:03→19:49)
[2018-07-15] MEDS: metroNIDAZOLE/Normal Saline 500 MG in Premix Bag 1 BAG IV SCH ×2 (07:04→14:42)
[2018-07-15 07:51] LABS: CHLORIDE,CL 103 mmol/L (98-107); SODIUM,NA 140 mmol/L (136-145)
[2018-07-15] MEDS: Insulin Lispro 100 Units/ML 3 ML Vial SUBCUT SCH ×2 (08:28→11:52)
[2018-07-15] MEDS: Acetaminophen 650 MG Tab.ER PO SCH ×2 (11:53→18:10)
[2018-07-15] MEDS: Digoxin 125 MCG Tab PO SCH (18:09)
[2018-07-15] MEDS: Sodium Chloride 0.9% 10 ML Syringe FLUSH PRN (18:10)
--- NOTE | 2018-07-15 18:28 | PCM.PN ---
- General Info Date of Service: 07/15/18 Admission Dx/Problem (Free Text): Admission Diagnosis/Problem Admission Diagnosis/Problem Cellulitis Functional Status: Reports: Pain Controlled - Review of Systems General: Reports: Weakness HEENT: Reports: No Symptoms Pulmonary: Reports: Shortness of Breath, Cough Cardiovascular: Reports: No Symptoms Gastrointestinal: Reports: No Symptoms Genitourinary: Reports: No Symptoms Musculoskeletal: Reports: No Symptoms Skin: Reports: Bruising, Rash (LLE) Neurological: Reports: Weakness Psychiatric: Reports: No Symptoms - Patient Data Vitals - Most Recent: Last Vital Signs Temp 98.3 F 07/15/18 16:00 Pulse 80 07/15/18 18:09 Resp 15 07/15/18 16:00 BP 172/70 H 07/15/18 16:00 Pulse Ox 90 L 07/15/18 16:00 Weight - Most Recent: 254 lb 15.998 oz I&O - Last 24 Hours: Intake & Output 07/15/18 07/15/18 07/15/18 06:59 14:59 22:59 Intake Total 360 1140 180 Output Total 500 675 Balance -140 465 180 Lab Results Last 24 Hours: Laboratory Results - last 24 hr 07/15/18 07/15/18 07/15/18 Range/Units 06:04 06:56 06:56 WBC 6.9 (4.0-10.2) K/uL RBC 3.96 L (4.33-5.41) M/uL Hgb 9.8 L (13.1-16.8) g/dL Hct 33.3 L (39.0-49.0) % MCV 84.1 (84.0-98.0) fL MCH 24.7 L (28.2-33.3) pg MCHC 29.4 L (31.7-36.0) g/dL RDW 17.9 H (11.2-14.1) % Plt Count 232 (150-350) K/uL Neut % (Auto) 68.6 (45.0-80.0) % Lymph % (Auto) 11.8 (10.0-50.0) % Ellis % (Auto) 11.3 (2.0-14.0) % Eos % (Auto) 8.0 H (0.0-5.0) % Baso % (Auto) 0.3 (0.0-2.0) % Neut # (Auto) 4.72 (1.40-7.00) K/uL Lymph # (Auto) 0.81 (0.50-3.50) K/uL Ellis # (Auto) 0.78 (0.00-1.00) K/uL Eos # (Auto) 0.55 H (0.00-0.50) K/uL Baso # (Auto) 0.02 (0.00-0.20) K/uL Sodium 140 (136-145) mmol/L Potassium 3.9 (3.5-5.1) mmol/L Chloride 103 (98-107) mmol/L Carbon Dioxide 32.0 (21.0-32.0) mmol/L BUN 17 (7-18) mg/dL Creatinine 0.83 (0.51-1.17) mg/dL Est Cr Clr Drug Dosing 73.18 mL/min Estimated GFR (MDRD) > 60 mL/min Glucose 192 H (74-106) mg/dL POC Glucose 215 H (65-110) mg/dl Calcium 8.4 L (8.5-10.1) mg/dL Total Bilirubin 0.4 (0.2-1.0) mg/dL AST 18 (15-37) U/L ALT 17 (12-78) U/L Alkaline Phosphatase 90 (46-116) IU/L C-Reactive Protein 11.2 H (<=0.9) mg/dL Total Protein 6.6 (6.4-8.2) g/dL Albumin 2.3 L (3.4-5.0) g/dL 07/15/18 07/15/18 Range/Units 11:48 16:59 WBC (4.0-10.2) K/uL RBC (4.33-5.41) M/uL Hgb (13.1-16.8) g/dL Hct (39.0-49.0) % MCV (84.0-98.0) fL MCH (28.2-33.3) pg MCHC (31.7-36.0) g/dL RDW (11.2-14.1) % Plt Count (150-350) K/uL Neut % (Auto) (45.0-80.0) % Lymph % (Auto) (10.0-50.0) % Ellis % (Auto) (2.0-14.0) % Eos % (Auto) (0.0-5.0) % Baso % (Auto) (0.0-2.0) % Neut # (Auto) (1.40-7.00) K/uL Lymph # (Auto) (0.50-3.50) K/uL Ellis # (Auto) (0.00-1.00) K/uL Eos # (Auto) (0.00-0.50) K/uL Baso # (Auto) (0.00-0.20) K/uL Sodium (136-145) mmol/L Potassium (3.5-5.1) mmol/L Chloride (98-107) mmol/L Carbon Dioxide (21.0-32.0) mmol/L BUN (7-18) mg/dL Creatinine (0.51-1.17) mg/dL Est Cr Clr Drug Dosing mL/min Estimated GFR (MDRD) mL/min Glucose (74-106) mg/dL POC Glucose 214 H 200 H (65-110) mg/dl Calcium (8.5-10.1) mg/dL Total Bilirubin (0.2-1.0) mg/dL AST (15-37) U/L ALT (12-78) U/L Alkaline Phosphatase (46-116) IU/L C-Reactive Protein (<=0.9) mg/dL Total Protein (6.4-8.2) g/dL Albumin (3.4-5.0) g/dL Meño Results Last 24 Hours: Microbiology 07/12/18 14:06 Aerobic Blood Culture - Preliminary Blood - Venous NO GROWTH AFTER 3 DAYS Anaerobic Blood Culture - Preliminary NO GROWTH AFTER 3 DAYS 07/12/18 14:12 Aerobic Blood Culture - Preliminary Blood - Venous - Lab Draw NO GROWTH AFTER 3 DAYS Anaerobic Blood Culture - Preliminary NO GROWTH AFTER 3 DAYS Med Orders - Current: Current Medications Acetaminophen (Tylenol Arthritis Pain) 650 mg PO BID@1200,1700 RUDY Last Admin: 07/15/18 18:10 Dose: 650 mg Acetaminophen (Tylenol Arthritis Pain) 650 mg PO Q4HR PRN PRN Reason: Pain Hydrocodone Bitart/Acetaminophen ([place] 325-5 Mg) 1 tab PO TID@0800,1200,1999 [facility] Last Admin: 07/15/18 11:53 Dose: 1 tab Albuterol/Ipratropium (Duoneb 3.0-0.5 Mg/3 Ml) 3 ml INH TID@08,12,19 [facility] Last Admin: 07/15/18 18:10 Dose: 3 ml Albuterol/Ipratropium (Duoneb 3.0-0.5 Mg/3 Ml) 3 ml NEB Q4HR PRN PRN Reason: Shortness of Breath Last Admin: 07/14/18 05:45 Dose: 3 ml Bisacodyl (Dulcolax) 10 mg RECTAL DAILY PRN PRN Reason: Constipation Digoxin (Lanoxin) 125 mcg PO DAILY@1800 [facility] Last Admin: 07/15/18 18:09 Dose: 125 mcg Docusate Sodium (Colace) 100 mg PO TID@0800,1200,1999 [facility] Last Admin: 07/15/18 11:52 Dose: 100 mg Fluconazole (Diflucan) 100 mg PO DAILY [facility] Last Admin: 07/15/18 07:03 Dose: 100 mg Folic Acid (Folic Acid) 1 mg PO QAM [facility] Last Admin: 07/15/18 07:02 Dose: 1 mg Furosemide (Lasix) 40 mg PO DAILY@1200 [facility] Last Admin: 07/15/18 11:52 Dose: 40 mg Furosemide (Lasix) 80 mg PO QAM [facility] Last Admin: 07/15/18 07:01 Dose: 80 mg Gabapentin (Neurontin) 100 mg PO BEDTIME [facility] Last Admin: 07/14/18 19:42 Dose: 100 mg Vancomycin HCl 1 gm/ Sodium (Chloride) 250 mls @ 165 mls/hr IV Q12H [facility] Last Admin: 07/15/18 16:36 Dose: 165 mls/hr Insulin Glargine (Lantus) 16 unit SUBCUT BEDTIME [facility] Last Admin: 07/14/18 19:45 Dose: 16 unit Insulin Human Lispro (Humalog) 8 unit SUBCUT BID@0800,1200 [facility] Last Admin: 07/15/18 11:52 Dose: 8 units Magnesium Hydroxide (Milk Of Magnesia) 30 ml PO Q2D@2000 [facility] Last Admin: 07/14/18 20:22 Dose: Not Given Magnesium Oxide (Magnesium Oxide) 400 mg PO QAM [facility] Last Admin: 07/15/18 07:02 Dose: 400 mg Colestipol [ Colestipol Hcl] 1 Gm Tablets 1 gm PO Q12HR [facility] Last Admin: 07/15/18 07:01 Dose: 1 gm Dabigatran [Pradaxa] (150 Mg Capsule) 150 mg PO Q12HR [facility] Last Admin: 07/15/18 07:01 Dose: 150 mg Pyridostigmine ( Mestinon) 60mg Tablets 60 mg PO Q12HR [facility] Last Admin: 07/15/18 07:01 Dose: 60 mg Polyethylene Glycol (Miralax) 17 gm PO DAILY@0800 [facility] Last Admin: 07/15/18 07:01 Dose: 17 gm Sodium Chloride (Saline Flush) 10 ml FLUSH 08,20 [facility] Last Admin: 07/15/18 07:03 Dose: 10 ml Sodium Chloride (Saline Flush) 10 ml FLUSH ASDIRECTED PRN PRN Reason: Keep IV open Last Admin: 07/15/18 18:10 Dose: 10 ml Tamsulosin HCl (Flomax) 0.4 mg PO BEDTIME [facility] Last Admin: 07/14/18 19:42 Dose: 0.4 mg Thiamine HCl (Vitamin B-1) 100 mg PO QAM [facility] Last Admin: 07/15/18 07:03 Dose: 100 mg Vancomycin HCl (Pharmacy To Dose - Vancomycin) 1 dose .XX ASDIRECTED [facility] Verapamil HCl (Calan Sr) 180 mg PO Q12HR [facility] Last Admin: 07/15/18 07:03 Dose: 180 mg Discontinued Medications Digoxin (Lanoxin) 125 mcg PO QAM [facility] Last Admin: 07/13/18 08:42 Dose: 125 mcg Ciprofloxacin/Dextrose 200 mg/ (Premix) 100 mls @ 100 mls/hr IV Q12H [facility] Last Admin: 07/14/18 05:29 Dose: 100 mls/hr Metronidazole 500 mg/ Premix 100 mls @ 100 mls/hr IV Q8H [facility] Last Admin: 07/15/18 14:42 Dose: 100 mls/hr Insulin Glargine (Lantus) 14 unit SUBCUT BEDTIME [facility] Last Admin: 07/12/18 19:39 Dose: 14 units Insulin Human Lispro (Humalog) 6 unit SUBCUT BID@0800,1200 [facility] Last Admin: 07/13/18 12:08 Dose: 6 units Insulin Human Lispro (Humalog) 2 unit SUBCUT ONETIME ONE Stop: 07/13/18 14:31 Last Admin: 07/13/18 14:49 Dose: 2 units Iopamidol (Isovue-300 (61%)) 100 ml IVPUSH ONETIME ONE Stop: 07/14/18 16:13 Last Admin: 07/14/18 18:07 Dose: 100 ml - Exam Quality Assessment: Urine Catheter (condom catheter) General: Alert, Cooperative, No Acute Distress HEENT: Mucous Membr. Moist/[place] Neck: Trachea Midline, No JVD Lungs: Normal Respiratory Effort, Decreased Breath Sounds Cardiovascular: Regular Rate, Regular Rhythm (Male) Exam: Deferred Back Exam: Normal Inspection Extremities: Pedal Edema (LLE is improving), Leg Pain (LLE improving), Increased Warmth (LLE improving), Redness (LLE is markedly improving) Skin: Warm, Dry, Intact, Rash (LLE) Wound/Incisions: Drainage (+MSSA), Erythema Improving Neurological: No New Focal Deficit Psy/Mental Status: Alert, Normal Affect, Normal Mood - Problem List & Annotations (1) Cellulitis SNOMED Code(s): 788489310 Code(s): L03.90 - CELLULITIS, UNSPECIFIED Status: Acute Priority: High Current Visit: Yes Onset Date: 07/12/18 Qualifiers: Site of cellulitis: extremity Site of cellulitis of extremity: lower extremity Laterality: left Qualified Code(s): L03.116 - Cellulitis of left lower limb (2) CHF (congestive heart failure) SNOMED Code(s): 46659949 Code(s): I50.9 - HEART FAILURE, UNSPECIFIED Status: Acute Priority: High Current Visit: No Qualifiers: Heart failure type: unspecified Heart failure chronicity: acute on chronic Qualified Code(s): I50.9 - Heart failure, unspecified (3) Hypoxia SNOMED Code(s): 946186280 Code(s): R09.02 - HYPOXEMIA Status: Acute Priority: High Current Visit : No (4) Atrial fibrillation SNOMED Code(s): 59942522 Code(s): I48.91 - UNSPECIFIED ATRIAL FIBRILLATION Status: Chronic Priority: Medium Current Visit: No Qualifiers: Atrial fibrillation type: chronic Qualified Code(s): I48.2 - Chronic atrial fibrillation Annotation/Comment:: No chest pain or anginal-type symptoms. Stable heart rhythm in the emergency room (5) COPD (chronic obstructive pulmonary disease) SNOMED Code(s): 17549891 Code(s): J44.9 - CHRONIC OBSTRUCTIVE PULMONARY DISEASE, UNSPECIFIED Status : Chronic Priority: Medium Current Visit: No Qualifiers: COPD type: unspecified COPD Qualified Code(s): J44.9 - Chronic obstructive pulmonary disease, unspecified Annotation/Comment:: No recent cough, bronchitic-type symptoms, etc. (6) Caries SNOMED Code(s): 91878502 Code(s): K02.9 - DENTAL CARIES, UNSPECIFIED Status: Chronic Priority: High Current Visit: No Onset Date: 07/10/15 Annotation/Comment:: CT scan results as above. 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 His regular provider will be updated as per discharge instructions. Hyperglycemia likely elated to his poor dental hygiene and also current infection with referral to oral surgeon recommended (8) Hyperlipidemia SNOMED Code(s): 24538645 Code(s): E78.5 - HYPERLIPIDEMIA, UNSPECIFIED Status: Chronic Priority: Medium Current Visit: No Qualifiers: Hyperlipidemia type: Mixed hyperlipidemia Qualified Code(s): E78.2 - Mixed hyperlipidemia Annotation/Comment:: under medical therapy (9) Hypertension SNOMED Code(s): 22840361 Code(s): I10 - ESSENTIAL (PRIMARY) HYPERTENSION Status: Chronic Priority : Medium Current Visit: No Qualifiers: Hypertension type: essential hypertension Qualified Code(s): I10 - Essential (primary) hypertension Annotation/Comment:: blood pressure stable in the emergency room (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 SNOMED Code(s): 097197381 Code(s): 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, NEC Status: Chronic Priority: Medium Current Visit: No Annotation/Comment:: consider high-protein Glucerna supplements (11) Myasthenia gravis SNOMED Code(s): 41288356 Code(s): G70.00 - MYASTHENIA GRAVIS WITHOUT (ACUTE) EXACERBATION Status: Chronic Priority: Medium Current Visit: No Annotation/Comment:: stable by history (12) Osteoarthritis SNOMED Code(s): 692513748 Code(s): M19.90 - UNSPECIFIED OSTEOARTHRITIS, UNSPECIFIED SITE Status: Chronic Priority: Medium Current Visit: No Qualifiers: Osteoarthritis location: multiple joints Osteoarthritis type: primary Qualified Code(s): M15.0 - Primary generalized (osteo)arthritis Annotation/Comment:: stable by history - Problem List Review Problem List Initiated/Reviewed/Updated: Yes - My Orders Last 24 Hours: My Active Orders 07/14/18 18:00 Digoxin [Lanoxin] 125 mcg PO DAILY@1800 07/15/18 08:00 Fluconazole [Diflucan] 100 mg PO DAILY 07/16/18 15:30 VANCOMYCIN TROUGH [CHEM] Routine - Plan Plan:: 07-12-18 Shelly Morales PA-C This 83 yr-old male is admitted to [facility] for acute LLE cellulitis with complication of poor healing wound from traumatic laceration to the anteromedial ankle back on 05-28-18. This morning a dark blister was also found to the distal tip of the left great toe with the appearance of a blood blister but with small amount of purulent drainage. 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 He is a long-standing diabetic and is also started on Cipro and Metronidazole. White count markedly elevated at >18,000 with a CRP at 22.9. Dr. Diaz is consulted at the time of admit. I had called the [facility] and spoken with Aicha, charter coordinator who tells me there are no available beds today but we can check back tomorrow morning to inquire about possibility of transferring. 07/13/18 Joe Curran MD Clinically improving and labs improving. He does not want to go to [facility] hospital. Continue IV antibiotics. Cultures pending. 07/14/18 Joe Curran MD C&S MSSA. Due to allergy to cephalexin he will have to continue on vancomycin. He will need prolonged antibiotics. PICC unsuccessful. Labs mild improvement. x- ray and CT of leg to rule-out anaerobic and osteomyelitis. 07/15/18 Joe Curran MD Leg is remarkedly improving today. Peripheral IV still in place. He does not want to go to [place] to [facility]. Labs continue to improve. Continue inpatient status. CT of leg shows a metatarsel fracture but no evidence of necrotizing fascitis or no osteomyelitis.
[2018-07-15] MEDS: Gabapentin 100 MG Cap PO SCH (19:38)
[2018-07-15] MEDS: Tamsulosin 0.4 MG Cap.ER PO SCH (19:38)
[2018-07-15] MEDS: Insulin Glarg,Human.Rec.Analog 100 UNIT/ML ML SUBCUT SCH (19:43)
[2018-07-16] MEDS: Albuterol/Ipratropium 3.0-0.5 MG/3 ML Neb Soln NEB PRN (04:19)
[2018-07-16] MEDS: Sodium Chloride 0.9% 10 ML Syringe FLUSH PRN ×2 (04:21→07:42)
[2018-07-16] MEDS: Docusate Sodium 100 MG Cap PO SCH ×2 (07:34→12:42)
[2018-07-16] MEDS: Fluconazole 100 MG Tab PO SCH (07:34)
[2018-07-16] MEDS: Thiamine 100 MG Tab PO SCH (07:34)
[2018-07-16] MEDS: Magnesium Oxide 400 MG Tab PO SCH (07:34)
[2018-07-16] MEDS: Acetaminophen/HYDROcodone 325-5 MG Tab PO SCH ×2 (07:34→12:42)
[2018-07-16] MEDS: Folic Acid 1 MG Tab PO SCH (07:34)
[2018-07-16] MEDS: Furosemide 40 MG Tab PO SCH ×2 (07:34→12:42)
[2018-07-16] MEDS: Polyethylene Glycol 3350 Powder 17 GM Packet PO SCH (07:35)
[2018-07-16] MEDS: Albuterol/Ipratropium 3.0-0.5 MG/3 ML Neb Soln INH SCH ×2 (07:35→12:40)
[2018-07-16] MEDS: COLESTIPOL 1 GM PO SCH (07:37)
[2018-07-16] MEDS: PYRIDOSTIGMINE 60 MG PO SCH (07:38)
[2018-07-16] MEDS: DABIGATRAN 150 MG PO SCH (07:39)
[2018-07-16] MEDS: Insulin Lispro 100 Units/ML 3 ML Vial SUBCUT SCH ×2 (07:39→12:30)
[2018-07-16] MEDS: Sodium Chloride 0.9% 10 ML Syringe FLUSH SCH (07:41)
[2018-07-16] MEDS: Verapamil 180 MG Tab.ER PO SCH (07:43)
[2018-07-16 07:59] LABS: CHLORIDE,CL 102 mmol/L (98-107); SODIUM,NA 140 mmol/L (136-145)
[2018-07-16 11:39] VITALS: BP 151/89
[2018-07-16] MEDS: Acetaminophen 650 MG Tab.ER PO SCH (12:41)
--- NOTE | 2018-07-16 22:52 | PCM.PN ---
- General Info Date of Service: 07/16/18 Admission Dx/Problem (Free Text): Admission Diagnosis/Problem Admission Diagnosis/Problem Cellulitis Functional Status: Reports: Pain Controlled - Review of Systems General: Reports: No Symptoms HEENT: Reports: No Symptoms Pulmonary: Reports: No Symptoms Cardiovascular: Reports: No Symptoms Gastrointestinal: Reports: No Symptoms Genitourinary: Reports: Incontinence Musculoskeletal: Reports: Leg Pain (left) Skin: Reports: Bruising, Rash (LLE) Neurological: Reports: Weakness Psychiatric: Reports: No Symptoms - Patient Data Vitals - Most Recent: Last Vital Signs Temp 98.2 F 07/16/18 11:38 Pulse 81 07/16/18 11:38 Resp 16 07/16/18 11:38 BP 151/89 H 07/16/18 11:38 Pulse Ox 90 L 07/16/18 11:38 Weight - Most Recent: 254 lb 15.998 oz I&O - Last 24 Hours: Intake & Output 07/16/18 07/16/18 07/16/18 06:59 14:59 22:59 Intake Total 450 720 Output Total 800 225 Balance -350 495 Lab Results Last 24 Hours: Laboratory Results - last 24 hr 07/16/18 07/16/18 07/16/18 Range/Units 07:16 07:20 07:20 WBC 7.6 (4.0-10.2) K/uL RBC 4.06 L (4.33-5.41) M/uL Hgb 10.1 L (13.1-16.8) g/dL Hct 34.0 L (39.0-49.0) % MCV 83.7 L (84.0-98.0) fL MCH 24.9 L (28.2-33.3) pg MCHC 29.7 L (31.7-36.0) g/dL RDW 17.9 H (11.2-14.1) % Plt Count 249 (150-350) K/uL Neut % (Auto) 69.6 (45.0-80.0) % Lymph % (Auto) 13.3 (10.0-50.0) % Hunt % (Auto) 10.5 (2.0-14.0) % Eos % (Auto) 6.2 H (0.0-5.0) % Baso % (Auto) 0.4 (0.0-2.0) % Neut # (Auto) 5.31 (1.40-7.00) K/uL Lymph # (Auto) 1.01 (0.50-3.50) K/uL Hunt # (Auto) 0.80 (0.00-1.00) K/uL Eos # (Auto) 0.47 (0.00-0.50) K/uL Baso # (Auto) 0.03 (0.00-0.20) K/uL Sodium 140 (136-145) mmol/L Potassium 4.1 (3.5-5.1) mmol/L Chloride 102 (98-107) mmol/L Carbon Dioxide 31.0 (21.0-32.0) mmol/L BUN 14 (7-18) mg/dL Creatinine 0.83 (0.51-1.17) mg/dL Est Cr Clr Drug Dosing 73.18 mL/min Estimated GFR (MDRD) > 60 mL/min Glucose 188 H (74-106) mg/dL POC Glucose 218 H (65-110) mg/dl Calcium 8.4 L (8.5-10.1) mg/dL Total Bilirubin 0.4 (0.2-1.0) mg/dL AST 18 (15-37) U/L ALT 17 (12-78) U/L Alkaline Phosphatase 88 (46-116) IU/L C-Reactive Protein 7.7 H (<=0.9) mg/dL Total Protein 6.5 (6.4-8.2) g/dL Albumin 2.2 L (3.4-5.0) g/dL 07/16/18 Range/Units 11:00 WBC (4.0-10.2) K/uL RBC (4.33-5.41) M/uL Hgb (13.1-16.8) g/dL Hct (39.0-49.0) % MCV (84.0-98.0) fL MCH (28.2-33.3) pg MCHC (31.7-36.0) g/dL RDW (11.2-14.1) % Plt Count (150-350) K/uL Neut % (Auto) (45.0-80.0) % Lymph % (Auto) (10.0-50.0) % Hunt % (Auto) (2.0-14.0) % Eos % (Auto) (0.0-5.0) % Baso % (Auto) (0.0-2.0) % Neut # (Auto) (1.40-7.00) K/uL Lymph # (Auto) (0.50-3.50) K/uL Hunt # (Auto) (0.00-1.00) K/uL Eos # (Auto) (0.00-0.50) K/uL Baso # (Auto) (0.00-0.20) K/uL Sodium (136-145) mmol/L Potassium (3.5-5.1) mmol/L Chloride (98-107) mmol/L Carbon Dioxide (21.0-32.0) mmol/L BUN (7-18) mg/dL Creatinine (0.51-1.17) mg/dL Est Cr Clr Drug Dosing mL/min Estimated GFR (MDRD) mL/min Glucose (74-106) mg/dL POC Glucose 199 H (65-110) mg/dl Calcium (8.5-10.1) mg/dL Total Bilirubin (0.2-1.0) mg/dL AST (15-37) U/L ALT (12-78) U/L Alkaline Phosphatase (46-116) IU/L C-Reactive Protein (<=0.9) mg/dL Total Protein (6.4-8.2) g/dL Albumin (3.4-5.0) g/dL Meño Results Last 24 Hours: Microbiology 07/12/18 14:12 Aerobic Blood Culture - Preliminary Blood - Venous - Lab Draw NO GROWTH AFTER 4 DAYS Anaerobic Blood Culture - Preliminary NO GROWTH AFTER 4 DAYS 07/12/18 14:06 Aerobic Blood Culture - Preliminary Blood - Venous NO GROWTH AFTER 4 DAYS Anaerobic Blood Culture - Preliminary NO GROWTH AFTER 4 DAYS Med Orders - Current: Current Medications Discontinued Medications Acetaminophen (Tylenol Arthritis Pain) 650 mg PO BID@1200,1700 [facility] Last Admin: 07/16/18 12:41 Dose: 650 mg Acetaminophen (Tylenol Arthritis Pain) 650 mg PO Q4HR PRN PRN Reason: Pain Hydrocodone Bitart/Acetaminophen ([place] 325-5 Mg) 1 tab PO TID@0800,1200,2000 [facility] Last Admin: 07/16/18 12:42 Dose: 1 tab Albuterol/Ipratropium (Duoneb 3.0-0.5 Mg/3 Ml) 3 ml INH TID@08,12,19 [facility] Last Admin: 07/16/18 12:40 Dose: 3 ml Albuterol/Ipratropium (Duoneb 3.0-0.5 Mg/3 Ml) 3 ml NEB Q4HR PRN PRN Reason: Shortness of Breath Last Admin: 07/16/18 04:19 Dose: 3 ml Bisacodyl (Dulcolax) 10 mg RECTAL DAILY PRN PRN Reason: Constipation Digoxin (Lanoxin) 125 mcg PO QAM [facility] Last Admin: 07/13/18 08:42 Dose: 125 mcg Digoxin (Lanoxin) 125 mcg PO DAILY@1800 [facility] Last Admin: 07/15/18 18:09 Dose: 125 mcg Docusate Sodium (Colace) 100 mg PO TID@0800,1200,2000 [facility] Last Admin: 07/16/18 12:42 Dose: 100 mg Fluconazole (Diflucan) 100 mg PO DAILY [facility] Last Admin: 07/16/18 07:34 Dose: 100 mg Folic Acid (Folic Acid) 1 mg PO QAM [facility] Last Admin: 07/16/18 07:34 Dose: 1 mg Furosemide (Lasix) 40 mg PO DAILY@1200 [facility] Last Admin: 07/16/18 12:42 Dose: 40 mg Furosemide (Lasix) 80 mg PO QAM [facility] Last Admin: 07/16/18 07:34 Dose: 80 mg Gabapentin (Neurontin) 100 mg PO BEDTIME [facility] Last Admin: 07/15/18 19:38 Dose: 100 mg Ciprofloxacin/Dextrose 200 mg/ (Premix) 100 mls @ 100 mls/hr IV Q12H [facility] Last Admin: 07/14/18 05:29 Dose: 100 mls/hr Metronidazole 500 mg/ Premix 100 mls @ 100 mls/hr IV Q8H [facility] Last Admin: 07/15/18 14:42 Dose: 100 mls/hr Vancomycin HCl 1 gm/ Sodium (Chloride) 250 mls @ 165 mls/hr IV Q12H [facility] Last Admin: 07/16/18 04:19 Dose: 165 mls/hr Insulin Glargine (Lantus) 14 unit SUBCUT BEDTIME [facility] Last Admin: 07/12/18 19:39 Dose: 14 units Insulin Glargine (Lantus) 16 unit SUBCUT BEDTIME [facility] Last Admin: 07/15/18 19:43 Dose: 16 unit Insulin Human Lispro (Humalog) 6 unit SUBCUT BID@0800,1200 [facility] Last Admin: 07/13/18 12:08 Dose: 6 units Insulin Human Lispro (Humalog) 2 unit SUBCUT ONETIME ONE Stop: 07/13/18 14:31 Last Admin: 07/13/18 14:49 Dose: 2 units Insulin Human Lispro (Humalog) 8 unit SUBCUT BID@0800,1200 [facility] Last Admin: 07/16/18 12:30 Dose: 8 units Iopamidol (Isovue-300 (61%)) 100 ml IVPUSH ONETIME ONE Stop: 07/14/18 16:13 Last Admin: 07/14/18 18:07 Dose: 100 ml Magnesium Hydroxide (Milk Of Magnesia) 30 ml PO Q2D@2000 [facility] Last Admin: 07/14/18 20:22 Dose: Not Given Magnesium Oxide (Magnesium Oxide) 400 mg PO QAM [facility] Last Admin: 07/16/18 07:34 Dose: 400 mg Colestipol [ Colestipol Hcl] 1 Gm Tablets 1 gm PO Q12HR [facility] Last Admin: 07/16/18 07:37 Dose: 1 gm Dabigatran [Pradaxa] (150 Mg Capsule) 150 mg PO Q12HR [facility] Last Admin: 07/16/18 07:39 Dose: 150 mg Pyridostigmine ( Mestinon) 60mg Tablets 60 mg PO Q12HR [facility] Last Admin: 07/16/18 07:38 Dose: 60 mg Polyethylene Glycol (Miralax) 17 gm PO DAILY@0800 [facility] Last Admin: 07/16/18 07:35 Dose: 17 gm Sodium Chloride (Saline Flush) 10 ml FLUSH 08,20 [facility] Last Admin: 07/16/18 07:41 Dose: 10 ml Sodium Chloride (Saline Flush) 10 ml FLUSH ASDIRECTED PRN PRN Reason: Keep IV open Last Admin: 07/16/18 07:42 Dose: 10 ml Tamsulosin HCl (Flomax) 0.4 mg PO BEDTIME [facility] Last Admin: 07/15/18 19:38 Dose: 0.4 mg Thiamine HCl (Vitamin B-1) 100 mg PO QAM [facility] Last Admin: 07/16/18 07:34 Dose: 100 mg Vancomycin HCl (Pharmacy To Dose - Vancomycin) 1 dose .XX ASDIRECTED [facility] Verapamil HCl (Calan Sr) 180 mg PO Q12HR [facility] Last Admin: 07/16/18 07:43 Dose: 180 mg - Exam Quality Assessment: Urine Catheter (condom catheter), DVT Prophylaxis, Skin Breakdown (LLE) General: Alert, Cooperative, No Acute Distress HEENT: Mucous Membr. Moist/[place] Neck: Trachea Midline, No JVD Lungs: Normal Respiratory Effort, Decreased Breath Sounds Cardiovascular: Regular Rate, Regular Rhythm GI/Abdominal Exam: Soft, Non-Tender, No Distention (Male) Exam: Other (clear blister on glans of penis one has popped but one present not tender, punctate red spots glans) Back Exam: Normal Inspection Extremities: Pedal Edema (left) Skin: Rash (LLE) Wound/Incisions: Drainage (copious amounts earlier today now decreased LLE), Erythema Improving Neurological: No New Focal Deficit Psy/Mental Status: Alert, Normal Affect, Normal Mood - Problem List & Annotations (1) MSSA (methicillin susceptible Staphylococcus aureus) infection SNOMED Code(s): 568300409 Code(s): A49.01 - METHICILLIN SUSCEP STAPH INFECTION, UNSP SITE Status: Acute Priority: High (2) Cellulitis SNOMED Code(s): 703780350 Code(s): L03.90 - CELLULITIS, UNSPECIFIED Status: Acute Priority: High Onset Date: 07/12/18 Qualifiers: Site of cellulitis: extremity Site of cellulitis of extremity: lower extremity Laterality: left Qualified Code(s): L03.116 - Cellulitis of left lower limb (3) CHF (congestive heart failure) SNOMED Code(s): 56551079 Code(s): I50.9 - HEART FAILURE, UNSPECIFIED Status: Acute Priority: High Qualifiers: Heart failure type: unspecified Heart failure chronicity: acute on chronic Qualified Code(s): I50.9 - Heart failure, unspecified (4) Hypoxia SNOMED Code(s): 714397814 Code(s): R09.02 - HYPOXEMIA Status: Acute Priority: High (5) Atrial fibrillation SNOMED Code(s): 74676974 Code(s): I48.91 - UNSPECIFIED ATRIAL FIBRILLATION Status: Chronic Priority: Medium Qualifiers: Atrial fibrillation type: chronic Qualified Code(s): I48.2 - Chronic atrial fibrillation Annotation/Comment:: No chest pain or anginal-type symptoms. Stable heart rhythm in the emergency room (6) COPD (chronic obstructive pulmonary disease) SNOMED Code(s): 64439657 Code(s): J44.9 - CHRONIC OBSTRUCTIVE PULMONARY DISEASE, UNSPECIFIED Status : Chronic Priority: Medium Qualifiers: COPD type: unspecified COPD Qualified Code(s): J44.9 - Chronic obstructive pulmonary disease, unspecified Annotation/Comment:: No recent cough, bronchitic-type symptoms, etc. (7) Caries SNOMED Code(s): 06313363 Code(s): K02.9 - DENTAL CARIES, UNSPECIFIED Status: Chronic Priority: High Onset Date: 07/10/15 Annotation/Comment:: CT scan results as above. Referral to oral surgeon strongly recommended (8) Diabetes mellitus SNOMED Code(s): 48355262 Code(s): E11.9 - TYPE 2 DIABETES MELLITUS WITHOUT COMPLICATIONS Status: Chronic Priority: Medium Qualifiers: Diabetes mellitus type: type 2 Diabetes mellitus complication detail: with diabetic retinopathy Diabetic retinopathy severity: with unspecified retinopathy severity Diabetes mellitus macular edema: with macular edema Annotation/Comment:: Blood sugars somewhat elevated with sliding scale to be initiated during the next 48 hours secondary to the necessity of holding his metformin because of today's CT scans with contrast. His regular provider will be updated as per discharge instructions. Hyperglycemia likely elated to his poor dental hygiene and also current infection with referral to oral surgeon recommended (9) Hyperlipidemia SNOMED Code(s): 99498259 Code(s): E78.5 - HYPERLIPIDEMIA, UNSPECIFIED Status: Chronic Priority: Medium Qualifiers: Hyperlipidemia type: Mixed hyperlipidemia Qualified Code(s): E78.2 - Mixed hyperlipidemia Annotation/Comment:: under medical therapy (10) Hypertension SNOMED Code(s): 40643270 Code(s): I10 - ESSENTIAL (PRIMARY) HYPERTENSION Status: Chronic Priority : Medium Qualifiers: Hypertension type: essential hypertension Qualified Code(s): I10 - Essential (primary) hypertension Annotation/Comment:: blood pressure stable in the emergency room (11) Hypoalbuminemia SNOMED Code(s): 403081389 Code(s): 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, NEC Status: Chronic Priority: Medium Annotation/Comment:: consider high-protein Glucerna supplements (12) Myasthenia gravis SNOMED Code(s): 57061481 Code(s): G70.00 - MYASTHENIA GRAVIS WITHOUT (ACUTE) EXACERBATION Status: Chronic Priority: Medium Annotation/Comment:: stable by history (13) Osteoarthritis SNOMED Code(s): 041825420 Code(s): M19.90 - UNSPECIFIED OSTEOARTHRITIS, UNSPECIFIED SITE Status: Chronic Priority: Medium Qualifiers: Osteoarthritis location: multiple joints Osteoarthritis type: primary Qualified Code(s): M15.0 - Primary generalized (osteo)arthritis Annotation/Comment:: stable by history - Problem List Review Problem List Initiated/Reviewed/Updated: Yes - My Orders Last 24 Hours: My Active Orders 07/16/18 12:26 Ready for Discharge [RC] PER UNIT ROUTINE - Plan Plan:: 07-12-18 Shelly Morales PA-C This 83 yr-old male is admitted to [facility] for acute LLE cellulitis with complication of poor healing wound from traumatic laceration to the anteromedial ankle back on 05-28-18. This morning a dark blister was also found to the distal tip of the left great toe with the appearance of a blood blister but with small amount of purulent drainage. 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 He is a long-standing diabetic and is also started on Cipro and Metronidazole. White count markedly elevated at >18,000 with a CRP at 22.9. Dr. Diaz is consulted at the time of admit. I had called the [facility] and spoken with Aicha, patient coordinator who tells me there are no available beds today but we can check back tomorrow morning to inquire about possibility of transferring. 07/13/18 Joe Curran MD Clinically improving and labs improving. He does not want to go to [facility]. Continue IV antibiotics. Cultures pending. 07/14/18 Joe Curran MD C&S MSSA. Due to allergy to cephalexin he will have to continue on vancomycin. He will need prolonged antibiotics. PICC unsuccessful. Labs mild improvement. x- ray and CT of leg to rule-out anaerobic and osteomyelitis. 07/15/18 Joe Curran MD Leg is remarkedly improving today. Peripheral IV still in place. He does not want to go to [place] to the hospital. Labs continue to improve. Continue inpatient status. CT of leg shows a metatarsel fracture but no evidence of necrotizing fascitis or no osteomyelitis. 07/16/18 Joe Curran MD Continues to feel better. Leg improving. Peripheral IV still in place. He refuses transfer to [facility]. Labs continue to improve. Needs continued IV antibiotics and PT-OT so qualifies for swing bed status.
--- NOTE | 2018-07-16 22:58 | PCM.DCSUM1 ---
Discharge Summary - Hospital Course Diagnosis: Stroke: No - Discharge Data Discharge Date: 07/16/18 Discharge Disposition: DC/Tfer W/I Hosp To [facility] Condition: Good - Discharge Diagnosis/Problem(s) (1) MSSA (methicillin susceptible Staphylococcus aureus) infection SNOMED Code(s): 226850387 ICD Code: A49.01 - METHICILLIN SUSCEP STAPH INFECTION, UNSP SITE Status: Acute Priority: High (2) Cellulitis SNOMED Code(s): 261458912 ICD Code: L03.90 - CELLULITIS, UNSPECIFIED Status: Acute Priority: High Onset Date: 07/12/18 Qualifiers: Site of cellulitis: extremity Site of cellulitis of extremity: lower extremity Laterality: left Qualified Code(s): L03.116 - Cellulitis of left lower limb (3) CHF (congestive heart failure) SNOMED Code(s): 79526273 ICD Code: I50.9 - HEART FAILURE, UNSPECIFIED Status: Acute Priority: High Qualifiers: Heart failure type: unspecified Heart failure chronicity: acute on chronic Qualified Code(s): I50.9 - Heart failure, unspecified (4) Hypoxia SNOMED Code(s): 425609444 ICD Code: R09.02 - HYPOXEMIA Status: Acute Priority: High (5) Atrial fibrillation SNOMED Code(s): 95904717 ICD Code: I48.91 - UNSPECIFIED ATRIAL FIBRILLATION Status: Chronic Priority: Medium Problem Details: No chest pain or anginal-type symptoms. Stable heart rhythm in the emergency room Qualifiers: Atrial fibrillation type: chronic Qualified Code(s): I48.2 - Chronic atrial fibrillation (6) COPD (chronic obstructive pulmonary disease) SNOMED Code(s): 07228113 ICD Code: J44.9 - CHRONIC OBSTRUCTIVE PULMONARY DISEASE, UNSPECIFIED Status : Chronic Priority: Medium Problem Details: No recent cough, bronchitic- type symptoms, etc. Qualifiers: COPD type: unspecified COPD Qualified Code(s): J44.9 - Chronic obstructive pulmonary disease, unspecified (7) Caries SNOMED Code(s): 38541153 ICD Code: K02.9 - DENTAL CARIES, UNSPECIFIED Status: Chronic Priority: High Onset Date: 07/10/15 Problem Details: CT scan results as above. Referral to oral surgeon strongly recommended (8) Diabetes mellitus SNOMED Code(s): 88365458 ICD Code: E11.9 - TYPE 2 DIABETES MELLITUS WITHOUT COMPLICATIONS Status: Chronic Priority: Medium Problem Details: Blood sugars somewhat elevated with sliding scale to be initiated during the next 48 hours secondary to the necessity of holding his metformin because of today's CT scans with contrast. His regular provider will be updated as per discharge instructions. 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 (9) Hyperlipidemia SNOMED Code(s): 42501591 ICD Code: E78.5 - HYPERLIPIDEMIA, UNSPECIFIED Status: Chronic Priority: Medium Problem Details: under medical therapy Qualifiers: Hyperlipidemia type: Mixed hyperlipidemia Qualified Code(s): E78.2 - Mixed hyperlipidemia (10) Hypertension SNOMED Code(s): 00402992 ICD Code: I10 - ESSENTIAL (PRIMARY) HYPERTENSION Status: Chronic Priority : Medium Problem Details: blood pressure stable in the emergency room Qualifiers: Hypertension type: essential hypertension Qualified Code(s): I10 - Essential (primary) hypertension (11) Hypoalbuminemia SNOMED Code(s): 543584063 ICD Code: 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, NEC Status: Chronic Priority: Medium Problem Details: consider high-protein Glucerna supplements (12) Myasthenia gravis SNOMED Code(s): 83392516 ICD Code: G70.00 - MYASTHENIA GRAVIS WITHOUT (ACUTE) EXACERBATION Status: Chronic Priority: Medium Problem Details: stable by history (13) Osteoarthritis SNOMED Code(s): 829331894 ICD Code: M19.90 - UNSPECIFIED OSTEOARTHRITIS, UNSPECIFIED SITE Status: Chronic Priority: Medium Problem Details: stable by history Qualifiers: Osteoarthritis location: multiple joints Osteoarthritis type: primary Qualified Code(s): M15.0 - Primary generalized (osteo)arthritis - Patient Summary/Data Consults: Consultations 07/13/18 09:40 Consult to Physical Therapy [PT Evaluation and Treatment] [CONS] Routine 07/13/18 09:41 Consult to Case Management/Ekg Manager [CONS] Routine OT Evaluation and Treatment [CONS] Routine 07/14/18 13:14 Consult to PICC Team [CONS] Routine - Patient Instructions Diet: Diabetic Diet Activity: As Tolerated Driving: Do Not Drive Showering/Bathing: May Shower - Discharge Plan *PRESCRIPTION DRUG MONITORING PROGRAM REVIEWED*: Not Applicable *COPY OF PRESCRIPTION DRUG MONITORING REPORT IN PATIENT JEANNE: Not Applicable Home Medications: Home Meds Acetaminophen [Tylenol Arthritis Pain] 650 mg PO Q4HR PRN MDD 3 04/14/15 [ History] Albuterol/Ipratropium [DuoNeb 3.0-0.5 MG/3 ML] 3 ml NEB Q4HR PRN 04/14/15 [ History] Cholecalciferol (Vitamin D3) [Vitamin D3] 800 unit PO QAM 04/14/15 [History] Dabigatran [Pradaxa] 150 mg PO Q12HR 04/14/15 [History] Digoxin [Lanoxin] 125 mcg PO QAM 04/14/15 [History] Docusate Sodium [Colace] 100 mg PO TID@0800,1200,199904/14/15 [History] Folic Acid 1 mg PO QAM 04/14/15 [History] Furosemide [Lasix] 80 mg PO QAM 04/14/15 [History] Magnesium Hydroxide [Milk of Magnesia] 30 ml PO Q2D@199904/14/15 [History] Magnesium Oxide 420 mg PO QAM 04/14/15 [History] Multivitamin [Multivitamins] 1 each PO QAM 04/14/15 [History] Pyridostigmine [Mestinon] 60 mg PO Q12HR 04/14/15 [History] Simvastatin [Zocor] 10 mg PO BEDTIME 04/14/15 [History] Tamsulosin [Flomax] 0.4 mg PO BEDTIME 04/14/15 [History] Thiamine Mononitrate [Vitamin B-1] 100 mg PO QAM 04/14/15 [History] Verapamil [Calan SR] 180 mg PO Q12HR 04/14/15 [History] Acetaminophen [Tylenol Arthritis Pain] 650 mg PO BID@1200,1700 05/09/15 [History ] Bisacodyl [Dulcolax] 10 mg RECTAL DAILY PRN 07/10/15 [History] Colestipol [Colestipol HCl] 1 gm PO Q12HR 07/10/15 [History] Furosemide 40 mg PO DAILY@1200 07/10/15 [History] Calcium Carbonate/Vitamin D3 [Calcium 600 + Vit D Tablet] 1 tab PO Q12HR [History] Gabapentin [Neurontin] 100 mg PO BEDTIME 05/10/17 [History] Hydrocodone/Acetaminophen [Hydrocodon-Acetaminophen 5-325] 1 each PO TID@0800, 1200,2000 05/10/17 [History] Insulin Aspart [NovoLOG] 6 unit SUBCUT BID@0800,1200 #60 pen 06/02/17 [Rx] Insulin Detemir [Levemir] 14 unit SUBCUT BEDTIME #30 pen 06/02/17 [Rx] Polyethylene Glycol 3350 [MiraLAX] 17 gm PO DAILY@0800 #30 packet 06/02/17 [Rx] Albuterol/Ipratropium [DuoNeb 3.0-0.5 MG/3 ML] 1 vial INH TID@08,12,05/28/18 [History] - Discharge Summary/Plan Comment DC Time >30 min.: No - Patient Data Vitals - Most Recent: Last Vital Signs Temp 98.2 F 07/16/18 11:38 Pulse 81 07/16/18 11:38 Resp 16 07/16/18 11:38 BP 151/89 H 07/16/18 11:38 Pulse Ox 90 L 07/16/18 11:38 Weight - Most Recent: 254 lb 15.998 oz I&O - Last 24 hours: Intake & Output 07/16/18 07/16/18 07/16/18 06:59 14:59 22:59 Intake Total 450 720 Output Total 800 225 Balance -350 495 Lab Results - Last 24 hrs: Laboratory Results - last 24 hr 07/16/18 07/16/18 07/16/18 Range/Units 07:16 07:20 07:20 WBC 7.6 (4.0-10.2) K/uL RBC 4.06 L (4.33-5.41) M/uL Hgb 10.1 L (13.1-16.8) g/dL Hct 34.0 L (39.0-49.0) % MCV 83.7 L (84.0-98.0) fL MCH 24.9 L (28.2-33.3) pg MCHC 29.7 L (31.7-36.0) g/dL RDW 17.9 H (11.2-14.1) % Plt Count 249 (150-350) K/uL Neut % (Auto) 69.6 (45.0-80.0) % Lymph % (Auto) 13.3 (10.0-50.0) % [place] % (Auto) 10.5 (2.0-14.0) % Eos % (Auto) 6.2 H (0.0-5.0) % Baso % (Auto) 0.4 (0.0-2.0) % Neut # (Auto) 5.31 (1.40-7.00) K/uL Lymph # (Auto) 1.01 (0.50-3.50) K/uL [place] # (Auto) 0.80 (0.00-1.00) K/uL Eos # (Auto) 0.47 (0.00-0.50) K/uL Baso # (Auto) 0.03 (0.00-0.20) K/uL Sodium 140 (136-145) mmol/L Potassium 4.1 (3.5-5.1) mmol/L Chloride 102 (98-107) mmol/L Carbon Dioxide 31.0 (21.0-32.0) mmol/L BUN 14 (7-18) mg/dL Creatinine 0.83 (0.51-1.17) mg/dL Est Cr Clr Drug Dosing 73.18 mL/min Estimated GFR (MDRD) > 60 mL/min Glucose 188 H (74-106) mg/dL POC Glucose 218 H (65-110) mg/dl Calcium 8.4 L (8.5-10.1) mg/dL Total Bilirubin 0.4 (0.2-1.0) mg/dL AST 18 (15-37) U/L ALT 17 (12-78) U/L Alkaline Phosphatase 88 (46-116) IU/L C-Reactive Protein 7.7 H (<=0.9) mg/dL Total Protein 6.5 (6.4-8.2) g/dL Albumin 2.2 L (3.4-5.0) g/dL 07/16/18 Range/Units 11:00 WBC (4.0-10.2) K/uL RBC (4.33-5.41) M/uL Hgb (13.1-16.8) g/dL Hct (39.0-49.0) % MCV (84.0-98.0) fL MCH (28.2-33.3) pg MCHC (31.7-36.0) g/dL RDW (11.2-14.1) % Plt Count (150-350) K/uL Neut % (Auto) (45.0-80.0) % Lymph % (Auto) (10.0-50.0) % [place] % (Auto) (2.0-14.0) % Eos % (Auto) (0.0-5.0) % Baso % (Auto) (0.0-2.0) % Neut # (Auto) (1.40-7.00) K/uL Lymph # (Auto) (0.50-3.50) K/uL [place] # (Auto) (0.00-1.00) K/uL Eos # (Auto) (0.00-0.50) K/uL Baso # (Auto) (0.00-0.20) K/uL Sodium (136-145) mmol/L Potassium (3.5-5.1) mmol/L Chloride (98-107) mmol/L Carbon Dioxide (21.0-32.0) mmol/L BUN (7-18) mg/dL Creatinine (0.51-1.17) mg/dL Est Cr Clr Drug Dosing mL/min Estimated GFR (MDRD) mL/min Glucose (74-106) mg/dL POC Glucose 199 H (65-110) mg/dl Calcium (8.5-10.1) mg/dL Total Bilirubin (0.2-1.0) mg/dL AST (15-37) U/L ALT (12-78) U/L Alkaline Phosphatase (46-116) IU/L C-Reactive Protein (<=0.9) mg/dL Total Protein (6.4-8.2) g/dL Albumin (3.4-5.0) g/dL NOMI Results - Last 24 hrs: Microbiology 07/12/18 14:12 Aerobic Blood Culture - Preliminary Blood - Venous - Lab Draw NO GROWTH AFTER 4 DAYS Anaerobic Blood Culture - Preliminary NO GROWTH AFTER 4 DAYS 07/12/18 14:06 Aerobic Blood Culture - Preliminary Blood - Venous NO GROWTH AFTER 4 DAYS Anaerobic Blood Culture - Preliminary NO GROWTH AFTER 4 DAYS Med Orders - Current: Current Medications Discontinued Medications Acetaminophen (Tylenol Arthritis Pain) 650 mg PO BID@1200,1700 [facility] Last Admin: 07/16/18 12:41 Dose: 650 mg Acetaminophen (Tylenol Arthritis Pain) 650 mg PO Q4HR PRN PRN Reason: Pain Hydrocodone Bitart/Acetaminophen ([place] 325-5 Mg) 1 tab PO TID@0800,1200,2000 [facility] Last Admin: 07/16/18 12:42 Dose: 1 tab Albuterol/Ipratropium (Duoneb 3.0-0.5 Mg/3 Ml) 3 ml INH TID@08,12,19 [facility] Last Admin: 07/16/18 12:40 Dose: 3 ml Albuterol/Ipratropium (Duoneb 3.0-0.5 Mg/3 Ml) 3 ml NEB Q4HR PRN PRN Reason: Shortness of Breath Last Admin: 07/16/18 04:19 Dose: 3 ml Bisacodyl (Dulcolax) 10 mg RECTAL DAILY PRN PRN Reason: Constipation Digoxin (Lanoxin) 125 mcg PO QAM [facility] Last Admin: 07/13/18 08:42 Dose: 125 mcg Digoxin (Lanoxin) 125 mcg PO DAILY@1800 [facility] Last Admin: 07/15/18 18:09 Dose: 125 mcg Docusate Sodium (Colace) 100 mg PO TID@0800,1200,2000 [facility] Last Admin: 07/16/18 12:42 Dose: 100 mg Fluconazole (Diflucan) 100 mg PO DAILY [facility] Last Admin: 07/16/18 07:34 Dose: 100 mg Folic Acid (Folic Acid) 1 mg PO QAM [facility] Last Admin: 07/16/18 07:34 Dose: 1 mg Furosemide (Lasix) 40 mg PO DAILY@1200 [facility] Last Admin: 07/16/18 12:42 Dose: 40 mg Furosemide (Lasix) 80 mg PO QAM [facility] Last Admin: 07/16/18 07:34 Dose: 80 mg Gabapentin (Neurontin) 100 mg PO BEDTIME [facility] Last Admin: 07/15/18 19:38 Dose: 100 mg Ciprofloxacin/Dextrose 200 mg/ (Premix) 100 mls @ 100 mls/hr IV Q12H [facility] Last Admin: 07/14/18 05:29 Dose: 100 mls/hr Metronidazole 500 mg/ Premix 100 mls @ 100 mls/hr IV Q8H [facility] Last Admin: 07/15/18 14:42 Dose: 100 mls/hr Vancomycin HCl 1 gm/ Sodium (Chloride) 250 mls @ 165 mls/hr IV Q12H [facility] Last Admin: 07/16/18 04:19 Dose: 165 mls/hr Insulin Glargine (Lantus) 14 unit SUBCUT BEDTIME [facility] Last Admin: 07/12/18 19:39 Dose: 14 units Insulin Glargine (Lantus) 16 unit SUBCUT BEDTIME [facility] Last Admin: 07/15/18 19:43 Dose: 16 unit Insulin Human Lispro (Humalog) 6 unit SUBCUT BID@0800,1200 [facility] Last Admin: 07/13/18 12:08 Dose: 6 units Insulin Human Lispro (Humalog) 2 unit SUBCUT ONETIME ONE Stop: 07/13/18 14:31 Last Admin: 07/13/18 14:49 Dose: 2 units Insulin Human Lispro (Humalog) 8 unit SUBCUT BID@0800,1200 [facility] Last Admin: 07/16/18 12:30 Dose: 8 units Iopamidol (Isovue-300 (61%)) 100 ml IVPUSH ONETIME ONE Stop: 07/14/18 16:13 Last Admin: 07/14/18 18:07 Dose: 100 ml Magnesium Hydroxide (Milk Of Magnesia) 30 ml PO Q2D@2000 [facility] Last Admin: 07/14/18 20:22 Dose: Not Given Magnesium Oxide (Magnesium Oxide) 400 mg PO QAM [facility] Last Admin: 07/16/18 07:34 Dose: 400 mg Colestipol [ Colestipol Hcl] 1 Gm Tablets 1 gm PO Q12HR [facility] Last Admin: 07/16/18 07:37 Dose: 1 gm Dabigatran [Pradaxa] (150 Mg Capsule) 150 mg PO Q12HR [facility] Last Admin: 07/16/18 07:39 Dose: 150 mg Pyridostigmine ( Mestinon) 60mg Tablets 60 mg PO Q12HR [facility] Last Admin: 07/16/18 07:38 Dose: 60 mg Polyethylene Glycol (Miralax) 17 gm PO DAILY@0800 [facility] Last Admin: 07/16/18 07:35 Dose: 17 gm Sodium Chloride (Saline Flush) 10 ml FLUSH 08,20 [facility] Last Admin: 07/16/18 07:41 Dose: 10 ml Sodium Chloride (Saline Flush) 10 ml FLUSH ASDIRECTED PRN PRN Reason: Keep IV open Last Admin: 07/16/18 07:42 Dose: 10 ml Tamsulosin HCl (Flomax) 0.4 mg PO BEDTIME [facility] Last Admin: 07/15/18 19:38 Dose: 0.4 mg Thiamine HCl (Vitamin B-1) 100 mg PO QAM [facility] Last Admin: 07/16/18 07:34 Dose: 100 mg Vancomycin HCl (Pharmacy To Dose - Vancomycin) 1 dose .XX ASDIRECTED RUDY Verapamil HCl (Calan Sr) 180 mg PO Q12HR [facility] Last Admin: 07/16/18 07:43 Dose: 180 mg
== END 2018-07-16 12:30 | disposition swing bed (61) | DRG 603 ==
LOC: LL.MS 13:34
PROVIDERS: ADMIT Physician Assistant; ATTEND Family Medicine
DX: L03.116 Cellulitis of left lower limb (principal); A49.01 Methicillin susceptible Staphylococcus aureus infection, unspecified site; I50.9 Heart failure, unspecified; R09.02 Hypoxemia; I48.91 Unspecified atrial fibrillation; J44.9 Chronic obstructive pulmonary disease, unspecified; K02.9 Dental caries, unspecified; E11.311 Type 2 diabetes mellitus with unspecified diabetic retinopathy with macular edema; E78.5 Hyperlipidemia, unspecified; I11.0 Hypertensive heart disease with heart failure; E88.09 Other disorders of plasma-protein metabolism, not elsewhere classified; G70.00 Myasthenia gravis without (acute) exacerbation; M15.0 Primary generalized (osteo)arthritis
CPT/HCPCS: 36415; 36569; 73590-LT; 73620-LT; 73701-LT; 80053; 80162; 80202; 82962; 85025; 86140; 87040; 94640; 97110-GP; 97162-GP; A4217; A9270-GY; C1751; J0744; J1815; J1815-GY; J3370; J3490; J7050; J7620-GY; Q9967

== ENCOUNTER 2018-07-16 12:31 | Inpatient (IN) | payer MEDICARE ==
[~2018-07-16 12:31] MED LIST: Acetaminophen 650 MG Tab.ER PO PRN; Bisacodyl 10 MG Supp RECTAL PRN
[2018-07-16] MEDS: Acetaminophen 650 MG Tab.ER PO SCH (17:17)
[2018-07-16] MEDS: Digoxin 125 MCG Tab PO SCH (17:17)
[2018-07-16] MEDS: Sodium Chloride 0.9% 10 ML Syringe FLUSH PRN (17:17)
[2018-07-16] MEDS: Docusate Sodium 100 MG Cap PO SCH (19:33)
[2018-07-16] MEDS: Albuterol/Ipratropium 3.0-0.5 MG/3 ML Neb Soln INH SCH (19:33)
[2018-07-16] MEDS: Verapamil 180 MG Tab.ER PO SCH (19:33)
[2018-07-16] MEDS: COLESTIPOL 1 GM PO SCH (19:34)
[2018-07-16] MEDS: DABIGATRAN 150 MG PO SCH (19:34)
[2018-07-16] MEDS: Tamsulosin 0.4 MG Cap.ER PO SCH (19:34)
[2018-07-16] MEDS: Acetaminophen/HYDROcodone 325-5 MG Tab PO SCH (19:35)
[2018-07-16] MEDS: Gabapentin 100 MG Cap PO SCH (19:35)
[2018-07-16] MEDS: Sodium Chloride 0.9% 10 ML Syringe FLUSH SCH (19:36)
[2018-07-16] MEDS: PYRIDOSTIGMINE 60 MG PO SCH (19:36)
[2018-07-16] MEDS: Insulin Glarg,Human.Rec.Analog 100 UNIT/ML ML SUBCUT SCH (19:39)
[2018-07-16] MEDS: Magnesium Hydroxide 400 MG/5 ML Susp 30 ML Cup PO SCH (20:50)
--- NOTE | 2018-07-16 23:03 | PCM.HP ---
H&P History of Present Illness - General Date of Service: 07/16/18 Admit Problem/Dx: Admission Diagnosis/Problem Admission Diagnosis/Problem Cellulitis Source of Information: Patient, Old Records History Limitations: Reports: No Limitations - History of Present Illness Location: Reports: Lower Extremity, Left Associated Symptoms: Reports: No Other Symptoms - Related Data Allergies/Adverse Reactions: Allergies Allergy/AdvReac Type Severity Reaction Status Date / Time cephalexin Allergy Itching,sul Verified 07/12/18 13:52 fa sulfamethoxazole Allergy Hives,itchi Verified 07/12/18 13:52 [From Bactrim] ng trimethoprim [From Bactrim] Allergy Hives,itchi Verified 07/12/18 13:52 ng Home Medications: Home Meds Acetaminophen [Tylenol Arthritis Pain] 650 mg PO Q4HR PRN MDD 3 04/14/15 [ History] Albuterol/Ipratropium [DuoNeb 3.0-0.5 MG/3 ML] 3 ml NEB Q4HR PRN 04/14/15 [ History] Cholecalciferol (Vitamin D3) [Vitamin D3] 800 unit PO QAM 04/14/15 [History] Dabigatran [Pradaxa] 150 mg PO Q12HR 04/14/15 [History] Digoxin [Lanoxin] 125 mcg PO QAM 04/14/15 [History] Docusate Sodium [Colace] 100 mg PO TID@0800,1200,199904/14/15 [History] Folic Acid 1 mg PO QAM 04/14/15 [History] Furosemide [Lasix] 80 mg PO QAM 04/14/15 [History] Magnesium Hydroxide [Milk of Magnesia] 30 ml PO Q2D@199904/14/15 [History] Magnesium Oxide 420 mg PO QAM 04/14/15 [History] Multivitamin [Multivitamins] 1 each PO QAM 04/14/15 [History] Pyridostigmine [Mestinon] 60 mg PO Q12HR 04/14/15 [History] Simvastatin [Zocor] 10 mg PO BEDTIME 04/14/15 [History] Tamsulosin [Flomax] 0.4 mg PO BEDTIME 04/14/15 [History] Thiamine Mononitrate [Vitamin B-1] 100 mg PO QAM 04/14/15 [History] Verapamil [Calan SR] 180 mg PO Q12HR 04/14/15 [History] Acetaminophen [Tylenol Arthritis Pain] 650 mg PO BID@1200,1700 05/09/15 [History ] Bisacodyl [Dulcolax] 10 mg RECTAL DAILY PRN 07/10/15 [History] Colestipol [Colestipol HCl] 1 gm PO Q12HR 07/10/15 [History] Furosemide 40 mg PO DAILY@1200 07/10/15 [History] Calcium Carbonate/Vitamin D3 [Calcium 600 + Vit D Tablet] 1 tab PO Q12HR [History] Gabapentin [Neurontin] 100 mg PO BEDTIME 05/10/17 [History] Hydrocodone/Acetaminophen [Hydrocodon-Acetaminophen 5-325] 1 each PO TID@0800, 1200,2000 05/10/17 [History] Insulin Aspart [NovoLOG] 6 unit SUBCUT BID@0800,1200 #60 pen 06/02/17 [Rx] Insulin Detemir [Levemir] 14 unit SUBCUT BEDTIME #30 pen 06/02/17 [Rx] Polyethylene Glycol 3350 [MiraLAX] 17 gm PO DAILY@0800 #30 packet 06/02/17 [Rx] Albuterol/Ipratropium [DuoNeb 3.0-0.5 MG/3 ML] 1 vial INH TID@08,12,19 05/28/18 [History] Past Medical History HEENT History: Reports: Cataract, Impaired Vision, Other (See Below) Other HEENT History: ocular myasthenia gravis; Dysphagia; Presbyopia Cardiovascular History: Reports: Afib, Arrhythmia, Heart Failure, High Cholesterol, Hypertension, Other (See Below) Other Cardiovascular History: Right BBB Respiratory History: Reports: COPD, Other (See Below) Other Respiratory History: benign pulmonary nodule Gastrointestinal History: Reports: Chronic Constipation, Colon Polyp, Hiatal Hernia, Other (See Below) Other Gastrointestinal History: dysphagia Genitourinary History: Reports: BPH, Urinary Incontinence Musculoskeletal History: Reports: Arthritis, Back Pain, Chronic, Neck Pain, Chronic, Osteoarthritis Neurological History: Reports: Neuropathy, Diabetic, Other (See Below) Other Neuro History: ocular myasthenia gravis Psychiatric History: Reports: Addiction, Anxiety, Depression Endocrine/Metabolic History: Reports: Diabetes, Type II, Vitamin D Deficiency, Other (See Below) Other Endocrine/Metabolic History: hypomagnesemia Hematologic History: Reports: Anemia, B12 Deficiency Immunologic History: Reports: None Oncologic (Cancer) History: Reports: None Dermatologic History: Reports: Cellulitis - Infectious Disease History Infectious Disease History: Reports: Other (See Below) Other Infectious Disease History: doesn't remember - Past Surgical History Head Surgeries/Procedures: Reports: None HEENT Surgical History: Reports: Cataract Surgery, Oral Surgery, Other (See Below) Other HEENT Surgeries/Procedures: Placed intraocular lens Musculoskeletal Surgical History: Reports: Other (See Below) - Past Imaging History Past Imaging History: Reports: Ultrasound (soft tissue neck on 04/17/15) Social & Family History - Family History HEENT: Reports: None Cardiac: Reports: Hypertension GI: Reports: Cholelithiasis : Reports: None OBGYN: Reports: None Musculoskeletal: Reports: RA Neurological: Reports: Alzheimers Disease, CVA, Dementia, Migraines, Other (See Below) Other Neurological Family History: no family history of myasthenia gravis Psychiatric: Reports: None Endocrine/Metabolic: Reports: Hypothyroidism Hematologic: Reports: Transfusion Reaction Immunologic: Reports: None Dermatologic: Reports: None Oncologic: Reports: None - Tobacco Use Smoking Status *Q: Unknown Ever Smoked Second Hand Smoke Exposure: No - Caffeine Use Caffeine Use: Reports: Coffee - Recreational Drug Use Recreational Drug Use: No - Living Situation & Occupation Living situation: Reports: , Extended Care Facility Occupation: Retired H&P Review of Systems - Review of Systems: Review Of Systems: See Below General: Reports: Weakness HEENT: Reports: No Symptoms Pulmonary: Reports: No Symptoms Cardiovascular: Reports: No Symptoms Gastrointestinal: Reports: Constipation (chronic) Genitourinary: Reports: Incontinence, Other (prefers condom catheter but some blisters on glans of penis today, nontender) Musculoskeletal: Reports: Leg Pain (LLE) Skin: Reports: Bruising, Erythema, Wound (LLE) Psychiatric: Reports: No Symptoms Neurological: Reports: Difficulty Walking, Weakness Hematologic/Lymphatic: Reports: No Symptoms Immunologic: Reports: No Symptoms Exam - Exam Exam: See Below - Vital Signs Vital Signs: Last Vital Signs Temp 98.7 F 07/16/18 17:00 Pulse 87 07/16/18 17:17 Resp 16 07/16/18 17:00 BP 155/64 H 07/16/18 17:00 Pulse Ox Weight: 255 lb - Exam Quality Assessment: Urinary Catheter (condom catheter) General: Alert, Cooperative HEENT: Hearing Intact, Mucosa Moist & [place] Neck: Trachea Midline Lungs: Normal Respiratory Effort, Decreased Breath Sounds Cardiovascular: Regular Rate, Regular Rhythm GI/Abdominal Exam: Soft, Non-Tender, No Distention (Male) Exam: Other (clear blisters glans of penis, punctate red spots glans, nontender) Rectal (Males) Exam: Deferred Back Exam: Normal Inspection Extremities: Pedal Edema (LLE), Redness (LLE), Other (drainage, clear right upper extremity) Skin: Rash (LLE), Ecchymosis, Wound (LLE) Neuro Extensive - Mental Status: Alert, Normal Mood/Affect, Normal Cognition Neuro Extensive - Motor, Sensory, Reflexes: Other (generalized weakness) Psychiatric: Alert, Normal Affect, Normal Mood - Patient Data Lab Results Last 24 hrs: Laboratory Results - last 24 hr 07/16/18 07/16/18 Range/Units 15:30 17:20 POC Glucose 162 H (65-110) mg/dl Vancomycin Trough 19.0 (10-20) ug/mL - Problem List (1) MSSA (methicillin susceptible Staphylococcus aureus) infection SNOMED Code(s): 296595089 ICD Code: A49.01 - METHICILLIN SUSCEP STAPH INFECTION, UNSP SITE Status: Acute Priority: High Current Visit: No (2) Cellulitis SNOMED Code(s): 421501208 ICD Code: L03.90 - CELLULITIS, UNSPECIFIED Status: Acute Priority: High Current Visit: No Onset Date: 07/12/18 Qualifiers: Site of cellulitis: extremity Site of cellulitis of extremity: lower extremity Laterality: left Qualified Code(s): L03.116 - Cellulitis of left lower limb (3) Laceration of left lower leg SNOMED Code(s): 64879145782207690 ICD Code: S81.812A - LACERATION WITHOUT FOREIGN BODY, LEFT LOWER LEG, INIT ENCNTR Status: Acute Current Visit: No Qualifiers: Encounter type: initial encounter Qualified Code(s): S81.812A - Laceration without foreign body, left lower leg, initial encounter (4) CHF (congestive heart failure) SNOMED Code(s): 01320608 ICD Code: I50.9 - HEART FAILURE, UNSPECIFIED Status: Acute Priority: High Current Visit: No Qualifiers: Heart failure type: unspecified Heart failure chronicity: acute on chronic Qualified Code(s): I50.9 - Heart failure, unspecified (5) Hypoxia SNOMED Code(s): 214653667 ICD Code: R09.02 - HYPOXEMIA Status: Acute Priority: High Current Visit : No (6) Atrial fibrillation SNOMED Code(s): 37664937 ICD Code: I48.91 - UNSPECIFIED ATRIAL FIBRILLATION Status: Chronic Priority: Medium Current Visit: No Problem Details: No chest pain or anginal -type symptoms. Stable heart rhythm in the emergency room Qualifiers: Atrial fibrillation type: chronic Qualified Code(s): I48.2 - Chronic atrial fibrillation (7) COPD (chronic obstructive pulmonary disease) SNOMED Code(s): 05899148 ICD Code: J44.9 - CHRONIC OBSTRUCTIVE PULMONARY DISEASE, UNSPECIFIED Status : Chronic Priority: Medium Current Visit: No Problem Details: No recent cough, bronchitic-type symptoms, etc. Qualifiers: COPD type: unspecified COPD Qualified Code(s): J44.9 - Chronic obstructive pulmonary disease, unspecified (8) Caries SNOMED Code(s): 18835715 ICD Code: K02.9 - DENTAL CARIES, UNSPECIFIED Status: Chronic Priority: High Current Visit: No Onset Date: 07/10/15 Problem Details: CT scan results as above. Referral to oral surgeon strongly recommended (9) Diabetes mellitus SNOMED Code(s): 60387834 ICD Code: E11.9 - TYPE 2 DIABETES MELLITUS WITHOUT COMPLICATIONS Status: Chronic Priority: Medium Current Visit: No Problem Details: Blood sugars somewhat elevated with sliding scale to be initiated during the next 48 hours secondary to the necessity of holding his metformin because of today's CT scans with contrast. His regular provider will be updated as per discharge instructions. 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 (10) Hyperlipidemia SNOMED Code(s): 25916458 ICD Code: E78.5 - HYPERLIPIDEMIA, UNSPECIFIED Status: Chronic Priority: Medium Current Visit: No Problem Details: under medical therapy Qualifiers: Hyperlipidemia type: Mixed hyperlipidemia Qualified Code(s): E78.2 - Mixed hyperlipidemia (11) Hypertension SNOMED Code(s): 00245501 ICD Code: I10 - ESSENTIAL (PRIMARY) HYPERTENSION Status: Chronic Priority : Medium Current Visit: No Problem Details: blood pressure stable in the emergency room Qualifiers: Hypertension type: essential hypertension Qualified Code(s): I10 - Essential (primary) hypertension (12) Hypoalbuminemia SNOMED Code(s): 021806251 ICD Code: 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, NEC Status: Chronic Priority: Medium Current Visit: No Problem Details: consider high- protein Glucerna supplements (13) Hypomagnesemia SNOMED Code(s): 586894144 ICD Code: E83.42 - HYPOMAGNESEMIA Status: Chronic Priority: Medium Current Visit: No Problem Details: magnesium level normal today (14) Myasthenia gravis SNOMED Code(s): 27094431 ICD Code: G70.00 - MYASTHENIA GRAVIS WITHOUT (ACUTE) EXACERBATION Status: Chronic Priority: Medium Current Visit: No Problem Details: stable by history (15) Osteoarthritis SNOMED Code(s): 747350660 ICD Code: M19.90 - UNSPECIFIED OSTEOARTHRITIS, UNSPECIFIED SITE Status: Chronic Priority: Medium Current Visit: No Problem Details: stable by history Qualifiers: Osteoarthritis location: multiple joints Osteoarthritis type: primary Qualified Code(s): M15.0 - Primary generalized (osteo)arthritis (16) Fracture of metatarsal of left foot, closed SNOMED Code(s): 98105656751282481 ICD Code: S92.302A - FRACTURE OF UNSP METATARSAL BONE(S), LEFT FOOT, INIT Status: Acute Priority: High Current Visit: Yes Qualifiers: Encounter type: sequela Metatarsal bone: third Fracture alignment: nondisplaced Qualified Code(s): S92.335S - Nondisplaced fracture of third metatarsal bone, left foot, sequela Problem List Initiated/Reviewed/Updated: Yes Orders Last 24hrs: Active Orders 24 hr Category Date Time Status Patient Status [ADT] Routine ADT 07/16/18 12:20 Active Accu Check [Blood Glucose Check, Bedside] [RC] TIDMEALS Care 07/16/18 12:20 Active Dressing Change [Wound Care] [RC] 08,20 Care 07/16/18 12:20 Active Height and Weight [RC] Sa@08 Care 07/16/18 12:20 Active May Shower [RC] ASDIRECTED Care 07/16/18 12:20 Active Oxygen Therapy [RC] 2300 Care 07/16/18 12:20 Active RT Aerosol Therapy [RC] ASDIRECTED Care 07/16/18 12:20 Active Up With Assistance [RC] ASDIRECTED Care 07/16/18 12:20 Active Urinary Catheter Assessment [RC] ASDIRECTED Care 07/16/18 12:20 Active Vital Signs [RC] BID Care 07/16/18 12:20 Active Consult to Case Management/Cafeteria Operator [CONS] Cons 07/16/18 12:20 Active Routine Consult to Physical Therapy [PT Evaluation and Cons 07/16/18 12:20 Active Treatment] [CONS] Routine OT Evaluation and Treatment [CONS] Routine Cons 07/16/18 12:20 Active [employer] Diet [DIET] Diet 07/16/18 Dinner Active VANCOMYCIN TROUGH [CHEM] Routine Lab 07/18/18 04:30 Ordered Acetaminophen [Tylenol Arthritis Pain] Med 07/16/18 17:00 Active 650 mg PO BID@1200,1700 Acetaminophen [Tylenol Arthritis Pain] Med 07/16/18 12:20 Active 650 mg PO Q4HR PRN Acetaminophen/HYDROcodone [Lacey 325-5 MG] Med 07/16/18 20:00 Active 1 tab PO TID@0800,1200,2000 Albuterol/Ipratropium [DuoNeb 3.0-0.5 MG/3 ML] Med 07/16/18 19:00 Active 3 ml INH TID@08,12,19 Albuterol/Ipratropium [DuoNeb 3.0-0.5 MG/3 ML] Med 07/16/18 12:20 Active 3 ml NEB Q4HR PRN Bisacodyl [Dulcolax] Med 07/16/18 12:20 Active 10 mg RECTAL DAILY PRN Colestipol [Colestipol HCl] Med 07/16/18 20:00 Active 1 gm PO Q12HR Dabigatran [Pradaxa] Med 07/16/18 20:00 Active 150 mg PO Q12HR Digoxin [Lanoxin] Med 07/16/18 18:00 Active 125 mcg PO DAILY@1800 Docusate Sodium [Colace] Med 07/16/18 20:00 Active 100 mg PO TID@0800,1200,2000 Fluconazole [Diflucan] Med 07/17/18 08:00 Active 100 mg PO DAILY Folic Acid Med 07/17/18 08:00 Active 1 mg PO QAM Furosemide [Lasix] Med 07/17/18 12:00 Active 40 mg PO DAILY@1200 Furosemide [Lasix] Med 07/17/18 08:00 Active 80 mg PO QAM Gabapentin [Neurontin] Med 07/16/18 20:00 Active 100 mg PO BEDTIME Insulin Glarg,Human.Rec.Analog [LantUS] Med 07/16/18 20:00 Active 16 unit SUBCUT BEDTIME Insulin Lispro [HumaLOG] Med 07/17/18 08:00 Active 8 unit SUBCUT BID@0800,1200 Magnesium Hydroxide [Milk of Magnesia] Med 07/16/18 20:00 Active 30 ml PO Q2D@2000 Magnesium Oxide Med 07/17/18 08:00 Active 400 mg PO QAM Pharmacy to Dose - Vancomycin Med 07/16/18 12:20 Pending 1 dose .XX ASDIRECTED Polyethylene Glycol 3350 [MiraLAX] Med 07/17/18 08:00 Active 17 gm PO DAILY@0800 Pyridostigmine Med 07/16/18 20:00 Active 60 mg PO Q12HR Sodium Chloride 0.9% [Saline Flush] Med 07/16/18 20:00 Active 10 ml FLUSH 08,20 Sodium Chloride 0.9% [Saline Flush] Med 07/16/18 12:20 Active 10 ml FLUSH ASDIRECTED PRN Tamsulosin [Flomax] Med 07/16/18 20:00 Active 0.4 mg PO BEDTIME Thiamine [Vitamin B-1] Med 07/17/18 08:00 Active 100 mg PO QAM Vancomycin 750 mg Med 07/16/18 17:00 Active Sodium Chloride 0.9% [Normal Saline] 100 ml IV Q12H Verapamil [Calan SR] Med 07/16/18 20:00 Active 180 mg PO Q12HR Resuscitation Status Routine Resus Stat 07/16/18 12:23 Ordered Medication Orders Acetaminophen (Tylenol Arthritis Pain) 650 mg PO BID@1200,1700 RUDY Last Admin: 07/16/18 17:17 Dose: 650 mg Acetaminophen (Tylenol Arthritis Pain) 650 mg PO Q4HR PRN PRN Reason: Pain Hydrocodone Bitart/Acetaminophen (Lacey 325-5 Mg) 1 tab PO TID@0800,1200,1999 COUNTS INCLUDE 234 BEDS AT THE [facility] Last Admin: 07/16/18 19:35 Dose: 1 tab Albuterol/Ipratropium (Duoneb 3.0-0.5 Mg/3 Ml) 3 ml INH TID@08,12,19 COUNTS INCLUDE 234 BEDS AT THE [facility] Last Admin: 07/16/18 19:33 Dose: 3 ml Albuterol/Ipratropium (Duoneb 3.0-0.5 Mg/3 Ml) 3 ml NEB Q4HR PRN PRN Reason: Shortness of Breath Bisacodyl (Dulcolax) 10 mg RECTAL DAILY PRN PRN Reason: Constipation Digoxin (Lanoxin) 125 mcg PO DAILY@1800 COUNTS INCLUDE 234 BEDS AT THE [facility] Last Admin: 07/16/18 17:17 Dose: 125 mcg Docusate Sodium (Colace) 100 mg PO TID@0800,1200,1999 COUNTS INCLUDE 234 BEDS AT THE [facility] Last Admin: 07/16/18 19:33 Dose: 100 mg Fluconazole (Diflucan) 100 mg PO DAILY COUNTS INCLUDE 234 BEDS AT THE [facility] Folic Acid (Folic Acid) 1 mg PO QAM COUNTS INCLUDE 234 BEDS AT THE [facility] Furosemide (Lasix) 40 mg PO DAILY@1200 COUNTS INCLUDE 234 BEDS AT THE [facility] Furosemide (Lasix) 80 mg PO QAM COUNTS INCLUDE 234 BEDS AT THE [facility] Gabapentin (Neurontin) 100 mg PO BEDTIME COUNTS INCLUDE 234 BEDS AT THE [facility] Last Admin: 07/16/18 19:35 Dose: 100 mg Vancomycin HCl 750 mg/ Sodium (Chloride) 100 mls @ 100 mls/hr IV Q12H COUNTS INCLUDE 234 BEDS AT THE [facility] Last Admin: 07/16/18 17:13 Dose: 100 mls/hr Insulin Glargine (Lantus) 16 unit SUBCUT BEDTIME COUNTS INCLUDE 234 BEDS AT THE [facility] Last Admin: 07/16/18 19:39 Dose: 16 units Insulin Human Lispro (Humalog) 8 unit SUBCUT BID@0800,1200 COUNTS INCLUDE 234 BEDS AT THE [facility] Magnesium Hydroxide (Milk Of Magnesia) 30 ml PO Q2D@1999 COUNTS INCLUDE 234 BEDS AT THE [facility] Last Admin: 07/16/18 20:50 Dose: Magnesium Oxide (Magnesium Oxide) 400 mg PO QAM COUNTS INCLUDE 234 BEDS AT THE [facility] Non-Formulary ( Colestipol [ Colestipol Hcl] 1 Gm ) 1 gm PO Q12HR COUNTS INCLUDE 234 BEDS AT THE [facility] Last Admin: 07/16/18 19:34 Dose: 1 gm Non-Formulary ( Dabigatran [Pradaxa] 150 Mg) 150 mg PO Q12HR COUNTS INCLUDE 234 BEDS AT THE [facility] Last Admin: 07/16/18 19:34 Dose: 150 mg Non-Formulary ( Pyridostigmine 60 Mg ) 60 mg PO Q12HR COUNTS INCLUDE 234 BEDS AT THE [facility] Last Admin: 07/16/18 19:36 Dose: 60 mg Polyethylene Glycol (Miralax) 17 gm PO DAILY@0800 COUNTS INCLUDE 234 BEDS AT THE [facility] Sodium Chloride (Saline Flush) 10 ml FLUSH 08,20 COUNTS INCLUDE 234 BEDS AT THE [facility] Last Admin: 07/16/18 19:36 Dose: 10 ml Sodium Chloride (Saline Flush) 10 ml FLUSH ASDIRECTED PRN PRN Reason: Keep IV open Last Admin: 07/16/18 17:17 Dose: 10 ml Tamsulosin HCl (Flomax) 0.4 mg PO BEDTIME COUNTS INCLUDE 234 BEDS AT THE [facility] Last Admin: 07/16/18 19:34 Dose: 0.4 mg Thiamine HCl (Vitamin B-1) 100 mg PO QAM COUNTS INCLUDE 234 BEDS AT THE [facility] Vancomycin HCl (Pharmacy To Dose - Vancomycin) 1 dose .XX ASDIRECTED COUNTS INCLUDE 234 BEDS AT THE [facility] Verapamil HCl (Calan Sr) 180 mg PO Q12HR COUNTS INCLUDE 234 BEDS AT THE [facility] Last Admin: 07/16/18 19:33 Dose: 180 mg Assessment/Plan Comment:: 07/16/18 Joe Curran MD Hospitalized for significant cellulitis LLE, culture +MSSA on IV vancomycin. Leg is improving but he needs continued IV vancomycin and PT-OT for generalized weakness. Stable for transfer into swing bed status.
[2018-07-17] MEDS: Sodium Chloride 0.9% 10 ML Syringe FLUSH PRN (04:58)
[2018-07-17] MEDS: Verapamil 180 MG Tab.ER PO SCH ×2 (07:57→19:01)
[2018-07-17] MEDS: DABIGATRAN 150 MG PO SCH ×2 (07:58→19:02)
[2018-07-17] MEDS: Docusate Sodium 100 MG Cap PO SCH ×3 (07:58→19:03)
[2018-07-17] MEDS: COLESTIPOL 1 GM PO SCH ×2 (07:58→19:03)
[2018-07-17] MEDS: Fluconazole 100 MG Tab PO SCH (07:59)
[2018-07-17] MEDS: Insulin Lispro 100 Units/ML 3 ML Vial SUBCUT SCH ×2 (07:59→11:36)
[2018-07-17] MEDS: Albuterol/Ipratropium 3.0-0.5 MG/3 ML Neb Soln INH SCH ×3 (07:59→19:01)
[2018-07-17] MEDS: Folic Acid 1 MG Tab PO SCH (07:59)
[2018-07-17] MEDS: Furosemide 40 MG Tab PO SCH ×2 (08:00→11:36)
[2018-07-17] MEDS: Magnesium Oxide 400 MG Tab PO SCH (08:00)
[2018-07-17] MEDS: Thiamine 100 MG Tab PO SCH (08:00)
[2018-07-17] MEDS: PYRIDOSTIGMINE 60 MG PO SCH ×2 (08:01→19:03)
[2018-07-17] MEDS: Sodium Chloride 0.9% 10 ML Syringe FLUSH SCH ×2 (08:01→19:10)
[2018-07-17] MEDS: Polyethylene Glycol 3350 Powder 17 GM Packet PO SCH (08:06)
[2018-07-17] MEDS: Acetaminophen/HYDROcodone 325-5 MG Tab PO SCH ×3 (08:06→19:01)
[2018-07-17] MEDS: Acetaminophen 650 MG Tab.ER PO SCH ×2 (11:40→17:07)
[2018-07-17] MEDS: Digoxin 125 MCG Tab PO SCH (17:07)
[2018-07-17] MEDS: Gabapentin 100 MG Cap PO SCH (19:01)
[2018-07-17] MEDS: Tamsulosin 0.4 MG Cap.ER PO SCH (19:01)
[2018-07-17] MEDS: Insulin Glarg,Human.Rec.Analog 100 UNIT/ML ML SUBCUT SCH (19:04)
[2018-07-18] MEDS: Albuterol/Ipratropium 3.0-0.5 MG/3 ML Neb Soln NEB PRN ×2 (01:23→16:42)
[2018-07-18 05:27] LABS: CHLORIDE,CL 101 mmol/L (98-107); SODIUM,NA 137 mmol/L (136-145)
[2018-07-18] MEDS: Sodium Chloride 0.9% 10 ML Syringe FLUSH PRN ×2 (05:59→16:42)
[2018-07-18] MEDS: Verapamil 180 MG Tab.ER PO SCH ×2 (08:18→19:47)
[2018-07-18] MEDS: COLESTIPOL 1 GM PO SCH ×2 (08:19→19:46)
[2018-07-18] MEDS: Docusate Sodium 100 MG Cap PO SCH ×3 (08:19→19:47)
[2018-07-18] MEDS: Fluconazole 100 MG Tab PO SCH (08:20)
[2018-07-18] MEDS: DABIGATRAN 150 MG PO SCH ×2 (08:20→19:46)
[2018-07-18] MEDS: Folic Acid 1 MG Tab PO SCH (08:21)
[2018-07-18] MEDS: Albuterol/Ipratropium 3.0-0.5 MG/3 ML Neb Soln INH SCH ×3 (08:21→19:45)
[2018-07-18] MEDS: Insulin Lispro 100 Units/ML 3 ML Vial SUBCUT SCH ×2 (08:22→11:26)
[2018-07-18] MEDS: Furosemide 40 MG Tab PO SCH ×2 (08:23→11:20)
[2018-07-18] MEDS: Magnesium Oxide 400 MG Tab PO SCH (08:23)
[2018-07-18] MEDS: Polyethylene Glycol 3350 Powder 17 GM Packet PO SCH ×2 (08:24→08:30)
[2018-07-18] MEDS: Acetaminophen/HYDROcodone 325-5 MG Tab PO SCH ×3 (08:24→19:47)
[2018-07-18] MEDS: PYRIDOSTIGMINE 60 MG PO SCH ×2 (08:24→19:46)
[2018-07-18] MEDS: Sodium Chloride 0.9% 10 ML Syringe FLUSH SCH ×2 (08:25→19:51)
[2018-07-18] MEDS: Thiamine 100 MG Tab PO SCH (08:25)
[2018-07-18] MEDS: Acetaminophen 650 MG Tab.ER PO SCH ×2 (11:20→16:41)
[2018-07-18] MEDS: Digoxin 125 MCG Tab PO SCH (17:00)
[2018-07-18] MEDS: Tamsulosin 0.4 MG Cap.ER PO SCH (19:46)
[2018-07-18] MEDS: Gabapentin 100 MG Cap PO SCH (19:46)
[2018-07-18] MEDS: Insulin Glarg,Human.Rec.Analog 100 UNIT/ML ML SUBCUT SCH (19:47)
[2018-07-18] MEDS: Magnesium Hydroxide 400 MG/5 ML Susp 30 ML Cup PO SCH (19:49)
--- NOTE | 2018-07-18 23:13 | PCM.PN ---
- General Info Date of Service: 07/18/18 Functional Status: Reports: Pain Controlled - Review of Systems General: Reports: Weakness HEENT: Reports: No Symptoms Pulmonary: Reports: No Symptoms Cardiovascular: Reports: No Symptoms Gastrointestinal: Reports: Constipation (chronic) Genitourinary: Reports: Incontinence Musculoskeletal: Reports: Leg Pain (left) Skin: Reports: Rash (LLE improving) Neurological: Reports: Weakness Psychiatric: Reports: No Symptoms - Patient Data Vitals - Most Recent: Last Vital Signs Temp 98.8 F 07/18/18 19:31 Pulse 73 07/18/18 19:31 Resp 17 07/18/18 19:31 BP 138/58 L 07/18/18 19:31 Pulse Ox 91 L 07/18/18 19:31 Weight - Most Recent: 254 lb 15.998 oz I&O - Last 24 Hours: Intake & Output 07/18/18 07/18/18 07/19/18 14:59 22:59 06:59 Intake Total 810 450 Output Total 1725 75 Balance -915 375 Lab Results Last 24 Hours: Laboratory Results - last 24 hr 07/18/18 07/18/18 07/18/18 Range/Units 05:05 05:05 07:12 WBC 9.2 (4.0-10.2) K/uL RBC 4.32 L (4.33-5.41) M/uL Hgb 10.6 L (13.1-16.8) g/dL Hct 34.8 L (39.0-49.0) % MCV 80.6 L D (84.0-98.0) fL MCH 24.5 L (28.2-33.3) pg MCHC 30.5 L (31.7-36.0) g/dL RDW 18.2 H (11.2-14.1) % Plt Count 213 (150-350) K/uL Neut % (Auto) 70.8 (45.0-80.0) % Lymph % (Auto) 13.9 (10.0-50.0) % Steele % (Auto) 10.5 (2.0-14.0) % Eos % (Auto) 4.3 (0.0-5.0) % Baso % (Auto) 0.5 (0.0-2.0) % Neut # (Auto) 6.53 (1.40-7.00) K/uL Lymph # (Auto) 1.28 (0.50-3.50) K/uL Steele # (Auto) 0.97 (0.00-1.00) K/uL Eos # (Auto) 0.40 (0.00-0.50) K/uL Baso # (Auto) 0.05 (0.00-0.20) K/uL Sodium 137 (136-145) mmol/L Potassium 4.3 (3.5-5.1) mmol/L Chloride 101 (98-107) mmol/L Carbon Dioxide 32.3 H (21.0-32.0) mmol/L BUN 15 (7-18) mg/dL Creatinine 0.72 (0.51-1.17) mg/dL Est Cr Clr Drug Dosing 82.33 mL/min Estimated GFR (MDRD) > 60 mL/min Glucose 155 H (74-106) mg/dL POC Glucose 157 H (65-110) mg/dl Calcium 8.4 L (8.5-10.1) mg/dL Total Bilirubin 0.5 (0.2-1.0) mg/dL AST 35 (15-37) U/L ALT 18 (12-78) U/L Alkaline Phosphatase 85 (46-116) IU/L C-Reactive Protein 4.0 H (<=0.9) mg/dL Total Protein 6.3 L (6.4-8.2) g/dL Albumin 2.0 L (3.4-5.0) g/dL Vancomycin Trough 15.7 (10-20) ug/mL 07/18/18 07/18/18 Range/Units 11:26 16:40 WBC (4.0-10.2) K/uL RBC (4.33-5.41) M/uL Hgb (13.1-16.8) g/dL Hct (39.0-49.0) % MCV (84.0-98.0) fL MCH (28.2-33.3) pg MCHC (31.7-36.0) g/dL RDW (11.2-14.1) % Plt Count (150-350) K/uL Neut % (Auto) (45.0-80.0) % Lymph % (Auto) (10.0-50.0) % Steele % (Auto) (2.0-14.0) % Eos % (Auto) (0.0-5.0) % Baso % (Auto) (0.0-2.0) % Neut # (Auto) (1.40-7.00) K/uL Lymph # (Auto) (0.50-3.50) K/uL Steele # (Auto) (0.00-1.00) K/uL Eos # (Auto) (0.00-0.50) K/uL Baso # (Auto) (0.00-0.20) K/uL Sodium (136-145) mmol/L Potassium (3.5-5.1) mmol/L Chloride (98-107) mmol/L Carbon Dioxide (21.0-32.0) mmol/L BUN (7-18) mg/dL Creatinine (0.51-1.17) mg/dL Est Cr Clr Drug Dosing mL/min Estimated GFR (MDRD) mL/min Glucose (74-106) mg/dL POC Glucose 222 H 194 H (65-110) mg/dl Calcium (8.5-10.1) mg/dL Total Bilirubin (0.2-1.0) mg/dL AST (15-37) U/L ALT (12-78) U/L Alkaline Phosphatase (46-116) IU/L C-Reactive Protein (<=0.9) mg/dL Total Protein (6.4-8.2) g/dL Albumin (3.4-5.0) g/dL Vancomycin Trough (10-20) ug/mL Med Orders - Current: Current Medications Acetaminophen (Tylenol Arthritis Pain) 650 mg PO BID@1200,1700 [facility] Last Admin: 07/18/18 16:41 Dose: 650 mg Acetaminophen (Tylenol Arthritis Pain) 650 mg PO Q4HR PRN PRN Reason: Pain Hydrocodone Bitart/Acetaminophen (Huger 325-5 Mg) 1 tab PO TID@0800,1200,2000 [facility] Last Admin: 07/18/18 19:47 Dose: 1 tab Albuterol/Ipratropium (Duoneb 3.0-0.5 Mg/3 Ml) 3 ml INH TID@08,12,19 [facility] Last Admin: 07/18/18 19:45 Dose: 3 ml Albuterol/Ipratropium (Duoneb 3.0-0.5 Mg/3 Ml) 3 ml NEB Q4HR PRN PRN Reason: Shortness of Breath Last Admin: 07/18/18 16:42 Dose: 3 ml Bisacodyl (Dulcolax) 10 mg RECTAL DAILY PRN PRN Reason: Constipation Digoxin (Lanoxin) 125 mcg PO DAILY@1800 [facility] Last Admin: 07/18/18 17:00 Dose: 125 mcg Docusate Sodium (Colace) 100 mg PO TID@0800,1200,1999 [facility] Last Admin: 07/18/18 19:47 Dose: 100 mg Fluconazole (Diflucan) 100 mg PO DAILY [facility] Last Admin: 07/18/18 08:20 Dose: 100 mg Folic Acid (Folic Acid) 1 mg PO QAM [facility] Last Admin: 07/18/18 08:21 Dose: 1 mg Furosemide (Lasix) 40 mg PO DAILY@1200 [facility] Last Admin: 07/18/18 11:20 Dose: 40 mg Furosemide (Lasix) 80 mg PO QAM [facility] Last Admin: 07/18/18 08:23 Dose: 80 mg Gabapentin (Neurontin) 100 mg PO BEDTIME [facility] Last Admin: 07/18/18 19:46 Dose: 100 mg Vancomycin HCl 0.75 gm/ Sodium (Chloride) 250 mls @ 215 mls/hr IV Q12H [facility] Stop: 07/22/18 06:31 Last Admin: 07/18/18 16:42 Dose: 215 mls/hr Insulin Glargine (Lantus) 16 unit SUBCUT BEDTIME [facility] Last Admin: 07/18/18 19:47 Dose: 16 units Insulin Human Lispro (Humalog) 8 unit SUBCUT BID@0800,1200 [facility] Last Admin: 07/18/18 11:26 Dose: 8 units Magnesium Hydroxide (Milk Of Magnesia) 30 ml PO Q2D@1999 [facility] Last Admin: 07/18/18 19:49 Dose: Not Given Magnesium Oxide (Magnesium Oxide) 400 mg PO QAM [facility] Last Admin: 07/18/18 08:23 Dose: 400 mg Non-Formulary ( Colestipol [ Colestipol Hcl] 1 Gm ) 1 gm PO Q12HR [facility] Last Admin: 07/18/18 19:46 Dose: 1 gm Non-Formulary ( Dabigatran [Pradaxa] 150 Mg) 150 mg PO Q12HR [facility] Last Admin: 07/18/18 19:46 Dose: 150 mg Non-Formulary ( Pyridostigmine 60 Mg ) 60 mg PO Q12HR [facility] Last Admin: 07/18/18 19:46 Dose: 60 mg Polyethylene Glycol (Miralax) 17 gm PO DAILY@0800 [facility] Last Admin: 07/18/18 08:30 Dose: Not Given Sodium Chloride (Saline Flush) 10 ml FLUSH 08,20 [facility] Last Admin: 07/18/18 19:51 Dose: 10 ml Sodium Chloride (Saline Flush) 10 ml FLUSH ASDIRECTED PRN PRN Reason: Keep IV open Last Admin: 07/18/18 16:42 Dose: 10 ml Tamsulosin HCl (Flomax) 0.4 mg PO BEDTIME [facility] Last Admin: 07/18/18 19:46 Dose: 0.4 mg Thiamine HCl (Vitamin B-1) 100 mg PO QAM [facility] Last Admin: 07/18/18 08:25 Dose: 100 mg Vancomycin HCl (Pharmacy To Dose - Vancomycin) 1 dose .XX ASDIRECTED [facility] Verapamil HCl (Calan Sr) 180 mg PO Q12HR [facility] Last Admin: 07/18/18 19:47 Dose: 180 mg Discontinued Medications Vancomycin HCl 750 mg/ Sodium (Chloride) 100 mls @ 100 mls/hr IV Q12H [facility] Last Admin: 07/17/18 04:55 Dose: 100 mls/hr Vancomycin HCl 750 mg/ Sodium (Chloride) 250 mls @ 165 mls/hr IV Q12H [facility] Stop: 07/22/18 06:31 Last Admin: 07/18/18 05:56 Dose: 165 mls/hr - Exam Quality Assessment: Urine Catheter (condom catheter) General: Alert, Cooperative, No Acute Distress HEENT: Mucous Membr. Moist/Leming Neck: Trachea Midline, No JVD Lungs: Normal Respiratory Effort, Decreased Breath Sounds Cardiovascular: Regular Rate, Regular Rhythm GI/Abdominal Exam: Soft, Non-Tender, No Distention (Male) Exam: Deferred Back Exam: Normal Inspection Extremities: Non-Tender, Pedal Edema (LLE markedly decreased) Skin: Rash (LLE) Wound/Incisions: Drainage (decreasing), Erythema Improving Neurological: No New Focal Deficit Psy/Mental Status: Alert, Normal Affect, Normal Mood - Problem List & Annotations (1) MSSA (methicillin susceptible Staphylococcus aureus) infection SNOMED Code(s): 329912787 Code(s): A49.01 - METHICILLIN SUSCEP STAPH INFECTION, UNSP SITE Status: Acute Priority: High Current Visit: No (2) Cellulitis SNOMED Code(s): 781704538 Code(s): L03.90 - CELLULITIS, UNSPECIFIED Status: Acute Priority: High Current Visit: No Onset Date: 07/12/18 Qualifiers: Site of cellulitis: extremity Site of cellulitis of extremity: lower extremity Laterality: left Qualified Code(s): L03.116 - Cellulitis of left lower limb (3) Laceration of left lower leg SNOMED Code(s): 23371232494791372 Code(s): S81.812A - LACERATION WITHOUT FOREIGN BODY, LEFT LOWER LEG, INIT ENCNTR Status: Acute Current Visit: No Qualifiers: Encounter type: initial encounter Qualified Code(s): S81.812A - Laceration without foreign body, left lower leg, initial encounter (4) CHF (congestive heart failure) SNOMED Code(s): 72386773 Code(s): I50.9 - HEART FAILURE, UNSPECIFIED Status: Acute Priority: High Current Visit: No Qualifiers: Heart failure type: unspecified Heart failure chronicity: acute on chronic Qualified Code(s): I50.9 - Heart failure, unspecified (5) Hypoxia SNOMED Code(s): 974933080 Code(s): R09.02 - HYPOXEMIA Status: Acute Priority: High Current Visit : No (6) Atrial fibrillation SNOMED Code(s): 22212681 Code(s): I48.91 - UNSPECIFIED ATRIAL FIBRILLATION Status: Chronic Priority: Medium Current Visit: No Qualifiers: Atrial fibrillation type: chronic Qualified Code(s): I48.2 - Chronic atrial fibrillation Annotation/Comment:: No chest pain or anginal-type symptoms. Stable heart rhythm in the emergency room (7) COPD (chronic obstructive pulmonary disease) SNOMED Code(s): 53541961 Code(s): J44.9 - CHRONIC OBSTRUCTIVE PULMONARY DISEASE, UNSPECIFIED Status : Chronic Priority: Medium Current Visit: No Qualifiers: COPD type: unspecified COPD Qualified Code(s): J44.9 - Chronic obstructive pulmonary disease, unspecified Annotation/Comment:: No recent cough, bronchitic-type symptoms, etc. (8) Caries SNOMED Code(s): 87318804 Code(s): K02.9 - DENTAL CARIES, UNSPECIFIED Status: Chronic Priority: High Current Visit: No Onset Date: 07/10/15 Annotation/Comment:: CT scan results as above. 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 His regular provider will be updated as per discharge instructions. Hyperglycemia likely elated to his poor dental hygiene and also current infection with referral to oral surgeon recommended (10) Hyperlipidemia SNOMED Code(s): 26528492 Code(s): E78.5 - HYPERLIPIDEMIA, UNSPECIFIED Status: Chronic Priority: Medium Current Visit: No Qualifiers: Hyperlipidemia type: Mixed hyperlipidemia Qualified Code(s): E78.2 - Mixed hyperlipidemia Annotation/Comment:: under medical therapy (11) Hypertension SNOMED Code(s): 27616010 Code(s): I10 - ESSENTIAL (PRIMARY) HYPERTENSION Status: Chronic Priority : Medium Current Visit: No Qualifiers: Hypertension type: essential hypertension Qualified Code(s): I10 - Essential (primary) hypertension Annotation/Comment:: blood pressure stable in the emergency room (12) Hypoalbuminemia SNOMED Code(s): 941382710 Code(s): 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, NEC Status: Chronic Priority: Medium Current Visit: No Annotation/Comment:: consider high-protein Glucerna supplements (13) Hypomagnesemia SNOMED Code(s): 611761479 Code(s): E83.42 - HYPOMAGNESEMIA Status: Chronic Priority: Medium Current Visit: No Annotation/Comment:: magnesium level normal today (14) Myasthenia gravis SNOMED Code(s): 15479324 Code(s): G70.00 - MYASTHENIA GRAVIS WITHOUT (ACUTE) EXACERBATION Status: Chronic Priority: Medium Current Visit: No Annotation/Comment:: stable by history (15) Osteoarthritis SNOMED Code(s): 801050999 Code(s): M19.90 - UNSPECIFIED OSTEOARTHRITIS, UNSPECIFIED SITE Status: Chronic Priority: Medium Current Visit: No Qualifiers: Osteoarthritis location: multiple joints Osteoarthritis type: primary Qualified Code(s): M15.0 - Primary generalized (osteo)arthritis Annotation/Comment:: stable by history (16) Fracture of metatarsal of left foot, closed SNOMED Code(s): 73040318163589610 Code(s): S92.302A - FRACTURE OF UNSP METATARSAL BONE(S), LEFT FOOT, INIT Status: Acute Priority: High Current Visit: Yes Qualifiers: Encounter type: sequela Metatarsal bone: third Fracture alignment: nondisplaced Qualified Code(s): S92.335S - Nondisplaced fracture of third metatarsal bone, left foot, sequela - Problem List Review Problem List Initiated/Reviewed/Updated: Yes - My Orders Last 24 Hours: My Active Orders 07/18/18 17:00 Vancomycin 0.75 gm Sodium Chloride 0.9% [Normal Saline] 250 ml IV Q12H - Plan Plan:: 07/16/18 Joe Curran MD Hospitalized for significant cellulitis LLE, culture +MSSA on IV vancomycin. Leg is improving but he needs continued IV vancomycin and PT-OT for generalized weakness. Stable for transfer into swing bed status. 07/18/18 Joe Curran MD Leg is starting to improve with decrease redness and decrease edema. Continue IV vancomycin and PT-OT.
[2018-07-19] MEDS: Albuterol/Ipratropium 3.0-0.5 MG/3 ML Neb Soln NEB PRN ×2 (03:56→17:25)
[2018-07-19] MEDS: Sodium Chloride 0.9% 10 ML Syringe FLUSH PRN ×2 (04:00→17:22)
[2018-07-19] MEDS: Polyethylene Glycol 3350 Powder 17 GM Packet PO SCH (07:55)
[2018-07-19] MEDS: Docusate Sodium 100 MG Cap PO SCH ×3 (07:56→19:20)
[2018-07-19] MEDS: Folic Acid 1 MG Tab PO SCH (07:56)
[2018-07-19] MEDS: Fluconazole 100 MG Tab PO SCH (07:56)
[2018-07-19] MEDS: Verapamil 180 MG Tab.ER PO SCH ×2 (07:56→19:20)
[2018-07-19] MEDS: Albuterol/Ipratropium 3.0-0.5 MG/3 ML Neb Soln INH SCH ×3 (07:56→19:23)
[2018-07-19] MEDS: Magnesium Oxide 400 MG Tab PO SCH (07:57)
[2018-07-19] MEDS: Furosemide 40 MG Tab PO SCH ×2 (07:57→11:04)
[2018-07-19] MEDS: Thiamine 100 MG Tab PO SCH (07:57)
[2018-07-19] MEDS: Acetaminophen/HYDROcodone 325-5 MG Tab PO SCH ×3 (07:57→19:21)
[2018-07-19] MEDS: PYRIDOSTIGMINE 60 MG PO SCH ×2 (07:58→19:21)
[2018-07-19] MEDS: COLESTIPOL 1 GM PO SCH ×2 (07:58→19:22)
[2018-07-19] MEDS: DABIGATRAN 150 MG PO SCH ×2 (07:58→19:22)
[2018-07-19] MEDS: Insulin Lispro 100 Units/ML 3 ML Vial SUBCUT SCH ×2 (07:59→11:04)
[2018-07-19] MEDS: Sodium Chloride 0.9% 10 ML Syringe FLUSH SCH ×2 (07:59→19:23)
[2018-07-19] MEDS: Acetaminophen 650 MG Tab.ER PO SCH ×2 (11:03→17:22)
[2018-07-19] MEDS: Digoxin 125 MCG Tab PO SCH (17:22)
[2018-07-19] MEDS: Tamsulosin 0.4 MG Cap.ER PO SCH (19:20)
[2018-07-19] MEDS: Gabapentin 100 MG Cap PO SCH (19:21)
[2018-07-19] MEDS: Insulin Glarg,Human.Rec.Analog 100 UNIT/ML ML SUBCUT SCH (19:23)
[2018-07-20] MEDS: Albuterol/Ipratropium 3.0-0.5 MG/3 ML Neb Soln NEB PRN ×2 (03:05→16:49)
[2018-07-20] MEDS: Sodium Chloride 0.9% 10 ML Syringe FLUSH PRN ×3 (04:23→17:45)
[2018-07-20] MEDS: Sodium Chloride 0.9% 10 ML Syringe FLUSH SCH ×2 (08:48→19:29)
[2018-07-20] MEDS: Acetaminophen/HYDROcodone 325-5 MG Tab PO SCH ×3 (08:49→19:27)
[2018-07-20] MEDS: Folic Acid 1 MG Tab PO SCH (08:49)
[2018-07-20] MEDS: Docusate Sodium 100 MG Cap PO SCH ×3 (08:49→19:27)
[2018-07-20] MEDS: Magnesium Oxide 400 MG Tab PO SCH (08:49)
[2018-07-20] MEDS: Verapamil 180 MG Tab.ER PO SCH ×2 (08:50→19:27)
[2018-07-20] MEDS: Furosemide 40 MG Tab PO SCH ×2 (08:50→11:47)
[2018-07-20] MEDS: Thiamine 100 MG Tab PO SCH (08:51)
[2018-07-20] MEDS: Fluconazole 100 MG Tab PO SCH (08:51)
[2018-07-20] MEDS: Insulin Lispro 100 Units/ML 3 ML Vial SUBCUT SCH ×2 (08:51→11:45)
[2018-07-20] MEDS: DABIGATRAN 150 MG PO SCH ×2 (08:51→19:29)
[2018-07-20] MEDS: PYRIDOSTIGMINE 60 MG PO SCH ×2 (08:53→19:28)
[2018-07-20] MEDS: COLESTIPOL 1 GM PO SCH ×2 (08:53→19:28)
[2018-07-20] MEDS: Polyethylene Glycol 3350 Powder 17 GM Packet PO SCH (08:53)
[2018-07-20] MEDS: Albuterol/Ipratropium 3.0-0.5 MG/3 ML Neb Soln INH SCH ×3 (08:53→19:27)
[2018-07-20] MEDS: Acetaminophen 650 MG Tab.ER PO SCH ×2 (11:47→16:49)
[2018-07-20 17:13] LABS: CHLORIDE,CL 100 mmol/L (98-107); SODIUM,NA 138 mmol/L (136-145)
[2018-07-20] MEDS: Digoxin 125 MCG Tab PO SCH (17:45)
[2018-07-20] MEDS: Gabapentin 100 MG Cap PO SCH (19:27)
[2018-07-20] MEDS: Tamsulosin 0.4 MG Cap.ER PO SCH (19:27)
[2018-07-20] MEDS: Insulin Glarg,Human.Rec.Analog 100 UNIT/ML ML SUBCUT SCH (19:28)
[2018-07-20] MEDS: Magnesium Hydroxide 400 MG/5 ML Susp 30 ML Cup PO SCH (19:29)
[2018-07-21] MEDS: Albuterol/Ipratropium 3.0-0.5 MG/3 ML Neb Soln NEB PRN (04:16)
[2018-07-21] MEDS: Sodium Chloride 0.9% 10 ML Syringe FLUSH PRN ×2 (04:17→18:14)
[2018-07-21] MEDS: Verapamil 180 MG Tab.ER PO SCH ×2 (07:48→20:46)
[2018-07-21] MEDS: Docusate Sodium 100 MG Cap PO SCH ×3 (07:48→20:46)
[2018-07-21] MEDS: COLESTIPOL 1 GM PO SCH ×2 (07:48→20:46)
[2018-07-21] MEDS: DABIGATRAN 150 MG PO SCH ×2 (07:49→20:46)
[2018-07-21] MEDS: Fluconazole 100 MG Tab PO SCH (07:49)
[2018-07-21] MEDS: Folic Acid 1 MG Tab PO SCH (07:50)
[2018-07-21] MEDS: Albuterol/Ipratropium 3.0-0.5 MG/3 ML Neb Soln INH SCH ×3 (07:50→18:14)
[2018-07-21] MEDS: Insulin Lispro 100 Units/ML 3 ML Vial SUBCUT SCH ×2 (07:50→11:52)
[2018-07-21] MEDS: Polyethylene Glycol 3350 Powder 17 GM Packet PO SCH (07:51)
[2018-07-21] MEDS: Acetaminophen/HYDROcodone 325-5 MG Tab PO SCH ×3 (07:51→20:47)
[2018-07-21] MEDS: Furosemide 40 MG Tab PO SCH ×2 (07:51→11:52)
[2018-07-21] MEDS: Magnesium Oxide 400 MG Tab PO SCH (07:51)
[2018-07-21] MEDS: PYRIDOSTIGMINE 60 MG PO SCH ×2 (07:51→20:47)
[2018-07-21] MEDS: Sodium Chloride 0.9% 10 ML Syringe FLUSH SCH ×2 (07:52→20:47)
[2018-07-21] MEDS: Thiamine 100 MG Tab PO SCH (07:52)
[2018-07-21] MEDS: Acetaminophen 650 MG Tab.ER PO SCH ×2 (11:52→17:53)
[2018-07-21] MEDS: Digoxin 125 MCG Tab PO SCH (17:53)
[2018-07-21] MEDS: Insulin Glarg,Human.Rec.Analog 100 UNIT/ML ML SUBCUT SCH (20:46)
[2018-07-21] MEDS: Tamsulosin 0.4 MG Cap.ER PO SCH (20:46)
[2018-07-21] MEDS: Gabapentin 100 MG Cap PO SCH (20:47)
[2018-07-22] MEDS: Sodium Chloride 0.9% 10 ML Syringe FLUSH PRN (04:51)
[2018-07-22] MEDS: Albuterol/Ipratropium 3.0-0.5 MG/3 ML Neb Soln NEB PRN (04:59)
[2018-07-22] MEDS: Albuterol/Ipratropium 3.0-0.5 MG/3 ML Neb Soln INH SCH (07:29)
[2018-07-22] MEDS: Magnesium Oxide 400 MG Tab PO SCH (07:29)
[2018-07-22] MEDS: Furosemide 40 MG Tab PO SCH (07:29)
[2018-07-22] MEDS: Verapamil 180 MG Tab.ER PO SCH (07:30)
[2018-07-22] MEDS: Folic Acid 1 MG Tab PO SCH (07:30)
[2018-07-22] MEDS: Fluconazole 100 MG Tab PO SCH (07:30)
[2018-07-22] MEDS: Docusate Sodium 100 MG Cap PO SCH (07:31)
[2018-07-22] MEDS: COLESTIPOL 1 GM PO SCH (07:31)
[2018-07-22] MEDS: Acetaminophen/HYDROcodone 325-5 MG Tab PO SCH (07:31)
[2018-07-22] MEDS: Thiamine 100 MG Tab PO SCH (07:31)
[2018-07-22] MEDS: DABIGATRAN 150 MG PO SCH (07:31)
[2018-07-22] MEDS: PYRIDOSTIGMINE 60 MG PO SCH (07:32)
[2018-07-22] MEDS: Polyethylene Glycol 3350 Powder 17 GM Packet PO SCH (07:32)
[2018-07-22] MEDS: Insulin Lispro 100 Units/ML 3 ML Vial SUBCUT SCH (07:32)
[2018-07-22] MEDS: Sodium Chloride 0.9% 10 ML Syringe FLUSH SCH (07:34)
[2018-07-22 08:12] VITALS: BP 143/60
--- NOTE | 2018-07-22 10:44 | PCM.PN ---
- General Info Date of Service: 07/22/18 Admission Dx/Problem (Free Text): Admission Diagnosis/Problem Admission Diagnosis/Problem Cellulitis This document is an admission H&P for the [facility] unit. Functional Status: Reports: Pain Controlled - Review of Systems General: Reports: Weakness HEENT: Reports: No Symptoms Pulmonary: Reports: No Symptoms Cardiovascular: Reports: No Symptoms Gastrointestinal: Reports: No Symptoms Genitourinary: Reports: Incontinence Musculoskeletal: Reports: Leg Pain (left) Skin: Reports: Rash (LLE), Other (wound LLE) Neurological: Reports: Weakness (generalized weakness) Psychiatric: Reports: No Symptoms - Patient Data Vitals - Most Recent: Last Vital Signs Temp 97.1 F 07/22/18 08:00 Pulse 63 07/22/18 08:00 Resp 17 07/22/18 08:00 BP 143/60 H 07/22/18 08:00 Pulse Ox 95 07/22/18 08:00 Weight - Most Recent: 254 lb 15.998 oz I&O - Last 24 Hours: Intake & Output 07/21/18 07/22/18 07/22/18 22:59 06:59 14:59 Intake Total 600 265 720 Output Total 450 250 Balance 600 -185 470 Lab Results Last 24 Hours: Laboratory Results - last 24 hr 07/21/18 07/21/18 07/22/18 Range/Units 11:16 17:05 07:18 POC Glucose 133 H 119 H 173 H (65-110) mg/dl Med Orders - Current: Current Medications Acetaminophen (Tylenol Arthritis Pain) 650 mg PO BID@1200,1700 [facility] Last Admin: 07/21/18 17:53 Dose: 650 mg Acetaminophen (Tylenol Arthritis Pain) 650 mg PO Q4HR PRN PRN Reason: Pain Hydrocodone Bitart/Acetaminophen ([place] 325-5 Mg) 1 tab PO TID@0800,1200,2000 [facility] Last Admin: 07/22/18 07:31 Dose: 1 tab Albuterol/Ipratropium (Duoneb 3.0-0.5 Mg/3 Ml) 3 ml INH TID@08,12,19 [facility] Last Admin: 07/22/18 07:29 Dose: 3 ml Albuterol/Ipratropium (Duoneb 3.0-0.5 Mg/3 Ml) 3 ml NEB Q4HR PRN PRN Reason: Shortness of Breath Last Admin: 07/22/18 04:59 Dose: 3 ml Bisacodyl (Dulcolax) 10 mg RECTAL DAILY PRN PRN Reason: Constipation Digoxin (Lanoxin) 125 mcg PO DAILY@1800 [facility] Last Admin: 07/21/18 17:53 Dose: 125 mcg Docusate Sodium (Colace) 100 mg PO TID@0800,1200,2000 [facility] Last Admin: 07/22/18 07:31 Dose: 100 mg Fluconazole (Diflucan) 100 mg PO DAILY [facility] Last Admin: 07/22/18 07:30 Dose: 100 mg Folic Acid (Folic Acid) 1 mg PO QAM [facility] Last Admin: 07/22/18 07:30 Dose: 1 mg Furosemide (Lasix) 40 mg PO DAILY@1200 [facility] Last Admin: 07/21/18 11:52 Dose: 40 mg Furosemide (Lasix) 80 mg PO QAM [facility] Last Admin: 07/22/18 07:29 Dose: 80 mg Gabapentin (Neurontin) 100 mg PO BEDTIME [facility] Last Admin: 07/21/18 20:47 Dose: Not Given Insulin Glargine (Lantus) 18 unit SUBCUT BEDTIME [facility] Last Admin: 07/21/18 20:46 Dose: Not Given Insulin Human Lispro (Humalog) 8 unit SUBCUT BID@0800,1200 [facility] Last Admin: 07/22/18 07:32 Dose: 8 units Magnesium Hydroxide (Milk Of Magnesia) 30 ml PO Q2D@2000 [facility] Last Admin: 07/20/18 19:29 Dose: Not Given Magnesium Oxide (Magnesium Oxide) [facility] [place] Last Admin: 07/22/18 07:29 Dose: 400 mg Non-Formulary ( Colestipol [ Colestipol Hcl] 1 Gm ) 1 gm PO Q12HR [facility] Last Admin: 07/22/18 07:31 Dose: 1 gm Non-Formulary ( Dabigatran [Pradaxa] 150 Mg) 150 mg PO Q12HR [facility] Last Admin: 07/22/18 07:31 Dose: 150 mg Non-Formulary ( Pyridostigmine 60 Mg ) 60 mg PO Q12HR [facility] Last Admin: 07/22/18 07:32 Dose: 60 mg Polyethylene Glycol (Miralax) 17 gm PO DAILY@0800 [facility] Last Admin: 07/22/18 07:32 Dose: 17 gm Sodium Chloride (Saline Flush) 10 ml FLUSH 08,20 [facility] Last Admin: 07/22/18 07:34 Dose: 10 ml Sodium Chloride (Saline Flush) 10 ml FLUSH ASDIRECTED PRN PRN Reason: Keep IV open Last Admin: 07/22/18 04:51 Dose: 10 ml Tamsulosin HCl (Flomax) 0.4 mg PO BEDTIME [facility] Last Admin: 07/21/18 20:46 Dose: Not Given Thiamine HCl (Vitamin B-1) 100 mg PO QAM [facility] Last Admin: 07/22/18 07:31 Dose: 100 mg Vancomycin HCl (Pharmacy To Dose - Vancomycin) 1 dose .XX ASDIRECTED [facility] Verapamil HCl (Calan Sr) 180 mg PO Q12HR [facility] Last Admin: 07/22/18 07:30 Dose: 180 mg Discontinued Medications Vancomycin HCl 750 mg/ Sodium (Chloride) 100 mls @ 100 mls/hr IV Q12H [facility] Last Admin: 07/17/18 04:55 Dose: 100 mls/hr Vancomycin HCl 750 mg/ Sodium (Chloride) 250 mls @ 165 mls/hr IV Q12H [facility] Stop: 07/22/18 06:31 Last Admin: 07/18/18 05:56 Dose: 165 mls/hr Vancomycin HCl 0.75 gm/ Sodium (Chloride) 250 mls @ 215 mls/hr IV Q12H [facility] Stop: 07/22/18 18:31 Last Admin: 07/22/18 04:51 Dose: 215 mls/hr Insulin Glargine (Lantus) 16 unit SUBCUT BEDTIME [facility] Last Admin: 07/19/18 19:23 Dose: 16 units - Exam Quality Assessment: Urine Catheter (condom catheter) General: Alert, Cooperative, No Acute Distress HEENT: EOMI, Mucous Membr. Moist/[place] Neck: Trachea Midline, No JVD Lungs: Clear to Auscultation, Normal Respiratory Effort Cardiovascular: Regular Rate, Regular Rhythm GI/Abdominal Exam: Soft, Non-Tender, No Distention (Male) Exam: Deferred Back Exam: Normal Inspection Extremities: Pedal Edema (LLE), Leg Pain (LLE), Redness (LLE improving) Skin: Rash (LLE), Ecchymosis (from IV sites and blood draws) Wound/Incisions: Healing Well, Drainage (decreased), Erythema Improving Neurological: No New Focal Deficit Psy/Mental Status: Alert, Normal Affect, Normal Mood - Problem List & Annotations (1) MSSA (methicillin susceptible Staphylococcus aureus) infection SNOMED Code(s): 241326867 Code(s): A49.01 - METHICILLIN SUSCEP STAPH INFECTION, UNSP SITE Status: Acute Priority: High Current Visit: No (2) Cellulitis SNOMED Code(s): 486481903 Code(s): L03.90 - CELLULITIS, UNSPECIFIED Status: Acute Priority: High Current Visit: No Onset Date: 07/12/18 Qualifiers: Site of cellulitis: extremity Site of cellulitis of extremity: lower extremity Laterality: left Qualified Code(s): L03.116 - Cellulitis of left lower limb (3) Laceration of left lower leg SNOMED Code(s): 69198124003180075 Code(s): S81.812A - LACERATION WITHOUT FOREIGN BODY, LEFT LOWER LEG, INIT ENCNTR Status: Acute Current Visit: No Qualifiers: Encounter type: initial encounter Qualified Code(s): S81.812A - Laceration without foreign body, left lower leg, initial encounter (4) CHF (congestive heart failure) SNOMED Code(s): 74067013 Code(s): I50.9 - HEART FAILURE, UNSPECIFIED Status: Acute Priority: High Current Visit: No Qualifiers: Heart failure type: unspecified Heart failure chronicity: acute on chronic Qualified Code(s): I50.9 - Heart failure, unspecified (5) Hypoxia SNOMED Code(s): 474624213 Code(s): R09.02 - HYPOXEMIA Status: Acute Priority: High Current Visit : No (6) Atrial fibrillation SNOMED Code(s): 62948353 Code(s): I48.91 - UNSPECIFIED ATRIAL FIBRILLATION Status: Chronic Priority: Medium Current Visit: No Qualifiers: Atrial fibrillation type: chronic Qualified Code(s): I48.2 - Chronic atrial fibrillation Annotation/Comment:: No chest pain or anginal-type symptoms. Stable heart rhythm in the emergency room (7) COPD (chronic obstructive pulmonary disease) SNOMED Code(s): 70567480 Code(s): J44.9 - CHRONIC OBSTRUCTIVE PULMONARY DISEASE, UNSPECIFIED Status : Chronic Priority: Medium Current Visit: No Qualifiers: COPD type: unspecified COPD Qualified Code(s): J44.9 - Chronic obstructive pulmonary disease, unspecified Annotation/Comment:: No recent cough, bronchitic-type symptoms, etc. (8) Caries SNOMED Code(s): 59716696 Code(s): K02.9 - DENTAL CARIES, UNSPECIFIED Status: Chronic Priority: High Current Visit: No Onset Date: 07/10/15 Annotation/Comment:: CT scan results as above. Referral to oral surgeon strongly recommended (9) Diabetes mellitus SNOMED Code(s): 04453324 Code(s): E11.9 - TYPE 2 DIABETES MELLITUS WITHOUT COMPLICATIONS Status: Chronic Priority: Medium Current Visit: No Qualifiers: Diabetes mellitus type: type 2 Diabetes mellitus complication detail: with diabetic retinopathy Diabetic retinopathy severity: with unspecified retinopathy severity Diabetes mellitus macular edema: with macular edema Annotation/Comment:: Blood sugars somewhat elevated with sliding scale to be initiated during the next 48 hours secondary to the necessity of holding his metformin because of today's CT scans with contrast. His regular provider will be updated as per discharge instructions. Hyperglycemia likely elated to his poor dental hygiene and also current infection with referral to oral surgeon recommended (10) Hyperlipidemia SNOMED Code(s): 39130625 Code(s): E78.5 - HYPERLIPIDEMIA, UNSPECIFIED Status: Chronic Priority: Medium Current Visit: No Qualifiers: Hyperlipidemia type: Mixed hyperlipidemia Qualified Code(s): E78.2 - Mixed hyperlipidemia Annotation/Comment:: under medical therapy (11) Hypertension SNOMED Code(s): 41232743 Code(s): I10 - ESSENTIAL (PRIMARY) HYPERTENSION Status: Chronic Priority : Medium Current Visit: No Qualifiers: Hypertension type: essential hypertension Qualified Code(s): I10 - Essential (primary) hypertension Annotation/Comment:: blood pressure stable in the emergency room (12) Hypoalbuminemia SNOMED Code(s): 220621148 Code(s): 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, NEC Status: Chronic Priority: Medium Current Visit: No Annotation/Comment:: consider high-protein Glucerna supplements (13) Hypomagnesemia SNOMED Code(s): 001750362 Code(s): E83.42 - HYPOMAGNESEMIA Status: Chronic Priority: Medium Current Visit: No Annotation/Comment:: magnesium level normal today (14) Myasthenia gravis SNOMED Code(s): 71952892 Code(s): G70.00 - MYASTHENIA GRAVIS WITHOUT (ACUTE) EXACERBATION Status: Chronic Priority: Medium Current Visit: No Annotation/Comment:: stable by history (15) Osteoarthritis SNOMED Code(s): 262209909 Code(s): M19.90 - UNSPECIFIED OSTEOARTHRITIS, UNSPECIFIED SITE Status: Chronic Priority: Medium Current Visit: No Qualifiers: Osteoarthritis location: multiple joints Osteoarthritis type: primary Qualified Code(s): M15.0 - Primary generalized (osteo)arthritis Annotation/Comment:: stable by history (16) Fracture of metatarsal of left foot, closed SNOMED Code(s): 89048113856813213 Code(s): S92.302A - FRACTURE OF UNSP METATARSAL BONE(S), LEFT FOOT, INIT Status: Acute Priority: High Current Visit: Yes Qualifiers: Encounter type: sequela Metatarsal bone: third Fracture alignment: nondisplaced Qualified Code(s): S92.335S - Nondisplaced fracture of third metatarsal bone, left foot, sequela - Problem List Review Problem List Initiated/Reviewed/Updated: Yes - My Orders Last 24 Hours: My Active Orders 07/22/18 09:57 Discontinue Saline Lock [Peripheral IV Discontinue] [OM.PC] Routine 07/22/18 10:25 Ready for Discharge [RC] PER UNIT ROUTINE - Plan Plan:: 07/16/18 Joe Curran MD Hospitalized for significant cellulitis LLE, culture +MSSA on IV vancomycin. Leg is improving but he needs continued IV vancomycin and PT-OT for generalized weakness. Stable for transfer into swing bed status. 07/18/18 Joe Curran MD Leg is starting to improve with decrease redness and decrease edema. Continue IV vancomycin and PT-OT. 07/22/18 Joe Curran MD 10:45 83 yowm from [facility] developed a traumatic wound to left lower extremity when his power chair pinned his leg between his chair and the bed a couple of months ago. The wound has been very slow to heal. The leg became very red with ascending cellulitis and the wound was not healing and was draining. A C&S done grew MSSA. Due to the sensitivities and his allergies he was hospitalized inpatient and treated with IV vancomycin. He was switched to swing bed status to continue the IV vancomycin and for PT-OT. Screening results he medically requires snf care. Today his screening is complete, the wound is markedly improved, cellulitis is almost resolved and he is ready to be discharged from [facility] swing bed and admitted to [facility] skilled unit.
--- NOTE | 2018-07-22 23:37 | PCM.DCSUM1 ---
Discharge Summary - Hospital Course Diagnosis: Stroke: No - Discharge Data Discharge Date: 07/22/18 Discharge Disposition: DC/Tfer to SNF 03 Condition: Fair - Discharge Diagnosis/Problem(s) (1) MSSA (methicillin susceptible Staphylococcus aureus) infection SNOMED Code(s): 141082734 ICD Code: A49.01 - METHICILLIN SUSCEP STAPH INFECTION, UNSP SITE Status: Acute Priority: High (2) Cellulitis SNOMED Code(s): 905674068 ICD Code: L03.90 - CELLULITIS, UNSPECIFIED Status: Acute Priority: High Onset Date: 07/12/18 Qualifiers: Site of cellulitis: extremity Site of cellulitis of extremity: lower extremity Laterality: left Qualified Code(s): L03.116 - Cellulitis of left lower limb (3) Laceration of left lower leg SNOMED Code(s): 92184284985705854 ICD Code: S81.812A - LACERATION WITHOUT FOREIGN BODY, LEFT LOWER LEG, INIT ENCNTR Status: Acute Qualifiers: Encounter type: initial encounter Qualified Code(s): S81.812A - Laceration without foreign body, left lower leg, initial encounter (4) CHF (congestive heart failure) SNOMED Code(s): 50825501 ICD Code: I50.9 - HEART FAILURE, UNSPECIFIED Status: Acute Priority: High Qualifiers: Heart failure type: unspecified Heart failure chronicity: acute on chronic Qualified Code(s): I50.9 - Heart failure, unspecified (5) Hypoxia SNOMED Code(s): 380166961 ICD Code: R09.02 - HYPOXEMIA Status: Acute Priority: High (6) Atrial fibrillation SNOMED Code(s): 64034086 ICD Code: I48.91 - UNSPECIFIED ATRIAL FIBRILLATION Status: Chronic Priority: Medium Problem Details: No chest pain or anginal-type symptoms. Stable heart rhythm in the emergency room Qualifiers: Atrial fibrillation type: chronic Qualified Code(s): I48.2 - Chronic atrial fibrillation (7) COPD (chronic obstructive pulmonary disease) SNOMED Code(s): 39999482 ICD Code: J44.9 - CHRONIC OBSTRUCTIVE PULMONARY DISEASE, UNSPECIFIED Status : Chronic Priority: Medium Problem Details: No recent cough, bronchitic- type symptoms, etc. Qualifiers: COPD type: unspecified COPD Qualified Code(s): J44.9 - Chronic obstructive pulmonary disease, unspecified (8) Caries SNOMED Code(s): 71814527 ICD Code: K02.9 - DENTAL CARIES, UNSPECIFIED Status: Chronic Priority: High Onset Date: 07/10/15 Problem Details: CT scan results as above. Referral to oral surgeon strongly recommended (9) Diabetes mellitus SNOMED Code(s): 39009232 ICD Code: E11.9 - TYPE 2 DIABETES MELLITUS WITHOUT COMPLICATIONS Status: Chronic Priority: Medium Problem Details: Blood sugars somewhat elevated with sliding scale to be initiated during the next 48 hours secondary to the necessity of holding his metformin because of today's CT scans with contrast. His regular provider will be updated as per discharge instructions. 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 (10) Hyperlipidemia SNOMED Code(s): 26304210 ICD Code: E78.5 - HYPERLIPIDEMIA, UNSPECIFIED Status: Chronic Priority: Medium Problem Details: under medical therapy Qualifiers: Hyperlipidemia type: Mixed hyperlipidemia Qualified Code(s): E78.2 - Mixed hyperlipidemia (11) Hypertension SNOMED Code(s): 45336578 ICD Code: I10 - ESSENTIAL (PRIMARY) HYPERTENSION Status: Chronic Priority : Medium Problem Details: blood pressure stable in the emergency room Qualifiers: Hypertension type: essential hypertension Qualified Code(s): I10 - Essential (primary) hypertension (12) Hypoalbuminemia SNOMED Code(s): 267157240 ICD Code: 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, NEC Status: Chronic Priority: Medium Problem Details: consider high-protein Glucerna supplements (13) Hypomagnesemia SNOMED Code(s): 591055135 ICD Code: E83.42 - HYPOMAGNESEMIA Status: Chronic Priority: Medium Problem Details: magnesium level normal today (14) Myasthenia gravis SNOMED Code(s): 93935881 ICD Code: G70.00 - MYASTHENIA GRAVIS WITHOUT (ACUTE) EXACERBATION Status: Chronic Priority: Medium Problem Details: stable by history (15) Osteoarthritis SNOMED Code(s): 481207021 ICD Code: M19.90 - UNSPECIFIED OSTEOARTHRITIS, UNSPECIFIED SITE Status: Chronic Priority: Medium Problem Details: stable by history Qualifiers: Osteoarthritis location: multiple joints Osteoarthritis type: primary Qualified Code(s): M15.0 - Primary generalized (osteo)arthritis (16) Fracture of metatarsal of left foot, closed SNOMED Code(s): 59485018135995684 ICD Code: S92.302A - FRACTURE OF UNSP METATARSAL BONE(S), LEFT FOOT, INIT Status: Acute Priority: High Qualifiers: Encounter type: sequela Metatarsal bone: third Fracture alignment: nondisplaced Qualified Code(s): S92.335S - Nondisplaced fracture of third metatarsal bone, left foot, sequela - Patient Summary/Data Consults: Consultations 07/16/18 12:20 Consult to Case Management/Gameplay Engineer [CONS] Routine Consult to Physical Therapy [PT Evaluation and Treatment] [CONS] Routine OT Evaluation and Treatment [CONS] Routine - Patient Instructions Diet: Diabetic Diet Activity: As Tolerated Driving: Do Not Drive Showering/Bathing: May Shower Other/Special Instructions: 07/22/18 Admit to [facility] skilled unit. PT-OT referral , evaluate and treat for generalized weakness, ADLs, power chair operation. - Discharge Plan *PRESCRIPTION DRUG MONITORING PROGRAM REVIEWED*: Not Applicable *COPY OF PRESCRIPTION DRUG MONITORING REPORT IN PATIENT JEANNE: Not Applicable Prescriptions/Med Rec: Digoxin [Lanoxin] 125 mcg PO DAILY@1800 #90 tablet Doxycycline [Vibramycin] 100 mg PO BID #15 cap Fluconazole [Diflucan] 100 mg PO DAILY #10 tablet Insulin Aspart [NovoLOG] 8 unit SUBCUT BID@0800,1200 #3 pen Insulin Detemir [Levemir] 18 unit SUBCUT BEDTIME #3 pen Home Medications: Home Meds Acetaminophen [Tylenol Arthritis Pain] 650 mg PO Q4HR PRN MDD 3 04/14/15 [ History] Albuterol/Ipratropium [DuoNeb 3.0-0.5 MG/3 ML] 3 ml NEB Q4HR PRN 04/14/15 [ History] Cholecalciferol (Vitamin D3) [Vitamin D3] 800 unit PO QAM 04/14/15 [History] Dabigatran [Pradaxa] 150 mg PO Q12HR 04/14/15 [History] Docusate Sodium [Colace] 100 mg PO TID@0800,1200,2000 04/14/15 [History] Folic Acid 1 mg PO QAM 04/14/15 [History] Furosemide [Lasix] 80 mg PO QAM 04/14/15 [History] Magnesium Hydroxide [Milk of Magnesia] 30 ml PO Q2D@199904/14/15 [History] Magnesium Oxide 420 mg PO QAM 04/14/15 [History] Multivitamin [Multivitamins] 1 each PO QAM 04/14/15 [History] Pyridostigmine [Mestinon] 60 mg PO Q12HR 04/14/15 [History] Simvastatin [Zocor] 10 mg PO BEDTIME 04/14/15 [History] Tamsulosin [Flomax] 0.4 mg PO BEDTIME 04/14/15 [History] Thiamine Mononitrate [Vitamin B-1] 100 mg PO QAM 04/14/15 [History] Verapamil [Calan SR] 180 mg PO Q12HR 04/14/15 [History] Acetaminophen [Tylenol Arthritis Pain] 650 mg PO BID@1200,1700 05/09/15 [History ] Bisacodyl [Dulcolax] 10 mg RECTAL DAILY PRN 07/10/15 [History] Colestipol [Colestipol HCl] 1 gm PO Q12HR 07/10/15 [History] Furosemide 40 mg PO DAILY@1200 07/10/15 [History] Calcium Carbonate/Vitamin D3 [Calcium 600 + Vit D Tablet] 1 tab PO Q12HR [History] Gabapentin [Neurontin] 100 mg PO BEDTIME 05/10/17 [History] Hydrocodone/Acetaminophen [Hydrocodon-Acetaminophen 5-325] 1 each PO TID@0800, 1200,199905/10/17 [History] Polyethylene Glycol 3350 [MiraLAX] 17 gm PO DAILY@0800 #30 packet 06/02/17 [Rx] Albuterol/Ipratropium [DuoNeb 3.0-0.5 MG/3 ML] 1 vial INH TID@08,12,19 05/28/18 [History] Digoxin [Lanoxin] 125 mcg PO DAILY@1800 #90 tablet 07/22/18 [Rx] Doxycycline [Vibramycin] 100 mg PO BID #15 cap 07/22/18 [Rx] Fluconazole [Diflucan] 100 mg PO DAILY #10 tablet 07/22/18 [Rx] Insulin Aspart [NovoLOG] 8 unit SUBCUT BID@0800,1200 #3 pen 07/22/18 [Rx] Insulin Detemir [Levemir] 18 unit SUBCUT BEDTIME #3 pen 07/22/18 [Rx] Oxygen Therapy Mode: Room Air - Discharge Summary/Plan Comment DC Time >30 min.: No - Patient Data Vitals - Most Recent: Last Vital Signs Temp 97.1 F 07/22/18 08:00 Pulse 63 07/22/18 08:00 Resp 17 07/22/18 08:00 BP 143/60 H 07/22/18 08:00 Pulse Ox 95 07/22/18 08:00 Weight - Most Recent: 254 lb 15.998 oz I&O - Last 24 hours: Intake & Output 07/22/18 07/22/18 07/23/18 14:59 22:59 06:59 Intake Total 720 Output Total 250 Balance 470 Lab Results - Last 24 hrs: Laboratory Results - last 24 hr 07/22/18 Range/Units 07:18 POC Glucose 173 H (65-110) mg/dl Med Orders - Current: Current Medications Discontinued Medications Acetaminophen (Tylenol Arthritis Pain) 650 mg PO BID@1200,1700 [facility] Last Admin: 07/21/18 17:53 Dose: 650 mg Acetaminophen (Tylenol Arthritis Pain) 650 mg PO Q4HR PRN PRN Reason: Pain Hydrocodone Bitart/Acetaminophen ([place] 325-5 Mg) 1 tab PO TID@0800,1200,2000 [facility] Last Admin: 07/22/18 07:31 Dose: 1 tab Albuterol/Ipratropium (Duoneb 3.0-0.5 Mg/3 Ml) 3 ml INH TID@08,12,19 [facility] Last Admin: 07/22/18 07:29 Dose: 3 ml Albuterol/Ipratropium (Duoneb 3.0-0.5 Mg/3 Ml) 3 ml NEB Q4HR PRN PRN Reason: Shortness of Breath Last Admin: 07/22/18 04:59 Dose: 3 ml Bisacodyl (Dulcolax) 10 mg RECTAL DAILY PRN PRN Reason: Constipation Digoxin (Lanoxin) 125 mcg PO DAILY@1800 [facility] Last Admin: 07/21/18 17:53 Dose: 125 mcg Docusate Sodium (Colace) 100 mg PO TID@0800,1200,2000 [facility] Last Admin: 07/22/18 07:31 Dose: 100 mg Fluconazole (Diflucan) 100 mg PO DAILY [facility] Last Admin: 07/22/18 07:30 Dose: 100 mg Folic Acid (Folic Acid) 1 mg PO QAM [facility] Last Admin: 07/22/18 07:30 Dose: 1 mg Furosemide (Lasix) 40 mg PO DAILY@1200 [facility] Last Admin: 07/21/18 11:52 Dose: 40 mg Furosemide (Lasix) 80 mg PO QAM [facility] Last Admin: 07/22/18 07:29 Dose: 80 mg Gabapentin (Neurontin) 100 mg PO BEDTIME [facility] Last Admin: 07/21/18 20:47 Dose: Not Given Vancomycin HCl 750 mg/ Sodium (Chloride) 100 mls @ 100 mls/hr IV Q12H [facility] Last Admin: 07/17/18 04:55 Dose: 100 mls/hr Vancomycin HCl 750 mg/ Sodium (Chloride) 250 mls @ 165 mls/hr IV Q12H [facility] Stop: 07/22/18 06:31 Last Admin: 07/18/18 05:56 Dose: 165 mls/hr Vancomycin HCl 0.75 gm/ Sodium (Chloride) 250 mls @ 215 mls/hr IV Q12H [facility] Stop: 07/22/18 18:31 Last Admin: 07/22/18 04:51 Dose: 215 mls/hr Insulin Glargine (Lantus) 16 unit SUBCUT BEDTIME [facility] Last Admin: 07/19/18 19:23 Dose: 16 units Insulin Glargine (Lantus) 18 unit SUBCUT BEDTIME [facility] Last Admin: 07/21/18 20:46 Dose: Not Given Insulin Human Lispro (Humalog) 8 unit SUBCUT BID@0800,1200 [facility] Last Admin: 07/22/18 07:32 Dose: 8 units Magnesium Hydroxide (Milk Of Magnesia) 30 ml PO Q2D@1999 [facility] Last Admin: 07/20/18 19:29 Dose: Not Given Magnesium Oxide (Magnesium Oxide) 400 mg PO QAM [facility] Last Admin: 07/22/18 07:29 Dose: 400 mg Non-Formulary ( Colestipol [ Colestipol Hcl] 1 Gm ) 1 gm PO Q12HR [facility] Last Admin: 07/22/18 07:31 Dose: 1 gm Non-Formulary ( Dabigatran [Pradaxa] 150 Mg) 150 mg PO Q12HR [facility] Last Admin: 07/22/18 07:31 Dose: 150 mg Non-Formulary ( Pyridostigmine 60 Mg ) 60 mg PO Q12HR [facility] Last Admin: 07/22/18 07:32 Dose: 60 mg Polyethylene Glycol (Miralax) 17 gm PO DAILY@0800 [facility] Last Admin: 07/22/18 07:32 Dose: 17 gm Sodium Chloride (Saline Flush) 10 ml FLUSH 08,20 [facility] Last Admin: 07/22/18 07:34 Dose: 10 ml Sodium Chloride (Saline Flush) 10 ml FLUSH ASDIRECTED PRN PRN Reason: Keep IV open Last Admin: 07/22/18 04:51 Dose: 10 ml Tamsulosin HCl (Flomax) 0.4 mg PO BEDTIME [facility] Last Admin: 07/21/18 20:46 Dose: Not Given Thiamine HCl (Vitamin B-1) 100 mg PO QAM [facility] Last Admin: 07/22/18 07:31 Dose: 100 mg Vancomycin HCl (Pharmacy To Dose - Vancomycin) 1 dose .XX ASDIRECTED [facility] Verapamil HCl (Calan Sr) 180 mg PO Q12HR [facility] Last Admin: 07/22/18 07:30 Dose: 180 mg
== END 2018-07-22 12:00 | DRG 638 ==
LOC: LL.MS 12:31
PROVIDERS: ADMIT Family Medicine; ATTEND Family Medicine
DX: E11.628 Type 2 diabetes mellitus with other skin complications (principal); L03.116 Cellulitis of left lower limb; B95.61 Methicillin susceptible Staphylococcus aureus infection as the cause of diseases classified elsewhere; I50.9 Heart failure, unspecified; R09.02 Hypoxemia; I48.2 Chronic atrial fibrillation; J44.9 Chronic obstructive pulmonary disease, unspecified; K02.9 Dental caries, unspecified; E78.2 Mixed hyperlipidemia; I11.0 Hypertensive heart disease with heart failure; G70.00 Myasthenia gravis without (acute) exacerbation; M15.0 Primary generalized (osteo)arthritis; K59.09 Other constipation; N40.0 Benign prostatic hyperplasia without lower urinary tract symptoms; G89.29 Other chronic pain; M54.9 Dorsalgia, unspecified; M54.2 Cervicalgia; E11.42 Type 2 diabetes mellitus with diabetic polyneuropathy; F41.9 Anxiety disorder, unspecified; F32.9 Major depressive disorder, single episode, unspecified; E55.9 Vitamin D deficiency, unspecified; D64.9 Anemia, unspecified; E53.8 Deficiency of other specified B group vitamins; Z96.1 Presence of intraocular lens; S92.335S Nondisplaced fracture of third metatarsal bone, left foot, sequela; Z79.4 Long term (current) use of insulin; Z79.899 Other long term (current) drug therapy; Z88.1 Allergy status to other antibiotic agents; Z88.2 Allergy status to sulfonamides; Z98.49 Cataract extraction status, unspecified eye; Z86.010 Personal history of colon polyps
CPT/HCPCS: 36415; 80048; 80053; 80202; 82962; 85025; 86140; 94640; 97110-GO; 97110-GP; 97162-GP; 97165-GO; 97530-GO; 97530-GP; A9270-GY; J3370; J7050; J7620-GY

== ENCOUNTER 2019-11-22 20:07 | Emergency (ER) | payer MEDICARE, OTHER ==
[2019-11-22] MEDS ORDERED: Famotidine 20 MG/2 ML SDV IVPUSH ONE (20:23)
--- NOTE | 2019-11-22 20:23 | EDM.PDOC ---
ED HPI GENERAL MEDICAL PROBLEM - General Chief Complaint: General Stated Complaint: Decreased Potassium, Increased BNP Time Seen by Provider: 11/22/19 20:15 Source of Information: Reports: Patient, Halfway Records, Old Records ([facility] EMR. No paper hospital chart available.) History Limitations: Reports: Altered Mental Status - History of Present Illness INITIAL COMMENTS - FREE TEXT/NARRATIVE: Patient was brought to the emergency room via transport vehicle from [facility] in [place] for evaluation of progressive hypoxia this evening, including O2 saturations of about 87% on room air prior to transfer with patient transferred with O2 at 2 L/min by nasal cannula. He is a somewhat poor historian. The patient does have a 2-week history of nonspecific fatigue. The patient denies any chest pain/pressure, heart flutter, dizziness, orthostasis, orthopnea, diaphoresis, paresthesias, recent decreased exercise tolerance, or any other anginal-type symptoms. No recent history of abdominal pain, heartburn, nausea, diarrhea, melena, gross hematochezia, or any food intolerance, including fatty foods, etc.. He denies any gross hematuria, colic, or other UTI symptoms with current chronic Denney catheter therapy. The patient also denies any recent fever, cough, wheezing, dyspnea, etc.. He denies any specific pain or discomfort. Onset: Gradual, Other (As above) Duration: Week(s):, Getting Worse, Other (No pain) Quality: Reports: Same as Previous Episode Severity: Moderate (CHF) Improves with: Reports: None Worsens with: Reports: None Context: Reports: Other (As above). Denies: Sick Contact, Trauma Associated Symptoms: Reports: Confusion (Borderline), Weakness (Stable chronic generalized). 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: Oxygen - Related Data Allergies Allergy/AdvReac Type Severity Reaction Status Date / Time cephalexin Allergy Itching,sul Verified 11/22/19 20:42 fa sulfamethoxazole Allergy Hives,itchi Verified 11/22/19 20:42 [From Bactrim] ng trimethoprim [From Bactrim] Allergy Hives,itchi Verified 11/22/19 20:42 ng Home Meds: Home Meds Acetaminophen [Tylenol Arthritis Pain] 650 mg PO Q4HR PRN MDD 3 04/14/15 [History] Albuterol/Ipratropium [DuoNeb 3.0-0.5 MG/3 ML] 3 ml NEB 5XDAY PRN 04/14/15 [History] Cholecalciferol (Vitamin D3) [Vitamin D3] 800 unit PO QAM 04/14/15 [History] Dabigatran [Pradaxa] 150 mg PO Q12HR 04/14/15 [History] Docusate Sodium [Colace] 100 mg PO BID 04/14/15 [History] Folic Acid 1 mg PO QAM 04/14/15 [History] Furosemide [Lasix] 80 mg PO BID 04/14/15 [History] Magnesium Hydroxide [Milk of Magnesia] 30 ml PO Q2D@199904/14/15 [History] Magnesium Oxide 420 mg PO QAM 04/14/15 [History] Multivitamin [Multivitamins] 1 each PO QAM 04/14/15 [History] Pyridostigmine [Mestinon] 60 mg PO Q12HR 04/14/15 [History] Simvastatin [Zocor] 10 mg PO BEDTIME 04/14/15 [History] Tamsulosin [Flomax] 0.4 mg PO BEDTIME 04/14/15 [History] Thiamine Mononitrate (Vit B1) [Vitamin B-1] 100 mg PO QAM 04/14/15 [History] Verapamil [Calan SR] 180 mg PO Q12HR 04/14/15 [History] Acetaminophen [Tylenol Arthritis Pain] 650 mg PO BID@1200,1700 05/09/15 [Hist ory] Bisacodyl [Dulcolax] 10 mg RECTAL DAILY PRN 07/10/15 [History] Colestipol [Colestipol HCl] 1 gm PO Q12HR 07/10/15 [History] Furosemide 40 mg PO DAILY@1200 07/10/15 [History] Calcium Carbonate/Vitamin D3 [Calcium 600 + Vit D Tablet] 1 tab PO Q12HR 05/10/17 [History] Gabapentin [Neurontin] 100 mg PO BEDTIME 05/10/17 [History] Hydrocodone/Acetaminophen [Hydrocodone-Acetamin 5-325 mg] 1 each PO T ID@0800,1200,199905/10/17 [History] polyethylene glycoL 3350 [MiraLAX] 17 gm PO DAILY@0800 #30 packet 06/02/17 [Rx] Albuterol/Ipratropium [DuoNeb 3.0-0.5 MG/3 ML] 1 vial INH TID@08,12,19 05/28/18 [History] Doxycycline [Vibramycin] 100 mg PO BID #15 cap 07/22/18 [Rx] Fluconazole [Diflucan] 100 mg PO DAILY #10 tablet 07/22/18 [Rx] Digoxin [Lanoxin] 125 mcg PO DAILY 11/22/19 [History] Insulin Aspart [NovoLOG] 10 unit SUBCUT BID@0800,1200 11/22/19 [History] Insulin Detemir [Levemir] 20 unit SUBCUT BEDTIME 11/22/19 [History] Magnesium Hydroxide [Milk of Magnesia] 30 ml PO DAILY PRN 11/22/19 [History] Methenamine Mandelate 1 gm MC BID 11/22/19 [History] Simvastatin 10 mg PO 11/22/19 [History] Past Medical History HEENT History: Reports: Cataract, Hard of Hearing, Impaired Vision, Other (See Below). Denies: Allergic Rhinitis, Glaucoma, Macular Degeneration, Retinal Detachment Other HEENT History: Ocular myasthenia gravis; Dysphagia; Presbyopia with patient wearing glasses. Note presbycusis with right-sided hearing aid therapy. Diabetic retinopathy. Cardiovascular History: Reports: Afib, Arrhythmia, Cardiomyopathy, Heart Failure, High Cholesterol, Hypertension, Other (See Below). Denies: Aneurysm, Blood Clots/VTE/DVT, CAD, MT, PVD Other Cardiovascular History: Cardiomegaly. RBBB. Respiratory History: Reports: Bronchitis, Recurrent, COPD, Pneumonia, Recurrent, Other (See Below). Denies: PE, Sleep Apnea Other Respiratory History: benign pulmonary nodule Gastrointestinal History: Reports: Chronic Constipation, Colon Polyp, Fatty Liver, GERD, Hiatal Hernia, Other (See Below). Denies: Celiac Disease, Cholelithiasis, Gastritis, GI Bleed, Hepatitis, Inflammatory Bowel Disease, Irritable Bowel Syndrome, Jaundice, Pancreatitis, PUD Other Gastrointestinal History: Moderate left-sided diaphragmatic hernia. Chronic colonic dilatation with secondary chronic constipation. Unknown type of colonic polyp in about 2009. Dysphagia. Genitourinary History: Reports: BPH, Retention, Urinary, Urinary Incontinence, UTI, Recurrent, Other (See Below). Denies: Acute Renal Failure, Chronic Renal Insuffiency, Diabetic Nephropathy, Renal Calculus, STD Other Genitourinary History: Chronic urine catheter therapy. Musculoskeletal History: Reports: Arthritis, Back Pain, Chronic, Fracture, Neck Pain, Chronic, Osteoarthritis, Osteoporosis, Other (See Below). Denies: Gout, RA, SLE Other Musculoskeletal History: Left third metatarsal fracture. Mild scoliosis. Generalized muscle weakness. Neurological History: Reports: Neuropathy, Diabetic, Neuropathy, Peripheral, Other (See Below). Denies: Alzheimers Disease, CVA, Headaches, Chronic, Head Trauma, Migraines, MS, Parkinson's, Seizure, TIA Other Neuro History: ocular myasthenia gravis Psychiatric History: Reports: Addiction, Anxiety, Depression, Other (See Below). Denies: Abuse, Victim of, ADD, ADHD, Alzheimers Disease, Dementia, Psych Hospitalization(s), Psychosis, PTSD, Suicide Attempt, Suicidal Ideation Other Psychiatric History: Chronic narcotic use. Endocrine/Metabolic History: Reports: Diabetes, Type II, Hypokalemia, Hypomagnesemia, IDDM, Obesity/BMI 30+, Osteopenia, Osteoporosis, Vitamin D Deficiency, Other (See Below). Denies: Diabetes, Type I, Diabetes Mellitus, Type 3c, Hypothyroidism Other Endocrine/Metabolic History: Hyponatremia. Hypocalcemia. Hematologic History: Reports: Anemia, B12 Deficiency. Denies: Blood Transfusion(s) Immunologic History: Reports: None. Denies: AIDS, HIV, SLE Oncologic (Cancer) History: Reports: None Dermatologic History: Reports: Cellulitis, Other (See Below) Other Dermatologic History: Recurrent cellulitis including MRSA and MSSA. 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 Additional MSSA history as above.), Other (See Below). Denies: C-Difficile, Chicken Pox (Patient uncertain), Meningitis, Mononucleosis, Mumps, Pertussis (Whooping Cough), Rheumatic Fever, Rubella, Scarlet Fever, Shingles, TB, VRE Other Infectious Disease History: doesn't remember - Past Surgical History Head Surgeries/Procedures: Reports: None HEENT Surgical History: Reports: Cataract Surgery, Oral Surgery, Other (See Below). Denies: Adenoidectomy, Eye Surgery, Laser Surgery, LASIK, Myringotomy w Tube(s), Naso-Sinus Surgery, Tonsillectomy Other HEENT Surgeries/Procedures: Right cataract surgery in 2012. Complete teeth extraction. Cardiovascular Surgical History: Reports: None. Denies: Varicose Respiratory Surgical History: Reports: None. Denies: Lung Biopsies, Thoracentesis GI Surgical History: Reports: Appendectomy, Colonoscopy, Polypectomy, Other (See Below). Denies: Cholecystectomy, Colon, Hernia, Abdominal, Hernia, Inguinal, Hernia Repair/Other Other GI Surgeries/Procedures: Appendectomy at age 12. Last colonoscopy on 05/09/2015 with no evidence of recurrence of his colonic polyps with previous polypectomy in about 2009. Male Surgical History: Reports: Circumcision, Other (See Below). Denies: TURP-Transurethral Resection of Prostate, Vasectomy Other Male Surgeries/Procedures: Circumcision as an infant. Endocrine Surgical History: Reports: None. Denies: Thyroid Biopsy Neurological Surgical History: Reports: None. Denies: C-Spine, Discectomy, Laminectomy, Lumbar Spine, Sacral Spine, Spinal Fusion, Thoracic Spine, Vertebroplasty Musculoskeletal Surgical History: Reports: Other (See Below). Denies: A rthroscopic Procedure, Carpal Tunnel, Ganglion Cyst, Joint Replacement, Knee Replacement, ORIF, Shoulder Surgery Other Musculoskeletal Surgeries/Procedures:: Right quadriceps repair in the . Oncologic Surgical History: Reports: None Dermatological Surgical History: Reports: None - Past Imaging History Past Imaging History: Reports: CAT Scan (CT of the left lower leg on 07/14/2018. Soft tissue CT of the neck on 07/10/2015.), MRI (Left knee on 06/15/2016.), Ultrasound (Soft tissue neck on 04/17/15) Social & Family History - Family History HEENT: Reports: None. Denies: Glaucoma, Macular Degeneration, Retinal Detach ment Cardiac: Reports: Hypertension, Other (See Below). Denies: Aneurysm, Arrhythmia, Blood Clots/VTE/DVT, CAD, Heart Failure, High Cholesterol, MT, Syncope Other Cardiac Family History: Hypertension in mother and daughter. Respiratory: Reports: None. Denies: Asthma, COPD, PE, Pneumothorax, Sleep Apnea GI: Reports: Cholelithiasis, Other (See Below) (Maternal grandmother with cholelithiasis.). Denies: Celiac Disease, Colon Polyps, GERD, GI bleed, Inflammatory Bowel Disease, Irritable Bowel Syndrome, PUD : Reports: None. Denies: Renal Calculus, Renal Disease/Insufficiency OBGYN: Reports: None. Denies: Endometriosis, Recurrent Spontaneous Musculoskeletal: Reports: Arthritis, RA, Other (See Below). Denies: Gout, SLE Other Musculoskeletal Family History: Father with rheumatoid arthritis. Neurological: Reports: Alzheimers Disease, CVA, Dementia, Migraines, Other (See Below). Denies: Cerebral Aneurysms, MS, Parkinson's, Seizure, TIA Other Neurological Family History: Father with history of organic brain syndrome. Mother with fatal CVA at about age 75. Son with migraine headaches. No family history of myasthenia gravis. Psychiatric: Reports: None. Denies: Abuse, Victim of, ADD, ADHD, Anxiety, Depression, Psych Hospitalization(s), PTSD, Suicide Attempt Endocrine/Metabolic: Reports: Hypothyroidism, Other (See Below). Denies: Diabetes, Type I, Diabetes, type II, Diabetes Mellitus, Type 3c, IDDM Other Endocrine/Metabolic Family History: Maternal grandmother with hypothyroidism. Hematologic: Reports: Transfusion Reaction Immunologic: Reports: None. Denies: AIDS, HIV, SLE Dermatologic: Reports: None. Denies: Eczema, Psoriasis Oncologic: Reports: None. Denies: Colon, Hodgkin's Lymphoma, Leukemia, Lung, Lymphoma, Non-Hodgkin's Lymphoma, Prostate, Skin - Tobacco Use Smoking Status *Q: Former Smoker Tobacco Use Within Last Twelve Months: No Years of Tobacco use: 32 Packs/Tins Daily: 1.5 Packs/Tins Daily Comment: Additional cigar use. Stopping use in 1989. 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 ED EXAM, GENERAL - Physical Exam Exam: See Below Exam Limited By: No Limitations General Appearance: Alert, WD/WN, No Apparent Distress, Other (Generalized muscle weaknessstable by history) Eye Exam: Bilateral Eye: EOMI, Normal Inspection (No nystagmus), PERRL Ears: Normal External Exam, Normal Canal, Normal TMs, Hearing Loss (Mild presbycusis with right-sided hearing aid) Nose: Normal Inspection, Normal Mucosa, No Blood Throat/Mouth: Normal Lips, Normal Gums, Normal Oropharynx, Normal Voice, No Airway Compromise. No: Normal Teeth (Complete absent dentition), Dysphagia, Perioral Cyanosis Head: Atraumatic, Normocephalic. No: Facial Swelling, Facial Tenderness, Sinus Tenderness Neck: Supple, Non-Tender, Full Range of Motion, Carotid Bruit (Mild bilateral carotid bruits). No: Lymphadenopathy (L), Lymphadenopathy (R), Thyromegaly Respiratory/Chest: No Respiratory Distress, No Accessory Muscle Use, Chest Non- Tender, Rales (Mild diffuse bilateral). No: Rhonchi, Wheezing, Pleural Rub, Retractions Cardiovascular: Normal Peripheral Pulses, No Edema (Dependent edema as below), No JVD, No Murmur, No Rub, Irregularly Irregular. No: Gallop/S3, Gallop/S4 Peripheral Pulses: 1+: Dorsalis Pedis (L), Dorsalis Pedis (R), 2+: Radial (L), Radial (R) GI/Abdominal: Normal Bowel Sounds, Soft, Non-Tender, No Organomegaly, No Distention, No Abnormal Bruit, No Mass, Other (Obese). No: Guarding (Male) Exam: Other (Denney catheter) Rectal (Males) Exam: Deferred Back Exam: Full Range of Motion, Other (Mild scoliosis). No: CVA Tenderness (L), CVA Tenderness (R), Muscle Spasm, Paraspinal Tenderness, Vertebral Tenderness Extremities: Normal Range of Motion, Non-Tender, Normal Capillary Refill, Pedal Edema (Mild lymphedema of the lower extremities). No: Kaitlin's Sign Neurological: Alert, CN II-XII Intact, Confused (Borderline mild organic brain syndrome). No: Normal Gait (Needs Iris lift) Psychiatric: Normal Affect, Normal Mood Skin Exam: Ecchymosis (Occasional diffuse), Wound/Incision (Old skin tear left extensor proximal forearm with Steri-Strips in place and no sign of infection). No: Diaphoretic, Petechiae Lymphatic: No Adenopathy EKG INTERPRETATION EKG Date: 11/22/19 Time: 20:41 Rhythm: A-Fib (With PVCs and mild bradycardia) Rate (Beats/Min): 58 [place]: LAD-Left [place] Deviation (Extended left cardiac axis) P-Wave: Variable QRS: RBBB (QRS interval of 0.14 seconds) ST-T: Other (Diffuse nonspecific ST changes consistent with digoxin therapy. With) QT: Normal CT/PQ Interval: Variable with poor R wave progression in the anterior leads Comparison: NA - No Prior EKG (No recent EKG for comparison) EKG Interpretation Comments: 1. No acute ischemic changes 2. Atrial fibrillation 3. Bradycardia 4. PVCs Course - Vital Signs Last Recorded V/S: Last Vital Signs Temp 36.7 C 11/22/19 20:11 Pulse 70 11/22/19 21:45 Resp 20 11/22/19 21:45 BP 107/56 L 11/22/19 21:45 Pulse Ox 93 L 11/22/19 21:45 Vital Signs - 24 hr 11/22/19 11/22/19 11/22/19 20:11 20:23 20:40 Temperature [ 36.7 C Oral] Pulse, 84 71 72 Peripheral [ Pulse Oximetry] Respiratory 18 20 20 Rate Blood Pressure 119/69 113/49 L 106/44 L [Right Upper Arm] O2 Sat by Pulse 99 94 L 94 L Oximetry 11/22/19 11/22/19 11/22/19 20:50 21:12 21:26 Temperature [ Oral] Pulse, 70 70 68 Peripheral [ Pulse Oximetry] Respiratory 18 15 15 Rate Blood Pressure 112/46 L 120/43 L 115/71 [Right Upper Arm] O2 Sat by Pulse 94 L 93 L 93 L Oximetry 11/22/19 11/22/19 11/22/19 21:45 22:20 22:27 Temperature [ Oral] Pulse, 70 63 60 Peripheral [ Pulse Oximetry] Respiratory 20 16 19 Rate Blood Pressure 107/56 L 124/46 L 116/43 L [Right Upper Arm] O2 Sat by Pulse 93 L 94 L 92 L Oximetry - Orders/Labs/Meds Orders: Active Orders 24 hr Category Date Time Status Cardiac Monitoring [RC] . DIRECTED Care 11/22/19 20:23 Active EKG Documentation Completion [RC] ASDIRECTED Care 11/22/19 20:23 Active Oxygen Therapy, ED [RC] CONTINUOUS Care 11/22/19 20:23 Active Peripheral IV Care [RC] . DIRECTED Care 11/22/19 20:23 Active Pulse Oximetry [RC] CONTINUOUS Care 11/22/19 20:23 Active Up With Assistance [RC] PFP Care 11/22/19 20:23 Active Vital Signs [RC] PFP Care 11/22/19 20:23 Active Nothing per Oral Now Diet [DIET] Diet 11/22/19 Breakfast Active Chest 1V Frontal [CR] Stat Exams 11/22/19 20:23 Taken Sodium Chloride 0.9% [Saline Flush] Med 11/22/19 20:23 Active 10 ml FLUSH ASDIRECTED PRN Obtain Past Medical Record [OM.PC] Urgent Oth 11/22/19 20:23 Active Peripheral IV Insertion Adult [OM.PC] Stat Oth 11/22/19 20:23 Ordered Resuscitation Status Stat Resus Stat 11/22/19 20:23 Ordered Medication Orders Sodium Chloride (Saline Flush) 10 ml FLUSH ASDIRECTED PRN PRN Reason: Keep Vein Open Last Admin: 11/22/19 21:45 Dose: 10 ml Documented by: Admin: 11/22/19 20:37 Dose: 10 ml Documented by: GEOFF Labs: Laboratory Tests 11/22/19 11/22/19 11/22/19 Range/Units 20:30 20:30 20:30 PT 20.3 H (9.5-12.0) SEC INR 2.1 APTT 49.3 H (24.5-32.8) SEC D-Dimer, Quantitative < 100 (0-400) ng/mL Lactic Acid (0.4-2.0) mmol/L Uric Acid 9.0 H (2.6-7.2) mg/dL Magnesium 2.2 (1.8-2.4) mg/dL Creatine Kinase 94 (26-308) U/L Creatine Kinase Index 2.2 (0.0-2.5) % CK-MB (CK-2) 2.10 (0.00-3.60) ng/mL Troponin I 0.115 H* (0.000-0.056) ng/mL TSH, Ultra Sensitive 5.696 H (0.358-3.740) mIU/mL 11/22/19 Range/Units 20:30 PT (9.5-12.0) SEC INR APTT (24.5-32.8) SEC D-Dimer, Quantitative (0-400) ng/mL Lactic Acid 1.9 (0.4-2.0) mmol/L Uric Acid (2.6-7.2) mg/dL Magnesium (1.8-2.4) mg/dL Creatine Kinase (26-308) U/L Creatine Kinase Index (0.0-2.5) % CK-MB (CK-2) (0.00-3.60) ng/mL Troponin I (0.000-0.056) ng/mL TSH, Ultra Sensitive (0.358-3.740) mIU/mL Blood work drawn earlier today shows a CBC with mildly decreased, hemoglobin of 11.2, MCV 83.3 with normal platelets of 205 and WBC of 8.1. Comprehensive metabolic panel was normal with exception of decreased potassium of 2.6, CO2 39.7, random glucose of 227, BUN of 40, albumin of 2.8. CRP elevated at 6.3. Note normal creatinine of 1.11. BNP elevated at 5561. Meds: Medications Generic Name Dose Route Start Last Admin Trade Name Freq PRN Reason Stop Dose Admin Sodium Chloride 10 ml 11/22/19 20:23 11/22/19 21:45 Saline Flush FLUSH 10 ml ASDIRECTED PRN Administration Keep Vein Open Discontinued Medications Generic Name Dose Route Start Last Admin Trade Name Freq PRN Reason Stop Dose Admin Famotidine 40 mg 11/22/19 20:23 11/22/19 20:36 Pepcid IVPUSH 11/22/19 20:24 40 mg ONETIME ONE Administration Furosemide 60 mg 11/22/19 21:14 11/22/19 21:32 Lasix IVPUSH 11/22/19 21:15 60 mg NOW ONE Administration Potassium Chloride 40 meq 11/23/19 21:14 Klor-Con M20 PO 11/23/19 21:15 ONETIME ONE Potassium Chloride 40 meq 11/22/19 21:31 09/16/20 21:43 Klor-Con M20 PO 11/22/19 21:32 40 meq ONETIME ONE Administration - Radiology Interpretation Free Text/Narrative:: hall monitor shows atrial fibrillation with frequent uniform PVCs and very occasional couplets with average heart rate in the 60s80s. Chest x-ray, portable, shows moderate cardiomegaly and CHF, including left lower lobe pleural effusion and/or consolidation with history of left-sided diaphragmatic hernia. Mildly prominent proximal aortic arch. Moderate COPD changes with no definite pulmonary infiltrates, pneumothorax, etc. Departure - Departure Time of Disposition: 22:40 Disposition: DC/Tfer to [facility] 02 Condition: Fair Clinical Impression: COPD (chronic obstructive pulmonary disease), Hypertension, Hypoalbuminemia, Atrial fibrillation, CHF (congestive heart failure), Osteoarthritis, Hypokalemia, Anemia, Diabetes mellitus - Discharge Information *PRESCRIPTION DRUG MONITORING PROGRAM REVIEWED*: Not Applicable *COPY OF PRESCRIPTION DRUG MONITORING REPORT IN PATIENT JEANNE: Not Applicable Referrals: Fatou Morales PA [Primary Care Provider] - Forms: ED Department Discharge, Interfacility Transfer SHIRA Sepsis Event Note (ED) - Evaluation Sepsis Screening Result: No Definite Risk - Focused Exam Vital Signs: Vital Signs Temp Pulse Resp BP Pulse Ox 11/22/19 21:45 70 20 107/56 L 93 L 11/22/19 21:26 68 15 115/71 93 L 11/22/19 21:12 70 15 120/43 L 93 L 11/22/19 20:50 70 18 112/46 L 94 L 11/22/19 20:40 72 20 106/44 L 94 L 11/22/19 20:23 71 20 113/49 L 94 L 11/22/19 20:11 36.7 C 84 18 119/69 99 - Problem List & Annotations (1) CHF (congestive heart failure) SNOMED Code(s): 17169293 Code(s): I50.9 - HEART FAILURE, UNSPECIFIED Status: Acute Priority: High Current Visit: Yes Onset Date: 11/22/19 Annotation/Comment:: Moderate CHF by chest x-ray and clinical exam with patient now O2 dependent secondary to hypoxia prior to patient transfer as above. IV Lasix 60 mg given in the emergency room prior to transfer. Note current Denney catheter therapy. Patient denies any chest pain or anginal type symptoms with mild increase of patient's troponin I likely secondary to his CHF. His CK and CK-MB are normal. His EKG does not show any evidence of definite acute ischemic changes with nonspecific ST changes consistent with digoxin therapy and note complete right bundle branch block. Telephone consultation at [address] Galdamez, hospitalist at the [facility], who does accept the patient for admission and further treatment and evaluation with no further treatment recommendations given. Ambulance transfer with government minister accompaniment. Physical exam and vital signs were stable at time of transfer. Qualifiers: Heart failure type: unspecified Heart failure chronicity: acute on chronic Qualified Code(s): I50.9 - Heart failure, unspecified (2) Anemia SNOMED Code(s): 479829323 Code(s): D64.9 - ANEMIA, UNSPECIFIED Status: Acute Priority: Medium Current Visit: Yes Onset Date: 11/22/19 Annotation/Comment:: Mild anemia with no abdominal complaints or evidence of acute GI bleed. High-dose IV Pepcid given as GI prophylaxis. Qualifiers: Anemia type: unspecified type Qualified Code(s): D64.9 - Anemia, unspecified (3) Hypokalemia SNOMED Code(s): 51911456 Code(s): E87.6 - HYPOKALEMIA Status: Acute Priority: High Current Visi t: Yes Onset Date: 11/22/19 Annotation/Comment:: Moderate hypokalemia with 40 mEq of potassium chloride given in the emergency room. Note IV Lasix therapy as above. No evidence of renal insufficiency. Continue to observe his potassium closely secondary required IV diuretic therapy. (4) Atrial fibrillation SNOMED Code(s): 18768634 Code(s): I48.91 - UNSPECIFIED ATRIAL FIBRILLATION Status: Chronic Priority: Medium Current Visit: Yes Annotation/Comment:: No chest pain or anginal-type symptoms. Note new frequent uniform PVCs with occasional couplets. Patient is currently on Pradaxa. Consider digoxin level by accepting providers with current hypokalemia as below. Qualifiers: Atrial fibrillation type: chronic (5) COPD (chronic obstructive pulmonary disease) SNOMED Code(s): 79577074 Code(s): J44.9 - CHRONIC OBSTRUCTIVE PULMONARY DISEASE, UNSPECIFIED Status: Chronic Priority: Medium Current Visit: Yes Annotation/Comment:: No recent cough, bronchitic-type symptoms, etc. Qualifiers: COPD type: unspecified COPD Qualified Code(s): J44.9 - Chronic obstructive pulmonary disease, unspecified (6) Hypertension SNOMED Code(s): 81591347 Code(s): I10 - ESSENTIAL (PRIMARY) HYPERTENSION Status: Chronic Priority: Medium Current Visit: Yes Annotation/Comment:: Blood pressures stable in the emergency room. 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 DIRECTED EKG Documentation Completion [RC] ASDIRECTED Oxygen Therapy, ED [RC] CONTINUOUS Peripheral IV Care [RC] . DIRECTED Pulse Oximetry [RC] CONTINUOUS Up With Assistance [RC] PFP Vital Signs [RC] PFP Chest 1V Frontal [CR] Stat Sodium Chloride 0.9% [Saline Flush] 10 ml FLUSH ASDIRECTED PRN Obtain Past Medical Record [OM.PC] Urgent Peripheral IV Insertion Adult [OM.PC] Stat Resuscitation Status Stat - Assessment/Plan Last 24 Hours: My Active Orders 11/22/19 Breakfast Nothing per Oral Now Diet [DIET] 11/22/19 20:23 Cardiac Monitoring [RC] . DIRECTED EKG Documentation Completion [RC] ASDIRECTED Oxygen Therapy, ED [RC] CONTINUOUS Peripheral IV Care [RC] . DIRECTED Pulse Oximetry [RC] CONTINUOUS Up With Assistance [RC] PFP Vital Signs [RC] PFP Chest 1V Frontal [CR] Stat Sodium Chloride 0.9% [Saline Flush] 10 ml FLUSH ASDIRECTED PRN Obtain Past Medical Record [OM.PC] Urgent Peripheral IV Insertion Adult [OM.PC] Stat Resuscitation Status Stat Assessment:: As above Plan: As above. Extensive precautions were given to the patient, who is in agreement with the treatment plan. Ambulance transfer with government minister accompaniment.
[2019-11-22] MEDS: Sodium Chloride 0.9% 10 ML Syringe FLUSH PRN ×2 (20:37→21:45)
[2019-11-22 20:51] LABS: PTT,PARTIAL THROMBOPLSTIN TIME 49.3 SEC (24.5-32.8)
[2019-11-22] MEDS ORDERED: Furosemide 40 MG/4 ML VIAL IVPUSH ONE (21:14)
[2019-11-22] MEDS ORDERED: Potassium Chloride 20 MEQ Tab.ER PO ONE (21:31)
[2019-11-22 22:27] VITALS: BP 116/43; PULSE 60
[2019-11-23] MEDS ORDERED: Potassium Chloride 20 MEQ Tab.ER PO ONE (21:14)
== END 2019-11-22 22:35 ==
LOC: LL.ED 20:07
DX: J44.9 Chronic obstructive pulmonary disease, unspecified (principal); I11.0 Hypertensive heart disease with heart failure; I50.9 Heart failure, unspecified; M19.90 Unspecified osteoarthritis, unspecified site; E88.09 Other disorders of plasma-protein metabolism, not elsewhere classified; I48.91 Unspecified atrial fibrillation; E87.6 Hypokalemia; D64.9 Anemia, unspecified; E11.9 Type 2 diabetes mellitus without complications; Z88.2 Allergy status to sulfonamides; Z88.1 Allergy status to other antibiotic agents; Z79.899 Other long term (current) drug therapy; Z79.4 Long term (current) use of insulin; Z87.891 Personal history of nicotine dependence
CPT/HCPCS: 36415; 71045; 82550; 82553; 83605; 83735; 84443; 84484; 84550; 85379; 85610; 85730; 93005; 96374; 96375; 99285-25; A9270-GY; J1940; J3490

== ENCOUNTER 2020-01-11 17:56 | Emergency (ER) | payer MEDICARE, MEDICAID ==
[2020-01-11] MEDS ORDERED: Famotidine 20 MG/2 ML SDV IVPUSH ONE (17:58)
[2020-01-11] MEDS ORDERED: Sodium Chloride 0.9% 10 ML Syringe FLUSH PRN ×2 (17:58→20:24)
--- NOTE | 2020-01-11 17:58 | EDM.PDOC ---
ED HPI GENERAL MEDICAL PROBLEM - General Chief Complaint: General Stated Complaint: Fever Time Seen by Provider: 01/11/20 17:58 Source of Information: Reports: Longterm Records, Old Records ([facility] EMR. No paper hospital chart available.) History Limitations: Reports: Altered Mental Status - History of Present Illness INITIAL COMMENTS - FREE TEXT/NARRATIVE: The patient was brought to the emergency room via transport vehicle from [facility] in [place] for evaluation of persistent fever since sometime earlier today with immature of 100.7 degrees. The patient's regular provider, Fatou Morales PA-C, at the [facility], contacted. Limited history obtained from the [facility] with patient being an overall poor historian secondary to his baseline organic brain syndrome and current illness. Patient does have chronic Denney catheter therapy and also has been exposed to COVID-19 with COVID- 19 test sent to the state laboratories earlier today with results pending. No known chest pain or anginal type symptoms. Patient apparently is not having any specific pain or discomfort however limited history as above. Onset: Today, Unknown/Unsure Associated Symptoms: Reports: Confusion (Stable chronic), Fever/Chills - Related Data Allergies Allergy/AdvReac Type Severity Reaction Status Date / Time cephalexin Allergy Itching,sul Verified 01/11/20 19:48 fa sulfamethoxazole Allergy Hives,itchi Verified 01/11/20 19:48 [From Bactrim] ng trimethoprim [From Bactrim] Allergy Hives,itchi Verified 01/11/20 19:48 ng Home Meds: Home Meds Acetaminophen [Tylenol Arthritis Pain] 650 mg PO Q4HR PRN MDD 3 04/14/15 [History] Albuterol/Ipratropium [DuoNeb 3.0-0.5 MG/3 ML] 3 ml NEB QID PRN 04/14/15 [History] Cholecalciferol (Vitamin D3) [Vitamin D3] 800 unit PO QAM 04/14/15 [History] Dabigatran [Pradaxa] 150 mg PO Q12HR 04/14/15 [History] Docusate Sodium [Colace] 100 mg PO BID 04/14/15 [History] Folic Acid 1 mg PO QAM 04/14/15 [History] Furosemide [Lasix] 80 mg PO BID 04/14/15 [History] Magnesium Hydroxide [Milk of Magnesia] 30 ml PO Q2D@199904/14/15 [History] Magnesium Oxide 420 mg PO QAM 04/14/15 [History] Multivitamin [Multivitamins] 1 each PO QAM 04/14/15 [History] Pyridostigmine [Mestinon] 60 mg PO Q12HR 04/14/15 [History] Simvastatin [Zocor] 10 mg PO BEDTIME 04/14/15 [History] Tamsulosin [Flomax] 0.4 mg PO BEDTIME 04/14/15 [History] Thiamine Mononitrate (Vit B1) [Vitamin B-1] 100 mg PO QAM 04/14/15 [History] Verapamil [Calan SR] 180 mg PO Q12HR 04/14/15 [History] Acetaminophen [Tylenol Arthritis Pain] 650 mg PO BID@1200,1700 05/09/15 [History] Bisacodyl [Dulcolax] 10 mg RECTAL DAILY PRN 07/10/15 [History] Colestipol [Colestipol HCl] 1 gm PO Q12HR 07/10/15 [History] Calcium Carbonate/Vitamin D3 [Calcium 600 + Vit D Tablet] 1 tab PO Q12HR 05/10/17 [History] Gabapentin [Neurontin] 100 mg PO BEDTIME 05/10/17 [History] Hydrocodone/Acetaminophen [Hydrocodone-Acetamin 5-325 mg] 1 each PO TID@0800,1200,199905/10/17 [History] polyethylene glycoL 3350 [MiraLAX] 17 gm PO DAILY@0800 #30 packet 06/02/17 [Rx] Albuterol/Ipratropium [DuoNeb 3.0-0.5 MG/3 ML] 1 vial INH QID 05/28/18 [History] Digoxin [Lanoxin] 125 mcg PO DAILY 11/22/19 [History] Insulin Aspart [NovoLOG] 4 unit SUBCUT BID@0800,1200 11/22/19 [History] Insulin Detemir [Levemir] 10 unit SUBCUT BEDTIME 11/22/19 [History] Methenamine Mandelate 1 gm MC BID 11/22/19 [History] Levothyroxine Sodium [Synthroid] 1 tab PO DAILY 01/11/20 [History] Potassium Chloride 1 tab PO BID 01/11/20 [History] lisinopriL [Lisinopril] 1.25 mg PO DAILY 01/11/20 [History] Past Medical History HEENT History: Reports: Cataract, Hard of Hearing, Impaired Vision, Other (See Below). Denies: Allergic Rhinitis, Glaucoma, Macular Degeneration, Retinal Detachment Other HEENT History: Ocular myasthenia gravis; Dysphagia; Presbyopia with patient wearing glasses. Note presbycusis with right-sided hearing aid therapy. Diabetic retinopathy. Cardiovascular History: Reports: Afib, Arrhythmia, Cardiomyopathy, Heart Failure, High Cholesterol, Hypertension, Other (See Below). Denies: Aneurysm, Blood Clots/VTE/DVT, CAD, MS, PVD Other Cardiovascular History: Cardiomegaly. RBBB. PVCs and occasional couplets. Respiratory History: Reports: Bronchitis, Recurrent, COPD, Pneumonia, Recurrent, Other (See Below). Denies: PE, Sleep Apnea Other Respiratory History: benign pulmonary nodule Gastrointestinal History: Reports: Chronic Constipation, Colon Polyp, Fatty Liver, GERD, Hiatal Hernia, Other (See Below). Denies: Celiac Disease, Cholelithiasis, Gastritis, GI Bleed, Hepatitis, Inflammatory Bowel Disease, Irritable Bowel Syndrome, Jaundice, Pancreatitis, PUD Other Gastrointestinal History: Moderate left-sided diaphragmatic hernia. Chronic colonic dilatation with secondary chronic constipation. Unknown type of colonic polyp in about 2009. Dysphagia. Genitourinary History: Reports: BPH, Retention, Urinary, Urinary Incontinence, UTI, Recurrent, Other (See Below). Denies: Acute Renal Failure, Chronic Renal Insuffiency, Diabetic Nephropathy, Renal Calculus, STD Other Genitourinary History: Chronic urine catheter therapy. Musculoskeletal History: Reports: Arthritis, Back Pain, Chronic, Fracture, Neck Pain, Chronic, Osteoarthritis, Osteoporosis, Other (See Below). Denies: Gout, RA, SLE Other Musculoskeletal History: Left third metatarsal fracture. Mild scoliosis. Generalized muscle weakness and wheelchair-bound. Neurological History: Reports: Alzheimers Disease, Neuropathy, Diabetic, Neuropathy, Peripheral, Other (See Below). 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 Psychiatric History: Reports: Addiction, Alzheimers Disease, Anxiety, Dementia, Depression, Other (See Below). Denies: Abuse, Victim of, ADD, ADHD, Psych Hospitalization(s), Psychosis, PTSD, Suicide Attempt, Suicidal Ideation Other Psychiatric History: Mild organic brain syndrome as above. Chronic narcotic use. Endocrine/Metabolic History: Reports: Diabetes, Type II, Hypokalemia, Hypomagnesemia, IDDM, Obesity/BMI 30+, Osteopenia, Osteoporosis, Vitamin D Deficiency, Other (See Below). Denies: Diabetes, Type I, Diabetes Mellitus, Type 3c, Hypothyroidism Other Endocrine/Metabolic History: Hyponatremia. Hypocalcemia. Hypoalbuminemia. Hematologic History: Reports: Anemia, B12 Deficiency. Denies: Blood Transfusion(s) Immunologic History: Reports: None. Denies: AIDS, HIV, SLE Oncologic (Cancer) History: Reports: None Dermatologic History: Reports: Cellulitis, Other (See Below) Other Dermatologic History: Recurrent cellulitis including MRSA and MSSA. 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 Additional MSSA history as above.), Other (See Below). Denies: C-Difficile, Chicken Pox (Patient uncertain), Meningitis, Mononucleosis, Mumps, Pertussis (Whooping Cough), Rheumatic Fever, Rubella, Scarlet Fever, Shingles, TB, VRE Other Infectious Disease History: doesn't remember - Past Surgical History Head Surgeries/Procedures: Reports: None HEENT Surgical History: Reports: Cataract Surgery, Oral Surgery, Other (See Below). Denies: Adenoidectomy, Eye Surgery, Laser Surgery, LASIK, Myringotomy w Tube(s), Naso-Sinus Surgery, Tonsillectomy Other HEENT Surgeries/Procedures: Right cataract surgery in 2012. Complete teeth extraction. Cardiovascular Surgical History: Reports: None. Denies: Varicose Respiratory Surgical History: Reports: None. Denies: Lung Biopsies, Thoracentesis GI Surgical History: Reports: Appendectomy, Colonoscopy, Polypectomy, Other (See Below). Denies: Cholecystectomy, Colon, Hernia, Abdominal, Hernia, Inguinal, Hernia Repair/Other Other GI Surgeries/Procedures: Appendectomy at age 12. Last colonoscopy on 05/09/2015 with no evidence of recurrence of his colonic polyps with previous polypectomy in about 2009. Male Surgical History: Reports: Circumcision, Other (See Below). Denies: TURP-Transurethral Resection of Prostate, Vasectomy Other Male Surgeries/Procedures: Circumcision as an . Endocrine Surgical History: Reports: None. Denies: Thyroid Biopsy Neurological Surgical History: Reports: None. Denies: C-Spine, Discectomy, Laminectomy, Lumbar Spine, Sacral Spine, Spinal Fusion, Thoracic Spine, Vertebroplasty Musculoskeletal Surgical History: Reports: Other (See Below). Denies: Arth roscopic Procedure, Carpal Tunnel, Ganglion Cyst, Joint Replacement, Knee Replacement, ORIF, Shoulder Surgery Other Musculoskeletal Surgeries/Procedures:: Right quadriceps repair in the 1980s. Oncologic Surgical History: Reports: None Dermatological Surgical History: Reports: None - Past Imaging History Past Imaging History: Reports: CAT Scan (CT of the left lower leg on 07/14/2018. Soft tissue CT of the neck on 07/10/2015.), MRI (Left knee on 06/15/2016.), Ultrasound (Soft tissue neck on 04/17/15) Social & Family History - Family History HEENT: Reports: None. Denies: Glaucoma, Macular Degeneration, Retinal Detachmen t Cardiac: Reports: Hypertension, Other (See Below). Denies: Aneurysm, Arrhythmia, Blood Clots/VTE/DVT, CAD, Heart Failure, High Cholesterol, MS, Syncope Other Cardiac Family History: Hypertension in mother and daughter. Respiratory: Reports: None. Denies: Asthma, COPD, PE, Pneumothorax, Sleep Apnea GI: Reports: Cholelithiasis, Other (See Below) (Maternal grandmother with cholelithiasis.). Denies: Celiac Disease, Colon Polyps, GERD, GI bleed, Inflammatory Bowel Disease, Irritable Bowel Syndrome, PUD : Reports: None. Denies: Renal Calculus, Renal Disease/Insufficiency OBGYN: Reports: None. Denies: Endometriosis, Recurrent Spontaneous Musculoskeletal: Reports: Arthritis, RA, Other (See Below). Denies: Gout, SLE Other Musculoskeletal Family History: Father with rheumatoid arthritis. Neurological: Reports: Alzheimers Disease, CVA, Dementia, Migraines, Other (See Below). Denies: Cerebral Aneurysms, MS, Parkinson's, Seizure, TIA Other Neurological Family History: Father with history of organic brain syndrome. Mother with fatal CVA at about age 75. Son with migraine headaches. No family history of myasthenia gravis. Psychiatric: Reports: None. Denies: Abuse, Victim of, ADD, ADHD, Anxiety, Depression, Psych Hospitalization(s), PTSD, Suicide Attempt Endocrine/Metabolic: Reports: Hypothyroidism, Other (See Below). Denies: Diabetes, Type I, Diabetes, type II, Diabetes Mellitus, Type 3c, IDDM Other Endocrine/Metabolic Family History: Maternal grandmother with hypothyroidism. Hematologic: Reports: Transfusion Reaction Immunologic: Reports: None. Denies: AIDS, HIV, SLE Dermatologic: Reports: None. Denies: Eczema, Psoriasis Oncologic: Reports: None. Denies: Colon, Hodgkin's Lymphoma, Leukemia, Lung, Lymphoma, Non-Hodgkin's Lymphoma, Prostate, Skin - Tobacco Use Tobacco Use Status *Q: Former Tobacco User Tobacco Use Within Last Twelve Months: No Years of Tobacco use: 32 Packs/Tins Daily: 1.5 Packs/Tins Daily Comment: Additional cigar use. Patient stopped using tobacco 1989. Used Tobacco, but Quit: Yes Smoking Cessation Information Provided To Patient: No Second Hand Smoke Exposure: No Second Hand Smoke Education Provided: No - Caffeine Use Caffeine Use: Reports: Coffee - Living Situation & Occupation Living situation: Reports: (1989, 2 children), Extended Care Facility (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 No: Nasal Flaring Throat/Mouth: Normal Lips, Normal Gums, Normal Oropharynx, Normal Voice, No Airway Compromise. No: Normal Teeth (Complete absent dentition), Dysphagia, Perioral Cyanosis Head: Atraumatic, Normocephalic. No: Facial Swelling, Facial Tenderness, Sinus Tenderness Neck: Supple, Non-Tender, Full Range of Motion, Carotid Bruit (Mild bilateral carotid bruits). No: Lymphadenopathy (L), Lymphadenopathy (R), Thyromegaly Respiratory/Chest: No Respiratory Distress, No Accessory Muscle Use, Chest Non- Tender, Decreased Breath Sounds (Right base), Rales (Mild diffuse bilateral rales particularly in the bases). No: Rhonchi, Wheezing, Pleural Rub, Retractions Cardiovascular: No Gallop, No JVD, No Murmur, No Rub, Tachycardia, Irregularly Irregular. No: No Edema (Dependent edema as below), Gallop/S3 Peripheral Pulses: 2+: Radial (L), Radial (R) GI/Abdominal: Normal Bowel Sounds, Soft, Non-Tender, No Organomegaly, No Distention, No Abnormal Bruit, No Mass, Other (Obese). No: Guarding (Male) Exam: Deferred Rectal (Males) Exam: Deferred Back Exam: Full Range of Motion. No: CVA Tenderness (L), CVA Tenderness (R), Muscle Spasm Extremities: Normal Range of Motion, Non-Tender, Pedal Edema (Stable mild bilateral lymphedema of the lower extremities with compression dressings in place.). No: Kaitlin's Sign Neurological: Alert, Confused (Mild possibly secondary to current infection). No: Normal Gait (Wheelchair-bound) Psychiatric: Normal Affect, Normal Mood Skin Exam: Warm, Dry, Normal Color, No Rash, Ecchymosis (On hands and forearms bilaterally), Wound/Incision (Minimal abrasion on the mid forehead region). No: Diaphoretic, Petechiae Lymphatic: No Adenopathy #1 Interpretation EKG Date: 01/11/20 Time: 19:18 Rhythm: A-Fib Rate (Beats/Min): 107 [place]: LAD-Left Courtland Deviation (Extended left cardiac axis) P-Wave: Variable QRS: RBBB (QRS interval is 0.12 seconds) ST-T: Normal QT: Normal KY/PQ Interval: Variable Comparison: Change From Previous EKG (Resolved PVCs and bradycardia from 11/22/2019) EKG Interpretation Comments: 1. No acute ischemic changes 2. Atrial fibrillation with mild tachycardia 3. Complete right bundle branch block 4. History of PVCs Course - Vital Signs Text/Narrative:: Vital Signs - 24 hr 01/11/20 01/11/20 01/11/20 17:58 18:10 20:04 Temperature [ 37.2 C 37.6 C Temporal] Pulse, 105 H 102 H 105 H Peripheral [ Right Pulse Oximetry] Respiratory 12 14 Rate Blood Pressure 105/48 L 109/52 L 96/55 L [Left Upper Arm ] O2 Sat by Pulse 100 100 99 Oximetry O2 Sat by Pulse 100 Oximetry [ Nasal Cannula] 01/11/20 01/11/20 20:23 20:50 Temperature [ 37.5 C Temporal] Pulse, 105 H Peripheral [ Right Pulse Oximetry] Respiratory 12 Rate Blood Pressure 85/36 L 93/71 [Left Upper Arm ] O2 Sat by Pulse 98 Oximetry O2 Sat by Pulse Oximetry [ Nasal Cannula] Last Recorded V/S: Last Vital Signs Temp 37.5 C 01/11/20 20:50 Pulse 105 H 01/11/20 20:50 Resp 12 01/11/20 20:50 BP 93/71 01/11/20 20:50 Pulse Ox 98 01/11/20 20:50 - Orders/Labs/Meds Orders: Active Orders 24 hr Category Date Time Status Cardiac Monitoring [RC] . DIRECTED Care 01/11/20 17:58 Active EKG Documentation Completion [RC] ASDIRECTED Care 01/11/20 17:58 Active Oxygen Therapy, ED [RC] PRN Care 01/11/20 17:58 Active Peripheral IV Care [RC] . DIRECTED Care 01/11/20 17:58 Active Peripheral IV Care [RC] . DIRECTED Care 01/11/20 20:24 Active Pulse Oximetry [RC] CONTINUOUS Care 01/11/20 17:58 Active Up With Assistance [RC] PFP Care 01/11/20 17:58 Active Vital Signs [RC] PFP Care 01/11/20 17:58 Active Nothing per Oral Now Diet [DIET] Diet 01/11/20 Breakfast Active Chest 1V Frontal [CR] Stat Exams 01/11/20 17:58 Taken CORONAVIRUS COVID-19 MELISSA [MOLEC] Stat Lab 01/11/20 18:06 Ordered CULTURE BLOOD [BC] Stat Lab 01/11/20 18:25 Received CULTURE BLOOD [BC] Stat Lab 01/11/20 19:00 Received CULTURE STREP A CONFIRMATION [RM] Stat Lab 01/11/20 19:15 Results CULTURE URINE [RM] Stat Lab 01/11/20 16:22 Received STREP SCRN A RAPID W CULT CONF [RM] Stat Lab 01/11/20 19:15 Results Sodium Chloride 0.9% [Saline Flush] Med 01/11/20 17:58 Active 10 ml FLUSH ASDIRECTED PRN Sodium Chloride 0.9% [Saline Flush] Med 01/11/20 20:24 Active 10 ml FLUSH ASDIRECTED PRN Blood Culture x2 Reflex Set [OM.PC] Stat [facility] 01/11/20 18:02 Ordered Isolation [COMM] Routine Ot 01/11/20 18:06 Active Obtain Past Medical Record [OM.PC] Urgent Ot 01/11/20 17:58 Active Peripheral IV Insertion Adult [OM.PC] Stat Ot 01/11/20 17:58 Ordered Peripheral IV Insertion Adult [OM.PC] Stat [facility] 01/11/20 20:24 Ordered Resuscitation Status Stat Resus Stat 01/11/20 17:58 Ordered Medication Orders Sodium Chloride (Saline Flush) 10 ml FLUSH ASDIRECTED PRN PRN Reason: Keep Vein Open Sodium Chloride (Saline Flush) 10 ml FLUSH ASDIRECTED PRN PRN Reason: Keep Vein Open Labs: Laboratory Tests 01/11/20 01/11/20 01/11/20 Range/Units 15:45 15:45 15:45 PT (9.5-12.0) SEC INR APTT (24.5-32.8) SEC D-Dimer, Quantitative 436 H (0-400) ng/mL Lactic Acid (0.4-2.0) mmol/L Uric Acid 5.5 (2.6-7.2) mg/dL Magnesium 1.9 (1.8-2.4) mg/dL Creatine Kinase 112 (26-308) U/L Creatine Kinase Index 1.1 (0.0-2.5) % CK-MB (CK-2) 1.20 (0.00-3.60) ng/mL Troponin I 0.007 (0.000-0.056) ng/mL NT-Pro-B Natriuret Pep 2542 H (0-125) pg/mL Amylase (25-115) U/L Lipase (73-393) U/L TSH, Ultra Sensitive 1.147 (0.358-3.740) mIU/mL Specimen Type Urine Color Urine Appearance Urine pH (5.0-9.0) Ur Specific Somers (1.005-1.030) Urine Protein (NEGATIVE) mg/dL Urine Glucose (UA) (NEGATIVE) mg/dL Urine Ketones (NEGATIVE) mg/dL Urine Occult Blood (NEGATIVE) Urine Nitrite (NEGATIVE) Urine Bilirubin (NEGATIVE) Urine Urobilinogen (0.2-1.0) E.U./dL Ur Leukocyte Esterase (NEGATIVE) Urine RBC /HPF Urine WBC /HPF Ur Epithelial Cells /LPF Urine Bacteria (NONE TO FEW) /HPF Digoxin 0.34 L (0.90-2.00) ng/mL 01/11/20 01/11/20 01/11/20 Range/Units 18:22 18:25 18:25 PT 15.4 H (9.5-12.0) SEC INR 1.6 APTT 45.2 H (24.5-32.8) SEC D-Dimer, Quantitative (0-400) ng/mL Lactic Acid 1.6 (0.4-2.0) mmol/L Uric Acid (2.6-7.2) mg/dL Magnesium (1.8-2.4) mg/dL Creatine Kinase (26-308) U/L Creatine Kinase Index (0.0-2.5) % CK-MB (CK-2) (0.00-3.60) ng/mL Troponin I (0.000-0.056) ng/mL NT-Pro-B Natriuret Pep (0-125) pg/mL Amylase (25-115) U/L Lipase (73-393) U/L TSH, Ultra Sensitive (0.358-3.740) mIU/mL Specimen Type Urinfol Urine Color Dark yellow Urine Appearance Cloudy Urine pH 5.5 (5.0-9.0) Ur Specific Somers 1.015 (1.005-1.030) Urine Protein 100 H (NEGATIVE) mg/dL Urine Glucose (UA) Negative (NEGATIVE) mg/dL Urine Ketones Negative (NEGATIVE) mg/dL Urine Occult Blood Large H (NEGATIVE) Urine Nitrite Negative (NEGATIVE) Urine Bilirubin Negative (NEGATIVE) Urine Urobilinogen 0.2 (0.2-1.0) E.U./dL Ur Leukocyte Esterase Large H (NEGATIVE) Urine RBC Semi-packed /HPF Urine WBC Semi-packed /HPF Ur Epithelial Cells Rare /LPF Urine Bacteria Many H (NONE TO FEW) /HPF Digoxin (0.90-2.00) ng/mL 01/11/20 Range/Units 18:25 PT (9.5-12.0) SEC INR APTT (24.5-32.8) SEC D-Dimer, Quantitative (0-400) ng/mL Lactic Acid (0.4-2.0) mmol/L Uric Acid (2.6-7.2) mg/dL Magnesium (1.8-2.4) mg/dL Creatine Kinase (26-308) U/L Creatine Kinase Index (0.0-2.5) % CK-MB (CK-2) (0.00-3.60) ng/mL Troponin I (0.000-0.056) ng/mL NT-Pro-B Natriuret Pep (0-125) pg/mL Amylase 41 (25-115) U/L Lipase 60 L (73-393) U/L TSH, Ultra Sensitive (0.358-3.740) mIU/mL Specimen Type Urine Color Urine Appearance Urine pH (5.0-9.0) Ur Specific Somers (1.005-1.030) Urine Protein (NEGATIVE) mg/dL Urine Glucose (UA) (NEGATIVE) mg/dL Urine Ketones (NEGATIVE) mg/dL Urine Occult Blood (NEGATIVE) Urine Nitrite (NEGATIVE) Urine Bilirubin (NEGATIVE) Urine Urobilinogen (0.2-1.0) E.U./dL Ur Leukocyte Esterase (NEGATIVE) Urine RBC /HPF Urine WBC /HPF Ur Epithelial Cells /LPF Urine Bacteria (NONE TO FEW) /HPF Digoxin (0.90-2.00) ng/mL Blood cultures x2 were collected COVID-19 rapid test was conducted with results pending Urine specimen set up for culture and sensitivity. CBC and comprehensive metabolic panel were performed earlier this afternoon with pertinent positive including WBCs of 19.1, hemoglobin 11.3, MCV 80.4, platelets 259, neutrophils 88.7%, sodium 135, potassium 4.0, CO2 32.4, random glucose 177, BUN 20, creatinine 0.85, albumin 3.0 and otherwise normal LFTs. CRP was elevated at 11.3. Meds: Medications Generic Name Dose Route Start Last Admin Trade Name Freq PRN Reason Stop Dose Admin Sodium Chloride 10 ml 01/11/20 17:58 Saline Flush FLUSH ASDIRECTED PRN Keep Vein Open Sodium Chloride 10 ml 01/11/20 20:24 Saline Flush FLUSH ASDIRECTED PRN Keep Vein Open Discontinued Medications Generic Name Dose Route Start Last Admin Trade Name Tierney PRN Reason Stop Dose Admin Famotidine 40 mg 01/11/20 17:58 01/11/20 19:27 Pepcid IVPUSH 01/11/20 17:59 40 mg ONETIME ONE Administration Vancomycin HCl 1 gm/ Sodium 250 mls @ 167 mls/hr 01/11/20 18:02 01/11/20 19:27 Chloride IV 01/11/20 19:31 167 mls/hr STAT ONE Administration Lactated Ringer's 1,000 mls @ 999 mls/hr 01/11/20 18:06 01/11/20 19:27 Ringers, Lactated IV 01/11/20 19:06 999 mls/hr .BOLUS ONE Administration Vancomycin HCl Confirm 01/11/20 19:18 Vancomycin Administered 01/11/20 19:19 Dose 1 gm .ROUTE .[facility] - Radiology Interpretation Free Text/Narrative:: radiation monitor shows atrial fibrillation with mild tachycardia in the 100s with no other ectopy or arrhythmia. Chest x-ray, portable, shows moderate cardiomegaly with mild CHF including a small right pleural effusion and Stevo B lines. Mild prominence of the proximal aortic arch with moderate COPD changes but no pneumothorax. Pulmonary infiltrates difficult to assess secondary to the above changes. Moderate increased bowel gaseous pattern from incomplete view, however no free air and known history of chronic colonic dilatation. Departure - Departure Time of Disposition: 20:50 Disposition: DC/Tfer to Acute Hospital 02 Condition: Fair Clinical Impression: Confusion, Sepsis, D-dimer, elevated COPD (chronic obstructive pulmonary disease) Qualifiers: COPD type: COPD with acute lower respiratory infection Qualified Code(s): J44.0 - Chronic obstructive pulmonary disease with (acute) lower respiratory infection CHF (congestive heart failure) Qualifiers: Heart failure type: unspecified Heart failure chronicity: acute on chronic Qualified Code(s): I50.9 - Heart failure, unspecified Hypertension Qualifiers: Hypertension type: essential hypertension Qualified Code(s): I10 - Essential (primary) hypertension Osteoarthritis Qualifiers: Osteoarthritis location: multiple joints Osteoarthritis type: primary Qualified Code(s): M89.49 - Other hypertrophic osteoarthropathy, multiple sites Atrial fibrillation Qualifiers: Atrial fibrillation type: persistent (not longstanding) Qualified Code(s): I48.19 - Other persistent atrial fibrillation Diabetes mellitus Qualifiers: Diabetes mellitus type: type 2 Diabetes mellitus correction insulin use: with correction use Diabetes mellitus complication status: with ophthalmic complications Diabetes mellitus complication detail: with diabetic retinopathy Diabetic retinopathy severity: with unspecified retinopathy severity Diabetes mellitus macular edema: with macular edema Laterality: unspecified laterality Qualified Code(s): 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 UTI (urinary tract infection) Qualifiers: Urinary tract infection type: acute cystitis Hematuria presence: without hematuria Qualified Code(s): N30.00 - Acute cystitis without hematuria - Discharge Information *PRESCRIPTION DRUG MONITORING PROGRAM REVIEWED*: Not Applicable *COPY OF PRESCRIPTION DRUG MONITORING REPORT IN PATIENT JEANNE: Not Applicable Referrals: Fatou Morales PA [Primary Care Provider] - Forms: ED Department Discharge, Interfacility Transfer [facility] Sepsis Event Note (ED) - Focused Exam Vital Signs: Vital Signs Temp Pulse Resp BP Pulse Ox Pulse Ox 01/11/20 20:50 37.5 C 105 H 12 93/71 98 01/11/20 20:23 85/36 L 01/11/20 20:04 105 H 96/55 L 99 01/11/20 18:10 37.6 C 102 H 14 109/52 L 100 01/11/20 17:58 37.2 C 105 H 12 105/48 L 100 100 - Problem List & Annotations (1) Sepsis SNOMED Code(s): 25073462 Code(s): A41.9 - SEPSIS, UNSPECIFIED ORGANISM Status: Acute Priority: High Onset Date: 01/11/20 Annotation/Comment:: Sepsis is strongly suspected with sepsis order set and protocol initiated immediately upon patient's arrival to the emergency room. IV vancomycin therapy was initiated with additional 1 L IV bolus of lactated Ringer's ordered and to be completed by the paramedics in route. Blood cultures x2 were collected. Urine specimen was set up for culture and sensitivity. COVID-19 rapid test was conducted with results not available until tomorrow morning. Etiology of sepsis likely urosepsis, however cannot rule out concomitant pneumonia and/or COVID-19 infection. Telephone consultation at 7:[address] Padilla, hospitalist at the [facility], who does accept the patient for direct admission, with no further treatment recommendations given. Isolation precautions were initiated. Ambulance transfer with automotive parts advisor accompaniment. Despite mild hypotension patient's physical exam and vital signs were otherwise overall stable prior to transfer. The patient was transferred with 2 peripheral IV sites. (2) UTI (urinary tract infection) SNOMED Code(s): 39773691 Code(s): N39.0 - URINARY TRACT INFECTION, SITE NOT SPECIFIED Status: Acute Priority: High Onset Date: 01/11/20 Annotation/Comment:: As above Qualifiers: Urinary tract infection type: acute cystitis Hematuria presence: without hematuria Qualified Code(s): N30.00 - Acute cystitis without hematuria (3) Pneumonia SNOMED Code(s): 657451114 Code(s): J18.9 - PNEUMONIA, UNSPECIFIED ORGANISM Status: Acute Priority: High Onset Date: ~01/11/20 Annotation/Comment:: As above Qualifiers: Laterality: bilateral Lung location: unspecified part of lung (4) CHF (congestive heart failure) SNOMED Code(s): 19002877 Code(s): I50.9 - HEART FAILURE, UNSPECIFIED Status: Acute Priority: High Onset Date: 11/22/19 Annotation/Comment:: Moderate CHF by chest x-ray and clinical exam with patient now O2 dependent secondary to hypoxia prior to patient transfer. IV Lasix was held for now secondary to borderline hypotension and sepsis as above. Note current Denney catheter therapy. Qualifiers: Heart failure type: unspecified Heart failure chronicity: acute on chronic Qualified Code(s): I50.9 - Heart failure, unspecified (5) Atrial fibrillation SNOMED Code(s): 60016937 Code(s): I48.91 - UNSPECIFIED ATRIAL FIBRILLATION Status: Chronic Priority: Medium Annotation/Comment:: No chest pain or anginal-type symptoms, although the patient is a somewhat poor historian. Note current CHF both by clinical exam and chest x-ray with moderately elevated BNP. Cardiac enzymes and EKG are otherwise stable. Note right bundle branch block and previous PVCs and couplets by history. Patient is currently on Pradaxa. Subtherapeutic random digoxin level in the emergency room today. Further medication adjustment by accepting providers depending on his clinical course. Qualifiers: Atrial fibrillation type: persistent (not longstanding) Qualified Code(s): I48.19 - Other persistent atrial fibrillation; I48.1 - Persistent atrial fibrillation (6) Diabetes mellitus SNOMED Code(s): 01977552 Code(s): E11.9 - TYPE 2 DIABETES MELLITUS WITHOUT COMPLICATIONS Status: Chronic Priority: Medium Annotation/Comment:: IDDM with diabetic retinopathy, etc. as above. Glucose of 177 earlier today. Consider sliding scale by accepting providers secondary to current infection. 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; Z79.4 - termite control servicer (current) use of insulin (7) Osteoarthritis SNOMED Code(s): 735260231 Code(s): M19.90 - UNSPECIFIED OSTEOARTHRITIS, UNSPECIFIED SITE Status: Chronic Priority: Medium Annotation/Comment:: Stable by history Qualifiers: Osteoarthritis location: multiple joints Osteoarthritis type: primary Qualified Code(s): M89.49 - Other hypertrophic osteoarthropathy, multiple sites (8) COPD (chronic obstructive pulmonary disease) SNOMED Code(s): 68073026 Code(s): J44.9 - CHRONIC OBSTRUCTIVE PULMONARY DISEASE, UNSPECIFIED Status: Chronic Priority: Medium Annotation/Comment:: Possible concurrent pneumonia however difficult to assess in today's chest x-ray secondary to his concurrent CHF. Attempt to obtain sputum for culture and sensitivity. Note COVID-19 exposure in the [facility]. Qualifiers: COPD type: COPD with acute lower respiratory infection Qualified Code(s): J44.0 - Chronic obstructive pulmonary disease with (acute) lower respiratory infection (9) Hypertension SNOMED Code(s): 81398874 Code(s): I10 - ESSENTIAL (PRIMARY) HYPERTENSION Status: Chronic Priority: High Annotation/Comment:: Mild hypotension in the emergency room was nonsymptomatic. IV vancomycin was initiated as above with 1 L lactated Ringer's IV bolus to be given in route. 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 Continue to observe closely secondary to his current sepsis, COVID-19 exposure, etc. (11) Hypoalbuminemia SNOMED Code(s): 199252968 Code(s): 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, NEC Status: Chronic Priority: Medium Annotation/Comment:: Stable per her medical records. Consider high-protein Glucerna supplements as snacks. (12) D-dimer, elevated SNOMED Code(s): 812868510 Code(s): R79.89 - OTHER SPECIFIED ABNORMAL FINDINGS OF BLOOD CHEMISTRY Status: Acute Priority: High Onset Date: 01/11/20 Annotation/Comment:: No clinical evidence of DVT or PE. Note current Pradaxa therapy. IV Pepcid given as GI prophylaxis. Consider CTA of the chest, venous Doppler studies, further anticoagulation, etc. by accepting providers depending on his clinical course. - Problem List Review Problem List Initiated/Reviewed/Updated: Yes - My Orders Last 24 Hours: My Active Orders 01/11/20 Breakfast Nothing per Oral Now Diet [DIET] 01/11/20 16:22 CULTURE URINE [RM] Stat 01/11/20 17:58 Cardiac Monitoring [RC] . DIRECTED EKG Documentation Completion [RC] ASDIRECTED Oxygen Therapy, ED [RC] PRN Peripheral IV Care [RC] . DIRECTED Pulse Oximetry [RC] CONTINUOUS Up With Assistance [RC] PFP Vital Signs [RC] PFP Chest 1V Frontal [CR] Stat Sodium Chloride 0.9% [Saline Flush] 10 ml FLUSH ASDIRECTED PRN Obtain Past Medical Record [OM.PC] Urgent Peripheral IV Insertion Adult [OM.PC] Stat Resuscitation Status Stat 01/11/20 18:02 Blood Culture x2 Reflex Set [OM.PC] Stat 01/11/20 18:06 CORONAVIRUS COVID-19 MELISSA [MOLEC] Stat Isolation [COMM] Routine 01/11/20 18:25 CULTURE BLOOD [BC] Stat 01/11/20 19:00 CULTURE BLOOD [BC] Stat 01/11/20 19:15 CULTURE STREP A CONFIRMATION [RM] Stat STREP SCRN A RAPID W CULT CONF [RM] Stat 01/11/20 20:24 Peripheral IV Care [RC] . DIRECTED Sodium Chloride 0.9% [Saline Flush] 10 ml FLUSH ASDIRECTED PRN Peripheral IV Insertion Adult [OM.PC] Stat - Assessment/Plan Last 24 Hours: My Active Orders 01/11/20 Breakfast Nothing per Oral Now Diet [DIET] 01/11/20 16:22 CULTURE URINE [RM] Stat 01/11/20 17:58 Cardiac Monitoring [RC] . DIRECTED EKG Documentation Completion [RC] ASDIRECTED Oxygen Therapy, ED [RC] PRN Peripheral IV Care [RC] . DIRECTED Pulse Oximetry [RC] CONTINUOUS Up With Assistance [RC] PFP Vital Signs [RC] PFP Chest 1V Frontal [CR] Stat Sodium Chloride 0.9% [Saline Flush] 10 ml FLUSH ASDIRECTED PRN Obtain Past Medical Record [OM.PC] Urgent Peripheral IV Insertion Adult [OM.PC] Stat Resuscitation Status Stat 01/11/20 18:02 Blood Culture x2 Reflex Set [OM.PC] Stat 01/11/20 18:06 CORONAVIRUS COVID-19 MELISSA [MOLEC] Stat Isolation [COMM] Routine 01/11/20 18:25 CULTURE BLOOD [BC] Stat 01/11/20 19:00 CULTURE BLOOD [BC] Stat 01/11/20 19:15 CULTURE STREP A CONFIRMATION [RM] Stat STREP SCRN A RAPID W CULT CONF [RM] Stat 01/11/20 20:24 Peripheral IV Care [RC] . DIRECTED Sodium Chloride 0.9% [Saline Flush] 10 ml FLUSH ASDIRECTED PRN Peripheral IV Insertion Adult [OM.PC] Stat Assessment:: As above Plan: As above. Extensive precautions were given to the patient, who is in agreement with the treatment plan. Ambulance transfer to the [facility] as above.
[2020-01-11] MEDS ORDERED: Lactated Ringers 1,000 ML IV ONE (18:06)
[2020-01-11 18:51] LABS: PTT,PARTIAL THROMBOPLSTIN TIME 45.2 SEC (24.5-32.8)
[2020-01-11] MEDS ORDERED: Vancomycin 1 GM SDV ONE (19:18)
[2020-01-11 20:05] VITALS: PULSE 105
[2020-01-11 21:06] VITALS: BP 93/71
== END 2020-01-11 20:50 ==
LOC: LL.ED 17:56
DX: A41.9 Sepsis, unspecified organism (principal); J44.0 Chronic obstructive pulmonary disease with (acute) lower respiratory infection; I11.0 Hypertensive heart disease with heart failure; I50.9 Heart failure, unspecified; M89.49 Other hypertrophic osteoarthropathy, multiple sites; I48.19 Other persistent atrial fibrillation; E11.311 Type 2 diabetes mellitus with unspecified diabetic retinopathy with macular edema; N30.00 Acute cystitis without hematuria; R79.1 Abnormal coagulation profile; R41.0 Disorientation, unspecified; I48.91 Unspecified atrial fibrillation; E78.00 Pure hypercholesterolemia, unspecified; N40.1 Benign prostatic hyperplasia with lower urinary tract symptoms; N39.498 Other specified urinary incontinence; M19.90 Unspecified osteoarthritis, unspecified site; E11.42 Type 2 diabetes mellitus with diabetic polyneuropathy; G30.9 Alzheimer's disease, unspecified; F02.80 Dementia in other diseases classified elsewhere, unspecified severity, without behavioral disturbance, psychotic disturbance, mood disturbance, and anxiety; S00.81XA Abrasion of other part of head, initial encounter; R00.0 Tachycardia, unspecified; E66.9 Obesity, unspecified; Z87.891 Personal history of nicotine dependence; M79.81 Nontraumatic hematoma of soft tissue; I45.10 Unspecified right bundle-branch block; Z88.1 Allergy status to other antibiotic agents; Z88.2 Allergy status to sulfonamides; Z79.899 Other long term (current) drug therapy; Z79.4 Long term (current) use of insulin
CPT/HCPCS: 36415; 71045; 80162; 81001; 82150; 82550; 82553; 83605; 83690; 83735; 83880; 84443; 84484; 84550; 85379; 85610; 85730; 87040; 87081; 87086; 87088; 87186; 87430; 87804; 93005; 93010; 96365; 96375; 99284; 99285-25; J3370; J3490; J7050; J7120; U0002

== ENCOUNTER 2020-02-23 08:11 | Emergency (ER) | payer MEDICARE, MEDICAID ==
[2020-02-23] MEDS ORDERED: Sodium Chloride 0.9% 10 ML Syringe FLUSH PRN (08:36)
[2020-02-23] MEDS ORDERED: Famotidine 20 MG/2 ML SDV IVPUSH ONE (08:36)
--- NOTE | 2020-02-23 08:36 | EDM.PDOC ---
ED HPI GENERAL MEDICAL PROBLEM - General Chief Complaint: General Stated Complaint: hypoxia Time Seen by Provider: 02/23/20 08:30 Source of Information: Reports: Patient, EMS, Old Records ([facility] EMR. No paper hospital chart available.). 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 No other treatment was given in route. The patient is a somewhat poor historian secondary to his current illness with only limited history obtained from our nurses from the staff at [facility] in [place]. The patient has been noncompliant with his nocturnal O2 therapy with O2 sat of only 68-70% on room air during nurse's rounds this morning. The patient was at his normal bas krystina yesterday with no apparent recent chest pain, anginal type symptoms, heart flutter, orthostasis, etc.. No apparent recent abdominal complaints, including UTI symptoms. Moderate dyspnea and mild pallor were noted by the nurses earlier this morning with additional patient complaint of generalized weakness, however no specific other pain or discomfort. Onset: Today, Unknown/Unsure Onset Date: 02/23/20 Duration: Getting Worse Location: Reports: Other (No pain) Quality: Reports: Same as Previous Episode Severity: Severe (Hypoxia as above) Improves with: Reports: Other (Oxygen) Worsens with: Reports: None Context: Reports: Other (As above). Denies: Sick Contact, Trauma Associated Symptoms: Reports: Confusion (Mild), Cough, Shortness of Breath, Weakness (Nonspecific generalized). 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/IO, Oxygen - Related Data Allergies Allergy/AdvReac Type Severity Reaction Status Date / Time cephalexin Allergy Itching,sul Verified 01/11/20 19:48 fa sulfamethoxazole Allergy Hives,itchi Verified 01/11/20 19:48 [From Bactrim] ng trimethoprim [From Bactrim] Allergy Hives,itchi Verified 01/11/20 19:48 ng Home Meds: Home Meds Acetaminophen [Tylenol Arthritis Pain] 650 mg PO Q4HR PRN MDD 3 04/14/15 [History] Albuterol/Ipratropium [DuoNeb 3.0-0.5 MG/3 ML] 3 ml NEB QID PRN 04/14/15 [History] Cholecalciferol (Vitamin D3) [Vitamin D3] 800 unit PO QAM 04/14/15 [History] Dabigatran [Pradaxa] 150 mg PO BID@0800,1900 04/14/15 [History] Docusate Sodium [Colace] 100 mg PO BID@0800,1900 04/14/15 [History] Folic Acid 1 mg PO QAM 04/14/15 [History] Furosemide [Lasix] 80 mg PO BID@0800,1200 04/14/15 [History] Magnesium Hydroxide [Milk of Magnesia] 30 ml PO DAILY PRN 04/14/15 [History] Magnesium Oxide 420 mg PO QAM 04/14/15 [History] Multivitamin [Multivitamins] 1 each PO QAM 04/14/15 [History] Pyridostigmine [Mestinon] 60 mg PO Q12HR@0800,1900 04/14/15 [History] Simvastatin [Zocor] 10 mg PO BEDTIME 04/14/15 [History] Tamsulosin [Flomax] 0.4 mg PO DAILY 04/14/15 [History] Thiamine Mononitrate (Vit B1) [Vitamin B-1] 100 mg PO QAM 04/14/15 [History] Verapamil [Calan SR] 90 mg PO DAILY 04/14/15 [History] Acetaminophen [Tylenol Arthritis Pain] 650 mg PO BID@0800,1900 05/09/15 [History] Bisacodyl [Dulcolax] 10 mg RECTAL DAILY PRN 07/10/15 [History] Colestipol [Colestipol HCl] 1 gm PO BID@0800,1900 07/10/15 [History] Calcium Carbonate/Vitamin D3 [Calcium 600 + Vit D Tablet] 1 tab PO BID@0800,1900 05/10/17 [History] Gabapentin [Neurontin] 100 mg PO BEDTIME 05/10/17 [History] polyethylene glycoL 3350 [MiraLAX] 17 gm PO DAILY@0800 #30 packet 06/02/17 [Rx] Albuterol/Ipratropium [DuoNeb 3.0-0.5 MG/3 ML] 1 vial INH QID 05/28/18 [History] Insulin Aspart [NovoLOG] 4 unit SUBCUT TID@0800,1200,1700 11/22/19 [History] Insulin Detemir [Levemir] 10 unit SUBCUT BEDTIME 11/22/19 [History] Levothyroxine Sodium [Synthroid] 25 mcg PO DAILY 01/11/20 [History] Potassium Chloride 1 tab PO BID@0800,1900 01/11/20 [History] Digoxin [Lanoxin] 62.5 mcg PO DAILY 02/23/20 [History] Past Medical History HEENT History: Reports: Cataract, Hard of Hearing, Impaired Vision, Other (See Below). Denies: Allergic Rhinitis, Glaucoma, Macular Degeneration, Retinal Detachment Other HEENT History: Ocular myasthenia gravis; Dysphagia; Presbyopia with patient wearing glasses. Note presbycusis with right-sided hearing aid therapy. Diabetic retinopathy. Cardiovascular History: Reports: Afib, Arrhythmia, Cardiomyopathy, Heart Failure, High Cholesterol, Hypertension, Other (See Below). Denies: Aneurysm, Blood Clots/VTE/DVT, CAD, [place], PVD Other Cardiovascular History: Cardiomegaly. RBBB. PVCs and occasional couplets. Respiratory History: Reports: Bronchitis, Recurrent, COPD, Pneumonia, Recurrent, Other (See Below). Denies: PE, Sleep Apnea Other Respiratory History: benign pulmonary nodule Gastrointestinal History: Reports: Chronic Constipation, Colon Polyp, Fatty Liver, GERD, Hiatal Hernia, Other (See Below). Denies: Celiac Disease, Cholelithiasis, Gastritis, GI Bleed, Hepatitis, Inflammatory Bowel Disease, Irritable Bowel Syndrome, Jaundice, Pancreatitis, PUD Other Gastrointestinal History: Moderate left-sided diaphragmatic hernia. Chronic colonic dilatation with secondary chronic constipation. Unknown type of colonic polyp in about 2009. Dysphagia. Genitourinary History: Reports: BPH, Retention, Urinary, Urinary Incontinence, UTI, Recurrent, Other (See Below). Denies: Acute Renal Failure, Chronic Renal Insuffiency, Diabetic Nephropathy, Renal Calculus, STD Other Genitourinary History: Chronic urine catheter therapy. Musculoskeletal History: Reports: Arthritis, Back Pain, Chronic, Fracture, Neck Pain, Chronic, Osteoarthritis, Osteoporosis, Other (See Below). Denies: Gout, RA, SLE Other Musculoskeletal History: Left third metatarsal fracture. Mild scoliosis. Generalized muscle weakness and wheelchair-bound. Neurological History: Reports: Alzheimers Disease, Neuropathy, Diabetic, Neuropathy, Peripheral, Other (See Below). 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 Psychiatric History: Reports: Addiction, Alzheimers Disease, Anxiety, Dementia, Depression, Other (See Below). Denies: Abuse, Victim of, ADD, ADHD, Psych Hospitalization(s), Psychosis, PTSD, Suicide Attempt, Suicidal Ideation Other Psychiatric History: Mild organic brain syndrome as above. Chronic narcotic use. Endocrine/Metabolic History: Reports: Diabetes, Type II, Hypokalemia, Hypomagnesemia, IDDM, Obesity/BMI 30+, Osteopenia, Osteoporosis, Vitamin D Deficiency, Other (See Below). Denies: Diabetes, Type I, Diabetes Mellitus, Type 3c, Hypothyroidism Other Endocrine/Metabolic History: Hyponatremia. Hypocalcemia. Hypoalbuminemia. Hematologic History: Reports: Anemia, B12 Deficiency. Denies: Blood Transfusion(s), Iron Deficiency Immunologic History: Reports: None. Denies: AIDS, HIV, SLE Oncologic (Cancer) History: Reports: None. Denies: Basal Cell Carcinoma, Colon, Hodgkin's Lymphoma, Leukemia, Lymphoma, Malignant Melanoma, Non-Hodgkin's Lymphoma, Prostate, Squamous Cell Carcinoma Dermatologic History: Reports: Cellulitis, Other (See Below) Other Dermatologic History: Recurrent cellulitis including MRSA and MSSA. 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 Additional MSSA history as above.), Other (See Below). Denies: C-Difficile, Chicken Pox (Patient uncertain), Meningitis, Mononucleosis, Mumps, Novel Coronavirus, Pertussis (Whooping Cough), Rheumatic Fever, Rubella, Scarlet Fever, Shingles, TB, VRE Other Infectious Disease History: doesn't remember - Past Surgical History Head Surgeries/Procedures: Reports: None HEENT Surgical History: Reports: Cataract Surgery, Oral Surgery, Other (See Below). Denies: Adenoidectomy, Eye Surgery, Laser Surgery, LASIK, Myringotomy w Tube(s), Naso-Sinus Surgery, Tonsillectomy Other HEENT Surgeries/Procedures: Right cataract surgery in 2012. Complete teeth extraction. Cardiovascular Surgical History: Reports: None. Denies: Varicose Respiratory Surgical History: Reports: None. Denies: Lung Biopsies, Thoracentesis GI Surgical History: Reports: Appendectomy, Colonoscopy, Polypectomy, Other (See Below). Denies: Cholecystectomy, Colon, Hernia, Abdominal, Hernia, Inguinal, Hernia Repair/Other Other GI Surgeries/Procedures: Appendectomy at age 12. Last colonoscopy on 05/09/2015 with no evidence of recurrence of his colonic polyps with previous polypectomy in about 2009. Male Surgical History: Reports: Circumcision, Other (See Below). Denies: TURP-Transurethral Resection of Prostate, Vasectomy Other Male Surgeries/Procedures: Circumcision as an infant. Endocrine Surgical History: Reports: None. Denies: Thyroid Biopsy Neurological Surgical History: Reports: None. Denies: C-Spine, Discectomy, Laminectomy, Lumbar Spine, Sacral Spine, Spinal Fusion, Thoracic Spine, Vertebroplasty Musculoskeletal Surgical History: Reports: Other (See Below). Denies: Arthroscopic Procedure, Carpal Tunnel, Ganglion Cyst, Joint Replacement, Knee Replacement, ORIF, Shoulder Surgery Other Musculoskeletal Surgeries/Procedures:: Right quadriceps repair in the . Oncologic Surgical History: Reports: None Dermatological Surgical History: Reports: None - Past Imaging History Past Imaging History: Reports: CAT Scan (CT of the left lower leg on 07/14/2018. Soft tissue CT of the neck on 07/10/2015.), MRI (Left knee on 06/15/2016.), Ultrasound (Soft tissue neck on 04/17/15) Social & Family History - Family History HEENT: Reports: None. Denies: Glaucoma, Macular Degeneration, Retinal Detachment Cardiac: Reports: Hypertension, Other (See Below). Denies: Aneurysm, Arrhythmia, Blood Clots/VTE/DVT, CAD, Heart Failure, High Cholesterol, WA, Syncope Other Cardiac Family History: Hypertension in mother and daughter. Respiratory: Reports: None. Denies: Asthma, COPD, PE, Pneumothorax, Sleep Apnea GI: Reports: Cholelithiasis, Other (See Below). Denies: Celiac Disease, Colon Polyps, GERD, GI bleed, Inflammatory Bowel Disease, Irritable Bowel Syndrome, PUD Other GI Family History: Maternal grandmother with cholelithiasis. : Reports: None. Denies: Renal Calculus, Renal Disease/Insufficiency OBGYN: Reports: None. Denies: Endometriosis, Recurrent Spontaneous Musculoskeletal: Reports: Arthritis, RA, Other (See Below). Denies: Gout, SLE Other Musculoskeletal Family History: Father with rheumatoid arthritis. Neurological: Reports: Alzheimers Disease, CVA, Dementia, Migraines, Other (See Below). Denies: Cerebral Aneurysms, MS, Parkinson's, Seizure, TIA Other Neurological Family History: Father with history of organic brain syndrome. Mother with fatal CVA at about age 75. Son with migraine headaches. No family history of myasthenia gravis. Psychiatric: Reports: None. Denies: Abuse, Victim of, ADD, ADHD, Anxiety, Depression, Psych Hospitalization(s), PTSD, Suicide Attempt Endocrine/Metabolic: Reports: Hypothyroidism, Other (See Below). Denies: Diabetes, Type I, Diabetes, type II, Diabetes Mellitus, Type 3c, IDDM Other Endocrine/Metabolic Family History: Maternal grandmother with hypothyroidism. Hematologic: Reports: Transfusion Reaction Immunologic: Reports: None. Denies: AIDS, HIV, SLE Dermatologic: Reports: None. Denies: Eczema, Psoriasis Oncologic: Reports: None. Denies: Colon, Hodgkin's Lymphoma, Leukemia, Lung, Lymphoma, Non-Hodgkin's Lymphoma, Prostate, Skin - Tobacco Use Tobacco Use Status *Q: Former Tobacco User Tobacco Use Within Last Twelve Months: No Years of Tobacco use: 32 Packs/Tins Daily: 1.5 Packs/Tins Daily Comment: Additional cigar use with the patient stopping using tobacco 1989. 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 No: Normal Teeth (Complete absent dentition with no dentures present.), Normal Gums, Normal Oropharynx, Normal Voice, No Airway Compromise, Dysphagia, Inflammation, Perioral Cyanosis Head: Atraumatic, Normocephalic. No: Facial Swelling, Facial Tenderness, Sinus Tenderness Neck: Supple, Non-Tender, Full Range of Motion, Carotid Bruit (Mild bilateral carotid bruits), Other (Negative meningeal signs). No: Lymphadenopathy (L), Lymphadenopathy (R), Thyromegaly Respiratory/Chest: Chest Non-Tender, Respiratory Distress (Mild), Rales (Moderate diffuse bilaterally particularly on the basis), Rhonchi (Occasional diffuse bilateral), Wheezing (Mild diffuse bilateral), Accessory Muscle Use (Mild), Retractions (Mild). No: Pleural Rub Cardiovascular: Normal Peripheral Pulses, No JVD, No Murmur, No Rub, Tachycardia (Occasional borderline), Irregularly Irregular. No: No Edema (Dependent edema as below), Gallop/S3, Gallop/S4 Peripheral Pulses: 2+: Radial (L), Radial (R), Dorsalis Pedis (L), Dorsalis Pedis (R) GI/Abdominal: Normal Bowel Sounds, Soft, Non-Tender, No Organomegaly, No Distention, No Abnormal Bruit, No Mass, Pelvis Stable, Other (Obese). No: Guarding (Male) Exam: Deferred Rectal (Males) Exam: Deferred Back Exam: Normal Inspection, Full Range of Motion. No: CVA Tenderness (L), CVA Tenderness (R), Muscle Spasm Extremities: Normal Range of Motion, Non-Tender, Pedal Edema (Mild lymphedema of the left leg with attached leg bag/Denney). No: Kaitlin's Sign Neurological: Confused (Mild as above). No: Alert (Mild lethargy), Oriented (Except for plates. Please with patient thinking that he is in [place]), Normal Cognition, Normal Gait (Generalized weakness) Psychiatric: Normal Affect, Normal Mood Skin Exam: Warm, Dry, Intact, Normal Color, No Rash. No: Diaphoretic, Ecchymosis, Wound/Incision Lymphatic: No Adenopathy #1 Interpretation EKG Date: 02/23/20 Time: 08:59 Rhythm: A-Fib Rate (Beats/Min): 94 [place]: LAD-Left [place] Deviation (Extended left cardiac axis) P-Wave: Variable QRS: RBBB (0.12 seconds representing incomplete right bundle branch block) ST-T: Other (T wave inversion in lead V1 with new T wave inversion in lead aVL. Nonspecific ST changes) QT: Normal VA/PQ Interval: Variable Comparison: Change From Previous EKG (As above since 01/11/2020) EKG Interpretation Comments: 1. No acute ischemic changes with questionable beginning lateral wall ischemia 2. Atrial fibrillation 3. Complete right bundle branch block Course - Vital Signs Last Recorded V/S: Last Vital Signs Temp 36.2 C 02/23/20 09:15 Pulse 106 H 02/23/20 10:46 Resp 25 H 02/23/20 10:46 BP 161/85 H 02/23/20 10:46 Pulse Ox 97 02/23/20 10:46 Vital Signs - 24 hr 02/23/20 02/23/20 02/23/20 08:11 08:13 08:15 Temperature [ 36.6 C 36.6 C Temporal] Pulse, 104 H 104 H 103 H Peripheral [ Right Pulse Oximetry] Respiratory 28 H 28 H 31 H Rate Blood Pressure 153/80 H 153/80 H 156/84 H [Right Upper Arm] O2 Sat by Pulse 100 100 96 Oximetry O2 Sat by Pulse Oximetry [ Nasal Cannula] 02/23/20 02/23/20 02/23/20 08:36 08:41 08:59 Temperature [ Temporal] Pulse, 90 97 Peripheral [ Right Pulse Oximetry] Respiratory 27 H 25 H Rate Blood Pressure 145/82 H 154/89 H [Right Upper Arm] O2 Sat by Pulse 94 L 99 Oximetry O2 Sat by Pulse 95 Oximetry [ Nasal Cannula] 02/23/20 02/23/20 02/23/20 09:07 09:08 09:15 Temperature [ 36.2 C 36.2 C Temporal] Pulse, 100 93 101 H Peripheral [ Right Pulse Oximetry] Respiratory 30 H 32 H 33 H Rate Blood Pressure 158/91 H 165/90 H [Right Upper Arm] O2 Sat by Pulse 100 99 97 Oximetry O2 Sat by Pulse Oximetry [ Nasal Cannula] 02/23/20 02/23/20 02/23/20 09:30 10:04 10:11 Temperature [ Temporal] Pulse, 101 H 95 119 H Peripheral [ Right Pulse Oximetry] Respiratory 32 H 28 H 27 H Rate Blood Pressure 148/84 H 167/97 H 159/97 H [Right Upper Arm] O2 Sat by Pulse 99 96 99 Oximetry O2 Sat by Pulse Oximetry [ Nasal Cannula] 02/23/20 02/23/20 10:15 10:46 Temperature [ Temporal] Pulse, 102 H 106 H Peripheral [ Right Pulse Oximetry] Respiratory 34 H 25 H Rate Blood Pressure 157/90 H 161/85 H [Right Upper Arm] O2 Sat by Pulse 99 97 Oximetry O2 Sat by Pulse Oximetry [ Nasal Cannula] - Orders/Labs/Meds Orders: Active Orders 24 hr Category Date Time Status Cardiac Monitoring [RC] . DIRECTED Care 02/23/20 08:36 Active EKG Documentation Completion [RC] ASDIRECTED Care 02/23/20 08:37 Active Oxygen Therapy, ED [RC] CONTINUOUS Care 02/23/20 08:36 Active Peripheral IV Care [RC] . DIRECTED Care 02/23/20 08:37 Active Pulse Oximetry [RC] CONTINUOUS Care 02/23/20 08:36 Active Up With Assistance [RC] PFP Care 02/23/20 08:36 Active Vital Signs [RC] PFP Care 02/23/20 08:36 Active Nothing per Oral Now Diet [DIET] Diet 02/23/20 Breakfast Active Chest 1V Frontal [CR] Stat Exams 02/23/20 08:36 Taken CULTURE BLOOD [BC] Stat Lab 02/23/20 08:55 Received CULTURE BLOOD [BC] Stat Lab 02/23/20 09:05 Received Levofloxacin/Dextrose 5%-Water [Levaquin in D5W 500 MG/ Med 02/23/20 10:17 Active 100 ML] 500 mg Premix Bag 1 bag IV ONETIME Sodium Chloride 0.9% [Saline Flush] Med 02/23/20 08:16 Active 10 ml FLUSH ASDIRECTED PRN Sodium Chloride 0.9% [Saline Flush] Med 02/23/20 08:36 Active 10 ml FLUSH ASDIRECTED PRN Blood Culture x2 Reflex Set [OM.PC] Urgent Oth 02/23/20 08:38 Ordered Isolation [COMM] Routine Oth 02/23/20 08:16 Active Obtain Past Medical Record [OM.PC] Urgent Oth 02/23/20 08:36 Active Peripheral IV Insertion Adult [OM.PC] Stat Oth 02/23/20 08:36 Ordered Saline Lock Insert [OM.PC] Routine Oth 02/23/20 08:16 Ordered Resuscitation Status Stat Resus Stat 02/23/20 08:36 Ordered Medication Orders Levofloxacin/Dextrose 500 mg/ (Premix) 100 mls @ 100 mls/hr IV ONETIME ONE Stop: 02/23/20 11:16 Last Admin: 02/23/20 10:23 Dose: 100 mls/hr Documented by: CHANI Sodium Chloride (Saline Flush) 10 ml FLUSH ASDIRECTED PRN PRN Reason: Keep Vein Open Last Admin: 02/23/20 10:25 Dose: 10 ml Documented by: Admin: 02/23/20 09:59 Dose: 10 ml Documented by: Admin: 02/23/20 08:46 Dose: 10 ml Documented by: CHANI Sodium Chloride (Saline Flush) 10 ml FLUSH ASDIRECTED PRN PRN Reason: Keep Vein Open Labs: Laboratory Tests 02/23/20 02/23/20 02/23/20 Range/Units 08:15 08:55 08:55 WBC 9.0 (4.0-10.2) K/uL RBC 4.64 (4.33-5.41) M/uL Hgb 10.9 L (13.1-16.8) g/dL Hct 40.5 (39.0-49.0) % MCV 87.3 D (84.0-98.0) fL MCH 23.5 L (28.2-33.3) pg MCHC 26.9 L (31.7-36.0) g/dL RDW 20.1 H (11.2-14.1) % Plt Count 234 (150-350) K/uL Neut % (Auto) 62.5 (45.0-80.0) % Lymph % (Auto) 21.5 (10.0-50.0) % [place] % (Auto) 9.4 (2.0-14.0) % Eos % (Auto) 6.3 H (0.0-5.0) % Baso % (Auto) 0.3 (0.0-2.0) % Neut # (Auto) 5.64 (1.40-7.00) K/uL Lymph # (Auto) 1.94 (0.50-3.50) K/uL [place] # (Auto) 0.85 (0.00-1.00) K/uL Eos # (Auto) 0.57 H (0.00-0.50) K/uL Baso # (Auto) 0.03 (0.00-0.20) K/uL PT 16.0 H (9.5-12.0) SEC INR 1.6 APTT 38.9 H (24.5-32.8) SEC D-Dimer, Quantitative (0-400) ng/mL Sodium (136-145) mmol/L Potassium (3.5-5.1) mmol/L Chloride (98-107) mmol/L Carbon Dioxide (21.0-32.0) mmol/L BUN (7-18) mg/dL Creatinine (0.51-1.17) mg/dL Est Cr Clr Drug Dosing mL/min Estimated GFR (MDRD) mL/min Glucose (74-106) mg/dL Lactic Acid (0.4-2.0) mmol/L Uric Acid (2.6-7.2) mg/dL Calcium (8.5-10.1) mg/dL Magnesium (1.8-2.4) mg/dL Total Bilirubin (0.2-1.0) mg/dL AST (15-37) U/L ALT (12-78) U/L Alkaline Phosphatase (46-116) IU/L Creatine Kinase (26-308) U/L Creatine Kinase Index (0.0-2.5) % CK-MB (CK-2) (0.00-3.60) ng/mL Troponin I (0.000-0.056) ng/mL NT-Pro-B Natriuret Pep (0-125) pg/mL Total Protein (6.4-8.2) g/dL Albumin (3.4-5.0) g/dL TSH, Ultra Sensitive (0.358-3.740) mIU/mL Digoxin (0.90-2.00) ng/mL SARS-CoV-2 RNA (MELISSA) Negative (NEGATIVE) 02/23/20 02/23/20 02/23/20 Range/Units 08:55 08:55 08:55 WBC (4.0-10.2) K/uL RBC (4.33-5.41) M/uL Hgb (13.1-16.8) g/dL Hct (39.0-49.0) % MCV (84.0-98.0) fL MCH (28.2-33.3) pg MCHC (31.7-36.0) g/dL RDW (11.2-14.1) % Plt Count (150-350) K/uL Neut % (Auto) (45.0-80.0) % Lymph % (Auto) (10.0-50.0) % [place] % (Auto) (2.0-14.0) % Eos % (Auto) (0.0-5.0) % Baso % (Auto) (0.0-2.0) % Neut # (Auto) (1.40-7.00) K/uL Lymph # (Auto) (0.50-3.50) K/uL [place] # (Auto) (0.00-1.00) K/uL Eos # (Auto) (0.00-0.50) K/uL Baso # (Auto) (0.00-0.20) K/uL PT (9.5-12.0) SEC INR APTT (24.5-32.8) SEC D-Dimer, Quantitative < 100 (0-400) ng/mL Sodium 138 (136-145) mmol/L Potassium 5.4 H (3.5-5.1) mmol/L Chloride 100 (98-107) mmol/L Carbon Dioxide 37.8 H (21.0-32.0) mmol/L BUN 26 H (7-18) mg/dL Creatinine 0.75 (0.51-1.17) mg/dL Est Cr Clr Drug Dosing 76.16 mL/min Estimated GFR (MDRD) > 60 mL/min Glucose 185 H (74-106) mg/dL Lactic Acid 0.7 (0.4-2.0) mmol/L Uric Acid 5.0 (2.6-7.2) mg/dL Calcium 9.3 (8.5-10.1) mg/dL Magnesium 2.2 (1.8-2.4) mg/dL Total Bilirubin 0.4 (0.2-1.0) mg/dL AST 23 (15-37) U/L ALT 22 (12-78) U/L Alkaline Phosphatase 118 H (46-116) IU/L Creatine Kinase 75 (26-308) U/L Creatine Kinase Index 2.5 (0.0-2.5) % CK-MB (CK-2) 1.90 (0.00-3.60) ng/mL Troponin I 0.023 (0.000-0.056) ng/mL NT-Pro-B Natriuret Pep 2811 H (0-125) pg/mL Total Protein 8.1 (6.4-8.2) g/dL Albumin 3.1 L (3.4-5.0) g/dL TSH, Ultra Sensitive 2.550 (0.358-3.740) mIU/mL Digoxin 0.52 L (0.90-2.00) ng/mL SARS-CoV-2 RNA (MELISSA) (NEGATIVE) Blood cultures x2 were collected Microbiology 02/23/20 08:15 Influenza Type A Antigen Screen - Final Nasal, Unspecified NEGATIVE INFLUENZA A VIRUS AG REFERENCE RANGE: NEGATIVE Influenza Type B Antigen Screen - Final NEGATIVE INFLUENZA B VIRUS AG REFERENCE RANGE: NEGATIVE Meds: Medications Generic Name Dose Route Start Last Admin Trade Name Freq PRN Reason Stop Dose Admin Levofloxacin/Dextrose 500 mg/ 100 mls @ 100 mls/hr 02/23/20 10:17 02/23/20 10:23 Premix IV 02/23/20 11:16 100 mls/hr ONETIME ONE Administration Sodium Chloride 10 ml 02/23/20 08:16 02/23/20 10:25 Saline Flush FLUSH 10 ml ASDIRECTED PRN Administration Keep Vein Open Sodium Chloride 10 ml 02/23/20 08:36 Saline Flush FLUSH ASDIRECTED PRN Keep Vein Open Discontinued Medications Generic Name Dose Route Start Last Admin Trade Name Freq PRN Reason Stop Dose Admin Famotidine 40 mg 02/23/20 08:36 02/23/20 08:46 Pepcid IVPUSH 02/23/20 08:37 40 mg ONETIME ONE Administration Furosemide 60 mg 02/23/20 09:50 02/23/20 09:59 Lasix IVPUSH 02/23/20 09:51 60 mg NOW ONE Administration - Radiology Interpretation Free Text/Narrative:: night monitor shows atrial fibrillation with average heart rate in the 90s to low 100s with occasional uniform PVCs however no other significant ectopy or arrhythmia. Chest x-ray, portable, shows moderate to severe cardiomegaly with moderate CHF' including a small left pleural effusion. Additional moderate bilateral pu lmonary infiltrates especially in the right middle and right lower lobes. Moderate COPD changes with mild aortic valve calcification and mild prominence of the proximal aortic arch. No pneumothorax, etc. Departure - Departure Time of Disposition: 11:00 Disposition: DC/Tfer to Acute Hospital 02 Condition: Fair Clinical Impression: Pneumonia, Hyperkalemia, Hypoalbuminemia COPD (chronic obstructive pulmonary disease) Qualifiers: COPD type: COPD with acute lower respiratory infection Qualified Code(s): J44.0 - Chronic obstructive pulmonary disease with (acute) lower respiratory infection CHF (congestive heart failure) Qualifiers: Heart failure type: unspecified Heart failure chronicity: acute on chronic Qualified Code(s): I50.9 - Heart failure, unspecified Atrial fibrillation Qualifiers: Atrial fibrillation type: persistent (not longstanding) Qualified Code(s): I48.19 - Other persistent atrial fibrillation Diabetes mellitus Qualifiers: Diabetes mellitus type: type 2 Diabetes mellitus terminal carman insulin use: with terminal carman use Diabetes mellitus complication status: with ophthalmic compl ications Diabetes mellitus complication detail: with diabetic retinopathy Diabetic retinopathy severity: with unspecified retinopathy severity Diabetes mellitus macular edema: with macular edema Laterality: unspecified laterality Qualified Code(s): 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 Anemia Qualifiers: Anemia type: unspecified type Qualified Code(s): D64.9 - Anemia, unspecified - Discharge Information *PRESCRIPTION DRUG MONITORING PROGRAM REVIEWED*: Not Applicable *COPY OF PRESCRIPTION DRUG MONITORING REPORT IN PATIENT JEANNE: Not Applicable Referrals: PCP,None [Primary Care Provider] - Forms: ED Department Discharge, Interfacility Transfer [facility] Sepsis Event Note (ED) - Evaluation Sepsis Screening Result: Possible Sepsis Risk - Focused Exam Vital Signs: Vital Signs Temp Pulse Resp BP Pulse Ox Pulse Ox 02/23/20 10:46 106 H 25 H 161/85 H 97 02/23/20 10:15 102 H 34 H 157/90 H 99 02/23/20 10:11 119 H 27 H 159/97 H 99 02/23/20 10:04 95 28 H 167/97 H 96 02/23/20 09:30 101 H 32 H 148/84 H 99 02/23/20 09:15 36.2 C 101 H 33 H 165/90 H 97 02/23/20 09:08 93 32 H 158/91 H 99 02/23/20 09:07 36.2 C 100 30 H 100 02/23/20 08:59 97 25 H 154/89 H 99 02/23/20 08:41 90 27 H 145/82 H 94 L 02/23/20 08:36 95 02/23/20 08:15 103 H 31 H 156/84 H 96 02/23/20 08:13 36.6 C 104 H 28 H 153/80 H 100 02/23/20 08:11 36.6 C 104 H 28 H 153/80 H 100 - Problem List & Annotations (1) CHF (congestive heart failure) SNOMED Code(s): 06622007 Code(s): I50.9 - HEART FAILURE, UNSPECIFIED Status: Acute Priority: High Current Visit: Yes Onset Date: 11/22/19 Annotation/Comment:: [facility] [place] [facility]48 [facility] with subsequent indirect telephone consultation at 10:[address] Rosales, who does agree to accept the patient for direct admission, with no further treatment recommendations given. Vital signs and clinical exam were stable at time of transfer. Ambulance transfer by means of ambulance with kitchen utility associate accompaniment. Moderate CHF by chest x-ray and clinical exam with significant hypoxia prior to patient transfer to our emergency room as above. Patient has been O2 dependent secondary to hypoxia, however he has been noncompliant with his nocturnal O2. Patient's O2 sats stabilized prior to transfer on 2 L/min by nasal cannula prior to patient transfer. IV Lasix 60 mg given prior to patient's transfer with continuation of aggressive IV diuresis by accepting providers. Note current Denney catheter therapy. Qualifiers: Heart failure type: unspecified Heart failure chronicity: acute on chronic Qualified Code(s): I50.9 - Heart failure, unspecified (2) Pneumonia SNOMED Code(s): 575084541 Code(s): J18.9 - PNEUMONIA, UNSPECIFIED ORGANISM Status: Acute Priority: High Current Visit: Yes Onset Date: 02/23/20 Annotation/Comment:: IV Levaquin initiated in the emergency room prior to patient transfer. Despite no leukocytosis, fever, and normal lactic acid level I do have suspicions of bilateral pneumonia including in the right middle and right lower lobes. Sputum could not be obtained prior to patient transfer. Blood cultures x2 were collected prior to initiation of the above antibiotic therapy. Note negative influenza and COVID-19 rapid test in our facility today. (3) Hyperkalemia SNOMED Code(s): 28671344 Code(s): E87.5 - HYPERKALEMIA Status: Acute Priority: High Current Visit: Yes Onset Date: 02/23/20 Annotation/Comment:: IV Lasix given as above with history of hypokalemia. (4) Atrial fibrillation SNOMED Code(s): 24063692 Code(s): I48.91 - UNSPECIFIED ATRIAL FIBRILLATION Status: Chronic Priorit y: Medium Current Visit: Yes Annotation/Comment:: No chest pain or anginal- type symptoms, although the patient is a somewhat poor historian. Note current CHF both by clinical exam and chest x-ray with moderately elevated BNP. Cardiac enzymes and EKG are otherwise stable. Note right bundle branch block and PVCs with additional previous couplets by history. Patient is currently on Pradaxa. Subtherapeutic random digoxin level in the emergency room today. Further medication adjustment by accepting providers depending on his clinical course. Qualifiers: Atrial fibrillation type: persistent (not longstanding) Qualified Code(s): I48.19 - Other persistent atrial fibrillation; I48.1 - Persistent atrial fibrillation (5) COPD (chronic obstructive pulmonary disease) SNOMED Code(s): 06051199 Code(s): J44.9 - CHRONIC OBSTRUCTIVE PULMONARY DISEASE, UNSPECIFIED Status: Chronic Priority: Medium Current Visit: Yes Annotation/Comment:: Probable concurrent pneumonia however difficult to assess in today's chest x-ray secondary to his concurrent CHF. Note history of nocturnal O2 requirement in t he past with patient noncompliance as above. Qualifiers: COPD type: COPD with acute lower respiratory infection Qualified Code(s): J44.0 - Chronic obstructive pulmonary disease with (acute) lower respiratory infection (6) Diabetes mellitus SNOMED Code(s): 88779537 Code(s): E11.9 - TYPE 2 DIABETES MELLITUS WITHOUT COMPLICATIONS Status: Chronic Priority: Medium Current Visit: Yes Annotation/Comment:: IDDM with diabetic retinopathy, etc. as above. Consider sliding scale by accepting providers secondary to current infection. 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 Qualifiers: Hypertension type: essential hypertension Qualified Code(s): I10 - Essential (primary) hypertension (8) Osteoarthritis SNOMED Code(s): 803115547 Code(s): M19.90 - UNSPECIFIED OSTEOARTHRITIS, UNSPECIFIED SITE Status: Chronic Priority: Medium Current Visit: Yes Annotation/Comment:: Stable by history Qualifiers: Osteoarthritis location: multiple joints Osteoarthritis type: primary Qualified Code(s): M89.49 - Other hypertrophic osteoarthropathy, multiple sites (9) Confusion SNOMED Code(s): 211079815 Code(s): R41.0 - DISORIENTATION, UNSPECIFIED Status: Chronic Priority: Medium Current Visit: Yes Annotation/Comment:: 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 Note some increased sedation today, however secondary to current infection, CHF, etc. Continue to observe closely by accepting providers. (10) Anemia SNOMED Code(s): 202672638 Code(s): D64.9 - ANEMIA, UNSPECIFIED Status: Chronic Priority: Medium Current Visit: Yes Onset Date: 11/22/19 Annotation/Comment:: Mild anemia with no abdominal complaints or evidence of acute GI bleed. High-dose IV Pepcid given as GI prophylaxis. 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 Consider high-protein Glucerna supplements as snacks. - Problem List Review Problem List Initiated/Reviewed/Updated: Yes - My Orders Last 24 Hours: My Active Orders 02/23/20 Breakfast Nothing per Oral Now Diet [DIET] 02/23/20 08:16 Sodium Chloride 0.9% [Saline Flush] 10 ml FLUSH ASDIRECTED PRN Isolation [COMM] Routine Saline Lock Insert [OM.PC] Routine 02/23/20 08:36 Cardiac Monitoring [RC] . DIRECTED Oxygen Therapy, ED [RC] CONTINUOUS Pulse Oximetry [RC] CONTINUOUS Up With Assistance [RC] PFP Vital Signs [RC] PFP Chest 1V Frontal [CR] Stat Sodium Chloride 0.9% [Saline Flush] 10 ml FLUSH ASDIRECTED PRN Obtain Past Medical Record [OM.PC] Urgent Peripheral IV Insertion Adult [OM.PC] Stat Resuscitation Status Stat 02/23/20 08:37 EKG Documentation Completion [RC] ASDIRECTED Peripheral IV Care [RC] . DIRECTED 02/23/20 08:38 Blood Culture x2 Reflex Set [OM.PC] Urgent 02/23/20 08:55 CULTURE BLOOD [BC] Stat 02/23/20 09:05 CULTURE BLOOD [BC] Stat 02/23/20 10:17 Levofloxacin/Dextrose 5%-Water [Levaquin in D5W 500 MG/100 ML] 500 mg Premix Bag 1 bag IV ONETIME - Assessment/Plan Last 24 Hours: My Active Orders 02/23/20 Breakfast Nothing per Oral Now Diet [DIET] 02/23/20 08:16 Sodium Chloride 0.9% [Saline Flush] 10 ml FLUSH ASDIRECTED PRN Isolation [COMM] Routine Saline Lock Insert [OM.PC] Routine 02/23/20 08:36 Cardiac Monitoring [RC] . DIRECTED Oxygen Therapy, ED [RC] CONTINUOUS Pulse Oximetry [RC] CONTINUOUS Up With Assistance [RC] PFP Vital Signs [RC] PFP Chest 1V Frontal [CR] Stat Sodium Chloride 0.9% [Saline Flush] 10 ml FLUSH ASDIRECTED PRN Obtain Past Medical Record [OM.PC] Urgent Peripheral IV Insertion Adult [OM.PC] Stat Resuscitation Status Stat 02/23/20 08:37 EKG Documentation Completion [RC] ASDIRECTED Peripheral IV Care [RC] . DIRECTED 02/23/20 08:38 Blood Culture x2 Reflex Set [OM.PC] Urgent 02/23/20 08:55 CULTURE BLOOD [BC] Stat 02/23/20 09:05 CULTURE BLOOD [BC] Stat 02/23/20 10:17 Levofloxacin/Dextrose 5%-Water [Levaquin in D5W 500 MG/100 ML] 500 mg Premix Bag 1 bag IV ONETIME Assessment:: As above. Plan: As above. Extensive precautions were given to the patient and his son during previous telephone consultations, who are in agreement with the treatment plan. Ambulance transfer to the [facility] via ambulance with kitchen utility associate accompaniment as above.
[2020-02-23] MEDS: Sodium Chloride 0.9% 10 ML Syringe FLUSH PRN ×3 (08:46→10:25)
[2020-02-23 09:23] LABS: PTT,PARTIAL THROMBOPLSTIN TIME 38.9 SEC (24.5-32.8)
[2020-02-23 09:37] LABS: CHLORIDE,CL 100 mmol/L (98-107); SODIUM,NA 138 mmol/L (136-145)
[2020-02-23] MEDS ORDERED: Furosemide 40 MG/4 ML VIAL IVPUSH ONE (09:50)
[2020-02-23] MEDS ORDERED: Levofloxacin/Dextrose 5%-Water 500 MG in Premix Bag 1 BAG IV ONE (10:17)
[2020-02-23 10:47] VITALS: BP 161/85; PULSE 106
== END 2020-02-23 11:00 ==
LOC: LL.ED 08:11
DX: E11.311 Type 2 diabetes mellitus with unspecified diabetic retinopathy with macular edema (principal); I11.0 Hypertensive heart disease with heart failure; I48.91 Unspecified atrial fibrillation; I50.9 Heart failure, unspecified; J44.0 Chronic obstructive pulmonary disease with (acute) lower respiratory infection; J18.9 Pneumonia, unspecified organism; E87.5 Hyperkalemia; E88.09 Other disorders of plasma-protein metabolism, not elsewhere classified; N40.0 Benign prostatic hyperplasia without lower urinary tract symptoms; E11.42 Type 2 diabetes mellitus with diabetic polyneuropathy; E66.9 Obesity, unspecified; G30.9 Alzheimer's disease, unspecified; F02.80 Dementia in other diseases classified elsewhere, unspecified severity, without behavioral disturbance, psychotic disturbance, mood disturbance, and anxiety; F41.9 Anxiety disorder, unspecified; F32.9 Major depressive disorder, single episode, unspecified; Z88.1 Allergy status to other antibiotic agents; Z88.2 Allergy status to sulfonamides; Z79.899 Other long term (current) drug therapy; Z68.32 Body mass index [BMI] 32.0-32.9, adult; Z79.4 Long term (current) use of insulin
CPT/HCPCS: 36415; 71045; 80053; 80162; 82550; 82553; 83605; 83735; 83880; 84443; 84484; 84550; 85025; 85379; 85610; 85730; 87040; 87804; 93005; 96365; 96375; 99285-25; J1940; J1956; J3490; U0002